=== PATIENT | female | born 1950 | race Caucasian/White ===

== ENCOUNTER 2019-12-06 00:54 | Outpatient (CLI) | payer BC, MEDICARE, SELFPAY ==
[2019-12-06 09:46] LABS: HCT 42.2 % (36.0-46.0); HGB 13.5 g/dL (12.0-15.5); Mean Corpuscular Volume 90.6 fL (80-95); Mean Platelet Volume 10.6 fL (8.0-11.0); Platelet Count 209 x1000/uL (130-400); RBC 4.66 m/cumm (4.00-5.20); White Blood Cell Count 9.85 k/cumm (4.4-10.8)
[2019-12-06 10:05] LABS: Hemoglobin A1C 6.4 % (3.8-5.6)
[2019-12-06 10:51] LABS: COMMENT (LAB VIEW ONLY) 83.74 mg/dL; Microalb ug/mg Crea 54.7 ug/mg Cr
[2019-12-06 11:12] LABS: ALT 18 U/L (14-59); AST 17 U/L (15-37); Albumin 3.5 g/dL (3.4-5.0); Alkaline Phosphatase 83 U/L (46-116); Anion Gap 8.2 mmol/L (3-11); BUN 23 mg/dL (7-18); Bilirubin, Total 0.4 mg/dL (0.2-1.0); CO2 30.8 mmol/L (21.0-32.0); CREATININE 1.16 mg/dL (0.55-1.02); Calcium 9.2 mg/dL (8.5-10.1); Calculated LDL 101 mg/dL (<100); Chloride 105 mmol/L (98-107); Cholesterol 174 mg/dL (<200); Estimated GFR 46.19 (mL/min/1.73m2); Glucose 75 mg/dL (74-106); HDL Cholesterol 55 mg/dL (40-60); Potassium 4.4 mmol/L (3.5-5.1); Sodium 144 mmol/L (136-145); Total Protein 6.7 g/dL (6.4-8.2); Triglyceride 90 mg/dL (<150); Vitamin B12 1141 pg/mL (193-986)
[2019-12-06 11:27] LABS: Folate > 20.0 ng/mL (8.6-20.0)
[2019-12-09 08:36] LABS: Vitamin D 25 Total 31.1 ng/ml (30-100)
== END 2019-12-06 01:14 ==
PROVIDERS: PCP Nurse Practitioner Adult Health; Visit Provider Nurse Practitioner Adult Health
DX: D64.9 Anemia, unspecified (principal); E11.9 Type 2 diabetes mellitus without complications; E53.8 Deficiency of other specified B group vitamins; E55.9 Vitamin D deficiency, unspecified; E78.5 Hyperlipidemia, unspecified; I10 Essential (primary) hypertension; N32.81 Overactive bladder; R20.0 Anesthesia of skin; R20.2 Paresthesia of skin; Z51.81 Encounter for therapeutic drug level monitoring
CPT/HCPCS: 36415; 80053; 80061; 82306; 85027; 82043; 82570; 82607; 82746; 83036

== ENCOUNTER 2020-07-31 07:53 | Outpatient (CLI) | payer BC, MEDICARE, SELFPAY ==
[2020-08-01 15:08] LABS: COVID-19 RT-PCR Result NEGATIVE (Negative)
== END 2020-07-31 08:13 ==
PROVIDERS: PCP Nurse Practitioner Adult Health; Visit Provider Internal Medicine Sleep Medicine
DX: Z11.59 Encounter for screening for other viral diseases (principal); Z01.818 Encounter for other preprocedural examination
CPT/HCPCS: U0003

== ENCOUNTER 2020-10-19 03:30 | Outpatient (CLI) | payer BC, MEDICARE, SELFPAY ==
[2020-10-20 21:24] LABS: COVID-19 RT-PCR Result NEGATIVE (Negative)
== END 2020-10-19 03:50 ==
PROVIDERS: PCP Nurse Practitioner Adult Health; Visit Provider Internal Medicine Sleep Medicine
DX: Z11.59 Encounter for screening for other viral diseases (principal); Z01.818 Encounter for other preprocedural examination
CPT/HCPCS: U0003

== ENCOUNTER 2021-11-10 01:41 | Outpatient (CLI) | payer MEDICARE, SELFPAY ==
[2021-11-10 09:54] LABS: HCT 43.1 % (36.0-46.0); HGB 13.6 g/dL (11.2-15.7); MCH 27.6 pg (27.0-33.0); MCHC 31.6 % (32.0-36.0); MCV 87.6 fL (80-95); MPV 10.8 fL (8.0-11.0); Platelet Count 215 10^3/uL (130-400); RBC 4.92 10^6/uL (3.93-5.22); RDW 13.7 % (11.7-14.6); RDW-SD 43.8 fL; WBC 9.03 10^3/uL (4.4-10.8)
[2021-11-10 10:35] LABS: Hemoglobin A1C 6.7 % (<5.7)
[2021-11-10 11:08] LABS: ALT 14 U/L (14-59); AST 15 U/L (15-37); Albumin 3.7 g/dL (3.4-5.0); Alkaline Phosphatase 81 U/L (46-116); Anion Gap 9.1 mmol/L (3-11); BUN 16 mg/dL (7-18); Bilirubin, Total 0.4 mg/dL (0.2-1.0); CO2 29.9 mmol/L (21.0-32.0); CREATININE 1.1 mg/dL (0.55-1.02); Calcium 9.3 mg/dL (8.5-10.1); Calculated LDL 136 mg/dL (<100); Chloride 103 mmol/L (98-107); Cholesterol 218 mg/dL (<200); Estimated GFR 48.82 (mL/min/1.73m2); Glucose 89 mg/dL (74-106); HDL Cholesterol 60 mg/dL (40-60); Potassium 4.8 mmol/L (3.5-5.1); Sodium 142 mmol/L (136-145); Triglyceride 112 mg/dL (<150)
[2021-11-11 00:42] LABS: Vitamin D 25 Total 42.2 ng/mL (30-100)
== END 2021-11-10 01:42 | disposition home or self-care (01) ==
LOC: LBO 01:41
PROVIDERS: PCP Nurse Practitioner Adult Health; Visit Provider Nurse Practitioner Adult Health
DX: I10 Essential (primary) hypertension (principal); E78.5 Hyperlipidemia, unspecified; E55.9 Vitamin D deficiency, unspecified; D64.9 Anemia, unspecified; E11.9 Type 2 diabetes mellitus without complications; Z79.4 Long term (current) use of insulin
CPT/HCPCS: 36415; 80053; 80061; 82306; 85027; 83036

== ENCOUNTER 2022-01-07 03:32 | Outpatient (CLI) | payer MEDICARE, SELFPAY ==
[2022-01-07 09:17] LABS: Abs Immature Grans 0.05 10^3/uL (0.0-0.06); Absolute Basophil Count 0.08 10^3/uL (0.0-0.2); Absolute Eosinophil Count 0.22 10^3/uL (0.0-0.7); Absolute Lymphocyte Count 2.47 10^3/uL (1.2-3.4); Absolute Neutrophil Count 5.84 10^3/uL (1.2-6.7); Basophils % 0.9; Eosinophils % 2.4; HGB 13.6 g/dL (11.2-15.7); Immature Grans % 0.6; Lymphocytes % 27.3; MCH 27.9 pg (27.0-33.0); MCHC 31.6 % (32.0-36.0); MCV 88.3 fL (80-95); MPV 10.9 fL (8.0-11.0); Monocytes % 4.4; Neutrophils % 64.4; Nucleated RBC 0 %; Platelet Count 214 10^3/uL (130-400); RBC 4.87 10^6/uL (3.93-5.22); RDW 13.2 % (11.7-14.6); RDW-SD 42.8 fL; WBC 9.06 10^3/uL (4.4-10.8)
[2022-01-07 09:30] LABS: Hemoglobin A1C 6.8 % (<5.7)
[2022-01-07 09:51] LABS: COMMENT (LAB VIEW ONLY) 143.69 mg/dL; Microalb ug/mg Crea 9.6 ug/mg Cr
[2022-01-07 10:28] LABS: ALT 16 U/L (14-59); AST 14 U/L (15-37); Albumin 3.8 g/dL (3.4-5.0); Alkaline Phosphatase 83 U/L (46-116); Anion Gap 9.6 mmol/L (3-11); BUN 16 mg/dL (7-18); Bilirubin, Total 0.4 mg/dL (0.2-1.0); CO2 28.4 mmol/L (21.0-32.0); CREATININE 1.1 mg/dL (0.55-1.02); Calcium 8.9 mg/dL (8.5-10.1); Calculated LDL 62 mg/dL (<100); Chloride 104 mmol/L (98-107); Cholesterol 134 mg/dL (<200); Estimated GFR 48.82 (mL/min/1.73m2); Folate 3.8 ng/mL (8.6-20.0); Glucose 128 mg/dL (74-106); HDL Cholesterol 55 mg/dL (40-60); Potassium 4.2 mmol/L (3.5-5.1); Sodium 142 mmol/L (136-145); TSH 1.68 uIU/mL (0.36-3.74); Total Protein 7.1 g/dL (6.4-8.2); Triglyceride 89 mg/dL (<150); Vitamin B12 339 pg/mL (193-986)
[2022-01-07 10:51] LABS: C-Reactive Protein 0.81 mg/dL (0.0-0.3); FREE T4 0.96 ng/dL (0.76-1.46)
[2022-01-09 23:57] LABS: Anaplasma phagocytophilum Negative (Negative); B. miyamotoi PCR Negative (Negative); Babesia divergens/MO-1 Negative (Negative); Babesia duncani Negative (Negative); Babesia microti Negative (Negative); Ehrlichia chaffeensis Negative (Negative); Ehrlichia ewingii/canis Negative (Negative); Ehrlichia muris eauclairensis Negative (Negative)
[2022-01-10 11:30] LABS: HIV-1/2 Ag & Ab Screen Negative (Negative)
[2022-01-10 14:37] LABS: Lyme Ab w Rflx to Lyme Confirm Negative (Negative)
== END 2022-01-07 03:33 | disposition home or self-care (01) ==
LOC: LBO 03:32
PROVIDERS: PCP Nurse Practitioner Adult Health; Visit Provider Nurse Practitioner Adult Health
DX: L74.4 Anhidrosis (principal); F32.9 Major depressive disorder, single episode, unspecified; E53.8 Deficiency of other specified B group vitamins; Z86.2 Personal history of diseases of the blood and blood-forming organs and certain disorders involving the immune mechanism; E11.9 Type 2 diabetes mellitus without complications; E78.2 Mixed hyperlipidemia; Z79.4 Long term (current) use of insulin
CPT/HCPCS: 36415; 80053; 80061; 87389; 87798; 82043; 82570; 82607; 82746; 83036; 84439; 84443; 85025; 86140; 86618

== ENCOUNTER 2022-01-26 03:10 | Outpatient (CLI) | payer MEDICARE, SELFPAY ==
[2022-01-28 10:06] LABS: Homocysteine 36.1 umol/L (5.0-13.9)
[2022-01-31 09:05] LABS: Methylmalonic Acid 0.24 nmol/mL (<=0.40)
== END 2022-01-26 03:11 | disposition home or self-care (01) ==
LOC: LBO 03:10
PROVIDERS: PCP Nurse Practitioner Adult Health; Visit Provider Nurse Practitioner Adult Health
DX: E53.8 Deficiency of other specified B group vitamins (principal)
CPT/HCPCS: 36415; 80186; 83090

== ENCOUNTER 2022-02-07 03:09 | Outpatient (CLI) | payer MEDICARE, SELFPAY ==
--- NOTE | 2022-02-07 15:28 | DI.MAMMO_ITS ---
Exam(s) MAMMO SCREENING EXAM: MAMMO SCREENING CLINICAL HISTORY: screening,Z12.39. TECHNIQUE: Bilateral full field digital CC and MLO mammographic images were obtained with 3D tomosyn thesis and utilizing computer aided detection (CAD). COMPARISON: Prior mammograms in [place] apparently not available and therefore this case is now being dictated. FINDINGS: No significant radiograph findings in left breast. In the right breast there is a group of microcalcifications located lateral of center, approximately 6 cm in from the nipple. Requires spot Mag views. In addition, there is a dense nodular density superiorly in the right breast is probably a calcified oil cyst, only seen on the MLO view. Recommend additional views including exaggerated CC. Another n odule more posteriorly which is noncalcified has appearance of probable benign lymph node. There is no significant architectural distortion nor skin thickening-retraction. IMPRESSION: 1. No radiographic evidence of malignancy in left breast. 2. Right breast findings which require additional views including spot Mag CC and MLO views of a velvet rocalcification group as well as a straight lateral view of this microcalcification group. Also avril tional exaggerated CC view.. BI-RADS Category 0 - Assessment Incomplete: Need additional imaging evaluation Breast Density - Category B - Scattered areas of fibroglandular density Breast density Category C or D implies that the patient has dense breast tissue. Dense breast tissue can make it harder to find cancer on a mammogram. Dense breast tissue is also associated with an incr eased risk of breast cancer. This information about the result of the mammogram report was provided to the patient to raise their awareness. Use this report when you speak with the patient about their risks for breast cancer, which includes their family history. At that time, you may recommend additional screening tests (Ultrasoun d or MRI) as these tests may add significant information. A negative radiographic report should not delay biopsy if a dominant or clinically suspicious mass is present. Up to ten percent of cancers are not identified on mammography. A negative report may reinforce clinical impression. Adenosis and dense breasts may obscure an underlying neoplasm. False positive reports average 6 to 10%. Patient will receive a letter notifying them of these results.
== END 2022-02-07 03:29 ==
PROVIDERS: PCP Nurse Practitioner Adult Health; Visit Provider Nurse Practitioner Adult Health
DX: Z12.31 Encounter for screening mammogram for malignant neoplasm of breast (principal); R92.8 Other abnormal and inconclusive findings on diagnostic imaging of breast
CPT/HCPCS: 77063; 77067

== ENCOUNTER → 2022-03-07 02:11 | Outpatient (CLI) | payer MEDICARE, SELFPAY ==
--- NOTE | 2022-03-07 14:31 | DI.MAMMO_ITS ---
Exam(s) MG MAMMO SCREEN CALL BACK UNI EXAM: MG MAMMO SCREEN CALL BACK UNI high INDICATION: F/U MAMMO, RT BREAST MICROCALCIFICATIONS. COMPARISON: No exams were available for comparison TECHNIQUE: Spot magnification cc and MLO views were performed. FINDINGS: Coarse, benign calcifications are noted. No suspicious calcifications. There is an area nodularity i n the superior breast consistent with a mole. IMPRESSION: BI-RADS Cat 2 - Benign Findings. Yearly screening mammography is recommended. If the patient's previous exams become available, an addendum will be issued.
== END ==
PROVIDERS: PCP Nurse Practitioner Adult Health; Visit Provider Nurse Practitioner Adult Health
DX: Z12.31 Encounter for screening mammogram for malignant neoplasm of breast (principal); R92.8 Other abnormal and inconclusive findings on diagnostic imaging of breast; R92.1 Mammographic calcification found on diagnostic imaging of breast
CPT/HCPCS: 77063; 77067

== ENCOUNTER → 2022-04-15 01:09 | Outpatient (CLI) | payer MEDICARE, SELFPAY ==
--- OUTSIDE RECORDS SUMMARY | 2022-04-15 01:28 | XMS_ITS | Encounter Summary ---
:1950 Demographics Home Phone Preferred Language Unknown Marital Status Unknown Mosque Affiliation Unknown Race Unknown Ethnic Group Unknown Author Organization [facility] Address [address] [place] [address] Care Team Providers Name Role Phone Unavailable Primary Care Provider Unavailable Encounter Details Date Type Department Care Team Description 07/31/2020 Lab Requisition [facility] Outr Resulting Lab, Pathology & Laboratory Provider [facility] [address] [place] [address] Social History Tobacco Use Types Packs/Day Years Used Date Never Assessed Sex Assigned at Date Recorded Not on file documented as of this encounter Plan of Treatment Not on filedocumented as of this encounter Procedures Procedure Name Priority Date/Time Associated Comments Diagnosis DO NOT ORDER Today 07/31/2020 9:12 EDT Results for this STANDALONE - BROAD procedure are in COVID TEST the results section. COVID-19 TESTING Routine 07/31/2020 9:12 EDT Resu lts for this procedure are i n the results section. documented in this encounter Results DO NOT ORDER STANDALONE - BROAD COVID TEST (07/31/2020 9:12 EDT) COVID-19 rt-PCR NEGATIVE Negative [facility] Result Comment: LABORATORY 2019-novel Coronavirus (2019 -nCoV) not detected by the qRT-PCR assay. Consider testing for other respiratory viruses or re-collecting for 2019-nCoV testing. Note: Optimum timing for peak viral levels du ring infections caused by 20 -nCoV have not been determined. Collection of multiple specimens from the same patient may be necessary to detect the virus. Limitations Positive results are indicat fatmata of active infection with SARS-CoV-2 but do not rule out bacterial infection or co-infection with other viruses. The agent detected may not be the definite cause of diseas e. In addition, detection of viral RNA may not indicate the presence of infectious virus or that SARS-CoV-2 is the causative agent for clinical symptoms. Negative results do not prec lude SARS-CoV-2 infection and should not be used as the sole basis for patient management decisions. Negative results must be combined with clinical observations, patient his tory, and epidemiological in formation. False negative results may also occur if amplification inhibitors are present in the specimen or if inadequate numbers of organisms are present in the specimen. Op timum specimen types and tree ing for peak viral levels during infections caused by SARS-CoV-2 have not been fully determined. Collection of multiple specimens (types and time points) from the same patient may be necessary to detect the virus. The test was validated for u with upper respiratory specimens obtained via nasopharyngeal or oropharyngeal swabs in VTM, UTM, M4, M5, M6, saline, and MTM media. The performance of this test has not be en established for other spe cimens. Specimens collected using other FDA recommended Specimen Collection Materials listed in the FDA COVID-19 [employer] communication (January 09, 2020) are pr ocessed with the caveat that they were not all validated for use with this test and the result must be interpreted in this context. Furthermore, a false negative results may occur if a specimen is improperly collected, transported or handled. If the virus mutates in the RT-PCR target region, SARS-CoV-2 may not be detected or may be detected less predictably. Inhibitors or other types of interference may produce a false negative result. An interference study evaluating the effect of common cold medications was not performed. This test is not FDA-cleared but its performance characteristics were established by our CLIA-certified, CAP-accredited, high complexity laboratory in accordance with CLIA regulations, [employer] (CAP) guidel gabe (Jan 02, 2020), and FDA guidance (Dec 14, 2019). This test is only for use un lilia the Food and Drug Administration's Emergency Use Authorization. Specimen Swab - Entire nasopharynx (body structur e) Performing Organization Address City/State/ZIP Code Phon e Number [facility] [place], [place] COVID-19 TESTING (07/31/2020 9:12 EDT) COVID-19 rt-PCR NEGATIVE Negative [facility] Result Comment: LABORATORY 2019-novel Coronavirus (2019 -nCoV) not detected by the qRT-PCR assay. Consider testing for other respiratory viruses or re-collecting for 2019-nCoV testing. Note: Optimum timing for peak viral levels du ring infections caused by 20 19-nCoV have not been determined. Collection of multiple specimens from the same patient may be necessary to detect the virus. Limitations Positive results are indicat fatmata of active infection with SARS-CoV-2 but do not rule out bacterial infection or co-infection with other viruses. The agent detected may not be the definite cause of diseas e. In addition, detection of viral RNA may not indicate the presence of infectious virus or that SARS-CoV-2 is the causative agent for clinical symptoms. Negative results do not prec lude SARS-CoV-2 infection and should not be used as the sole basis for patient management decisions. Negative results must be combined with clinical observations, patient his tory, and epidemiological in formation. False negative results may also occur if amplification inhibitors are present in the specimen or if inadequate numbers of organisms are present in the specimen. Op timum specimen types and tree ing for peak viral levels during infections caused by SARS-CoV-2 have not been fully determined. Collection of multiple specimens (types and time points) from the same patient may be necessary to detect the virus. The test was validated for u se with upper respiratory specimens obtained via nasopharyngeal or oropharyngeal swabs in VTM, UTM, M4, M5, M6, saline, and MTM media. The performance of this test has not be en established for other spe cimens. Specimens collected using other FDA recommended Specimen Collection Materials listed in the FDA COVID-19 [employer] communication (January 09, 2020) are pr ocessed with the caveat that they were not all validated for use with this test and the result must be interpreted in this context. Furthermore, a false negative results may occur if a specimen is improperly collected, transported or handled. If the virus mutates in the RT-PCR target region, SARS-CoV-2 may not be detected or may be detected less predictably. Inhibitors or other types of interference may produce a false negative result. An interference study evaluating the effect of common cold medications was not performed. This test is not FDA-cleared but its performance characteristics were established by our CLIA-certified, CAP-accredited, high complexity laboratory in accordance with CLIA regulations, [employer] (CAP) guidel gabe (Jan 02, 2020), and FDA guidance (Dec 14, 2019). This test is only for use un lilia the Food and Drug Administration's Emergency Use Authorization. Performing Lab [facility] LABORATORY SERVICES Specimen Swab Performing Organization Address City/State/ZIP Code Phon e Number [facility] [address] [place] [address] SERVICES [facility] [place], [place] documented in this encounter Visit Diagnoses Not on filedocumented in this encounter
--- OUTSIDE RECORDS SUMMARY | 2022-04-15 01:28 | XMS_ITS | Encounter Summary ---
:1950 Demographics Home Phone Preferred Language Unknown Marital Status Unknown Druze Affiliation Unknown Race Unknown Ethnic Group Unknown Author Organization [facility] Address [address] [place] [address] Care Team Providers Name Role Phone Unavailable Primary Care Provider Unavailable Encounter Details Date Type Department Care Team Description 10/19/2020 Lab Requisition [facility] Outr Resulting Lab, Pathology & Laboratory Provider [facility] [address] [place] [address] Social History Tobacco Use Types Packs/Day Years Used Date Never Assessed Sex Assigned at Date Recorded Not on file documented as of this encounter Plan of Treatment Not on filedocumented as of this encounter Procedures Procedure Name Priority Date/Time Associated Comments Diagnosis DO NOT ORDER Today 10/19/2020 13:06 Results for this STANDALONE - BROAD EST procedure are in COVID TEST the results section. COVID-19 TESTING Routine 10/19/2020 13:06 Results for this EST procedure are i n the results section. documented in this encounter Results DO NOT ORDER STANDALONE - BROAD COVID TEST (10/19/2020 13:06 EST) COVID-19 rt-PCR NEGATIVE Negative [facility] Result Comment: LABORATORY 2019-novel Coronavirus (2019 [...] Number [facility] [place], [place] COVID-19 TESTING (10/19/2020 13:06 EST) COVID-19 rt-PCR NEGATIVE Negative [facility] Result Comment: LABORATORY 2019-novel Coronavirus (2019 [...] Administration's Emergency Use Authorization. Performing Lab [facility] LABORATORY SERVICES Specimen Swab Performing Organization Address City/State/ZIP Code [facility] e Number [facility] [address] [place] [address] SERVICES [facility] [place], [place] documented in this encounter Visit Diagnoses Not on filedocumented in this encounter
--- OUTSIDE RECORDS SUMMARY | 2022-04-15 01:28 | XMS_ITS | Clinical Summary ---
:1950 Demographics Home Phone Preferred Language Unknown Marital Status Unknown Yazdanism Affiliation Unknown Race Unknown Ethnic Group Unknown Author Organization [facility] Address [address] [place] [address] Care Team Providers Name Role Phone Unavailable Primary Care Provider Unavailable Encounters Date Type Specialty Care Team Description 01/26/2022 Lab Requisition Clinical Laboratory Outr Resulting Lab , Provider from Last 3 Months Social History Tobacco Use Types Packs/Day Years Used Date Never Assessed Sex Assigned at Date Recorded Not on file Plan of Treatment Health Maintenance Due Date Last Done Comments Hepatitis C Screen 1950 COVID-19 Vaccine (1) 1955 Fall Risk Screening 2014 Procedures Procedure Name Priority Date/Time Associated Diagnosis Comme nts HOMOCYSTEINE Routine 01/26/2022 11:05 EDT Results for this procedure are i n the results section . from Last 3 Months Results (ABNORMAL) HOMOCYSTEINE (01/26/2022 11:05 EDT) Homocysteine 36.1 (H)Comment: 5.0 - 13.9 [facility] Results may be umol/L LABORATORY SERVICES falsely elevated if sample is not collected on ice or is not removed from cells within 1 hour of collection. Specimen Blood - Venous blood (substance) Narrative [facility] LABORATORY SERVICES - 01/28/2022 10:02 EDT Reference range may not apply to non-fas ting samples. ??It is not recommended that EDTA plasma and serum from the same bridgette ent be used interchangeably. ??Serum concentrations have been observed to be up to 10% higher than EDTA plasma. Reference range may not apply to serum results. Performing Organization Address City/State/ZIP Code Phon e Number [facility] [address] [place] [address] SERVICES from Last 3 Months
--- OUTSIDE RECORDS SUMMARY | 2022-04-15 01:28 | XMS_ITS | Encounter Summary ---
:1950 Demographics Home Phone Preferred Language Unknown Marital Status Unknown Caodaism Affiliation Unknown Race Unknown Ethnic Group Unknown Author Organization [facility] Address [address] [place] [address] Care Team Providers Name Role Phone Unavailable Primary Care Provider Unavailable Encounter Details Date Type Department Care Team Description 01/07/2022 Lab Requisition [facility] Outr Resulting Lab, Pathology & Laboratory Provider [facility] [address] [place] [address] Social History Tobacco Use Types Packs/Day Years Used Date Never Assessed Sex Assigned at Date Recorded Not on file documented as of this encounter Plan of Treatment Not on filedocumented as of this encounter Procedures Procedure Name Priority Date/Time Associated Comments Diagnosis HIV 1/2 ANTIGEN AND Routine 01/07/2022 9:00 EDT R esults for this ANTIBODY, 4TH procedure are in GENERATION the results section. documented in this encounter Results HIV 1/2 ANTIGEN AND ANTIBODY, 4TH GENERATION (01/07/2022 9:00 EDT) HIV 1 and 2 NegativeComment: If Negative [facility] Antibody/p24 acute HIV-1 LABORATORY Antigen, 4th infection is SERVICES Generation suspected in a high risk patient, submit plasma specimen for HIV-1 RNA quantitation test. Specimen Blood - Venous blood (substance) Narrative [facility] LABORATORY SERVICES - 01/10/2022 11:25 EDT Fourth Generation assay performed on the Siemens Centaur XPT. Performing Organization Address City/State/ZIP Code Phon e Number [facility] [address] [place] [address] SERVICES documented in this encounter Visit Diagnoses Not on filedocumented in this encounter
--- OUTSIDE RECORDS SUMMARY | 2022-04-15 01:28 | XMS_ITS | Encounter Summary ---
:1950 Demographics Home Phone Preferred Language Unknown Marital Status Unknown Anabaptist Affiliation Unknown Race Unknown Ethnic Group Unknown Author Organization [facility] Address [address] [place] [address] Care Team Providers Name Role Phone Unavailable Primary Care Provider Unavailable Encounter Details Date Type Department Care Team Description 01/26/2022 Lab Requisition [facility] Outr Resulting Lab, Pathology & Laboratory Provider [facility] [address] [place] [address] Social History Tobacco Use Types Packs/Day Years Used Date Never Assessed Sex Assigned at Date Recorded Not on file documented as of this encounter Plan of Treatment Not on filedocumented as of this encounter Procedures Procedure Name Priority Date/Time Associated Diagnosis Comme nts HOMOCYSTEINE Routine 01/26/2022 11:05 EDT Results for this procedure are i n the results section . documented in this encounter Results (ABNORMAL) HOMOCYSTEINE (01/26/2022 11:05 EDT) Homocysteine 36.1 (H)Comment: 5.0 - 13.9 [facility] Results may be umol/L LABORATORY SERVICES falsely elevated if sample is not collected on ice or is not removed from cells within 1 hour of collection. Specimen Blood - Venous blood (substance) Narrative [facility] LABORATORY SERVICES - 01/28/2022 10:02 EDT Reference range may not apply to non-fas ting samples. ??It is not recommended that EDTA plasma and serum from the same bridgette ent be used interchangeably. ??Serum concentrations have been observed to be up to 10% higher than EDTA plasma. Reference range may not apply to serum results. Performing Organization Address City/State/ZIP Code Phon e Number [facility] [address] [place] [address] SERVICES documented in this encounter Visit Diagnoses Not on filedocumented in this encounter
--- NOTE | 2022-04-15 07:53 | DI.CT_ITS ---
Exam(s) CT CHEST/ABD/PEL W EXAM: CT CHEST/ABD/PEL W CLINICAL HISTORY: nocturnal hyperhidrosis x5m,? ca,wt loss,r63.4,r61,elevated c reactive. TECHNIQUE: Imaging Protocol: Axial computed tomography images with coronal and sagittal reformatted images were created and reviewed CONTRAST MATERIAL: Intravenous: Omnipaque 350 Contrast volume:100 ml Oral: Yes. Oral contrast was administered. COMPARISON: No exams were available for comparison FINDINGS: CHEST: LUNGS: There is a 3 millimeter nodule in the right upper lobe. No other focal right lung findings. No pleural effusion.. In the left lung there are small nodular densities in the superior lingular se gment and adjacent lower lobe. Largest of these nodular densities measures 9 x 6 millimeters. There are no pleural effusions. No significant focal findings in the trachea and mainstem bronchi. No br onchiectasis. MEDIASTINUM: There is no hilar nor mediastinal adenopathy. Visualized thyroid unremarkable. CARDIAC: Heart size is normal. Mild coronary artery calcification noted. There is no pericardial ef fusion.Caliber of the thoracic aorta is within normal limits. OSSEOUS: No significant osseous lesions.. ABDOMEN: There is no ascites. LIVER: There are no focal hepatic lesions nor dilatation of intrahepatic ducts. GALLBLADDER/BILIARY: No obvious gallbladder pathology. CBD is not dilated. PANCREAS: No evidence of pancreatic mass nor dilatation of the pancreatic duct. SPLEEN: Spleen is not enlarged. There are no intrasplenic lesions. Splenic and portal veins are johnson nt. ADRENALS: There are no significant adrenal masses. KIDNEYS: No calculi nor hydronephrosis. No solid renal masses. There are 2 cysts in the left kidney. The larger of these 2 cysts is in the inferior pole and measures 1.5 x 1.6 cm. No solid renal lester s. No hydronephrosis. No hydroureter. No obvious findings in the nondistended urinary bladder. ABDOMINAL AORTA: Abdominal aorta is not enlarged. LYMPH NODES: There is no retroperitoneal nor paraaortic adenopathy. ABDOMINAL WALL: No evidence of significant anterior abdominal wall nor inguinal hernia. GI: There is no evidence of bowel obstruction. PELVIS: LYMPH NODES: Shotty lymph nodes are noted in both axillary regions. There is no gross intrapelvic ad enopathy. No adenopathy around the aortic bifurcation nor along the iliac chains. GI: No evidence of appendicitis.Appendix diameter is 5-6 millimeters. No appendicular lith. There i s no periappendiceal streaking. URINARY BLADDER: No calculi nor masses evident REPRODUCTIVE: There is a calcified 10 x 9 millimeters structure off the left side of the uterine fund us. This is either a calcified benign-appearing finding in the adjacent ovary or calcified exophytic fibroid. OSSEOUS: No significant osseous lesions. Multilevel chronic degenerative disc disease. Also degenerative anterolisthesis of L4 upon L5. IMPRESSION: 1. There are few left lung nodules ranging up to 9 millimeters in size. There is a solitary 3 millim eter nodule in the right lung. Recommend follow-up CT scan in 3 months. There is no intrathoracic a denopathy and there are no pleural effusions 2. Two benign-appearing cysts in the left kidney. No solid renal lesions. 3. 10 x 9 millimeter calcified structure off the lateral aspect of the left uterine fundus. This is either exophytic calcified fibroid or ovarian calcification. 4. There is no ascites in the abdomen and pelvis. RADIATION DOSE DELIVERED: 2,680.77mGy.cm Total DLP DATA REPOSITORY: All CT scans at this facility are submitted to the National Radiology Data Registry (NRDR) Dose Index Registry (DIR) with the [employer] (ACR). RADIATION OPTIMIZATION: All CT scans at this facility use at least one of these dose optimization te chniques: automated exposure control; mA and/or kV adjustment per patient size (includes targeted exa ms where dose is matched to clinical indication); or iterative reconstruction.
[2022-04-15] MEDS: Barium Sulfate 2% W/V-Berry Smoothie 450 ML BTL PO (09:03)
[2022-04-15] MEDS: Omnipaque 350 MG/ML 100 ML BTL IJ (10:48)
== END ==
PROVIDERS: PCP Nurse Practitioner Adult Health; Visit Provider Nurse Practitioner Adult Health
DX: N28.1 Cyst of kidney, acquired (principal); R91.8 Other nonspecific abnormal finding of lung field; N85.8 Other specified noninflammatory disorders of uterus; R79.82 Elevated C-reactive protein (CRP); R63.4 Abnormal weight loss; R61 Generalized hyperhidrosis; Z86.010 Personal history of colon polyps
CPT/HCPCS: 74177; 71260; J3490

== ENCOUNTER → 2022-08-01 01:45 | Outpatient (CLI) | payer MEDICARE, SELFPAY ==
--- NOTE | 2022-08-01 07:15 | DI.CT_ITS ---
Exam(s) CT CHEST W EXAM: CT CHEST W CLINICAL HISTORY: Interim 3m F/U lung nodules; NEW colon cancer-?met D49.0 R91.8 ABNL FINDING TECHNIQUE: Imaging Protocol: Axial computed tomography images with coronal and sagittal reformatted images were created and reviewed CONTRAST MATERIAL: Intravenous: Omnipaque 350Contrast volume:70 mL. COMPARISON: CT CT CHEST/ABD/PEL W from 04/15/2022 FINDINGS: Tracheobronchial tree: Patent where visualized. Pulmonary parenchyma: No consolidation or dominant measurable mass. No architectural distortion. Ther e is a stable 3 mm nodule in the right upper lobe. There is a stable 4 mm nodule in the more inferio r aspect of the right upper lobe. There is a stable nodular infiltrate in the left lingula. There a re no new pulmonary nodules. Mediastinum and Roxie: No dominant adenopathy or fluid collection. The esophagus is unremarkable. Thyroid gland: Unremarkable. Pleura: No effusion or pneumothorax. Heart: The heart is not dilated. Moderate coronary artery calcification is present. No pericardial e ffusion. Aorta: Thoracic aorta non-dilated. Atherosclerosis is present. Pulmonary arteries: The pulmonary arteries are not adequately opacified for evaluation of pulmonary e mboli. Upper abdomen: There is decreased attenuation of the liver suggesting fatty infiltration. There is a stable right renal cyst. Lymph nodes: Within normal limits. Bones: Within normal limits for the patient's age. Soft tissues: Unremarkable. IMPRESSION: 1. Stable pulmonary nodules. Follow-up examination in 6 months is recommended for re-evaluation. 2. No acute pulmonary process. RADIATION DOSE DELIVERED: 734.43mGy.cm Total DLP DATA REPOSITORY: All CT scans at this facility are submitted to the National Radiology Data Registry (NRDR) Dose Index Registry (DIR) with the [employer] (A[employer]). RADIATION OPTIMIZATION: All CT scans at this facility use at least one of these dose optimization te chniques: automated exposure control; mA and/or kV adjustment per patient size (includes targeted exa ms where dose is matched to clinical indication); or iterative reconstruction.
[2022-08-01 14:35] LABS: Estimated GFR 59.49 (mL/min/1.73m2)
[2022-08-01] MEDS: Omnipaque 350 MG/ML 500 ML BTL-Imaging package IJ (14:56)
[2022-08-01] MEDS: Normal Saline Flush 10 ML SYR IVP (14:57)
== END ==
PROVIDERS: PCP Nurse Practitioner Adult Health; Visit Provider Nurse Practitioner Adult Health
DX: R91.8 Other nonspecific abnormal finding of lung field (principal); D49.0 Neoplasm of unspecified behavior of digestive system
CPT/HCPCS: 71260; 82565

== ENCOUNTER 2022-09-04 10:17 | Emergency (ER) | payer MEDICARE, SELFPAY ==
--- NOTE | 2022-09-04 | DI.RAD_ITS ---
Exam(s) XR CHEST 1V IN DI DEPT EXAM: XR CHEST 1V IN DI DEPT CLINICAL HISTORY: PORT CHECK TO SEE IF CT POWER INJECTABLE TECHNIQUE: 2D digital imaging was performed. COMPARISON: No exams were available for comparison FINDINGS: Right-sided port. LUNGS: Clear. No pleural abnormality seen. HEART: Normal. AORTA: Normal. BONES: Unremarkable for age. Soft tissues: Unremarkable. IMPRESSION: No acute findings. DATA REPOSITORY: RADIATION DOSE DELIVERED:
[2022-09-04 10:33] VITALS: BP 120/67; PULSE 127; RESP 18; TEMP 37.3; O2SAT 96
[2022-09-04 13:44] LABS: Bilirubin Moderate (Negative); Blood Negative (Negative); Clarity Sl Cloudy (Clear); Glucose Negative (Negative); Ketones Negative (Negative); Leukocyte Esterase Small (Negative); Nitrite Negative (Negative); Specific Gravity >= 1.030 (1.005-1.025)
[2022-09-04 13:47] LABS: COVID-19 PCR Negative (Negative); Influenza A PCR Negative (Negative); Influenza B PCR Negative (Negative); RSV PCR Negative (Negative)
[2022-09-04 13:53] LABS: Source Nasopharynx
[2022-09-04] MEDS: Normal Saline 500 ML IV (13:53)
[2022-09-04 14:05] LABS: Bacteria Few HPF (Negative); C & S Indicated? Yes; Casts 3-5 Fine Granular LPF (Negative); Crystals Few Amorphous HPF (Negative); Epithelial Cells Few HPF (Negative); Mucus Negative (Negative); RBC Negative HPF (0-2)
[2022-09-04 15:29] LABS: D-Dimer 4389 ng/mlFEU (<500)
--- NOTE | 2022-09-04 15:30 | DI.CT_ITS ---
Exam(s) CT CHEST PE CTA EXAM: CT CHEST PE CTA CLINICAL HISTORY: elevated ddimer, cancer, tachycardic. TECHNIQUE: Imaging Protocol: Axial CT angiography was performed with multi-slice acquisition and mu lti-planar reconstructions as well as axial, coronal and sagittal MIP reconstructions. CONTRAST MATERIAL: Intravenous: Omnipaque 350 Contrast volume:100 ml COMPARISON: CT CT CHEST W from 08/01/2022 FINDINGS: Pulmonary Arteries: No evidence of filling defect to suggest pulmonary emboli. Tracheobronchial tree: Patent where visualized. Mediastinum and Roxie: No dominant adenopathy or fluid collection. Pulmonary parenchyma: No consolidation. Stable appearance of small bilateral pulmonary nodules. Pleura: No effusion or pneumothorax. Heart: The heart is not dilated. No coronary artery calcifications are seen. Aorta: Thoracic aorta non-dilated. No aneurysm. No dissection. Atherosclerotic changes. Upper abdomen: Enlarged fatty liver. Bones: Prominent degenerative disc changes. No compression fracture. Tubes, Catheters, and Lines: Port over right upper chest. IMPRESSION: No evidence of pulmonary embolism. Stable small bilateral pulmonary nodules. RADIATION DOSE DELIVERED: 557.07mGy.cm Total DLP DATA REPOSITORY: All CT scans at this facility are submitted to the National Radiology Data Registry (NRDR) Dose Index Registry (DIR) with the [employer] (ACR). RADIATION OPTIMIZATION: All CT scans at this facility use at least one of these dose optimization te chniques: automated exposure control; mA and/or kV adjustment per patient size (includes targeted exa ms where dose is matched to clinical indication); or iterative reconstruction.
[2022-09-04] MEDS: Omnipaque 350 MG/ML 100 ML BTL IJ (16:27)
--- NOTE | 2022-09-04 16:30 | DI.VRAD_ITS ---
PROCEDURE INFORMATION: Exam: XR Chest Exam date and time: 09/04/2022 4:21 PM Age: 72 years old Clinical indication: Other: Port check to see if CT injectable TECHNIQUE: Imaging protocol: Radiologic exam of the chest. Views: 1 view. COMPARISON: CT CHEST W 08/01/2022 2:57 PM FINDINGS: Tubes, catheters and devices: Right-sided Port-A-Cath in place. Lungs: Unremarkable. No consolidation. Pleural spaces: Unremarkable. No pleural effusion. No pneumothorax. Heart/Mediastinum: Unremarkable. No cardiomegaly. Bones/joints: Unremarkable. IMPRESSION: No evidence for acute abnormality in the chest. Dictated and Authenticated by: Carolyn Powell MD. Ordering:ROMEL Oshea MD
--- NOTE | 2022-09-04 16:38 | DI.VRAD_ITS ---
PROCEDURE INFORMATION: Exam: CTA Chest With Contrast Exam date and time: 09/04/2022 4:21 PM Age: 72 years old Clinical indication: Other: Elevated d-dimer, CA, tachycardia TECHNIQUE: Imaging protocol: Computed tomographic angiography of the chest with contrast. 3D rendering (Not supervised by radiologist): MIP and/or 3D reconstructed images were created by the technologist. Radiation optimization: All CT scans at this facility use at least one of these dose optimization techniques: automated exposure control; mA and/or kV adjustment per patient size (includes targeted exams where dose is matched to clinical indication); or iterative reconstruction. Contrast material: OMNIPAQUE 350; Contrast volume: 100 ml; Contrast route: INTRAVENOUS (IV); COMPARISON: CT CHEST W 08/01/2022 2:57 PM FINDINGS: Tubes, catheters and devices: Right-sided Port-A-Cath in place. Pulmonary arteries: Normal. No pulmonary emboli. Aorta: Unremarkable. No aortic aneurysm. No aortic dissection. Lungs: See Pleural spaces finding. Pleural spaces: Minimal left-sided pleural scarring is unchanged from previous exam. No acute parenchymal process noted. Heart: Unremarkable. No cardiomegaly. No pericardial effusion. Lymph nodes: Unremarkable. No enlarged lymph nodes. Bones/joints: Unremarkable. No acute fracture. Soft tissues: Unremarkable. IMPRESSION: No evidence for pulmonary embolus. Dictated and Authenticated by: Carolyn Powell MD. Ordering:ROMEL Oshea MD
--- NOTE | 2022-09-04 16:44 | ED.GENADUL_ITS ---
Discharge Plan Disposition Patient Disposition: Home Condition: Stable Discharge Details Clinical Impression: Fever, Chemotherapy adverse reaction, Thrombocytopenia, Transaminitis Primary Care Provider: Elisa Pa ED Provider: Dayo Gill Home Meds and New Rx's Prescriptions: Continued loratadine 10 mg tablet 10 mg PO DAILY solifenacin [Vesicare] 5 mg tablet 5 mg PO DAILY Qty: 90 3RF Rx Instructions: Overactive bladder rosuvastatin 10 mg tablet 10 mg PO HS Qty: 90 3RF Rx Instructions: Stop Simvastatin & switch to Rosuvastatin cholecalciferol (vitamin D3) 25 mcg (1,000 unit) capsule 50 mcg PO DAILY sertraline 50 mg tablet 50 mg PO DAILY MDD 50mg/24h Qty: 90 3RF lisinopril 20 mg tablet 20 mg PO DAILY Qty: 90 3RF Rx Instructions: Blood pressure Trulicity 1.5 mg/0.5 mL pen injector 1.5 mg SC QWEEK Qty: 6 6RF Rx Instructions: For diabetes Lantus Solostar U-100 Insulin 100 unit/mL (3 mL) insulin pen See Rx Instructions .ROUTE .COMPLEX MDD 70 units/day Qty: 90 0RF Dose Instruction: INJECT 70 UNITS SUBCUTANEOUSLY EVERY MORNING & 20 UNITS EVERY EVENING FOR DIABETES MELLITUS NOT TO EXCEED 100 UNITS DAILY Rx Instructions: 40 units daily for diabetes; (DME) FreeStyle Sly 14 Day Sensor Kit See Rx Instructions .ROUTE .COMPLEX Qty: 2 6RF Dose Instruction: USE TO TEST BLOOD GLUCOSE DIRECTED FOR A1C GOAL LESS THAN 8% Rx Instructions: USE TO TEST BLOOD GLUCOSE DIRECTED FOR A1C GOAL LESS THAN 7% (DME) flash glucose scanning reader [facility] See Rx Instructions .ROUTE .MEDSUPPLY Qty: 1 11RF Rx Instructions: As directed for E11.9 for goal A1C <8% (DME) pen needle, diabetic [Comfort EZ Pen [place]] 32 gauge x 5/32 needle See Rx Instructions .ROUTE .MEDSUPPLY Qty: 100 3RF Rx Instructions: E11.9 to administer insulin daily for goal A1C <7% pantoprazole 40 mg tablet,delayed release (DR/EC) See Rx Instructions .ROUTE .COMPLEX Qty: 90 3RF Dose Instruction: TAKE 1 TABLET BY MOUTH EVERY MORNING Rx Instructions: TAKE 1 TABLET BY MOUTH EVERY MORNING Discharge Instructions Additional Instructions: Please follow-up with your oncologist. Call tomorrow. You should have repeat blood work performed this week. Return to the emergency department for any worsening or new concerning symptoms including recurrent and persistent high fever. Blood cultures are pending at time of discharge. If these grow bacteria you will be contacted to seek immediate care. Referrals: Elisa Pa, B[employer] OPERATOR [Primary Care Provider] - Medical Decision Making 72-year-old female with a history of colon cancer recently started chemotherapy 2 days ago, here with fever, myalgias and generally not feeling well. Patient is tachycardic. Normotensive. Labs reviewed and no neutropenia, transaminitis and mild thrombocytopenia noted. COVID/RSV/flu negative. D-dimer is elevated. Proceeded to CT of the chest to assess for pulmonary embolism. CT was interpreted by radiology: No evidence for pulmonary embolism. Minimal left-sided pleural scarring is unchanged from previous exam with no acute parenchymal process noted. Patient was given IV fluid bolus and reassessed and heart rate improved. She notes she is feeling better. I suspect lab abnormalities and symptoms related to chemotherapy given timing. I will send blood cultures, acute hepatitis panel as well as tick panel. I called and spoke with the patient's oncology team, physician surgeon Dr. Little, and discussed ED presentation course including diagnostics. She recommends discharge with outpatient follow-up and repeat testing and will communicate with Dr. Atwood. She does recommend the patient return immediately for positive blood cultures or worsening persistent fever. All results were discussed with the patient. Discharge plan discussed with the patient. She understands importance of timely follow-up and need for repeat labs. She will communicate with her oncology team. She understands she should return immediately for any worsening or new concerning symptoms. Lab Data Lab results reviewed: Yes I reviewed the patient's lab results. Labs: 09/04/22 13:38 Urine - Reflex from Ua Urine Culture - Pending 09/04/22 13:30 Blood Blood Culture - Pending 09/04/22 13:20 Blood Blood Culture - Pending Laboratory Tests Range/Units 09/04/22 09/04/22 09/04/22 13:00 13:38 14:30 D-Dimer (<500) ng/mlFEU 4389 H Urine Color (Yellow) Dark Yellow Urine Clarity (Clear) Sl Cloudy Urine pH (5-8) 6.0 Ur Specific [place] (1.005-1.025) >= 1.030 H Urine Protein (Negative) mg/dL 100 H Urine Ketones (Negative) mg/dL Negative Urine Blood (Negative) Negative Urine Nitrite (Negative) Negative Urine Bilirubin (Negative) Moderate H Urine Urobilinogen (Up TO 0.2) EU/dL 1.0 H Ur Leukocyte Esterase (Negative) Small H Urine RBC (0-2) HPF Negative Urine WBC (0-5) HPF 3-5 Ur Epithelial Cells (Negative) HPF Few Urine Crystals (Negative) HPF Few Amorphous Urine Bacteria (Negative) HPF Few Urine Casts (Negative) LPF 3-5 Fine Granular Urine Mucus (Negative) Negative Ur Culture Indicated? Yes Urine Glucose (Negative) mg/dL Negative COVID-19 Source Nasopharynx SARS-CoV-2 (PCR) (Negative) Negative Influenza Type A (PCR) (Negative) Negative Influenza Type B (PCR) (Negative) Negative RSV (PCR) (Negative) Negative Sign Out No HPI General Mode of arrival: ambulatory . Date/Time Provider Initiated Documentation: 09/04/22 10:30 . Limitations to Documentation: no limitations . Information obtained by: patient . HPI Narrative: 72-year-old female with history of colon cancer, sent from the infusion center with concern for fever. Patient started chemotherapy on Monday. She developed fever yesterday. Fever has been mild to moderate. He has associated nasal drip, body aches and some shortness of breath with exertion. She does have mild headache as well. No neck pain no rash. Patient denies chest pain. No dysuria or increased urinary frequency. Related Data Home Medications Medication Instructions Recorded Confirmed loratadine 10 mg tablet 10 mg PO DAILY 11/28/19 09/04/22 flash glucose scanning reader #1 ea 05/28/21 08/01/22 solifenacin 5 mg tablet (Vesicare) 5 mg PO DAILY #90 tabs 11/26/21 09/04/22 rosuvastatin 10 mg tablet 10 mg PO HS #90 tabs 11/30/21 09/04/22 pen needle, diabetic 32 gauge x #100 ea 12/02/21 08/01/22 (Comfort EZ Pen [place]) pantoprazole 40 mg tablet,delayed See Rx Instructions .Route 12/21/21 09/04/22 release .COMPLEX #90 tabs cholecalciferol (vitamin D3) 25 50 mcg PO DAILY 01/14/22 09/04/22 mcg (1,000 unit) capsule dulaglutide 1.5 mg/0.5 mL 1.5 mg (0.5 mL) subcut QWEEK #6 mL 05/21/22 09/04/22 subcutaneous pen injector (Trulicity) lisinopril 20 mg tablet 20 mg PO DAILY #90 tabs 05/21/22 09/04/22 sertraline 50 mg tablet 50 mg PO DAILY #90 tabs 05/21/22 09/04/22 flash glucose sensor (FreeStyle #2 ea 08/01/22 08/01/22 Sly 14 Day Sensor kit) insulin glargine 100 unit/mL (3 See Rx Instructions .Route 08/01/22 09/04/22 mL) subcutaneous pen (Lantus .COMPLEX #90 mL Solostar U-100 Insulin) Previous Rx's Medication Instructions Recorded flash glucose scanning reader #1 ea 05/28/21 solifenacin 5 mg tablet (Vesicare) 5 mg PO DAILY #90 tabs 11/26/21 rosuvastatin 10 mg tablet 10 mg PO HS #90 tabs 11/30/21 pen needle, diabetic 32 gauge x #100 ea 12/02/21 (Comfort EZ Pen [place]) pantoprazole 40 mg tablet,delayed See Rx Instructions .Route 12/21/21 release .COMPLEX #90 tabs dulaglutide 1.5 mg/0.5 mL 1.5 mg (0.5 mL) subcut QWEEK #6 mL 05/21/22 subcutaneous pen injector (Trulicity) lisinopril 20 mg tablet 20 mg PO DAILY #90 tabs 05/21/22 sertraline 50 mg tablet 50 mg PO DAILY #90 tabs 05/21/22 flash glucose sensor (FreeStyle #2 ea 08/01/22 Sly 14 Day Sensor kit) insulin glargine 100 unit/mL (3 See Rx Instructions .Route 08/01/22 mL) subcutaneous pen (Lantus .COMPLEX #90 mL Solostar U-100 Insulin) Allergies Allergy/AdvReac Type Severity Reaction Status Date / Time codeine Allergy Severe vomits Verified 09/04/22 18:22 ciprofloxacin [From Cipro] Allergy Mild rash, Verified 09/04/22 18:22 itching nitrofurantoin Allergy Mild rash Verified 09/04/22 18:22 [From Macrobid] rosiglitazone [From Avandia] Allergy swelling Verified 09/04/22 18:22 Sulfa (Sulfonamide Allergy rash Verified 09/04/22 18:22 Antibiotics) Cats Allergy Uncoded 09/04/22 18:22 Dust-Mold Allergy Uncoded 09/04/22 18:22 General Stated Complaint: GenMedical ANDRE: 3 Review of Systems All systems reviewed & are unremarkable except as noted in HPI and below Constitutional Constitutional: Reports as per HPI, Reports body ache(s) and Reports fever(s) Respiratory Respiratory: Denies cough Gastrointestinal Gastrointestinal: Denies abdominal pain PFSH All Active Problems (Updated 09/04/22 @ 18:11 by Dayo Gill MD) Fever (Acute) Chemotherapy adverse reaction (Acute) Thrombocytopenia (Chronic) Transaminitis (Acute) 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, Staging pT4a, pNO Multiple lung nodules on CT (Chronic ~04/2022) 08/01/22 stable pulmonary nodules, f/u 6 mos Low folic acid (Acute) Elevated C-reactive protein (CRP) (Acute) Mixed stress and urge incontinence (Chronic) RX Vesicare (discontinuation trial 09/2021 unsuccessful); resumption Vesicare improved symptoms Periodic limb movement sleep disorder (Acute ~10/2020) Depression (Chronic) Long-term Lexapro RX (trialed off but ineffective; discont 01/2022 secondary to hyperhidrosis) Restarted Sertraline effective Obstructive sleep apnea of adult (Chronic) 11/02/20 Telehealth [facility], on CPAP Therapy. 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) use of non-steroidal anti-inflammatories (nsaid) (Chronic) Ibuprofen 2-3 times per day for knees Osteoarthritis of both knees (Chronic) Uses Ibuprofen 800mg BID; has trialed knee injections, but no longer effective; wants to avoid surgery/replacement; wants to resume yin yoga OAB (overactive bladder) (Chronic) With combined stress & urge incontinence-->Oxybutynin (failed), Vesicare helpful (tho dry mouth); RX Vesicare (discontinuation trial 09/2021 unsuccessful) Keratoconus (Chronic) B/L eye disease; corneal disease; managed by Ophthal; eye drops Hyperlipidemia (Chronic) Hypertension (Chronic) Type II diabetes mellitus (Chronic ~1979) Dx'ed ; Victoza, insulin Medical History Abnormal ECG ragadenoson nuclear stress test 08/07/17 Adenocarcinoma, colon (~04/2022) Anemia GI workup neg including capsule endoscopy, Faraheme iron infusions 11/2018 & 05/2019 w/ good results Asthma Allergy (environmental) induced; hasn't been on inhalers for >10 years (2019) Bilateral arm numbness and tingling while sleeping Episodic; manageable-->new mattress resolved issue Edema Folate deficiency Resolved 2019 folate >20 Generalized hyperhidrosis (~08/2021) Nocturnal--Lexapro discontinued & hyperhidrosis stopped Diagnosed with colon cancer GERD (gastroesophageal reflux disease) Graft rejection (~10/26/09) Hiatal hernia (~12/08/06) History of fracture of nasal bone Sessile colonic polyp (~2013) Stage II pressure ulcer of buttock Tubular adenoma (08/31/18) Vitamin D deficiency 2021 level 45 Surgical History H/O colonoscopy History of bladder surgery Sling--~2018 History of corneal transplant Endothelial Left (1979), Right (1983) [facility] ophthal surgeon--will cont to attend History of penetrating keratoplasty Left Eye (1979), Right Eye (1983) S/P left colectomy (~06/02/22) Dr Elizabeth, [facility] S/P vein stripping (~1966) Family History Mother Pancreatic cancer Brother Bladder cancer Diabetes Type 1 B-cell lymphoma Paternal Aunt Kidney malignant neoplasm Maternal Grandmother Lung cancer Father Heart disease Son Lymphedema Daughter Cystic fibrosis Uncle Hypertension Aunt Diabetes Type 2 Other Anxiety Depression Social History Smoking/Tobacco Use Status: Former Tobacco Use Quit Date: 10/16/74 Tobacco: How many years used: 5 Smoking risk assessment performed?: Yes Alcohol Intake: current Alcohol Intake frequency: holidays/special occasions only Alcohol type: beer Drug use: Never Substance use type: does not use Adopted: No Caregiver/Support person: No Foster care: No Household members: children Housing: house Do you need help understanding health information?: Rarely 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, [employer] [place] Pets and animals: Yes Pets and animals: dog(s) Sexually active: No Do you think of yourself as: straight/heterosexual Current gender identity: female Do you feel safe at home: Yes Do you feel safe in your relationship?: Yes Exam Const General: cooperative and no acute distress HENMT Mouth: moist mucous membranes Eyes Conjunctivae: normal conjunctivae Sclera: normal sclerae Neck Neck: trachea midline Resp Auscultation: clear to auscultation bilaterally, no rales, no rhonchi and no wheezes Cardio Rate: tachycardic Rhythm: regular rhythm Heart Sounds: no murmurs GI Palpation: soft, not firm, no guarding, no masses, not rigid and nontender Skin General skin exam: no rashes or lesions noted Other: No rash over port site Neuro General: patient alert, patient awake and tone normal Extrem General: no calf tenderness and no edema Psych Appearance: grossly normal Mental Status: mental status grossly normal Course Vital Signs Vital signs: Vital Signs Temperature 37.3 C 09/04/22 10:33 Pulse 127 H 09/04/22 10:33 Respiratory Rate 18 09/04/22 10:33 Blood Pressure 120/67 09/04/22 10:33 Pulse Oximetry 96 09/04/22 10:33 Temperature 37.3 C 09/04/22 10:33 Temperature Source Oral 09/04/22 10:33 Pulse 127 H 09/04/22 10:33 Respiratory Rate 18 09/04/22 10:33 Respiratory Effort Short of Breath 09/04/22 12:47 Respiratory Depth Normal 09/04/22 12:47 Respiratory Pattern Normal 09/04/22 12:47 Blood Pressure 120/67 09/04/22 10:33 Blood Pressure Position Sitting 09/04/22 10:33 Pulse Oximetry 96 09/04/22 10:33 Oxygen Delivery Method Room Air 09/04/22 10:33 Oxygen Flow Rate 0 09/04/22 10:33 Pain Level 3 09/04/22 10:33 Lab/Test Results Lab/Test Results: 09/04/22 13:38 Urine - Reflex from Ua Urine Culture - Pending 09/04/22 13:30 Blood Blood Culture - Pending 09/04/22 13:20 Blood Blood Culture - Pending Laboratory Tests Range/Units 09/04/22 09/04/22 09/04/22 13:00 13:38 14:30 D-Dimer (<500) ng/mlFEU 4389 H Urine Color (Yellow) Dark Yellow Urine Clarity (Clear) Sl Cloudy Urine pH (5-8) 6.0 Ur Specific [place] (1.005-1.025) >= 1.030 H Urine Protein (Negative) mg/dL 100 H Urine Ketones (Negative) mg/dL Negative Urine Blood (Negative) Negative Urine Nitrite (Negative) Negative Urine Bilirubin (Negative) Moderate H Urine Urobilinogen (Up TO 0.2) EU/dL 1.0 H Ur Leukocyte Esterase (Negative) Small H Urine RBC (0-2) HPF Negative Urine WBC (0-5) HPF 3-5 Ur Epithelial Cells (Negative) HPF Few Urine Crystals (Negative) HPF Few Amorphous Urine Bacteria (Negative) HPF Few Urine Casts (Negative) LPF 3-5 Fine Granular Urine Mucus (Negative) Negative Ur Culture Indicated? Yes Urine Glucose (Negative) mg/dL Negative COVID-19 Source Nasopharynx SARS-CoV-2 (PCR) (Negative) Negative Influenza Type A (PCR) (Negative) Negative Influenza Type B (PCR) (Negative) Negative RSV (PCR) (Negative) Negative
[2022-09-04] MEDS: Heparin 500 UNITS/5 ML SYRINGE (18:38)
[2022-09-04] MEDS: Ibuprofen 400 MG TAB PO (18:38)
[2022-09-05 19:07] LABS: Hepatitis A Antibody IgM Negative (Negative); Hepatitis B Core Antibody Negative (Negative); Hepatitis B surface Ag Negative (Negative); Hepatitis C Ab w Rflx HCV PCR Negative (Negative)
[2022-09-06 10:19] LABS: Lyme Ab w Rflx to Lyme Confirm Negative (Negative)
--- NOTE | 2022-09-06 13:22 | NUR.NOTE ---
Nursing Note: Accessed pt chart to see if pt put on antibiotics for culture
[2022-09-07 22:25] LABS: Anaplasma phagocytophilum Negative (Negative); B. miyamotoi PCR Negative (Negative); Babesia divergens/MO-1 Negative (Negative); Babesia duncani Negative (Negative); Babesia microti Negative (Negative); Ehrlichia chaffeensis Negative (Negative); Ehrlichia ewingii/canis Negative (Negative); Ehrlichia muris eauclairensis Negative (Negative)
== END 2022-09-04 18:38 | disposition home or self-care (01) ==
PROVIDERS: Emergency Provider Student in an Organized Health Care Education/Training Program; PCP Nurse Practitioner Adult Health
DX: T45.1X5A Adverse effect of antineoplastic and immunosuppressive drugs, initial encounter (principal); R79.89 Other specified abnormal findings of blood chemistry; J45.909 Unspecified asthma, uncomplicated; J98.4 Other disorders of lung; D69.6 Thrombocytopenia, unspecified; C18.9 Malignant neoplasm of colon, unspecified; Z20.822 Contact with and (suspected) exposure to COVID-19
CPT/HCPCS: 36410; 71275; 86704; 86709; 86803; 87040; 87340; 87637; 87798; 96361; 96374; 99284; 99285; 71045; 81003; 81015; 85379; 86618; 87086; J3490

== ENCOUNTER 2022-09-07 02:13 | Outpatient (RCR) | payer MEDICARE, SELFPAY ==
--- OUTSIDE RECORDS SUMMARY | 2022-09-02 01:05 | XMS_ITS | Encounter Summary ---
:1950 Author Organization [facility] [place] [address] Care Team Providers Name Role Phone Elisa Pa APRN Primary Care Provider Encounter Details Date Type Department Care Team Description 08/11/2022 Notes Only Radiology [place] [facility] [place] [facility] [place] [address] INTERVENTIONAL RADIOLOGY [phone] [place], [place] [address] (Wo rk) Social History Tobacco Use Types Packs/Day Years Used Date Smoking Tobacco: Never Smokeless Tobacco: Never Financial Resource Strain Answer Date Recorded How hard is it for you to pay for the very basics like Not v farnaz hard 08/10/2022 food, housing, medical care, and heating? Food Insecurity Answer Date Recorded Within the past 12 months, you worried that your food would Never true 08/10/2022 run out before you got money to buy more. Within the past 12 months, the food you bought just didn't N ever true 08/10/2022 last and you didn't have money to get more. Transportation Needs Answer Date Recorded In the past 12 months, has lack of transportation kept you f rom No 08/10/2022 medical appointments or from getting medications? In the past 12 months, has lack of transportation kept you f rom No 08/10/2022 meetings, work, or getting things needed for daily living? Housing Stability Answer Date Recorded In the last 12 months, was there a time when you were not ab le No 08/10/2022 to pay the mortgage or rent on time? In the last 12 months, how many places have you lived? 1 08/10/2022 In the last 12 months, was there a time when you did not hav e a No 08/10/[address] or slept in a long-term (including now)? Sex Assigned at Date Recorded Not on file documented as of this encounter H&P Notes Citlali Valadez MD - 08/11/2022 8:33 AM EDT INTERVENTIONAL RADIOLOGY FOCUSED H&P and PRE-PROCEDURE NOTE: PCP: Elisa Pa APRN Referring Provider: Dimitry Atwood MD Planned Procedure: Planned procedure: Mediport placement Procedure Indication: Colon Cancer, Need access for chemotherapy Procedure Request: Procedure request received through the Interventional Radiology eDH order queue. Presenting Diagnosis/ Complaint: Natalee Vargas is a 72 y.o. female with Colon Cancer now s/plaparoscopic extended left hemicolectomy 05/2022 who is currently being followed by Dr. Atwood. Pt isto start chemotherapy and is in need of durable venous access. Past Medical/Surgical History: Patient Active Problem List Diagnosis Code ??? 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 No past surgical history on file. - Extended L hemicolectomy 05/2022 Medications: Current Outpatient Medications on File Prior to Visit Medication Sig Dispense Refill ??? loratadine (CLARITIN) 5 mg/5 mL Solution Take by mouth. ??? lancets 30 gauge Misc Check blood sugar three times a day ??? cholecalciferol (Vitamin D3) 1,000 unit Tablet Take 1,000 Units by mouth Daily. ??? dulaglutide (Trulicity) 1.5 mg/0.5 mL Pen Injector Inject 1.5 mg subcutaneously Once a week. ??? Lantus Solostar U-100 Insulin 100 unit/mL (3 mL) pen ??? lisinopriL (Zestril) 10 mg Tablet Take 10 mg by mouth Daily. ??? pantoprazole EC (Protonix) 40 mg Tablet, Delayed Release (E.C.) ??? rosuvastatin (Crestor) 10 mg Tablet ??? sertraline (Zoloft) 50 mg Tablet ??? solifenacin (VESICARE) 5 mg Tablet Take by mouth. No current facility-administered medications on file prior to visit. Allergies: Ciprofloxacin (mixture), Codeine, Nitrofurantoin, and Sulfasalazine Social History and Habits: Social History Socioeconomic History ??? Marital status: Spouse name: Not on file ??? Number of children: Not on file ??? Years of education: Not on file ??? Highest education level: Not on file Occupational History ??? Not on file Tobacco Use ??? Smoking status: Never Smoker ??? Smokeless tobacco: Never Used Vaping Use ??? Vaping Use: Never used Substance and Sexual Activity ??? Alcohol use: Not on file ??? Drug use: Not on file ??? Sexual activity: Not on file Other Topics Concern ??? Not on file Social History Narrative ??? Not on file Social Determinants of Health Financial Resource Strain: Low Risk ??? Difficulty of Paying Living Expenses: Not very hard Food Insecurity: No Food Insecurity ??? Worried About Running Out of Food in the Last Year: Never true ??? Ran Out of Food in the Last Year: Never true Transportation Needs: No Transportation Needs ??? Lack of Transportation (Medical): No ??? Lack of Transportation (Non-Medical): No Physical Activity: Not on file Housing Stability: Low Risk ??? Unable to Pay for Housing in the Last Year: No ??? Number of Places Lived in the Last Year: 1 ??? Unstable Housing in the Last Year: No Significant Family History: No family history on file. Pertinent ROS: as per HPI Labs: Lab Results Component Value Date WBC 11.4 (H) 08/10/2022 HCT 40.1 08/10/2022 PLATELET 229 08/10/2022 BUN 16 08/10/2022 CREATININE 0.91 08/10/2022 ALKPHOS 88 08/10/2022 AST 18 08/10/2022 ALBUMIN 4.3 08/10/2022 BILITOT 0.2 08/10/2022 ALT 12 08/10/2022 PROT 7.6 08/10/2022 K 4.0 08/10/2022 Imaging: No pertinent imaging Physical Exam: Pending (to be performed in angio the day of procedure) ASA: Pending (to be assessed in angio the day of procedure) Mallampati Class: Pending (to be assessed in angio the day of procedure) Assessment: 72 y.o. female with colon cancer, due to begin chemotherapy, presenting for mediport placement. Plan: Planned procedure: Mediport placement Labs to be performed day of procedure: No labs Sedation: Moderate (Conscious sedation) Prophylactic antibiotic : None Contrast: No contrast Additional medications for procedure: Lidocaine Position: Supine Consent: Pending Medications to discontinue (and days held): None Citlali Valadez MD Interventional Radiology, PGY2 R1 08/11/22, 8:48 AM 08/11/2022 documented in this encounter Plan of Treatment Upcoming Encounters Date Type Specialty Care Team Description 09/02/2022 Office Visit Hematology and Oncology Dimitry Atwood MD [facility] [place] [address] Sury Griffin APRN [address] [place] [address] [place] [id number] 09/02/2022 Infusion Hematology and Oncology documented as of this encounter Visit Diagnoses Not on filedocumented in this encounter Care Teams Construction Consultant Relationship Specialty Start Date End Date Elisa Pa APRN PCP - General Geriatric Medicine 01/26/22 [facility] [address] [place], [place] [phone] documented as of this encounter
--- OUTSIDE RECORDS SUMMARY | 2022-09-02 01:05 | XMS_ITS | Encounter Summary ---
:1950 Author Organization [facility] [place] [address] Care Team Providers Name Role Phone Elisa Pa APRN Primary Care Provider Reason for Referral Diagnostic Test (Routine) - Closed Specialty Diagnoses / Procedures Referred By Contact Refer red To Contact Radiology Diagnoses Malignant neoplasm of transverse colon Dimitry Atwood MD [facility] Interventionl Rad Procedures IR Mediport Placement [facility] [place] [address] [place] [address] Referral ID Status Reason Start Date Expiration Date Visits V isits Requested Authorized [id number] Closed Specialty 08/10/2022 02/09/2024 1 1 Service Requested Reason for Visit Reason Comments Advice Only Consultation (Routine) - Closed Specialty Diagnoses / Procedures Referred By Contact Refer red To Contact Hematology and Diagnoses Malignant neoplasm of colon, unspecified part of colon Tu Elizabeth [facility] On[facility] [address]k Oncology [address] [phone] Fax: Referral ID Status Reason Start Date Expiration Date Visits V isits Requested Authorized [id number] Closed Consult, 07/07/2022 07/07/2023 1 1 Test & Treat Encounter Details Date Type Department Care Team Description 08/10/2022 Office Visit Hematology and Angelic, Russ Haywood nt neoplasm of Oncology at [facility] transverse colon [facility] [address] [place], [place]OGY [address] [place] [address] [phone] Social History Tobacco Use Types Packs/Day Years [...] place to sleep or slept in a custodial (including now)? Sex Assigned at Date Recorded Not on file documented as of this encounter Last Filed Vital Signs Vital Sign Reading Time Taken Comments Blood Pressure 139/59 08/10/2022 3:03 PM EDT Pulse 96 08/10/2022 3:03 PM EDT Temperature 36.3 ??C (97.3 ??F) 08/10/2022 3:03 PM EDT Respiratory Rate 20 08/10/2022 3:03 PM EDT Oxygen Saturation 95% 08/10/2022 3:03 PM EDT Inhaled Oxygen Concentration - - Weight 100.4 kg (221 lb 5.5 oz) 08/10/2022 3:03 PM EDT Height 157.4 cm (5' 1.97) 08/10/2022 3:03 PM EDT Body Mass Index 40.52 08/10/2022 3:03 PM EDT documented in this encounter Progress Notes Dimitry Atwood MD - 08/10/2022 2:45 PM EDT Subjective Patient ID: Natalee Vargas is 72 y.o. Problem List: 1. 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 H/o adenomatous colon polyps, referred for colonoscopy (prior exam was in 2018); Also had symptoms of night sweats and unintentional weight loss. Colonoscopy 05/12/22 - Partially obstructing mass in transverse colon, unable to traverse Path - A. TRANSVERSE COLON, BIOPSY: - At least intramucosal carcinoma; see comment. B. Staging CEA - 1.8 CT c/a/p 04/15/22 (done for evaluation of night sweats and weight loss) - Impression: 1. There are few left lung nodules ranging up to 9 mm in size. There is a solitary 3 mm nodule in the right lung. Recommend follow-up CT in 3 months. There is no intrathoracic adenopathy and there areno pleural effusions 2. Two benign appearing cysts in the left kidney. No solid renal lesions. 3. 10 x 9 mm calcified structure off the lateral aspect of the left uterine fundus. This is either exophytic calcified fibroid or ovarian calcification 4. There is no ascites in the abdomen or pelvis. C. 06/02/22 - Laparoscopic hand assisted extended left hemicolectomy 06/02/22 (Dr. Elizabeth) Path ([facility] review): SYNOPTIC Specimen ?Procedure: ??Left hemicolectomy Tumor ?Tumor Site: ??Descending colon ?Histologic Type: ??Adenocarcinoma ?Histologic Grade: ??G2, moderately differentiated ? Tumor Size: ??4.0 Centimeters (cm) ?Tumor Extent: ??Invades visceral peritoneum ?Macroscopic Tumor Perforation: ??Not identified ?Lymphovascular Invasion: ??Not identified ?Perineural Invasion: ??Not identified ?Treatment Effect: ??No known presurgical therapy Margins ?Margin Status for Invasive Carcinoma: ??All margins negative for invasive carcinoma ?Margin Status for Non-Invasive Tumor: ??All margins negative for high-grade dysplasia / intramucosal carcinoma and low-grade dysplasia Regional Lymph Nodes ?Regional Lymph Node Status: ??All regional lymph nodes negative for tumor ?Number of Lymph Nodes Examined: ??24 ?Tumor Deposits: ??Not identified Pathologic Stage Classification (pTNM, AJCC 8th Edition) ?pT Category: ??pT4a ?pN Category: ??pN0 Additional Findings ?Additional Findings: ??Iatrogenic tattoo pigment. ?CAP eCC 2021 Q1 Release Per report, ??immunostains for MLH1, MSH2, MSH6 and PMS2 reveal intact nuclear staining in tumor cells. ??In a very small percentage of tumors, there may still be an underlying hereditary defect in these DNA mismatch repair genes despite intact nuclear expression of the protein in tumor cells ?? . Genetic counseling and/or additional workup is indicated in patients with a family history that meets current criteria for Hart syndrome screening. D. CT chest 08/01/22 - Impression: 1. Stable pulmonary nodules. Follow up examination in 6 months is recommended for re-evaluation. 2. No acute pulmonary process 2. DM 3. Hyperlipidemia 4. Overactive bladder 5. S/p corneal grafts with subsequent rejection [facility] and [facility] of [facility] cancer. The history is summarized above. Natalee is accompanied to clinic today by her daughter, Savana. She is recovering well from the surgery. The incisions are well healed. She has a small pressure sore which has improved but is not completely healed. No areas of pain. Her bowels are regular. Her appetite ebbs and flows. She does have some early satiety. Her weight has stabilized since the surgery. She continues to have night sweats, but infrequently. She has numbness in her left hand for about the past year with some associated weakness. No symptoms of neuropathy in her RUE or in her LE. She is still fatigued. She notes that her taste is off. The diabetes is well controlled. Soc Hx: , Lives in [place], [place] with her daughter, Savana Tob - Quit at age 22. 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 Brother - bladder cancer; Children - 1 son, 2 daughter Maternal GM - Lung cancer, non-smoker Paternal Aunt - Kidney cancer Paternal GM - had colon cancer, at age 50 We talked about screening for colon cancer for her children beginning at age 40. Review of Systems Objective Physical Exam Vitals reviewed. Constitutional: General: She is not in acute distress. HENT: Head: Normocephalic and atraumatic. Mouth/Throat: Pharynx: Oropharynx is clear. No oropharyngeal exudate. Eyes: General: No scleral icterus. Cardiovascular: Rate and Rhythm: Normal rate and regular rhythm. Pulmonary: Effort: Pulmonary effort is normal. No respiratory distress. Breath sounds: No wheezing or rales. Chest: Breasts: Right: No supraclavicular adenopathy. Left: No supraclavicular adenopathy. Abdominal: General: There is no distension. Palpations: There is no mass. Tenderness: There is no abdominal tenderness. There is no guarding. Musculoskeletal: General: No swelling. Lymphadenopathy: Cervical: No cervical adenopathy. Upper Body: Right upper body: No supraclavicular adenopathy. Left upper body: No supraclavicular adenopathy. Skin: General: Skin is warm and dry. Findings: No rash. Neurological: General: No focal deficit present. Mental Status: She is alert. Coordination: Coordination normal. Psychiatric: Mood and Affect: Mood normal. Assessment and Plan Natalee Vargas is 72 yo, seen for evaluation and management of colon cancer. She has a h/o adenomatous polyps and underwent a screening colonoscopy on 05/12/22. A malignant appearing partially obstructing mass was seen in the transverse colon. The cope could not be passed beyondthe mass. A biopsy of the mass was performed and read as showing at least intramucosal carcinoma. The CEA was 1.8. A CT c/a/p had been done on 04/15/22 for evaluation of night sweats and unintentional weight loss. Small pulmonary nodules were seen (up to 9 mm on the left and a 3 mm nodule on the right). The liver wasnegative. A f/u exam was recommended in 3 moths for further evaluation of the lung nodules. A repeatCT was done on 08/01/22 and read as stable. A f/u exam was recommended in 6 months. On 06/02/22 she underwent a laparoscopic hand assisted extended left hemicolectomy 06/02/[address] Elizabeth. The path was reviewed at [facility], report above - moderately differentiated adenocarcinoma, T4a with invasion of the visceral peritoneum. 24 LNs were seen, all negative, N0. The margins of resection were negative. There was no LVI or PNI. IHC for MMR proteins shows intact staining. We reviewed the diagnosis, prognosis and treatment. If the lung nodules are not related to the underlying colon cancer, this would represent stage IIB colon cancer. Adjuvant chemotherapy is not routinely recommended for patients with stage II disease but may be recommended in patients with high risk features. In her case the T4 stage of the primary tumor represents a high risk feature and in this circumstance chemotherapy is reasonable to consider. Options for chemotherapy include a fluoropyrimidinealone or in combination with oxaliplatin. The duration of of therapy is 3-6 months. If 3 months is chosen, Capox is the preferred regimen. If folfox were chosen, 6 months would be the preferred duration, with oxaliplatin given for the first 3 months and omitted thereafter. If a fluoropyrimidine alone were chosen, 6 months would be the preferred duration. The magnitude of benefit overall is not well defined but data from the ASCO meta-analysis of 6 retrospective trials showed an OS survival benefit for patients with stage II, T4 disease who received chemotherapy. The absolute benefit was about 14%. Similarly, other studies have shown a relapse free survival advantage. We talked about options of oral capecitabine, capox (oral capecitabine plus IV oxaliplatiin) and folfox (IV 5FU plus IV oxaliplatin). We discussed the schedules of therapy. The oxaliplatin containing regimens may provide additional risk reduction. Capox may be associated with more acute toxicity than Folfox due to the higher dose of oxaliplatin and the use of capecitabine. After discussion, the thought is to go ahead with Folfox x 6 months but with omission of Folfox after 3 months, although she is going to thin about it and let me know if she changes her mind. Assuming we will go ahead, I will arrange for mediport placement and for her to start chemotherapy after that, in [facility]. Potential side effects include nausea, vomiting, stomatitis, diarrhea, dehydration, myelosuppressionwith associated risks of bleeding and infection, peripheral neuropathy which may be exacerbated by cold exposure but which may be cumulative and permanent even in the absence of cold, angina/OK, hyperse nsitivity reactions and others. She was given informational handouts regarding the folfox. The option of participating in clinical trial [id number] was mentioned today and will be discussed further at f/u. Blood will be drawn today for baseline labs as well as DPYD to be sure she doesn't have a variant which may put her at higher risk for severe fluoropyrimidine related toxicity. This may not be covered by insurance and therefore may result in a charge to the patient. If this were the case, the estimated cost is around 200$. She would like to have that done and signed a waiver to that effect which willbe scanned into her chart. The result will need to be reviewed prior to beginning therapy. In terms of timing of the chemotherapy, it has been over two months since surgery so we would like to proceed soon. documented in this encounter Plan of Treatment Upcoming Encounters Date Type Specialty Care Team Description 09/02/2022 Office Visit Hematology and Oncology Dimitry Atwood MD [facility] [place] [address] Sury Griffin, [address] [place] [address] 09/02/2022 Infusion Hematology and Oncology Scheduled Orders Name Type Priority Associated Diagnoses Order S chedule CBC (with Diff) Lab Routine Malignant neoplasm of Nata ry 2 Weeks for 12 transverse colon Occurrences starting 08/10/2022 unti l 08/10/2023 Comprehensive metabolic Lab Routine Malignant neoplas m of Every 2 Weeks for 12 panel (non-fasting) transverse colon Occu rrences starting 08/10/2022 unti l 08/10/2023 documented as of this encounter Procedures Procedure Name Priority Date/Time Associated Comments Diagnosis HC VENIPUNCTURE Routine 08/10/2022 4:37 PM Malignant neoplasm Results for this EDT of transverse colon procedur e are in the results section. HEMOGRAM Routine 08/10/2022 4:37 PM Malignant neoplasm Res ults for this EDT of transverse colon procedur e are in the results section. DIFFERENTIAL, Routine 08/10/2022 4:37 PM Malignant neoplasm Re sults for this AUTOMATED EDT of transverse colon procedur e are in the results section. HC CBC,PLT & AUTO DIFF Routine 08/10/2022 4:37 PM Malignant ne oplasm EDT of transverse colon HC CARCINO-EMBRYONIC Routine 08/10/2022 4:37 PM Malignant neop lasm Results for this AG ASSAY EDT of transverse colon procedur e are in the results section. COMPREHENSIVE Routine 08/10/2022 4:37 PM Malignant neoplasm Re sults for this METABOLIC PANEL EDT of transverse colon proce dure are in (NON-FASTING) the results section. documented in this encounter Results IR Mediport Placement (08/29/2022 2:32 PM EST) Anatomical Region Laterality Modality X-Ray Angiography Specimen (Source) Anatomical Location Collection Method / Collectio n Time Received Time / Laterality Volume Narrative 08/30/2022 10:52 AM EST Preoperative Diagnosis: Colon cancer Postoperative Diagnosis: ??Same Procedure Performed: Right chest Port Pl acement. Estimated Blood Loss: Less than 25 cc. Fluoroscopy time: ? min Anesthesia: 1. Conscious sedation with titrated Fent anyl with or without Versed during continuous hemodynamic monitoring includ ing pulse oximetry, heart rate and blood pressure was provided by an indepe ndent qualified trained Nurse. ?? I, the physician spent 20 minutes of fac e to face sedation time with the patient. ??Please see nursing notes for exact medication dosages. 2. 1% lidocaine, local. The patient was informed of the risks, b enefits, and alternatives to the procedure and gave written consent, whic h was then placed in the chart. Appropriate time-out was performed prior to the procedure. Cefazolin/ cefuroxime was not ordered fo r antimicrobial prophylaxis as it is not indicated or strongly backed by t he medical literature. Description of Procedure: ??All elements of maximal sterile barrier technique were met including cap, mask, sterile gown, sterile gloves, large sterile sheet, hand hygiene and 2% chlorhexidine for cutaneous antisepsis. Ultrasound of the right neck demonstrate s a widely patent right internal jugular vein. An image was stored for do cumentation. The right neck and chest was prepped and draped in the usual sterile fashion. ??Local anesthetic was administ ered. ??Using direct ultrasound guidance, the right internal jugular vei n was punctured, and wire is advanced to the level of the IVC. Using local anesthetic, as well as blunt and sharp dissection, a subcutaneous poc ket was created along the right anterior chest wall. The port was assemb led and delivered into the pocket. The port tubing was tunneled to the orig inal venotomy site and trimmed to the appropriate length. A peel-away alexander th was advanced over the original venotomy wire to the level of the superi or vena cava. During breath-hold, the port tubing was inserted through the peel-away sheath to the level of the superior vena cava. The peel-away sh eath was removed. A spot fluoroscopic image demonstrates the port to be in good position with the catheter tip at the cavoatrial junction. The port pocket was closed using deep, a s well as running subcuticular resorbable sutures. Sterile dressings we re applied. The patient tolerated the procedure well . Impression: Uneventful placement of right chest port . ?? Widely patent right internal jugular vei n. I the attending physician performed the entire procedure. Dimitry Atwood MD IMG IR ORDERABLES (ABNORMAL) Differential, Automated (08/10/2022 4:37 PM EDT) Patholo gist Method Time Signature Neutrophils % 60.3 % [facility] Neutr Abs (ANC) 6.89 (H) 1.70 - [facility] 6.10 [facility] x10(3)/[facility] LABORATORY Lymphocytes % 29.7 % [facility] Lymphocytes Abs 3.4 (H) 0.9 - 3.2 [facility] x10(3)/[facility] LABORATORY Monocytes % 6.0 % [facility] Monocyte Abs 0.7 0.3 - 0.9 [facility] x10(3)/[facility] LABORATORY Eosinophils % 3.0 % [facility] Eosinophils Abs 0.3 0.0 - 0.4 [facility] x10(3)/[facility] LABORATORY Basophils % 0.4 % [facility] Basophils Abs 0.0 0.0 - 0.1 [facility] x10(3)/[facility] LABORATORY Immature Gran % 0.60 % [facility] Comment: Immature granulocytes(IG's)percentage an d absolute count will include metamyelocytes, myelocytes, and promyelo cytes. Blood smears from CBCs yielding IG's will be scanned manually for concor dance. If this scan disagrees with the automated IG or if promyelocytes are not ed, a manual differential will be performed. Tia Gran Abs 0.07 (H) 0.00 - 0.04 x10(3)/[facility] LABORATORY Specimen Anatomical Collection Method Collection Time Receive d Time (Source) Location / / Volume Laterality Blood 08/10/2022 4:37 PM 4:52 EDT PM EDT Resulting Agency Comment Spec In Lab Dimitry Atwood MD HEMATOLOGY ORDERABLES Performing Organization Address City/State/[place] [address] (ABNORMAL) Hemogram (08/10/2022 4:37 PM EDT) Analysis Performed At Patho logist Time Signature WBC 11.4 (H) 4.0 - 9.5 [facility] x10(3)/[facility] LABORATORY RBC 4.73 4.00 - BRAULIO WENCESLAO 5.21 [facility] x10(6)/[facility] LABORATORY Hemoglobin 12.7 11.7 - [facility]IO TREJOCOCK 15.5 g/dL [facility] LABOR[facility]ORY Hematocrit 40.1 35.7 - [facility] 45.8 % [facility] LABORATORY MCV 84.8 82.6 - [facility] 94.4 [facility] LABORATORY MCH 26.8 (L) 27.1 - B[place]ULIO WENCESLAO 32.0 pg [facility] LABORATORY MCHC 31.7 31.7 - [facility] 35.0 g/dL [facility] LABOR[facility]ORY Platelets 229 145 - 357 [facility] x10(3)/[facility] LABORATORY RDWSD 43.4 37.0 - [facility] 46.0 [facility] LABORATORY RDWCV 13.9 11.5 - [facility] 14.1 % [facility] LABORATORY MPV 10.3 7.6 - 12.9 [facility] LABORATORY nRBC % Auto 0.0 % [facility] nRBC Abs Auto 0.000 0.000 - [facility] 0.000 [facility] x10(3)/[facility] LABORATORY Specimen Anatomical Collection Method Collection Time Receive d Time (Source) Location / / Volume Laterality Blood 08/10/2022 4:37 PM 4:52 EDT PM EDT Resulting Agency Comment Spec In Lab Dimitry Atwood MD HEMATOLOGY ORDERABLES Performing Organization Address City/State/[place] [address] DPYD PCR (08/10/2022 4:37 PM EDT) Component Value Ref Test Analysis Performed At [facility] Range Method Time Signature DPYD PCR INDICATION FOR STUDY: DPYD Genotyping BRAULIO BILLY RESULTS: Normal metabolizer, *1/*1 genotype [facility] INTERPRETATION: ??Normal gen otype, with normal expected enzyme activity. Absence LABORATORY of a variant does not rule out the possibility o f an undetected polymorphism. This result does not replace the need for therapeutic drug o r clinical monitoring. METHODS: The DPYD genotyping assay tested for the presence of the following three variants using a TaqMan allelic discrimination assay and detection of normal and mutant probes for each varian t: DPYD*2A ??(c.1905+1G>A, [id number]), DPYD*13 (c.1679T>G , [id number]), and DP YD c.2846A>T ([id number]). All variant positions are provided on the canonical transcri pt (NM_[id number]). Genomic DNA was isolated from the submitted peripheral blood speci men. Real-time PCR was performed to amplify a short region spanning the variant site, and genotyping was performed by allelic discrimination using a mixture of f luorescently labeled probes, one of which is specific to the reference sequence, the other specific to the variant target. LIMITATIONS AND DISCLAIMERS: ??Although unlikely, rare variants or polymorphisms (known or unknown) have the potential to interfere with the performance of this test, producing false negative or false positive results. ??When genotyping results are not consistent with other clinical observa tions or test results, additional testing should be considered. This test was developed and its performance determined by the laboratory for Clinical Genomics and Advanced Technology (CGAT) at the [facility]. It has not been cleared or approved by the U .S. Food and Drug Administration. The laboratory is regulated under CLIA as qual ified to perform high-complexity testing. This test is used for clinical purposes. It should not be regarded as investigational or for research. REFERENCES: 1. CPIC?? Guideline for Fluoropyrimidines and DPYD. https:// cpicpgx.org/ 2. Ching et al., Clinical Pharmacogenetics Imp lementation Consortium (CPIC) Guideline for Dihydropyrimidine Dehydrogenase Genotype and Fluoropyrimidine Dosin Update. Clin Pharmacol Ther. 2018 Nov;103(2):21 0-216. PMID: [id number] 3. Juan Alberto Ervin, Taisha Ahumada, Alexander uBrns, et al. Fluorouracil Ther apy and DPYD Genotype. In: Medical Genetics Summaries [Internet]. B rebeka THOMAS): [employer] [facility]); 2011? 2015 3. PMID: [id number] Specimen Anatomical Collection Method Collection Time Receive d Time (Source) Location / / Volume Laterality Blood 08/10/2022 4:37 PM 10/26/202 2 8:55 EDT PM EDT Resulting Agency Comment Spec In Lab Dimitry Atwood MD CHEMISTRY ORDERABLES Performing Organization Address City/[facility]/[place] [address] CEA (08/10/2022 4:37 PM EDT) P athologist Signature CEA 0.9 ng/mL [facility] Comment: Reference range: ??(20-69 years): Non-smoker: ??less than or equal to 3.8 ng/mL Smoker: ??less than 5.5 ng/ml This result was generated using a Bud[employer] immunoassay. ??Results obtained from other methods or manufacturers fabien ot be used interchangeably with this method. Specimen Anatomical Collection Method Collection Time Receive d Time (Source) Location / / Volume Laterality Blood 08/10/2022 4:37 PM 2 4:52 EDT PM EDT Resulting Agency Comment Spec In Lab Dimitry Atwood MD CHEMISTRY ORDERABLES Performing Organization Address [facility] [place] [address] Comprehensive metabolic panel (non-fasting) (08/10/2022 4:37 PM EDT) P athologist Signature Glucose Lvl 74 65 - 199 [facility] mg/dL [facility] LABORATORY Comment: Diabetes: >=200 mg/dL plus symp toms BUN 16 8 - 18 mg/dL [facility] Creatinine 0.91 0.70 - 1.20 mg/dL [facility] Sodium 140 135 - 145 mmol/L [facility] Potassium 4.0 3.5 - 5.0 mmol/L [facility] Comment: Please note: ??Patients with WBC >100,00 0 may have falsely elevated Potassium levels. ??For accurate Potassium quantif ication in these patients send serum separator tube (gold top) for subsequent determinations. ??Contact the Clinical Chemistry Laboratory if there are any qu estions. Chloride 103 98 - 107 mmol/L [facility] CO2 25 22 - 31 mmol/L [facility] Anion Gap 12 5 - 15 mmol/L [facility] Calcium 9.6 8.5 - 10.5 mg/dL [facility] Total Protein 7.6 6.1 - 8.0 g/dL [facility] Albumin 4.3 3.2 - 5.2 g/dL [facility] AST 18 0 - 30 unit/L [facility] ALT 12 0 - 30 unit/L [facility] Alk Phos 88 35 - 105 unit/L [facility] Total Bilirubin 0.2 0.2 - 1.3 mg/dL [facility] Estimated GFR 67 >=60 mL/min/1.73 m?? [facility] Comment: This patient's estimated GFR was calcula jammie using the 2020 CKD-EPI equation. The estimated GFR can vary from the ambrose ured GFR by up to 30% in the absence of rapidly changing kidney function. Assess ment of the estimated GFR is not appropriate when creatinine concentratio ns are rapidly changing. For clinical situations in which a more precise estim ate of GFR is necessary, consider alternative methods of GFR estimation lu ch as a 24-hour urine creatinine clearance. Assignment of CKD stage 1-5 for patients with an eGFR near the transition point between stages may be based on clinical assessment of muscle mass and symptoms in addition to eGFR. 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
--- OUTSIDE RECORDS SUMMARY | 2022-09-02 01:05 | XMS_ITS | Encounter Summary ---
:1950 Author Organization [facility] [place] [address] Care Team Providers Name Role Phone Elisa Pa APRN Primary Care Provider Encounter Details Date Type Department Care Team Description 07/14/2022 External Results Medical Records Provider, [place] [address] Social History Tobacco Use Types Packs/Day Years Used Date Smoking Tobacco: Never Assessed Financial Resource Strain Answer Date Recorded How [...] place to sleep or slept in a senior care (including now)? Sex Assigned at Date Recorded Not on file documented as of this encounter Plan of Treatment Upcoming Encounters Date Type Specialty Care Team Description 09/02/2022 Office Visit Hematology and Oncology Dimitry Atwood MD [facility] [place] [address] Sury Griffin APRN [address] [place] [address] [place] [id number] 09/02/2022 Infusion Hematology and Oncology documented as of this encounter Procedures Procedure Name Priority Date/Time Associated Diagnosis Comme nts SURGICAL PATHOLOGY Routine 07/14/2022 Results f or this SCAN procedure are i n the results section . documented in this encounter Results Scan Doc: Surgical Pathology (07/14/2022) Narrative This result has an attachment that is no t available. Dimitry Atwood MD MEDIA MGR SCAN EXT ORDR/RSLT documented in this encounter Visit Diagnoses Not on filedocumented in this encounter Care Teams Loss Control Engineer Relationship Specialty Start Date End Date Elisa Pa APRN PCP - General Geriatric Medicine 01/26/22 4 [facility] [place] [place] [address] documented as of this encounter
--- OUTSIDE RECORDS SUMMARY | 2022-09-02 01:05 | XMS_ITS | Clinical Summary ---
:1950 Author Organization [facility] [place] [address] Care Team Providers Name Role Phone Elisa Pa APRN Primary Care Provider Allergies Active Allergy Reactions Severity Noted Date Comments Ciprofloxacin (Mixture) 12/08/2006 Codeine Rash 05/24/2010 Nitrofurantoin 12/08/2006 Sulfasalazine 12/08/2006 Medications Medication Sig Dispensed Refills Start Date End Date Status loratadine (CLARITIN) Take by mouth. 0 05/24/2010 Active 5 mg/5 mL Solution lancets 30 gauge Misc Check blood sugar 0 07/22/2016 Active three times a day cholecalciferol Take 1,000 Units by 0 Active (Vitamin D3) 1,000 mouth Daily. unit Tablet dulaglutide Inject 1.5 mg 0 08/31/2017 Act fatmaat (Trulicity) 1.5 subcutaneously Once mg/0.5 mL Pen a week. Injector Lantus Solostar U-100 0 08/05/2022 Active Insulin 100 unit/mL (3 mL) pen lisinopriL (Zestril) Take 10 mg by mouth 0 8 Active 10 mg Tablet Daily. pantoprazole EC 0 08/05/2022 Act fatmata (Protonix) 40 mg Tablet, Delayed Release (E.C.) rosuvastatin 0 08/05/2022 Active (Crestor) 10 mg Tablet sertraline (Zoloft) 0 07/25/2022 Active 50 mg Tablet solifenacin Take by mouth. 0 Act fatmata (VESICARE) 5 mg Tablet Active Problems Problem Noted Date Malignant neoplasm of transverse colon 08/10/2022 Encounters Date Type Specialty Care Team Description 09/02/2022 Infusion Hematology and Oncology 08/29/2022 Hospital Encounter Radiology Dimitry Atwood Malign ant neoplasm MD Myranda of transverse c olon 08/29/2022 Travel 08/16/2022 Telephone Hematology and Timothy, Oncology Farideh Thakkar RN 08/12/2022 Orders Only Hematology and Dimitry Atwood Malignant neoplasm Charles Whitmore MD of transverse c olon 08/11/2022 Notes Only Radiology Citlali Valadez MD 08/10/2022 Office Visit Hematology and Dimitry Atwood Malignant neoplasm Oncology MD Myranda of transverse c olon 08/10/2022 Travel 08/01/2022 Ancillary Procedure Radiology Dimitry Atwood MD 07/14/2022 External Results Provider, Scanning 07/13/2022 Hospital Encounter Lab 07/07/2022 Transcribe Orders Primary Care Underbakke, Malignant neoplasm MD Tu of colon, unspecified par t of colon from Last 3 Months Social History Tobacco Use Types Packs/Day Years Used Date Smoking Tobacco: Never Smokeless Tobacco: Never Alcohol Use Standard Drinks/Week Comments Not Currently 1 (1 standard drink = 0.6 oz pure alcoho l) Financial Resource Strain Answer Date Recorded How [...] to sleep or slept in a senior living (including now)? Sex Assigned at Date Recorded Not on file Last Filed Vital Signs Vital Sign Reading Time Taken Comments Blood Pressure 147/82 08/29/2022 2:45 PM EST Pulse 66 08/29/2022 2:25 PM EST Temperature 36.4 ??C (97.5 ??F) 08/29/2022 2:35 PM EST Respiratory Rate 16 08/29/2022 2:45 PM EST Oxygen Saturation 96% 08/29/2022 2:45 PM EST Inhaled Oxygen Concentration - - Weight 100.4 kg (221 lb 5.5 oz) 08/10/2022 3:03 PM EDT Height 157.4 cm (5' 1.97) 08/10/2022 3:03 PM EDT Body Mass Index 40.52 08/10/2022 3:03 PM EDT Plan of Treatment Upcoming Encounters Date Type Specialty Care Team Description 09/02/2022 Office Visit Hematology and Oncology Dimitry Atwood MD [facility] [place] [address] Sury Griffin, [address] [place] [address] 09/02/2022 Infusion Hematology and Oncology Health Maintenance Due Date Last Done Comments Covid-19 Vaccine (#1) 1950 Hepatitis C Screening 1967 Tdap adult 02/04/1968 Tetanus vaccine 02/04/1968 Breast Cancer Share Decision Needed 1989 Colonoscopy 1994 Breast Cancer screening 1999 Zoster vaccine (1 of 2) 1999 Advance Directive 02/04/2004 Bone Density Scan 2014 Pneumoccocal Vaccine: 65+ (1 - PCV) 2014 Influenza (Flu) vaccine (1 of 1 - Influenza standard 06/16/2022 series) Medical Devices Implanted Type Area Chimney Builder Device Shelf Model / Identifier Expiration Serial / Date Lot Port Infusion 8fr Cath Power Injectable Midsize Shaped ([id number])-08/29/2022 IMPLANTS Right: [employer] - 09/14/2026 [id number] / Implanted: Qty: 1 on 08/29/2022 by Shaquille Cheung MD Che [employer] IN [id number] / Wall [id number] Procedures Procedure Name Priority Date/Time Associated Comments Diagnosis IR MEDIPORT PLACEMENT Routine 08/29/2022 2:32 PM Malignant gabriela plasm Results for this EST of transverse colon procedur e are in the results section. POCT GLUCOSE Routine 08/29/2022 1:12 PM Results f or this EST procedure are i n the results section. DIFFERENTIAL, Routine 08/10/2022 4:37 [...] Malignant ne oplasm EDT of transverse colon COMPREHENSIVE Routine 08/10/2022 4:37 PM Malignant neoplasm Re sults for this METABOLIC PANEL EDT of transverse colon proce dure are in (NON-FASTING) the results section. HC CARCINO-EMBRYONIC Routine 08/10/2022 4:37 PM Malignant neop lasm Results for this AG ASSAY EDT of transverse colon procedur e are in the results section. HC VENIPUNCTURE Routine 08/10/2022 4:37 PM Malignant neoplasm Results for this EDT of transverse colon procedur e are in the results section. FILM LIBRARY STORAGE Routine 08/01/2022 12:00 Res ults for this ONLY CT CHEST AM EDT procedure are in the results section. SURGICAL PATHOLOGY Routine 07/14/2022 Results f or this SCAN procedure are i n the results section. SURGICAL PATHOLOGY Routine 07/13/2022 1:02 PM Res ults for this REPORT EDT procedure are i n the results section. from Last 3 Months Results IR Mediport Placement (08/29/2022 2:32 PM [...] procedure. Dimitry Atwood MD IMG IR ORDERABLES POCT Glucose (08/29/2022 1:12 PM EST) P athologist Signature POC Glucose 76 65 - 199 [facility] mg/dL [facility] Comment: Supplemental ranges: <140 mg/dL before meals <180 mg/dL all other times of the day Specimen Anatomical Collection Method Collection Time Receive d Time (Source) Location / / Volume Laterality Blood 08/29/2022 1:12 PM 1:12 EST PM EST Dimitry Atwood MD POINT OF CARE TEST ORDERABLE S Performing Organization Address City/State/ZIP Code Phon e Number [place] [id number] DPYD PCR (08/10/2022 4:37 PM EDT) Component Value Ref Test Analysis Performed At [facility] gist Range Method Time Signature DPYD PCR INDICATION FOR STUDY: DPYD Genotyping [facility] RESULTS: Normal metabolizer, *1/*1 genotype [facility] INTERPRETATION: ??Normal gen otype, with normal expected [...] probes for each varian t: DPYD*2A ??(c.1905+1G>A, [id number]), DPYD*13 (c.1679T>G , [id number]), and DP YD c.2846A>T ([id number]). All variant positions are provided on the [...] Genomics and Advanced Technology (CGAT) at the [facility]. It has not been cleared or approved [...] Clin Pharmacol Ther. 2018 Nov;103(2):21 0-216. PMID: [id number] 3. Juan Alberto Ervin, Taisha Ahumada, Alexander Burns, et al. Fluorouracil Ther apy and DPYD Genotype. In: Medical Genetics Summaries [Internet]. B rebeka THOMAS): [employer] (); 2011? 2015 3. PMID: [id number] Specimen Anatomical Collection Method Collection Time Receive d Time (Source) Location / / Volume Laterality Blood 08/10/2022 4:37 PM 2 8:55 EDT PM EDT Resulting Agency Comment Spec In Lab Dimitry Atwood MD CHEMISTRY ORDERABLES Performing Organization Address City/State/[place] [address] (ABNORMAL) Hemogram (08/10/2022 4:37 PM EDT) Analysis Performed At Patho logist Time Signature WBC 11.4 (H) 4.0 - 9.5 [facility] x10(3)/[facility] LABORATORY RBC 4.73 4.00 - [facility] 5.21 [facility] x10(6)/[facility] LABORATORY Hemoglobin 12.7 11.7 - [facility] CHOWDHURYWENC[facility]LAO 15.5 g/dL [facility] Hematocrit 40.1 35.7 - [facility] 45.8 % [facility] MCV 84.8 82.6 - [facility] 94.4 [facility] MCH 26.8 (L) 27.1 - [facility] TREJ[facility] 32.0 pg [facility] MCHC 31.7 31.7 - [facility] 35.0 g/dL [facility] Platelets 229 145 - 357 [facility] x10(3)/[facility] LABORATORY RDWSD 43.4 37.0 - [facility] 46.0 [facility] RDWCV 13.9 11.5 - [facility] 14.1 % [facility] MPV 10.3 7.6 - 12.9 [facility] LABORATORY nRBC % Auto 0.0 % [facility] nRBC Abs Auto 0.000 0.000 - [facility] 0.000 [facility] x10(3)/[facility] LABORATORY Specimen Anatomical Collection Method Collection Time Receive d Time (Source) Location / / Volume Laterality Blood 08/10/2022 4:37 PM 4:52 EDT PM EDT Resulting Agency Comment Spec In Lab Dimitry Atwood MD HEMATOLOGY ORDERABLES Performing Organization Address City/State/[place] [address] (ABNORMAL) Differential, Automated (08/10/2022 4:37 PM EDT) [facility] gist Method Time Signature Neutrophils % 60.3 % [facility] Neutr Abs (ANC) 6.89 (H) 1.70 - [facility] CHOW[facility]LA[facility] 6.10 [facility] x10(3)/[facility] Lymphocytes % 29.7 % [facility] Lymphocytes Abs 3.4 (H) 0.9 - 3.2 [facility] x10(3)/[facility] LABORATORY Monocytes % 6.0 % [facility] Monocyte Abs 0.7 0.3 - 0.9 [facility] x10(3)/[facility] LABORATORY Eosinophils % 3.0 % [facility] Eosinophils Abs 0.3 0.0 - 0.4 [facility] x10(3)/[facility] LABORATORY Basophils % 0.4 % [facility] Basophils Abs 0.0 0.0 - 0.1 [facility] x10(3)/[facility] LABORATORY Immature Gran % 0.60 % [facility] Comment: Immature granulocytes(IG's)percentage an d absolute count will include metamyelocytes, myelocytes, and promyelo cytes. Blood smears from CBCs yielding IG's will be scanned manually for concor dance. If this scan disagrees with the automated IG or if promyelocytes are not ed, a manual differential will be performed. Tia Gran Abs 0.07 (H) 0.00 - 0.04 x10(3)/[facility] LABORATORY Specimen Anatomical Collection Method Collection Time Receive d Time (Source) Location / / Volume Laterality Blood 08/10/2022 4:37 PM 2 4:52 EDT PM EDT Resulting Agency Comment Spec In Lab Dimitry Atwood MD HEMATOLOGY ORDERABLES Performing Organization Address City/[facility]/ZIP [place] [address] CEA (08/10/2022 4:37 PM EDT) P athologist Signature CEA 0.9 ng/mL [facility] Comment: Reference range: ??(20-69 [...] Atwood MD CHEMISTRY ORDERABLES Performing Organization Address City/[facility]/[place] [address] Comprehensive metabolic panel (non-fasting) (08/10/2022 4:37 PM EDT) athologist Signature Glucose Lvl 74 65 - 199 [facility] mg/dL [facility] Comment: Diabetes: >=200 mg/dL plus symp toms BUN 16 8 - 18 mg/dL [facility] Creatinine 0.91 0.70 - 1.20 mg/dL [facility] Sodium 140 135 - 145 mmol/L [facility] Potassium 4.0 3.5 - 5.0 mmol/L [facility] Comment: Please note: ??Patients with WBC >100,00 0 may have falsely elevated Potassium levels. ??For accurate Potassium quantif ication in these patients send serum separator tube (gold top) for subsequent determinations. ??Contact the Clinical Chemistry Laboratory if there are any qu estions. Chloride 103 98 - 107 mmol/L [facility] CO2 25 22 - 31 mmol/L [facility] Anion Gap 12 5 - 15 mmol/L [facility] Calcium 9.6 8.5 - 10.5 mg/dL [facility] Total Protein 7.6 6.1 - 8.0 g/dL [facility] Albumin 4.3 3.2 - 5.2 g/dL [facility] AST 18 0 - 30 unit/L [facility] ALT 12 0 - 30 unit/L [facility] Alk Phos 88 35 - 105 unit/L [facility] Total Bilirubin 0.2 0.2 - 1.3 mg/dL [facility] Estimated GFR 67 >=60 mL/min/1.73 m?? [facility] Comment: This patient's estimated [...] Organization Address City/State/[place] [address] Film Library- Storage Only CT Chest (08/01/2022 12:00 AM EDT) Specimen (Source) Anatomical Location Collection Method / Collectio n Time Received Time / Laterality Volume Narrative RAD - 08/09/2022 10:38 PM EDT This exam is auto-finalizing. It's purpo se is for storage only. Dimitry Atwood MD IMG FILM LIBRARY ORDERABLES Performing Organization Address City/State/ZIP Code Phon e Number [place], [place] Scan Doc: Surgical Pathology (07/14/2022) Narrative This result has an attachment that is no t available. Dimitry Atwood MD MEDIA MGR SCAN EXT ORDR/RSLT Surgical Pathology Report (07/13/2022 1:02 PM EDT) Component Value Ref Test Analysis Performed At [facility] Range Method Time Signature Surgical [id number] ? Location: [facility] Report The signing pathologist has (i) examined the relevant preparation(s) for the [facility] specimen(s) and (ii) rendered or confirmed the diagnosis(es) . HOSPITAL LABORATORY . ?Surgic al Pathology DIAGNOSIS CONSULTATION CASE Outside slide(s) labeled [id number], collection date 06/02/20 22. COLON, LEFT, TUMOR, HEMICOLECTOMY: - ??Invasive adenocarcinoma , see Synoptic Report below. Note: The Synoptic Report wa s compiled based on information reported by the outside institution, as well as review of slides. Electronically signed by: ?Nabila CAGLE PhD, Deonna Verified: ??07/19/2022 11:59 ??Pathologist Performed at: ??-[facility] Dept. of [place]ology, [place], [place] SYNOPTIC Specimen ? Procedure: ??Left hemicolectomy Tumor ? Tumor Site: ??Descending colon ? Histologic Type: ??Adenocarcinoma ? Histologic Grade: ??G2, moderately differentiat ed ? Tumor Size: ??4.0 Centimeters (cm) ? Tumor Extent: ??Invades visceral peritoneum ? Macroscopic Tumor Perforation: ??Not identified ? Lymphovascular Invasion: ??Not identified ? Perineural Invasion: ??Not identified ? Treatment Effect: ??No known presurgical therap y Margins ? Margin Status f or Invasive Carcinoma: ??All margins negative for invasive ?carcinoma ? Margin Status f or Non-Invasive Tumor: ??All margins negative for high-grade ?dysplasia / intramucosal carcinoma and low-gr jimena dysplasia Regional Lymph Nodes ? Regional Lymph Node Status: ??All regional lymph nodes negative for tumor ? Number of Lymph Nodes Examined: ??24 ? Tumor Deposits: ??Not identified Pathologic Stage Classification (pTNM, AJCC 8th Edition) ? pT Category: ??pT4a ? pN Category: ??pN0 Additional Findings ? Additional Findings: ??Iatrogenic tattoo pigmen t. ? CAP eCC 2021 Q1 Release Per report, ??immunostains for MLH1, MSH 2, MSH6 and PMS2 reveal intact nuclear staining in tumor cells. ?? In a very small percentage of tumors, there may still be an underlying hereditary defect in t hese DNA mismatch repair genes despite intact nuclear expression o f the protein in tumor cells ?? . Genetic counseling and/or additional workup is indica jammie in patients with a family history that meets current criteria for Hart syndrome screening. SPECIMEN(S) SUBMITTED CONSULTATION CASE A - 30 slide(s) labeled [id number], collection date 2. . SPECIMEN(S) SUBMITTED [id number] CARBON COPY: [facility] Surgical Pathology Department [facility], [facility], 2nd Floor [address] [place], [place] ??[address] CLINICAL INFORMATION Malignant neoplasm of transverse colon. SPECIMEN PROCESSING [facility] ([facility]) pathology slide(s) are reviewed. ??Refer to Diagnosis and Specimen Submitted for specific case infor eulalio. For the full text of the [facility] report(s) please refer t o Non-DH Documentation Pathology in the electronic health record (eDH). Specimen (Source) Anatomical Collection Method Collection Time Re ceived Time Location / / Volume Laterality 07/13/2022 1:02 PM EDT Dimitry Atwood MD PATHOLOGY/CYTOLOGY ORDERABLE S Performing Organization Address City/State/Z[place] [address] from Last 3 Months Insurance Payer Benefit Plan / Subscriber ID Effective Dates Phone Addre ss Type Group MVP MANAGED MVP MANAGED [id number] 2021-Presen [phone] [id number] MEDICARE MEDICARE t 4 [place] [address] [phone] (Home) [place], [place] [address] Advance Directives Latest Code Status on File Code Status Date Activated Date Inactivated Comments Attempt Cardiopulmonary Resuscitation 08/29/2022 12:54 PM 2021 4:38 AM - Inpatient Question Answer Comments Code Status decision made by: Patient Care Teams Schedule Clerk Relationship Specialty Start Date End Date Elisa Pa APRN PCP - General Geriatric Medicine 01/26/[address] [place] [address]
--- OUTSIDE RECORDS SUMMARY | 2022-09-02 01:05 | XMS_ITS | Encounter Summary ---
:1950 Author Organization [facility] [place] [address] Care Team Providers Name Role Phone Elisa Pa APRN Primary Care Provider Encounter Details Date Type Department Care Team Description 08/16/2022 Telephone Hematology and Oncology at Carol Aguirre [facility] [place] [address] Social History Tobacco Use Types Packs/Day [...] place to sleep or slept in a residential (including now)? Sex Assigned at Date Recorded Not on file documented as of this encounter Miscellaneous Notes Telephone Encounter - Farideh Aguirre RN - 08/16/2022 11:43 AM EDT Message received from secretary of police: [phone] Natalee is asking to hear the results of her CEA lab from 08/10 CEA is 0.9. Called lab to patient. documented in this encounter Plan of Treatment Upcoming Encounters Date Type Specialty Care Team Description 09/02/2022 Office Visit Hematology and Oncology Dimitry Atwood MD [facility] [place] [address] Sury Griffin APRN [address] [place] [address] [place]Y [place] [id number] 09/02/2022 Infusion Hematology and Oncology documented as of this encounter Visit Diagnoses Not on filedocumented in this encounter Care Teams Lathe Tender Relationship Specialty Start Date End Date Elisa Pa APRN PCP - General Geriatric Medicine 01/26/[address] [place], [place] [address] documented as of this encounter
--- OUTSIDE RECORDS SUMMARY | 2022-09-02 01:05 | XMS_ITS | Encounter Summary ---
:1950 Author Organization [facility] [place] [address] Care Team Providers Name Role Phone Elisa Pa APRN Primary Care Provider Reason for Referral Consultation (Routine) - Closed Specialty Diagnoses / Procedures Referred By Contact Refer red To Contact Hematology and Diagnoses Malignant neoplasm of colon, unspecified part of colon Tu [place], [facility] [place] 3k Oncology [address] [phone] Fax: Referral ID Status Reason Start Date Expiration Date Visits V isits Requested Authorized [id number] Closed Consult, 07/07/2022 07/07/2023 1 1 Test & Treat Encounter Details Date Type Department Care Team Description 07/07/2022 Transcribe Orders eDH Incoming Clara Malignant neoplasm Referrals MD Tu of colon, [address] [place] [address] unspecified part of [place] [address] colon [place], [place] [id number] Social History Tobacco Use Types Packs/Day Years [...] Visit Hematology and Oncology Dimitry Atwood MD [facility] [place] [address] Sury Griffin APRN [address] [place] [address] H[place]ATOLOGY AND [place], [place] [address] 09/02/2022 Infusion Hematology and Oncology Scheduled Referrals Name Type Priority Associated Diagnoses Order S chedule Referral to Outpatient Referral Routine Malignant neoplasm Or dered: Hematology and of colon, 07/07/2022 Oncology unspecified part of colon documented as of this encounter Visit Diagnoses Diagnosis Malignant neoplasm of colon, unspecified part of colon Malignant neoplasm of transverse colon documented in this encounter Care Teams Snout Puller Relationship Specialty Start Date End Date Elisa Pa APRN PCP - General Geriatric Medicine 01/26/22 [facility] [place] [address] [place] [address] documented as of this encounter
--- OUTSIDE RECORDS SUMMARY | 2022-09-02 01:05 | XMS_ITS ---
:1950 Author Organization [facility] [place] [address] Care Team Providers Name Role Phone Ember Elisa RACHANA Primary Care Provider Active Problems Problem Noted Date Malignant neoplasm of transverse colon 08/10/2022 Current [facility] GI COLORECTAL CANCER - FOLFOX-6 (14 DAY)Plan Start Date: 09/02/2022 Plan Provider:Dimitry Atwood MD Linked Problems Malignant neoplasm of transverse colon Treatment Medications Current Day (Day 1, Cycle 1 - Next Day (Day 3, Cycle 1 - Planned for 09/02/2022) Planned for 08/17) dexAMETHasone (PF) (Decadron) dexAMETHasone (PF) (Decadron) Home Infusion: Pump 10 mg/mLfluorouraciL (10 mg/mL) injection 10 Disconnect (ADRUCIL)fluorouraciL mgfluorouraciL (ADRUCIL) chemo (AdruciL) in sodium chloride injection 840 mgfluorouraciL 0.9% 138 mL infusion (46 Hour (AdruciL) in sodium chloride - For Home Use)leucovorin 0.9% 138 mL infusion (46 Hour (Wellcovorin) in dextrose 5% - For Home Use) 5,040 or sodium chloride 0.9% for mgleucovorin 350 mg in infusionOXALIplatin dextrose 5% 85 mL (Eloxatin) in dextrose 5% 250 infusionOXALIplatin (Eloxatin) mL infusionPump Disconnect: 179 mg in dextrose 5% 285.8 mL Home Infusion infusion Past Plans ONCOLOGY TREATMENT Plan Name Start Discontinue Treatment Medications Discontinue Plan Cycles Date Date Reason Provider DIRK CHATMAN 08/19/20 08/10/2022 fluorouraciL Plan is Being Jaylin Atwood reatment ONC GI 22 (ADRUCIL)fluorouraciL Renewed Dimitry not COLORECTAL (AdruciL) in sodium MD Myranda started CANCER - chloride 0.9% 138 mL FOLFOX-6 (14 infusion (46 Hour - DAY) For Home Use)leucovorin (Wellcovorin) in dextrose 5% or sodium chloride 0.9% for infusionOXALIplatin (Eloxatin) in dextrose 5% 250 mL infusionPump Disconnect: Home Infusion Radiation Treatments No radiation treatments are documented for this patient in [facility]. Treatments may have been administered in another system.
--- OUTSIDE RECORDS SUMMARY | 2022-09-02 01:05 | XMS_ITS | Encounter Summary ---
:1950 [place] [address] Care Team Providers Name Role Phone Elisa Pa APRN Primary Care Provider Encounter Details Date Type Department Care Team Description 04/15/2022 Ancillary Procedure [facility] [place] [address] ONCOLOGY [phone] [place], [place] [address] (Wo rk) Social History Tobacco [...] place to sleep or slept in a [place] (including now)? Sex Assigned at Date Recorded Not on file documented as of this encounter Plan of Treatment Upcoming Encounters Date Type Specialty Care Team Description 09/02/2022 Office Visit Hematology and Oncology Dimitry Atwood MD [facility] [address] Sury Griffin APRN [address] [place] [address] HEMATOLOGY AND [place], [place] [address] 09/02/2022 Infusion Hematology and Oncology documented as of this encounter Procedures Procedure Name Priority Date/Time Associated Diagnosis Comme nts FILM LIBRARY Routine 04/15/2022 12:00 AM Results for this STORAGE ONLY CT EDT procedure ar e in CHEST ABDOMEN the results PELVIS section. documented in this encounter Results Film Library- Storage Only CT Chest Abdomen Pelvis (04/15/2022 12:00 AM EDT) Specimen (Source) Anatomical Location Collection Method / Collectio n Time Received Time / Laterality Volume Narrative NGHIA - 08/03/2022 4:24 PM EDT This exam is auto-finalizing. It's purpo se is for storage only. Dimitry Atwood MD IMG FILM LIBRARY ORDERABLES Performing Organization Address City/State/ZIP Code Phon e Number [place], [place] documented in this encounter Visit Diagnoses Not on filedocumented in this encounter Care Teams Warehouse Inventory Clerk Relationship Specialty Start Date End Date Elisa Pa APRN PCP - General Geriatric Medicine 01/26/[address] [place] [address] documented as of this encounter
--- OUTSIDE RECORDS SUMMARY | 2022-09-02 01:05 | XMS_ITS | Encounter Summary ---
:1950 Author Organization [facility] [place] [address] Care Team Providers Name Role Phone Elisa Pa APRN Primary Care Provider Reason for Referral Consultation (Routine) - Authorized Specialty Diagnoses / Procedures Referred By Contact Refer red To Contact Diagnoses Malignant neoplasm of transverse colon Dimitry Atwood MD [facility] [place] [address] Referral ID Status Reason Start Date Expiration Visits Visits Date Requested Authorized [id number] Authorized Consult, 08/12/2022 02/08/2023 1 1 Test & Treat Encounter Details Date Type Department Care Team Description 08/12/2022 Orders Only Hematology and Dimitry Atwood Maligna nt neoplasm of Oncology at [facility] MD transverse colon [facility] [place] [place] [address] ONCOLOGY [phone] [place], [place] [address] Social History Tobacco Use Types Packs/Day Years [...] place to sleep or slept in a detention (including now)? Sex Assigned at Date Recorded Not on file documented as of this encounter Plan of Treatment Upcoming Encounters Date Type Specialty Care Team Description 09/02/2022 Office Visit Hematology and Oncology Dimitry Atwood MD [facility] [place] [address] Sury Griffin APRN [address] [place] [address] DR [place]OLOGY [place], [place] [address] 09/02/2022 Infusion Hematology and Oncology Scheduled Referrals Name Type Priority Associated Diagnoses Order S chedule Referral to Outpatient Referral Routine Malignant neoplasm Or dered: General Surgery of transverse colon 08/12 documented as of this encounter Visit Diagnoses Diagnosis 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
--- OUTSIDE RECORDS SUMMARY | 2022-09-02 01:05 | XMS_ITS | Encounter Summary ---
:1950 Author Organization [facility] [place] [address] Care Team Providers Name Role Phone Elisa Pa APRN Primary Care Provider Reason for Visit Treatment/Therapy Plan Authorization (Routine) - Authorized Specialty Diagnoses / Procedures Referred By Contact Refer red To Contact Diagnoses Malignant neoplasm of transverse colon Dimitry Atwood MD [facility] Hem Onc Infusion Procedures TC PALONOSETRON HCL, 25MCG, INJECTION (ALOXI) TC FLOUROURACIL, 500MG TC LEUCOVORIN CALCIUM, 50MG, INJECTION (WELLCOVORIN) TC OXALIPLATIN, 0.5MG, INJECTION (ELOXATIN) [address] [place] [phone] Fax: Referral ID Status Reason Start Date Expiration Date Visits V isits Requested Authorized [id number] Authorized 08/18/2022 02/15/2023 12 12 Encounter Details Date Type Department Care Team Description 09/02/2022 Infusion Hematology Oncology at [address] [phone] Social History Tobacco Use Types Packs/Day Years [...] place to sleep or slept in a retirement (including now)? Sex Assigned at Date Recorded Not on file documented as of this encounter Plan of Treatment Upcoming Encounters Date Type Specialty Care Team Description 09/02/2022 Office Visit Hematology and Oncology Dimitry Atwood MD [facility] [place] [address] Sury Griffin APRN [address] [place] [address] DR [place]OLOGY [place], [place] [id number] documented as of this encounter Visit Diagnoses Not on filedocumented in this encounter Care Teams Ultrasound Applications Specialist Relationship Specialty Start Date End Date Elisa Pa APRN PCP - General Geriatric Medicine 01/26/[address] [place], [place] [id number] documented as of this encounter
--- OUTSIDE RECORDS SUMMARY | 2022-09-02 01:05 | XMS_ITS | Encounter Summary ---
:1950 Author Organization [facility] [place] [address] Care Team Providers Name Role Phone Elisa Pa APRN Primary Care Provider Encounter Details Date Type Department Care Team Description 08/10/2022 Travel Social History Tobacco Use Types Packs/Day Years [...] place to sleep or slept in a fdc (including now)? Sex Assigned at Date Recorded Not on file documented as of this encounter Plan of Treatment Upcoming Encounters Date Type Specialty Care Team Description 09/02/2022 Office Visit Hematology and Oncology Dimitry Atwood MD [facility] [place] [place] [address] Sury Griffin APRN [address] [place] [address] H[place]ATOLOGY AND [place], [place] [phone] 09/02/2022 Infusion Hematology and Oncology documented as of this encounter Visit Diagnoses Not on filedocumented in this encounter Care Teams Guest Specialist Relationship Specialty Start Date End Date Elisa Pa APRN PCP - General Geriatric Medicine 01/26/22 [address] [place], [place] [phone] documented as of this encounter
--- OUTSIDE RECORDS SUMMARY | 2022-09-02 01:05 | XMS_ITS | Encounter Summary ---
:1950 Author Organization [facility] [place] [address] Care Team Providers Name Role Phone Elisa Pa APRN Primary Care Provider Encounter Details Date Type Department Care Team Description 07/13/2022 Hospital [place] [phone] Social History Tobacco Use Types Packs/Day [...] on file documented as of this encounter Medications at Time of Discharge Medication Sig Dispensed Refills Start Date End Date loratadine (CLARITIN) Take by mouth. 0 05/24/2010 5 mg/5 mL Solution lancets 30 gauge Misc Check blood sugar three 0 1 times a day dulaglutide Inject 1.5 mg 0 08/31/2017 (Trulicity) 1.5 mg/0.5 subcutaneously Once a mL Pen Injector week. lisinopriL (Zestril) Take 10 mg by mouth 0 2017 10 mg Tablet Daily. documented as of this encounter Plan of Treatment Upcoming Encounters Date Type Specialty Care Team Description 09/02/2022 Office Visit Hematology and Oncology Dimitry Atwood MD [facility] [place] [address] Sury Griffin MACHINE SILVER STRIPPER [address] [place] [address] [place] [address] 09/02/2022 Infusion Hematology and Oncology documented as of this encounter Procedures Procedure Name Priority Date/Time Associated Diagnosis Comme [facility] SURGICAL PATHOLOGY Routine 07/13/2022 1:02 PM Res ults for this REPORT EDT procedure are i n the results section. documented in this encounter Results Surgical Pathology Report (07/13/2022 1:02 PM EDT) Component Value Ref Test Analysis Performed At [facility] Method Time Signature Surgical [id number] ? [facility] Pathology [place] Report The signing pathologist has (i) examined the relevant preparation(s) for the [facility] specimen(s) and (ii) rendered or confirmed the diagnosis(es) . HOSPITAL LABORATORY . ?Surgic al Pathology DIAGNOSIS CONSULTATION CASE Outside slide(s) labeled [id number], collection date 06/02/20 22. COLON, LEFT, TUMOR, HEMICOLECTOMY: - ??Invasive adenocarcinoma , see Synoptic Report below. Note: The Synoptic Report wa s compiled based on information reported by the outside institution, as well as review of slides. Electronically signed by: ?Nabila CAGLE PhD, Deonna Verified: ??07/19/2022 11:59 ??Pathologist Performed at: ??[facility] Dept. [place], [place], [place] SYNOPTIC Specimen ? Procedure: ??Left hemicolectomy [...] CONSULTATION CASE A - 30 slide(s) labeled [id number], collection date 2. . SPECIMEN(S) SUBMITTED [id number] [place] COPY: [facility] Surgical Pathology Department [facility], [facility], 2nd Floor [address] [place], [place] ??[address] CLINICAL INFORMATION Malignant neoplasm of transverse colon. SPECIMEN PROCESSING [facility] ([facility]) pathology slide(s) are reviewed. ??Refer to Diagnosis and Specimen Submitted for specific case infor eulalio. For the full text of the [facility] report(s) please refer t o Non-DH Documentation Pathology in the electronic health record (eDH). Specimen (Source) Anatomical Collection Method Collection Time Re ceived Time Location / / Volume Laterality 07/13/2022 1:02 PM EDT Dimitry Atwood MD PATHOLOGY/CYTOLOGY ORDERABLE S Performing Organization Address City/State/[place] [address] documented in this encounter Visit Diagnoses Not on filedocumented in this encounter Care Teams Hot Die Press Operator Relationship Specialty Start Date End Date Elisa Pa APRN PCP - General Geriatric Medicine 01/26/22 [facility] [place] [address] [place] [address] documented as of this encounter
--- OUTSIDE RECORDS SUMMARY | 2022-09-02 01:05 | XMS_ITS | Encounter Summary ---
:1950 [place] [address] Care Team Providers Name Role Phone Elisa Pa APRN Primary Care Provider Encounter Details Date Type Department Care Team Description 08/01/2022 Ancillary Procedure [facility] [place] [address] ONCOLOGY [phone] [place], [place] [address] (Wo rk) Social History Tobacco [...] place to sleep or slept in a usp (including now)? Sex Assigned at Date Recorded Not on file documented as of this encounter Plan of Treatment Upcoming Encounters Date Type Specialty Care Team Description 09/02/2022 Office Visit Hematology and Oncology Dimitry Atwood MD [facility] [place] [address] Sury Griffin APRN [address] [place] [address] HEMATOLOGY AND [place], [place] [address] 09/02/2022 Infusion Hematology and Oncology documented as of this encounter Procedures Procedure Name Priority Date/Time Associated Diagnosis Comme nts FILM LIBRARY Routine 08/01/2022 12:00 AM Results for this STORAGE ONLY CT EDT procedure ar e in CHEST the results section. documented in this encounter Results Film Library- Storage Only CT Chest (08/01/2022 12:00 AM EDT) Specimen (Source) Anatomical Location Collection Method / Collectio n Time Received Time / Laterality Volume Narrative RAD - 08/09/2022 10:38 PM EDT This exam is auto-finalizing. It's purpo se is for storage only. Dimitry Atwood MD IMG FILM LIBRARY ORDERABLES Performing Organization Address City/State/ZIP Code Phon e Number [place], [place] documented in this encounter Visit Diagnoses Not on filedocumented in this encounter Care Teams Machine Stitcher Relationship Specialty Start Date End Date Elisa Pa APRN PCP - General Geriatric Medicine 01/26/[address] [place] [address] documented as of this encounter
--- OUTSIDE RECORDS SUMMARY | 2022-09-02 01:05 | XMS_ITS | Encounter Summary ---
:1950 Author Organization [facility] [place] [address] Care Team Providers Name Role Phone Elisa Pa APRN Primary Care Provider Reason for Referral Consultation (Routine) - Authorized Specialty Diagnoses / Procedures Referred By Contact Refer red To Contact Gastroenterology Diagnoses Hx of colonic polyps Elisa Pa APRN [facility] Endoscopy 4t [address] [place], [place] [address] [place] [phone] Referral ID Status Reason Start Expiration Visits Visits Date Date Requested Authorized [id number] Authorized Test Only 01/26/2022 01/26/2023 6 6 PCP Updated and/or Approved Encounter Details Date Type Department Care Team Description 01/26/2022 Transcribe Orders eDH Incoming Juanito Pa of colo yaima polyps Referrals RACHANA Pérez [phone] [address] [place] [id number] Social History Tobacco Use Types Packs/Day Years [...] Visit Hematology and Oncology Dimitry Atwood MD [facility] [place] [address] Sury Griffin APRN [address] [place] [address] HEMATOLOGY AND [place], [place] [address] 09/02/2022 Infusion Hematology and Oncology Scheduled Referrals Name Type Priority Associated Order Schedule Diagnoses REFERRAL TO Outpatient Referral Routine Hx of colonic Ordered : COLONOSCOPY PROCEDURE polyps 2021 documented as of this encounter Visit Diagnoses Diagnosis Hx of colonic polyps Personal history of colonic polyps Malignant neoplasm of transverse colon documented in this encounter Care Teams Senior Center Director Relationship Specialty Start Date End Date Elisa Pa APRN PCP - General Geriatric Medicine 01/26/[address] [place] [address] documented as of this encounter
--- OUTSIDE RECORDS SUMMARY | 2022-09-02 01:05 | XMS_ITS | Encounter Summary ---
:1950 Author Organization [facility] [place] [address] Care Team Providers Name Role Phone Elisa Pa APRN Primary Care Provider Encounter Details Date Type Department Care Team Description 08/29/2022 Travel Social History Tobacco Use Types Packs/Day [...] place to sleep or slept in a group home (including now)? Sex Assigned at Date Recorded Not on file documented as of this encounter Plan of Treatment Upcoming Encounters Date Type Specialty Care Team Description 09/02/2022 Office Visit Hematology and Oncology Dimitry Atwood MD [facility] [place] [address] Sury Griffin APRN [address] [place] [address] H[place]OLOGY [place], [place] [address] 09/02/2022 Infusion Hematology and Oncology documented as of this encounter Visit Diagnoses Not on filedocumented in this encounter Care Teams Underwriting Clerks Supervisor Relationship Specialty Start Date End Date Elisa Pa APRN PCP - General Geriatric Medicine 01/26/[address] [place], [place] [address] documented as of this encounter
--- OUTSIDE RECORDS SUMMARY | 2022-09-02 01:05 | XMS_ITS | Encounter Summary ---
:1950 Author Organization [place] [address] Care Team Providers Name Role Phone Elisa Pa APRN Primary Care Provider Reason for Referral Diagnostic Test (Routine) - Closed Specialty Diagnoses / Procedures Referred By Contact Refer red To Contact Radiology Diagnoses Malignant neoplasm of transverse colon Dimitry Atwood MD [facility] Interventionl Rad Procedures IR [place] [id number], [place] [address] Referral ID Status Reason Start Date Expiration Date Visits V isits Requested Authorized [id number] Closed Specialty 08/10/2022 02/09/2024 1 1 Service Requested Reason for Visit Diagnostic Test (Routine) - Closed Specialty Diagnoses / Procedures Referred By Contact Refer red To Contact Radiology Diagnoses Malignant neoplasm of transverse colon Dimitry Atwood MD [facility] Interventionl [place] [id number] [place] [address] Referral ID Status Reason Start Date Expiration Date Visits V isits Requested Authorized [id number] Closed Specialty 08/10/2022 02/09/2024 1 1 Service Requested Encounter Details Date Type Department Care Team Description 08/29/2022 Hospital Encounter Radiology at [facility] [place] [place] Dimitry Atwood Malignant neoplasm [facility] MD [address] of transverse [address] [place] CENTER [id number] ONCOLOGY [phone] [place] [address] Social History Tobacco Use Types Packs/Day Years [...] place to sleep or slept in a half-way (including now)? Sex Assigned at Date Recorded [...] EST Inhaled Oxygen Concentration - - Weight - - Height - - Body Mass Index - - documented in this encounter Discharge Instructions Discharge InstructionsBrayden Lazaro RN - 08/29/2022 1:28 PM EST Images from the original note were not included. [facility] Department of Vascular and Interventional Radiology Discharge Instructions for your Chest Port You have received a ???Power Port?? , which provides access for infusions and blood draws. What makes this a ???Power Port?? is the unique ability to ???power inject?? contrast (intravenous dye) through the port when getting a CT scan, which produces superior images (pictures). Patients who don???thave these special ports need to have an IV started if they need dye injected for their CT scan. Your port is printed with the letters ???CT?? which can be detected by x- ray to identify it as a ???Power Port?? . You will be provided with an ID card stating the computer forensics technician and type of port you have. Please carry this with you in a safe place. Bandage: There is a sterile dressing over the port site consisting of small gauze with a clear dressing (Tegaderm or [id number] ). This dressing should be left in place for 48 hours. If the clear dressing becomes loose you should place tape over the edges to secure it in place. Note: If you have steri-strips beneath your dressing, simply allow them to fall off. Do not peel them off. There may be [place]-nunez (skin glue) also, allow this to flake off. Pain: Apply ice bag to site (s) at 30 minute intervals (30 minutes on and 30 minutes off) for 24 hours?? . May use as needed for pain and/or bruising after 24 hours. Bathing: Do not take a shower until 48 hours after your port is placed; after this time you may shower with the dressing in place, then remove it and pat your skin dry. After 48 hours, we recommend that you cover the area with THE AQUA GUARD PROVIDED for 1 week while showering, facing away from the shower stream. You may use a bandaid to cover the site after the 48 hours are up if there is any drainage. No tub baths, whirlpools or swimming for one week following port placement. Flushing the mediport: If your port has not been used, it must be flushed every 30 days. What to expect when your port is accessed: 1. You may feel tenderness the first few times it is accessed but generally this subsides over time.Ask your healthcare provider to use a local anesthetic on the site if discomfort is a problem for you. You may ask for a prescription for a topical cream (EMLA) from your clinician; you may apply at home prior to your appointments, to help numb the skin over your port. 2. The clinician should be wearing sterile gloves and a mask during the access procedure. Anyone in the room with you should also have a mask on. 3. The skin over and 2 inches around the port should be cleaned with a disinfectant 4. Tell the clinician if you would like the skin numbed (lidocaine) before the access needle is placed. 5. Unless you are unable to take heparin (blood thinner), the port should be injected with a heparinsolution before deaccess (at end of each treatment or blood draw). When to call your healthcare provider: If you notice bleeding from the puncture site in your neck, or from the port incision on your chest,you should apply firm pressure over the site for 10-15 minutes, keeping the site covered. Call if you are still bleeding after 10-15 minutes. If you develop pain, redness, drainage or swelling at or around the port site, or the puncture site in the neck If you develop fever (elevation of more than 2 degrees or greater than 101F) and/or shaking chills When to call the Interventional Radiology Department: Please call with any questions or concerns. Ifit is during regular office hours, please call [phone]. If it is after regular office hours, oron weekends or holidays, please call [phone] and ask to speak to the Debeader on callfor Interventional Radiology. XXX You have received medication during your procedure to help lessen anxiety and keep you comfortable. These medications affect judgement and reaction time. We recommend that you do not drive, operateequipment, sign any important documents, or smoke unattended for 24 hours following your procedure. Because of the sedation, be careful on stairs, as you may be unsteady on your feet. You may resume your regular diet as tolerated. IV site -- slight redness, or tenderness is normal, you can use a warm compress. If tenderness and redness increases or foul drainage occurs, please contact your M. D. Revised 08/01/19 documented in this encounter Medications at Time of Discharge Medication Sig Dispensed Refills Start Date End Date loratadine (CLARITIN) 5 Take by mouth. 0 05/24/20 10 mg/5 mL Solution lancets 30 gauge Misc Check blood sugar three 0 1 times a day cholecalciferol (Vitamin Take 1,000 Units by 0 D3) 1,000 unit Tablet mouth Daily. dulaglutide (Trulicity) Inject 1.5 mg 0 7 1.5 mg/0.5 mL Pen subcutaneously Once a Injector week. Lantus Solostar U-100 0 08/05/2022 Insulin 100 unit/mL (3 mL) pen lisinopriL (Zestril) 10 Take 10 mg by mouth 0 mg Tablet Daily. pantoprazole EC 0 08/05/2022 (Protonix) 40 mg Tablet, Delayed Release (E.C.) rosuvastatin (Crestor) 0 08/05/2022 10 mg Tablet sertraline (Zoloft) 50 0 07/25/2022 mg Tablet solifenacin (VESICARE) 5 Take by mouth. 0 mg Tablet documented as of this encounter Progress Notes Gary Gillespie LPN - 08/29/2022 11:59 PM EST Interventional and Vascular Radiology Post-Procedure Call Name: Mohan WomackSusanna Age: 72 y.o. Sex: Female Date of : 1950 (home) Telephone Information: PCP: Elisa Pa APRN [phone] Date/Time of call: August 30, 2022/8:29 AM Procedure: medioport placement Procedural Provider: Sue Henderson PA Contact with patient or if not, with whom?: patient Are you having pain related to your procedure now?: No Are you having any swelling or bleeding from the site? No Are you having any other problems related to your procedure?: No Comments: Did you understand the discharge instructions given and do you have any questions?: Yes Comments: Do you have any comments about your Nurse or Provider or the care you received?: No Nurse Comments: Brayden Lazaro RN - 08/29/2022 1:38 PM EST ANGIO NURSING DATABASE Name: MOHAN WOODS Date of : 1950 AGE: 72 y.o. [address]: [address] [place] [address] (home) Mobile: Telephone Information: Referring Provider: Dimitry Atwood REASON FOR VISIT: Order Questions Answers Where will study be performed? [facility] Radiology [120] Prefered insertion location: No Preference Is the patient on anticoagulant / antiplatelet therapy ? No Reason for exam and clinical history: colon cancer, needs mediport for chemotherapy Plan: Planned procedure: Mediport placement Labs to be performed day of procedure: No labs Sedation: Moderate (Conscious sedation) Prophylactic antibiotic : None Contrast: No contrast Additional medications for procedure: Lidocaine Position: Supine Consent: Pending Medications to discontinue (and days held): None Allergies Allergen Reactions ??? Ciprofloxacin (Mixture) ??? Codeine Rash ??? Nitrofurantoin ??? Sulfasalazine Pertinent PMH: Patient Active Problem List Diagnosis Code ??? 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 Date/Procedure Meds given/comments None prior 08/29/2022 Mediport Placement Lot #[id number] Fentanyl 100mcg IV Midazolam 2mg IV 1338 to procedure room 4 via stretcher. Onto table supine. All monitors, O2, safety strap in place. Meds per protocol. Laboratory Results: Lab Results Component Value Date CREATININE 0.91 08/10/2022 Lab Results Component Value Date K 4.0 08/10/2022 Lab Results Component Value Date PLATELET 229 08/10/2022 documented in this encounter H&P Notes Sue Henderson PA - 08/29/2022 12:54 PM EST INTERVENTIONAL RADIOLOGY FOCUSED H&P: Procedure: Port placement The patient's history and physical exam have been reviewed and completed. There has been no intervalchange from that of the pre-operative history and physical exam done within the last 30 days. Physical Exam: Cardiovascular: Regular, Normal Pulmonary: Breath sounds clear to auscultation The planned procedure (and sedation plan if appropriate) , its benefits and risks, and alternatives were discussed with the patient. The patient consented to the procedure. PRE-SEDATION ASSESSMENT: Sedation Plan: moderate (conscious sedation) ASA: 2: Patient with mild systemic disease Mallampati: III: only the base of the uvula can be seen Confirm NPO status: Yes History of anesthetic complications: No Current medications reviewed: Yes Allergies reviewed: Yes Source Note - Citlali Valadez MD - 08/11/2022 8:33 AM EDT INTERVENTIONAL RADIOLOGY FOCUSED H&P and PRE-PROCEDURE NOTE: PCP: Elisa Pa APRN Referring Provider: Dimitry Atwood MD Planned Procedure: Planned procedure: Mediport placement Procedure Indication: Colon Cancer, Need access for chemotherapy Procedure Request: Procedure request received through the Interventional Radiology eDH order queue. Presenting Diagnosis/ Complaint: Mohan Woods is a 72 y.o. female with Colon [...] Visit Hematology and Oncology Dimitry Atwood MD [facility] [place] [address] Sury Griffin APRN [address] [place] [address] [place] [address] 09/02/2022 Infusion Hematology and Oncology documented as of this encounter Procedures Procedure Name Priority Date/Time Associated Diagnosis Comme nts IR MEDIPORT Routine 08/29/2022 2:32 PM Malignant neoplasm Res ults for this PLACEMENT EST of transverse colon procedur e are [...] ORDERABLES POCT Glucose (08/29/2022 1:12 PM EST) athologist Signature POC Glucose 76 65 - 199 [facility] mg/dL [facility] Comment: Supplemental ranges: <140 mg/dL before meals <180 mg/dL all other times of the day Specimen Anatomical Collection Method Collection Time Receive d Time (Source) Location / / Volume Laterality Blood 08/29/2022 1:12 PM 2 1:12 EST PM EST Dimitry Atwood MD POINT OF CARE TEST ORDERABLE S Performing Organization Address City/State/[place] [address] documented in this encounter Visit Diagnoses Diagnosis 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 - Start dose: 50 mcg (reduce dose to 25 mcg if history of sedation sensitivity). - Titration dose: 25-50 mcg IV, (based on patient response) every 3 minutes PRN to maintain procedural pain less than 2 per Pain Scale. Maximum dose: 50 mcg/dose, 250 mcg/hour, Angio/IR (Intra-Procedure), Routine Given 08/29/2022 2:00 PM EST 25 mcg Given 08/29/2022 1:50 PM EST 50 mcg lidocaine (Xylocaine) 1% (10 mg/mL) injection Given 2:00 PM EST 10 mg 10 mg 10 mg, Subcutaneous, ONCE, 1 dose, On Mon08/29/22 at 1330, For use in Interventional Radiology (IR) only for procedure with direct provider supervision and verbal order., Angio/IR (Intra-Procedure), Routine lidocaine (Xylocaine) 1% (10 mg/mL) injection Given 2:01 PM EST 10 mg 3 mg 3 mg (0.3 mL), Subcutaneous, ONCE PRN, 1 dose, Starting on Mon08/29/22 at 1303, Until Mon08/29/22 at 1401, for discomfort with PIV insertion, Angio/IR (Day of Procedure), Routine midazolam (Versed) (1 mg/mL) injection 0.5-1 Given 2:05 PM EST 0.5 mg mg 0.5-1 mg, Intravenous, EVERY 3 MIN PRN, Starting on Mon08/29/22 at 1303, Until Mon08/29/22 at 1447, Sedation, For use in Interventional Radiology (IR) only for procedural sedation with direct provider supervision and verbal order. - Start dose: 1 mg (Reduce dose to 0.5 mg if history of sedation sensitivity). - Titration dose: 0.5 mg - 1 mg (based on patient response) every 3 minutes PRN to obtain RASS score of -3. Maximum dose: 1 mg/dose, 5 mg/hour., Angio/IR (Intra-Procedure), Routine Given 08/29/2022 2:00 PM EST 0.5 mg Given 08/29/2022 1:50 PM EST 1 mg documented in this encounter Care Teams Child Center Assistant Relationship Specialty Start Date End Date Elisa Pa APRN PCP - General Geriatric Medicine 01/26/22 [address] [place] [address] documented as of this encounter
--- OUTSIDE RECORDS SUMMARY | 2022-09-02 01:06 | XMS_ITS | Encounter Summary ---
:1950 Author Organization [facility] Address [address] [place] [address] Care Team Providers Name Role Phone Out Of Area, Pcp-Mp Primary Care Provider Unavailable Encounter Details Date Type Department Care Team Description 06/03/2022 Lab Requisition [facility] Tu Elizabeth Benign neoplasm, unspecified site; Pathology & MD [place] Polyp of colon; Laboratory Medicine [address] [facility] for screening for malignant neoplasm of colon; - [facility] Malignant neoplasm of transverse colon ( HCC-CMS) (HCC) [address] [place] [id number] Social History Tobacco Use Types Packs/Day Years Used Date Smoking Tobacco: Never Assessed Sex Assigned at Date Recorded Not on file documented as of this encounter Plan of Treatment Not on filedocumented as of this encounter Procedures Procedure Name Priority Date/Time Associated Diagnosis Comme nts SURGICAL PATHOLOGY Today 06/02/2022 16:25 Benign neoplasm, R esults for this EDT unspecified site procedure are in Polyp of colon the results Encounter for section. screening for malignant neoplasm of colon Malignant neoplasm of transverse colon (HCC-CMS) (HCC) documented in this encounter Results SURGICAL PATHOLOGY (06/02/2022 16:25 EDT) Component Value Ref Test Analysis Performed Pathologis t Range Method Time At Signature Note to The following 06/09/2022 [facility] Patient pathology results 9:37 EDT CENTER have been interpreted LABORATO RY by your pathologist SERVICES and may be available to you before your health provider has had the opportunity to review them. Please allow time for your provider to receive these results and explore management options, if applicable. Final A. COLON, LEFT, TUMOR, LEFT HEMICOLECTOMY: 06/09/2022 [facility] Diagnosis - Invasive moderately differentiated adenocarcinoma (G2). 9:37 EDT CENTER - AJCC 8th Edition staging: pT4a, pN0. See synoptic report. LABORATORY - See comment. SERVICES Diagnosis RESULTS OF IMMUNOHISTOCHEMIC AL STAINING: Retained expression of MLH1, PMS2, MSH2 and MSH6 06/09/2022 [facility] Comment 9:37 EDT CENTER INTERPRETATION: These result s are indicative of normal DNA mismatch repair function within the tumor. This patient most likely does not have Hart syndrome. However, it is important to note that 3-10% o LABORATORY f Hart syndrome patients ma y reveal retained expression of mismatch repair proteins due to mutation in other genes. Hence these findings should be interpreted in the context of family and clinical hist SERVICES ory. If results do not match clinicopathologic findings, molecular testing (specifically microsatellite instability by PCR) can be ordered upon obtaining preauthorization or an advanced beneficiary notice. ANTIBODY (CLONE) (BLOCK): RESULT MLH1 (M1, Cerulean) (block A8): Retained expression in tumor PMS2 (A16-4, Cerulean) (block A8): Retained expression in chris or MSH2 ([id number], Cerulean) (block A8): Retained expression in tumor MSH6 (SP93, Cerulean) (block A8): Retained expression in tumo r Internal controls: Adequate NOTE: One or more of the re agents used in immunohistochemical testing in this case may not have been cleared or approved by the U.S. Food and Drug Administration (FDA). The FDA has determined that such clearance or approval is no t necessary. These tests are used for clinical purposes. They should not be regarded as investigational or for research. These reagents' performance characteristics have been determined by [facility] and/or by the referring laboratory. The positive and negative controls worked appropriately. This laboratory is certified under the Clinical Labor atory Improvement Amendments of 1988 (CLIA-88) as qualified to perform high complexity clinical laboratory testing. Attestation There was significant 06/09/2022 [facility] M EDICAL Electronically resident/fellow 9:37 EDT CENTER sign ed by Abamado involvement in the LABORATORY Richard Sanchez, diagnostic evaluation SERVICES on 06/09/2022 of this case. By the at 0937 signature below, the attending physician certifies that they have personally conducted a gross and/or microscopic examination of the described specimens and rendered or confirmed the above diagnosis. Synoptic COLON AND RECTUM: Resection, Including Transanal Disk Excision of Rectal Neoplasms 06/09/2022 [facility] COLON AND RECTUM: RESECTION - A 9:37 [facility] 8th Edition - Protocol posted: 12/12/2018 LABORATORY SERVICES SPECIMEN ?? Procedure: ?Left hemicolectomy TUMOR ?? Tumor Site: ?Left (descending) colon ?? Histologic Type: ?Adenocarcinoma ?? Histologic Grade: ?G2: Moderately differentiated ?? Tumor Size: ?Greatest dimension (Centimeters): 4.0 c m ?? Tumor Deposits: ?Not identified ?? Tumor Extension: ?Tumor invades the visceral periton eum ?? Macroscopic Tumor Perforation: ?Not identified ?? Lymphovascular Invasion: ?Not identified ?? Perineural Invasion: ?Not identified ?? Treatment Effect: ?No known presurgical therapy MARGINS ?? Margins: ?All margin s are uninvolved by invasive carcinoma, high-grade dysplasia, intramucosal adenocarcinoma, and adenoma ? Margins Examined: ?Proximal ? Margins Examined: ?Distal ? Margins Examined: ?Radial or Mesenteric LYMPH NODES ?? Number of Lymph Nodes Involved: ?0 ?? Number of Lymph Nodes Examined: ?24 PATHOLOGIC STAGE CLASSIFICATION (pTNM, AJCC 8th Edition) ?? Primary Tumor (pT): ?pT4a ?? Regional Lymph Nodes (pN): ?pN0 Clinical Benign neoplasm, 06/09/2022 [facility] History unspecified site; 9:37 [facility] Polyp of colon; LABORATORY Encounter for SERVICES screening for malignant neoplasm of colon; Malignant neoplasm of transverse colon (HCC-CMS) (HCC); clinical diagnosis code: Z12.11, D36.9, K63.5 Gross A. 06/09/2022 [facility] Description Received in formalin selin d with proper patient identification (initials L, S) and extended left hemicolectomy is a nonoriented segment:, 21.0 cm in length which is stapled along both margins. The c 9:37 EDT CENTER olonic segment averages 2.9 cm in diameter and includes abundant pericolic adipose tissue and adherent omentum. The serosal surfaces show few adhesions. The central colonic serosa is slightly umbilicate LABORATORY d. The surface is inked blue . Sectioning reveals a 4.0 cm in length centrally ulcerated slightly raised tumor measuring approximately 3.0 cm in circumference. The tumor is located 8.0 cm from the far re SERVICES section margin and 6.0 cm ne ar resection margin. Submucosal tattoo dye is present adjacent to the tumor nearest the near resection margin. Sections through the tumor show a solid salinas-white wall measuri ng up to 1.1 cm in thickness . The tumor extends to within 0.1 cm from the colonic and pericolic adipose tissue serosal surfaces. The tumor invades into the pericolic adipose tissues without obvious invo lvement of the adherent omen chris. The tumor is located approximately 9 cm from the omental resection margin. The vascular resection margin is unremarkable. The remaining mucosal surfac es are without additional lesions. Sections through the adipose tissue show multiple kohler salinas and black lymph nodes measuring up to 1.1 cm in greatest dimension. Mail Technician sections are submitted as follows: BLOCK BALDWIN A1- sections serosal adhesions A2- far resection margin, en face A3- near resection margin, en face A4- omental resection margin, en face A5- longitudinal section tumor to tattoo dye towards near re section margin A6-A9- sections tumor with inked umbilicated serosa and lily colic invasion A10- vascular margin, en face A11-A15- multiple intact possible lymph nodes A16- 1 lymph node, bisected A17- 1 lymph node, trisected A18- 1 lymph node, trisected A19- 1 lymph node, bisected A20- 1 lymph node, bisected A21- 1 lymph node, trisected A22- 1 lymph node bisected A23- 1 lymph node, bisected A24- 1 lymph node, bisected A25- 1 lymph node, bisected A26- 1 lymph node, trisected A27-A28- largest lymph node, trisected A29-A31- multiple lymph nodes, intact PAULETTE SZYMANSKI([facility]) 06/06/2022 16:55 Resident/Shiraz Bettencourt MD 06/09/2022 [facility] ow: 9:37 EDT CENTER LABORATORY SERVICES Performing [facility] LAB 06/09/2022 [facility] AL Lab 9:37 EDT CENTER LABORATORY SERVICES Scanned 06/09/2022 [facility] Images 9:37 EDT CENTER LABORATORY SERVICES Specimen Anatomical Collection Method Collection Time Receive d Time (Source) Location / / Volume Laterality Tissue ENTIRE SIGMOID 06/02/2022 16:25 2 COLON / Unknown EDT 17:11 EDT Tu Elizabeth MD PATHOLOGY ORDERABLES Performing Organization Address City/State/ZIP Code Phon e Number [facility] [address] [place] [address] SERVICES documented in this encounter Visit Diagnoses Diagnosis Benign neoplasm, unspecified site Polyp of colon Benign neoplasm of colon Encounter for screening for malignant ne oplasm of colon Special screening for malignant neoplasm s, colon Malignant neoplasm of transverse colon ( HCC-CMS) (HCC) Malignant neoplasm of transverse colon documented in this encounter Care Teams Solder Technician Relationship Specialty Start Date End Date Out Of Area, Pcp-Mp PCP - General 04/15/22 documented as of this encounter
--- OUTSIDE RECORDS SUMMARY | 2022-09-02 01:06 | XMS_ITS | Encounter Summary ---
:1950 Author Organization [facility] Address [address] [place] [address] Care Team Providers Name Role Phone Out Of Area, Pcp-Mp Primary Care Provider Unavailable Encounter Details Date Type Department Care Team Description 07/31/2020 Lab Requisition [facility] Outr Resulting Lab, Pathology & Laboratory Provider [facility] [address], [place] [id number] Social History Tobacco Use Types Packs/Day Years [...] - BROAD COVID TEST (07/31/2020 9:12 EDT) Analysis Performed At [facility] Time Signature COVID-19 NEGATIVE Negative 08/01/2020 BROAD rt-PCR Result 12:45 EDT [facility] Comment: 2019-novel Coronavirus (2019-nCoV) not d etected by the qRT-PCR assay. Consider testing for other respiratory viruses or re-collecting for 2019-nCoV testing. Note: Optimum timing for peak viral levels du ring infections caused by 2019-nCoV have not been determined. Collection of multiple specimens from the same patient may be necessary to detect the virus. Limitations Positive results are indicative of activ e infection with SARS-CoV-2 but do not rule out bacterial infection or co-infection with other viruses. The agent detected may not be the definite cause of diseas e. In addition, detection of viral RNA m ay not indicate the presence of infectious virus or that SARS-CoV-2 is the causative agent for clinical symptoms. Negative results do not preclude SARS-Co V-2 infection and should not be used as the sole basis for patient management decisions. Negative results must be combined with clinical observations, patient his tory, and epidemiological information. F alse negative results may also occur if amplification inhibitors are present in the specimen or if inadequate numbers of organisms are present in the specimen. Op timum specimen types and timing for peak viral levels during infections caused by SARS-CoV-2 have not been fully determined. Collection of multiple specimens (types and time points) from the same patient may be necessary to detect the virus. The test was validated for use with uppe r respiratory specimens obtained via nasopharyngeal or oropharyngeal swabs in VTM, UTM, M4, M5, M6, saline, and MTM media. The performance of this test has not be en established for other specimens. Spec imens collected using other FDA recommended Specimen Collection Materials listed in the FDA COVID-19 [employer] communication (January 09, 2020) are pr ocessed with the caveat that they were n ot all validated for use with this test and the result must be interpreted in this context. Furthermore, a false negative results may occur if a specimen is improperly collected, transported or handled. If the virus mutates in the RT-PCR targe t region, SARS-CoV-2 may not be detected or may be detected less predictably. Inhibitors or other types of interferenc e may produce a false negative result. An interference study evaluating the effect of common cold medications was not performed. This test is not FDA-cleared but its per formance characteristics were established by our CLIA-certified, CAP-accredited, high complexity laboratory in accordance with CLIA regulations, College of [employer] an Pathologists (CAP) guidelines (Dec), and FDA guidance (Dec 14, 2019). This test is only for use under the Food and Drug Administration's Emergency Use Authorization. Specimen Anatomical Location Collection Method Collection Time Received Time (Source) / Laterality / Volume Swab ENTIRE NASOPHARYNX 07/31/2020 9:12 2019 / Unknown EDT 16:18 EDT Provider Outr Resulting Lab MICROBIOLOGY - GENERAL ORD ERABLES Performing Organization Address City/State/ZIP Code Phon e Number [facility] [place], [place] COVID-19 TESTING (07/31/2020 9:12 EDT) Analysis Performed At [facility] Time Signature COVID-19 NEGATIVE Negative 08/01/2020 BROAD rt-PCR Result 15:03 EDT [facility] Comment: 2019-novel Coronavirus (2019-nCoV) not d etected by the qRT-PCR assay. Consider testing for other respiratory viruses or re-collecting for 2019-nCoV testing. Note: Optimum timing for peak viral levels du ring infections caused by 2019-nCoV have not been determined. Collection of multiple specimens from the same patient may be necessary to detect the virus. Limitations Positive results are indicative of activ e infection with SARS-CoV-2 but do not rule out bacterial infection or co-infection with other viruses. The agent detected may not be the definite cause of diseas e. In addition, detection of viral RNA m ay not indicate the presence of infectious virus or that SARS-CoV-2 is the causative agent for clinical symptoms. Negative results do not preclude SARS-Co V-2 infection and should not be used as the sole basis for patient management decisions. Negative results must be combined with clinical observations, patient his tory, and epidemiological information. F alse negative results may also occur if amplification inhibitors are present in the specimen or if inadequate numbers of organisms are present in the specimen. Op timum specimen types and timing for peak viral levels during infections caused by SARS-CoV-2 have not been fully determined. Collection of multiple specimens (types and time points) from the same patient may be necessary to detect the virus. The test was validated for use with uppe r respiratory specimens obtained via nasopharyngeal or oropharyngeal swabs in VTM, UTM, M4, M5, M6, saline, and MTM media. The performance of this test has not be en established for other specimens. Spec imens collected using other FDA recommended Specimen Collection Materials listed in the FDA COVID-19 [employer] communication (January 09, 2020) are pr ocessed with the caveat that they were n ot all validated for use with this test and the result must be interpreted in this context. Furthermore, a false negative results may occur if a specimen is improperly collected, transported or handled. If the virus mutates in the RT-PCR targe t region, SARS-CoV-2 may not be detected or may be detected less predictably. Inhibitors or other types of interferenc e may produce a false negative result. An interference study evaluating the effect of common cold medications was not performed. This test is not FDA-cleared but its per formance characteristics were established by our CLIA-certified, CAP-accredited, high complexity laboratory in accordance with CLIA regulations, College of [employer] an Pathologists (CAP) guidelines (Dec), and FDA guidance (Dec 14, 2019). This test is only for use under the Food and Drug Administration's Emergency Use Authorization. Performing Lab [employer] 08/01/2020 15:0 3 EDT [facility] Specimen Anatomical Collection Method Collection Time Receive d Time (Source) Location / / Volume Laterality Swab 07/31/2020 9:12 07/31/2020 EDT 16:18 EDT Provider Outr Resulting Lab MICROBIOLOGY - GENERAL ORD ERABLES Performing Organization Address City/State/ZIP Code Phon e Number [facility] [address] [place] [address] [facility] [place], [place] documented in this encounter Visit Diagnoses Not on filedocumented in this encounter Care Teams Business Development Executive Relationship Specialty Start Date End Date Out Of Area, Pcp-Mp PCP - General 04/15/22 documented as of this encounter
--- OUTSIDE RECORDS SUMMARY | 2022-09-02 01:06 | XMS_ITS | Clinical Summary ---
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 Please allow time for your provider to receive these results and explore management options, if applicable. Final A. COLON, LEFT, TUMOR, LEFT HEMICOLECTOMY: 06/09/2022 [facility] Diagnosis - Invasive moderately differentiated adenocarcinoma (G2). 9:37 EDT CENTER - AJCC 8th Edition staging: pT4a, pN0. See synoptic report. LABORATORY - See comment. SERVICES Diagnosis RESULTS OF IMMUNOHISTOCHEMIC AL STAINING: Retained expression of MLH1, PMS2, MSH2 and MSH6 06/09/2022 [facility] Comment 9:37 [facility] INTERPRETATION: These result s are indicative [...] notice. ANTIBODY (CLONE) (BLOCK): RESULT MLH1 (M1, [place]) (block A8): Retained expression in tumor PMS2 (A16-4, [place]) (block A8): Retained expression in chris or MSH2 ([id number], [place]) (block A8): Retained expression in tumor MSH6 (SP93, [place]) (block A8): Retained expression in tumo r [...] performance characteristics have been determined by [facility] and/or by the referring laboratory. The positive and negative controls worked appropriately. This laboratory is certified under the Clinical Labor atory Improvement Amendments of 1988 (CLIA-88) as qualified to perform high complexity clinical laboratory testing. Attestation There was significant 06/09/2022 CARLOS Thakkar EDICAL Electronically resident/fellow 9:37 [facility] sign ed by Grazyna involvement in the LABORATORY Richard Sanchez diagnostic evaluation SERVICES on 06/09/2022 of this case. By the at 0937 signature below, the attending physician certifies that they have personally conducted a gross and/or microscopic examination of the described specimens and rendered or confirmed the above diagnosis. 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 06/09/2022 [facility] Description Received in formalin selin d with proper patient identification (initials L, S) and extended left hemicolectomy is a nonoriented segment:, 21.0 cm in length which is stapled along both margins. The c 9:37 [facility] olonic segment averages 2.9 cm in diameter [...] up to 1.1 cm in greatest dimension. Grapple Operator sections are submitted as follows: BLOCK BALDWIN [...] trisected A29-A31- multiple lymph nodes, intact PAULETTE SZYMANSKI(ASCP) 06/06/2022 16:55 Resident/Shiraz Bettencourt MD 06/09/2022 [facility] ow: 9:37 EDT CENTER LABORATORY SERVICES Performing [facility] 06/09/2022 [facility] AL Lab 9:37 EDT CENTER LABORATORY SERVICES Scanned 06/09/2022 [facility] 9:37 EDT CENTER LABORATORY SERVICES Specimen Anatomical Collection Method Collection Time Receive d Time (Source) Location / / Volume Laterality Tissue ENTIRE SIGMOID 06/02/2022 16:25 2 COLON / Unknown EDT 17:11 EDT Tu Elizabeth MD PATHOLOGY ORDERABLES Performing Organization Address City/State/ZIP Code Phon e Number [facility] [address] [place] [address] SERVICES from Last 3 Months Insurance Payer Benefit Plan Subscriber ID Effective Phone Address Typ e / Group Dates [employer] MEDICARE [facility] MEDICARE [id number] 2022-Pre [phone] [address] [facility] sent [address] [place] [address] [phone] [address] [facility] [place] [address] Lesnikemas,Radha Personal/Famil Self 1950 [id number] [phone] [facility] [place] [address] Lesfloydemas,Radha Personal/Famil Self 1950 [id number] [phone] [facility] [place] [address] Juan LuisnikemadestineeRadha Personal/Famil Self 1950 [id number] [phone] [facility] [place] [address] Lesnikemas,Radha Personal/Famil Self 1950 [id number] [phone] [place], [place] [address] Lesfloydemas,Radha Personal/Famil Self 1950 [id number] [phone] [place], [place] [address] Lesnikemas,Radha Personal/Famil Self 1950 [id number] [phone] [facility] [place] [address] Radha Donovan Personal/Famil Self 1950 [phone] [address] [facility] [address] [place], [place] [address] Care Teams Pet Caretaker Relationship Specialty Start Date End Date Out Of Area, Pcp-Mp PCP - General 04/15/22
--- OUTSIDE RECORDS SUMMARY | 2022-09-02 01:06 | XMS_ITS | Encounter Summary ---
:1950 Author Organization [facility] Address [address] [place] [address] Care Team Providers Name Role Phone Out Of Area, Pcp-Mp Primary Care Provider Unavailable Encounter Details Date Type Department Care Team Description 01/26/2022 Lab Requisition [facility] Outr Resulting Lab, Pathology & Laboratory Provider [facility] [address], [place] [id number] Social History Tobacco Use Types Packs/Day Years [...] encounter Results (ABNORMAL) HOMOCYSTEINE (01/26/2022 11:05 EDT) P athologist Signature Homocysteine 36.1 (H) 5.0 - 13.9 01/28/2022 [facility] umol/L 10:02 EDT [facility]ENTER [facility] SERVICES Comment: Results may be falsely elevated if sample is not collected on ice or is not removed from cells within 1 hour of armaan ection. Specimen Anatomical Collection Method Collection Time Receive d Time (Source) Location / / Volume Laterality Blood VENOUS BLOOD / 01/26/2022 11:05 2 Unknown EDT 17:01 EDT Narrative [facility] - 01/28/2022 10:02 EDT Reference range may not apply to non-fas ting samples. ??It is not recommended that EDTA plasma and serum from the same bridgette ent be used interchangeably. ??Serum concentrations have been observed to be up to 10% higher than EDTA plasma. Reference range may not apply to serum results. Provider Outr Resulting Lab CHEMISTRY & BLOOD GAS [address] [facility] Organization Address City/State/ZIP Code Phon e Number [facility] [address] [place] [address] SERVICES documented in this encounter Visit Diagnoses Not on filedocumented in this encounter Care Teams Pharmacy Technology Instructor Relationship Specialty Start Date End Date Out Of Area, Pcp-Mp PCP - General 04/15/22 documented as of this encounter
--- OUTSIDE RECORDS SUMMARY | 2022-09-02 01:06 | XMS_ITS | Encounter Summary ---
:1950 Author Organization [facility] Address [address] [place] [address] Care Team Providers Name Role Phone Out Of Area, Pcp-Mp Primary Care Provider Unavailable Encounter Details Date Type Department Care Team Description 01/07/2022 Lab Requisition [facility] Outr Resulting Lab, Pathology & Laboratory Provider [facility] [address] [place] [address] Social History Tobacco Use Types Packs/Day Years Used Date Smoking Tobacco: Never Assessed Sex Assigned at Date Recorded Not on file documented as of this encounter Plan of Treatment Not on filedocumented as of this encounter Procedures Procedure Name Priority Date/Time Associated Diagnosis Comme nts LYME AB Routine 01/07/2022 9:00 EDT Results for this procedure are i n the results section . documented in this encounter Results LYME AB (01/07/2022 9:00 EDT) P athologist Signature Lyme Ab Negative Negative 01/10/2022 [facility] 14:33 EDT [facility]ENTER LAB[facility] SERVICES Specimen Anatomical Collection Method Collection Time Receive d Time (Source) Location / / Volume Laterality Blood VENOUS BLOOD / 01/07/2022 9:00 01/07/2022 Unknown EDT 18:59 EDT Provider Outr Resulting Lab IMMUNOLOGY AND SEROLOGY OR DERABLES Performing Organization Address City/State/ZIP Code Phon e Number [facility] [address] [place] [address] SERVICES documented in this encounter Visit Diagnoses Not on filedocumented in this encounter Care Teams Helminthologist Relationship Specialty Start Date End Date Out Of Area, Pcp-Mp PCP - General 04/15/22 documented as of this encounter
--- OUTSIDE RECORDS SUMMARY | 2022-09-02 01:06 | XMS_ITS | Encounter Summary ---
:1950 Author Organization [facility] Address [address] [place] [address] Care Team Providers Name Role Phone Out Of Area, Pcp-Mp Primary Care Provider Unavailable Encounter Details Date Type Department Care Team Description 01/07/2022 Lab Requisition [facility] Outr Resulting Lab, Pathology & Laboratory Provider [facility] [address] [place], [place] [id number] Social History Tobacco Use Types Packs/Day Years [...] AND ANTIBODY, 4TH GENERATION (01/07/2022 9:00 EDT) [facility] Method Time Signature HIV 1 and 2 Negative Negative 01/10/2022 [facility] Antibody/p24 11:25 EDT CENTER Antigen, 4th LABORATORY Generation SERVICES Comment: If acute HIV-1 infection is hadley pected in a high risk patient, submit plasma specimen for HIV-1 RNA quantitation test . Specimen Anatomical Collection Method Collection Time Receive d Time (Source) Location / / Volume Laterality Blood VENOUS BLOOD / 01/07/2022 9:00 01/07/2022 Unknown EDT 18:59 EDT Narrative [facility] - 01/10/2022 11:25 EDT Fourth Generation assay performed on the [employer] XPT. Provider Outr Resulting Lab IMMUNOLOGY AND SEROLOGY OR DERABLES Performing Organization Address City/State/ZIP Code Phon e Number [facility] [address] [place] [address] SERVICES documented in this encounter Visit Diagnoses Not on filedocumented in this encounter Care Teams Ecommerce Manager Relationship Specialty Start Date End Date Out Of Area, Pcp-Mp PCP - General 04/15/22 documented as of this encounter
--- OUTSIDE RECORDS SUMMARY | 2022-09-02 01:06 | XMS_ITS ---
:1950 Author Organization [facility] Address [address], [place] [id number] Care Team Providers Name Role Phone Tu Elizabeth Unavailable Unavailable PROBLEMS ALLERGIES ENCOUNTERS IMMUNIZATIONS No Known Immunizations SOCIAL HISTORY REASON FOR REFERRAL FUNCTIONAL STATUS PLAN OF CARE VITAL SIGNS MEDICATIONS PROCEDURES RESULTS REASON FOR VISIT Insurance Providers
[2022-09-02 08:33] LABS: Abs Immature Grans 0.03 10^3/uL (0.0-0.06); Absolute Basophil Count 0.05 10^3/uL (0.0-0.2); Absolute Eosinophil Count 0.24 10^3/uL (0.0-0.7); Absolute Lymphocyte Count 2.86 10^3/uL (1.2-3.4); Absolute Neutrophil Count 5.26 10^3/uL (1.2-6.7); Basophils % 0.6; Eosinophils % 2.7; HCT 40.2 % (36.0-46.0); HGB 12.9 g/dL (11.2-15.7); Immature Grans % 0.3; Lymphocytes % 31.6; MCHC 32.1 % (32.0-36.0); MCV 84 fL (80-95); Monocytes % 6.6; Neutrophils % 58.2; Platelet Count 190 10^3/uL (130-400); RBC 4.77 10^6/uL (3.93-5.22); RDW 14.3 % (11.7-14.6); WBC 9.04 10^3/uL (4.4-10.8)
[2022-09-02] MEDS: Normal Saline Flush 10 ML SYR IVP (08:36)
[2022-09-02 08:41] LABS: ALT 15 U/L (14-59); AST 19 U/L (15-37); Albumin 3.7 g/dL (3.4-5.0); Alkaline Phosphatase 83 U/L (46-116); Anion Gap 7.3 mmol/L (3-11); BUN 16 mg/dL (7-18); Bilirubin, Total 0.3 mg/dL (0.2-1.0); CO2 27.7 mmol/L (21.0-32.0); CREATININE 0.9 mg/dL (0.55-1.02); Calcium 9.1 mg/dL (8.5-10.1); Chloride 104 mmol/L (98-107); Glucose 114 mg/dL (74-106); Sodium 139 mmol/L (136-145); Total Protein 7.7 g/dL (6.4-8.2)
[2022-09-04 10:19] VITALS: BP 140/71; PULSE 121; RESP 20; TEMP 37.6; O2SAT 97
[2022-09-04 10:46] LABS: HCT 41.5 % (36.0-46.0); HGB 13.1 g/dL (11.2-15.7); MCH 26.4 pg (27.0-33.0); MCHC 31.6 % (32.0-36.0); MCV 84 fL (80-95); MPV 11.3 fL (8.0-11.0); Platelet Count 125 10^3/uL (130-400); RBC 4.96 10^6/uL (3.93-5.22); RDW 14.5 % (11.7-14.6); WBC 9.19 10^3/uL (4.4-10.8)
[2022-09-04] MEDS: Heparin 500 UNITS/5 ML SYRINGE IV (10:50)
[2022-09-04] MEDS: Normal Saline Flush 10 ML SYR IVP (10:51)
[2022-09-04 11:01] LABS: ALT 369 U/L (14-59); AST 264 U/L (15-37); Albumin 3.1 g/dL (3.4-5.0); Alkaline Phosphatase 148 U/L (46-116); Anion Gap 10.3 mmol/L (3-11); BUN 16 mg/dL (7-18); Bilirubin, Total 2.3 mg/dL (0.2-1.0); CO2 26.7 mmol/L (21.0-32.0); CREATININE 1.2 mg/dL (0.55-1.02); Calcium 8.2 mg/dL (8.5-10.1); Chloride 98 mmol/L (98-107); Glucose 209 mg/dL (74-106); Potassium 3.6 mmol/L (3.5-5.1); Sodium 135 mmol/L (136-145)
[2022-09-04 11:09] LABS: Absolute Lymphocyte Count 0.74 10^3/uL (1.2-3.4); Absolute Neutrophil Count 8.18 10^3/uL (1.2-6.7); Bands % 6
[2022-09-04 11:10] LABS: Absolute Basophil Count 0.09 10^3/uL (0.0-0.2); Absolute Eosinophil Count 0.18 10^3/uL (0.0-0.7)
[2022-09-04 11:11] LABS: Diff Comment Manual Differential; RBC Morphology Normal
[2022-09-07] MEDS: Normal Saline Flush 10 ML SYR IVP (08:26)
[2022-09-07] MEDS: Heparin 500 UNITS/5 ML SYRINGE IV (08:26)
[2022-09-07 08:38] LABS: Abs Immature Grans 0.01 10^3/uL (0.0-0.06); Absolute Basophil Count 0.01 10^3/uL (0.0-0.2); Absolute Eosinophil Count 0.26 10^3/uL (0.0-0.7); Absolute Lymphocyte Count 0.56 10^3/uL (1.2-3.4); Absolute Monocyte Count 0.11 10^3/uL (0.1-0.8); Basophils % 0.3; Eosinophils % 6.7; HCT 35.8 % (36.0-46.0); HGB 11.5 g/dL (11.2-15.7); Immature Grans % 0.3; Lymphocytes % 14.4; MCH 26.6 pg (27.0-33.0); MCHC 32.1 % (32.0-36.0); MCV 83 fL (80-95); MPV 10.3 fL (8.0-11.0); Monocytes % 2.8; Neutrophils % 75.5; RBC 4.32 10^6/uL (3.93-5.22); RDW 14.7 % (11.7-14.6); RDW-SD 45.1 fL
[2022-09-07 08:40] LABS: Absolute Neutrophil Count 2.94 10^3/uL (1.2-6.7)
[2022-09-07 08:46] LABS: Diff Comment Diff Reviewed; Platelet Count 90 10^3/uL (130-400); RBC Morphology Normal
[2022-09-07 09:03] LABS: ALT 166 U/L (14-59); AST 112 U/L (15-37); Albumin 2.9 g/dL (3.4-5.0); Alkaline Phosphatase 252 U/L (46-116); BUN 17 mg/dL (7-18); Bilirubin, Total 1.8 mg/dL (0.2-1.0); CREATININE 0.9 mg/dL (0.55-1.02); Calcium 8.5 mg/dL (8.5-10.1); Chloride 101 mmol/L (98-107); Glucose 149 mg/dL (74-106); Potassium 3.5 mmol/L (3.5-5.1); Sodium 136 mmol/L (136-145); Total Protein 6.5 g/dL (6.4-8.2)
== END 2022-09-14 23:59 | disposition home or self-care (01) ==
LOC: INF 02:13
PROVIDERS: PCP Nurse Practitioner Adult Health; Visit Provider Internal Medicine Hematology & Oncology
DX: C18.4 Malignant neoplasm of transverse colon (principal); Z45.2 Encounter for adjustment and management of vascular access device
CPT/HCPCS: 36591; 80053; 85025

== ENCOUNTER 2022-10-14 00:38 | Outpatient (RCR) | payer MEDICARE, SELFPAY ==
[2022-09-15 00:22] VITALS: BP 140/71; PULSE 121; RESP 20; TEMP 37.6
--- OUTSIDE RECORDS SUMMARY | 2022-09-16 01:46 | XMS_ITS ---
:1950 Author Organization [facility] Address [address] [place], [place] [id number] Care Team Providers Name Role Phone Tu Elizabeth Unavailable Unavailable PROBLEMS Type Condition ICD9-CM Code [id number] Onset Condition SNOMED Code Code Dates Status Problem Sensory hearing H90.3 Active 1944 55019 loss, bilateral Problem Primary C18.4 Active [id number] adenocarcinoma of transverse colon Problem Pressure ulcer of L89.322 Active left buttock, stage 2 Problem Pressure ulcer of L89.302 Active 22 0648320 unspecified buttock, stage 2 ALLERGIES Substance Reaction Event Type Date Status Codeine Unknown Non Drug Allergy Jun, Active Sulfacetamide Sodium Unknown Drug Allergy Jun, Active Ciprofloxacin Unknown Drug Allergy Jun, Active Dust, mold Unknown Non Drug Allergy Jun, Active Cats Unknown Non Drug Allergy Jun, Active Nitrofurantoin Unknown Drug Allergy Jun, Active Sulfa Unknown Non Drug Allergy Jun, Active Codeine Sulfate Unknown Drug Allergy Jun, Active Rosiglitazone Maleate Unknown Drug Allergy Jun, Active ENCOUNTERS Encounter Location Date Diagnosis [facility] [address] Jun, Ira momo adenocarcinoma of Road [address] transverse colon C18.4 [place], [place] [id number] [facility] [address] Jun, Eleonora lulitis of abdominal Road [address] wall L03.311 and Primary [place], [place] adenocarcinoma o f [id number] transverse colon C18.4 [facility] [address] Jun, Ira momo adenocarcinoma of Road [address] transverse colon C18.4 [place], [place] [id number] [facility] [address] May, Ira momo adenocarcinoma of Road [address] transverse colon C18.4 [place], [place] [id number] [facility] [address] May, Road [address] [place] [id number] May, [address] [place], [place] [id number] [address] May, [address] [place] [id number] [facility] [address] May, [address] [place] [id number] [facility] [address] May, Road [address] [place] [id number] [facility] [address] May, 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 D49.0 [place], [place] [id number] [address] Apr, Colonic mas s K63.[address] [place], [place] [id number] Gastroenterology [address] [place] [address] Apr, [address] [place] [id number] [address] [place] [address] Apr, [address] [place] [address] [id number] [address] [place] [address] Mar, Road [address] [place] [address] [id number] [address] [place] [address] February, Road [address] [place] [id number], Oct, Sensor ineural hearing [facility] [address] lo ss (SNHL) of both ears [place], [place] H90.[id number], Jul, Sensor ineural hearing [facility] [address] lo ss (SNHL) of both ears [facility] [place] H90.[id number], Jun, [facility] [address] lo ss (SNHL) of both ears [place] [facility] [place] H90.[id number], Jun, Sensor ineural hearing [facility] [address] lo ss (SNHL) of both ears Casandra [place] H90.3 [id number] [address], May, Sensor ineural hearing [facility] [address] lo ss (SNHL) of both ears Casandra [place] H90.3 [id number] [address], May, [facility] [address] [place], [place] [id number] [address], May, [facility] [address] [place] [id number] [address], May, Sensor ineural hearing [facility] [address] lo ss (SNHL) of both ears [facility] [place] H90.3 [id number] [address], May, [facility] [address] [place], [place] [id number] [address], Apr, [facility] [address] [place], [place] [id number] [address], Apr, Sensor ineural hearing [facility] [address] lo ss (SNHL) of both ears [facility] [place] H90.3 [id number] [address], Apr, Sensor y hearing loss, [facility] [address] bi lateral H90.3 [place] [id number] [address], Dec, [facility] [address] [place], [place] [id number] IMMUNIZATIONS No Known Immunizations SOCIAL HISTORY Qualifiers Date Former Smoker REASON FOR REFERRAL FUNCTIONAL STATUS PLAN OF CARE Activity Details Future Test CT ABD/PELVIS W CONTRAST Future Test CT CHEST W CONTRAST [id number] VITAL SIGNS Height 5 ft 4 in in 2022-07-13 Height 5 ft 4 in in 2022-07-05 Height 5 ft 4 in in 2022-06-21 Height 5 ft 4 in in 2022-06-14 Height 5 ft 4 in in 2022-05-16 Height 5 ft 4 in in 2022-02-28 Height 5 ft 2.75 in in 2020-04-27 Height 5 ft 2.75 in in 2020-01-01 Weight 218.6 lbs 2022-07-13 Weight 218 lbs 2022-07-05 Weight 224.4 lbs 2022-06-14 Weight 227.0 lbs 2022-05-16 Weight 240 lbs 2022-02-28 Weight 260 lbs 2020-04-27 Weight 259 lbs 2020-01-01 Temperature 95.9 degrees Fahrenheit 2022-07-13 Temperature 97 degrees Fahrenheit 2022-07-05 Temperature 96.3 degrees Fahrenheit 2022-06-21 Temperature 97.3 degrees Fahrenheit 2022-06-14 Temperature 96.9 degrees Fahrenheit 2022-05-16 Temperature Temporal:97.9 degrees Fahrenheit 2020-04 Heart Rate 90 /min 2022-07-13 Heart Rate 98 /min 2022-07-05 Heart Rate 96 /min 2022-06-21 Heart Rate 100 /min 2022-06-14 Heart Rate 103 /min 2022-05-16 Oximetry 98 2022-07-13 Oximetry 96 2022-07-05 Oximetry 99 2022-06-21 Oximetry 95 2022-06-14 Oximetry 93 2022-05-16 BMI 37.52 kg/m2 2022-07-13 BMI 37.42 kg/m2 2022-07-05 BMI 38.51 kg/m2 2022-06-14 BMI 38.96 kg/m2 2022-05-16 BMI 41.19 kg/m2 2022-02-28 BMI 46.42 kg/m2 2020-04-27 BMI 46.24 kg/m2 2020-01-01 Blood pressure systolic 148 mm Hg 2022-07-13 Blood pressure diastolic 72 mm Hg 2022-07-13 MEDICATIONS Medication Instructions Dosage Frequency Start End Duration Statu s Date Date Insulin Lispro Subcutaneous Unkn own 200 UNIT/ML See instructions Lantus 100 as directed Active UNIT/ML Escitalopram Orally Once a 1 tablet 24h Unkn own Oxalate 10 MG day prednisoLONE Ophthalmic 2 drops 12h Unknown Acetate 1 % Twice a day into affected eye Pantoprazole Orally Once a 1 tablet 24h Acti ve Sodium 40 MG day Loratadine 10 MG Orally Once a 1 tablet 24h Active day Zofran 8 MG Orally as 1 tablet May, days Unknown directed 2021 Simvastatin 5 MG Orally Once a 1 tablet in 24h Unknown day the evening Neomycin Sulfate as directed May, 1 days Unk nown 500 MG 2021 Brinzolamide-Minda Ophthalmic BID 1 drop into 12h Unknown monidine 1-0.2 % affected eye Trulicity 0.75 as directed Activ e MG/0.5ML Ibuprofen 800 MG Orally Three 1 tablet 8h U nknown times a day with food or milk as needed Zoloft 50 MG Orally Once a 1 tablet 24h Acti ve day Dulaglutide 1.5 Subcutaneous 1.5 mg Unk nown MG/0.5ML Qweek Mirabegron ER 50 Orally Once a 1 tablet 24h Unknown MG day Lisinopril 20 MG Orally Once a 1 tablet 24h Active day Vitamin D-3 125 as directed Acti ve MCG (5000 UT) Insulin NPH Subcutaneous 50 units 12h Unknow n (Human) BID (Isophane) 100 UNIT/ML Rosuvastatin Orally Once a 1 tablet 24h 30 day(s) Ac tive Calcium 10 MG day Solifenacin Orally Once a 1 tablet 24h Activ e Succinate 5 MG day metronidazole as directed May, days Unknow n 500 mg 2021 PROCEDURES Procedure Date Ordered Result Body Site DISPENSING FEE BINAURAL Jun 10, 2020 COMPREHENSIVE AUDIOMET THRESH AND SPEECH April 27, 2020 M[place]ET[place] Consult May 20, 2020 Hearing Aid digital binaural BTE Jun 10, 2020 [place]A PROGRAMMING (CHECKING OF [place]) Jul 14, 2020 [place]ETA PROGRAMMING (CHECKING OF M[place]IET[place]) Jun 24, 2020 [place]ETA PROGRAMMING (CHECKING OF MENDIETA) Aug 06, 2020 COLONOSCOPY W/INJECTION May 12, 2022 MENDIETA PROGRAMMING (CHECKING OF MENDIETA) Oct 28, 2020 COLONOSCOPY WITH BIOPSY May 12, 2022 RESULTS Name Result Date Reference Range SURGICAL PATH 2022-06-02 SURGICAL PATH 2022-05-12 REASON FOR VISIT 3 MONTH F/U, GS-1wk f/u wound care, GS-colectomy follow up, GS-f/u surgery, GS- staple removal, GS LAP COLECTOMY, GS OR WITH DE UNDERBAKKE, pre-op phone call , LAP COLECTOMY PREOP , GS TRANSVERSE COLON, GI COLO, CT biopsy/ awaiting results, GI-Scrn [employer], R/S COLO lvm 03/25, Recharge issue/volume too high, First 45 day hearing aid f/u, AUD 4 weeks f/u, AUD 4 weeks f/u, AUD h/a 2 week, [place] Fitting, sleepapnea , AUD h/a fitting, AUD h/a consult, AUD-[place]ETA Benefit, ENT CREDIT REVIEW ANALYST Hearing Loss, ENT CREDIT REVIEW ANALYST Hearing Loss, PFP Add Audio, PFP, New Patient, AUD audio, ENT CREDIT REVIEW ANALYST Hearing Loss, chart preload Insurance Providers [facility] Health Member Patient Patient Patient Patient Patient Subscriber Subscriber Subscriber Group Insurance Plan Plan Plan Plan ID Relationship Address Phone Name Date of ID Name Date of No Type Insurance Insurance Insurance Coverage to Subscriber Address Phone Name Dates BCBS OUT [phone] BCBS OUT self Natalee 19 [id number] OF AREA ATTN 83 OF [facility] CLAIMS [facility] [id number] [facility] - [address] [facility] - self Natalee [id number] DO NOT [facility] DO NOT Vu-Murphy BILL SIL hector ([place] ([place] [address] Off) [facility] [address] [facility] self Natalee [id number] PLAN 2206 PLAN Vu-Murphy [place] [phone] MEDICARE [address] MEDICARE self Natalee [id number] [place]ctor [phone]
--- OUTSIDE RECORDS SUMMARY | 2022-09-16 01:46 | XMS_ITS | Encounter Summary ---
:1950 Author Organization [facility] [place] [address] Care Team Providers Name Role Phone Elisa Pa APRN Primary Care Provider Reason for Visit Reason Comments Chemotherapy [id number] Treatment/Therapy Plan Authorization (Routine) - Authorized Specialty Diagnoses / Procedures Referred By Contact Refer red To Contact Hematology and Diagnoses Malignant neoplasm of transverse colon Dimitry Atwood, Dimitry Atwood, Oncology Procedures TC PALONOSETRON HCL, 25MCG, INJECTION (ALOXI) TC FLOUROURACIL, 500MG TC LEUCOVORIN CALCIUM, 50MG, INJECTION (WELLCOVORIN) TC OXALIPLATIN, 0.5MG, INJECTION (ELOXATIN) MD CAGLE [address] [place] [address] Referral ID Status Reason Start Date Expiration Date Visits V isits Requested Authorized [id number] Authorized 08/18/2022 02/15/2023 Encounter Details Date Type Department Care Team Description 09/02/2022 Infusion [facility] transverse colon [address] [place] [phone] Social History Tobacco Use Types [...] on file documented as of this encounter Progress Notes Cindy Roper RN - 09/02/2022 10:00 AM EST INFUSION THERAPY ADMINISTRATION NOTES DIAGNOSIS: Colon Cancer CYCLE #:1 D1 REASON FOR VISIT: Initiation of chemotherapy-Folfox SUBJECTIVE Natalee Vargas offers no complaints. She was seen by TECHNICAL ASSISTANT prior visit. OBJECTIVE LAB DATA: 09/02/22 WBC-9.04, Hgb/Hct-12.9/40.2, Plt-190, ANC-5.26, BUN-16, Crea- 0.9. LFT's WDL IV ACCESS: Implanted port Pre administration: Chemotherapy orders independently verified for drug name, route, and dosage per patient's height, weight and BSA by Cindy Roper, PAULINE & onsite pharmacists. Pre-meds administered per orders. REACTIONS (DESCRIPTION, TIME, INTERVENTION AND EFFECTIVENESS) none HOME INFUSION - Connect Fluorouracil (5-FU) DOSE: mg over 46 hours RATE: 3 mL/hr ROUTE: IV Port START TIME: 1300 Chemotherapy safety checks performed per protocol with PAULINE Son. Drug amount infused verified by RN double check after approximately 15 minutes and appropriate amount had infused. Anticipated date/time of disconnect: 09/04/22 @ 1100 Plan for disconnect: [facility] Disconnect contact number: , called and confirmed time. ASSESSMENT Natalee Ervin VuDennysKyliedestinee was awake, alert and tolerated treatment well. PLAN: Return to [facility] on Monday for disconnect. Pt and daughter given written instructions on disconnect steps and will observe [facility] plastic duplicator. Spill kit also given to pt. The daughter plans to perform disconnects after this first cycle. Pt. chemo teaching instructions included: During clinic hours (8am-5pm Monday-Monday): pt. can call [phone] with questions or concerns. After clinic hours (5pm-8am Monday-Monday and weekends) pt can call [phone] and ask for the chief engineer production/oncologist head concierge. Natalee Vargas verbalized understanding of potential chemotherapy side effects and home care including but not limited to- handwashing to prevent infection, signs and symptoms of low blood counts (fever, fatigue, bleeding), to call with a fever of 100.4 or greater, any significant constipation/diarrhea, importance of nutrition and fluid intake (drinking at least 32-64 ounces of non-caffeinatedbeverages/day), mouth care. Natalee Vargas verbalized understanding of how to take prescription medications given for home use after chemotherapy. documented in this encounter Plan of Treatment Upcoming Encounters Date Type Specialty Care Team Description 09/16/2022 Office Visit Hematology and Oncology Dimitry Atwood MD [facility] [place] [address] Suyr Griffin, [address] [address] 09/16/2022 Infusion Hematology and Oncology 09/30/2022 Office Visit Hematology and Oncology Sury Griffin[address] [place], [place] [address] (Sukhjinder rk) 09/30/2022 Infusion Hematology and Oncology 10/14/2022 [facility] [place], [place] [phone] (Sukhjinder rk) 10/14/2022 Infusion Hematology and Oncology documented as of this encounter Visit Diagnoses Diagnosis 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 2.1 m2 Treatment Plan BSA from Recorded weight), Intravenous, ONCE, 1 dose, On Mon09/02/22 at 1100, Administer over 5 Minutes, Warning Vesicant/Irritant Medication fluorouraciL (AdruciL) in sodium Given 09/02/2022 1:00 PM EST 5, 040 mg 3 mL/hr chloride 0.9% 138 mL infusion (46 Hour - For Home Use) 5,040 mg 5,040 mg (2,400 mg/m2/dose ? 2.1 m2 Treatment Plan BSA from Recorded weight), Intravenous, ONCE, 1 dose, On Mon09/02/22 at 1230, Administer over 46 Hours, Warning Vesicant/Irritant Medication To be infused via an ambulatory infusion CADD Legacy Plus pump continuously IV at 3 mL/hr for 46 hours. Pump contains a 46 hour supply and provides a daily dose of 1,200 mg/m2/day = 2,400 mg/m2 IV over 46 hours. leucovorin 350 mg in dextrose 5% 85 New Bag 09/02/2022 10:30 A M EST 350 mg 60 mL/hr mL infusion 350 mg, Intravenous, ONCE, 1 dose, On Mon09/02/22 at 1100, Administer over 85 Minutes, May Y-site with OXALIplatin Do not administer at a rate faster than 160 milligrams/minute. OXALIplatin (Eloxatin) 179 mg in New Bag 09/02/2022 10:[address] 179 mg 201.7 mL/hr dextrose 5% 285.8 mL infusion 179 mg (rounded from 178.5 mg = 85 mg/m2/dose ? 2.1 m2 Treatment Plan BSA from Recorded weight), Intravenous, ONCE, 1 dose, On Mon09/02/22 at 1100, Administer over 85 Minutes, Compatible with dextrose-containing solution only. Warning Vesicant/Irritant Medication palonosetron (Aloxi) (0.05 mg/mL) injection Given 08/16 9:46 AM EST 0.25 mg 0.25 mg 0.25 mg, Intravenous, ONCE, 1 dose, On Mon09/02/22 at 1000, Administer over 30 seconds. Administer prior to chemotherapy, Routine documented in this encounter Care Teams Plodding Operator Relationship Specialty Start Date End Date Elisa Pa APRN PCP - General Geriatric Medicine 01/26/[address] [place] [address] [place] [address] documented as of this encounter
--- OUTSIDE RECORDS SUMMARY | 2022-09-16 01:46 | XMS_ITS | Encounter Summary ---
:1950 Author Organization [facility] [place] [address] Care Team Providers Name Role Phone Elisa Pa APRN Primary Care Provider Encounter Details Date Type Department Care Team Description 09/02/2022 Travel Social History Tobacco Use Types Packs/Day [...] place to sleep or slept in a nursing home (including now)? Sex Assigned at Date Recorded Not on file documented as of this encounter Plan of Treatment Upcoming Encounters Date Type Specialty Care Team Description 09/16/2022 Office Visit Hematology and Oncology Dimitry Atwood MD [facility] [place] [address] [address] HEMATOLOGY AND [place], [place] [address] 09/16/2022 Infusion Hematology and Oncology 09/30/2022 Office Visit Hematology and Oncology Sury Griffin[address] HEMATOLOGY AND [place], [place] [address] (Wo rk) 09/30/2022 Infusion Hematology and Oncology 10/14/2022 Office Visit Hematology and Oncology Sury Griffin[address] HEMATOLOGY AND [place], [place] [address] (Wo rk) 10/14/2022 Infusion Hematology and Oncology documented as of this encounter Visit Diagnoses Not on filedocumented in this encounter Care Teams Education Site Manager Relationship Specialty Start Date End Date Elisa Pa APRN PCP - General Geriatric Medicine 01/26/[address] [place], [place] [id number] documented as of this encounter
--- OUTSIDE RECORDS SUMMARY | 2022-09-16 01:46 | XMS_ITS | Encounter Summary ---
:1950 Author Organization [facility] [place] [address] Care Team Providers Name Role Phone Elisa [...] TC OXALIPLATIN, 0.5MG, INJECTION (ELOXATIN) MD CAGLE [address] [facility] [place] [address] Referral ID Status Reason Start Date Expiration Date Visits V isits Requested Authorized [id number] Authorized 08/18/2022 02/15/2023 18 18 Encounter Details Date Type Department Care Team Description 09/16/2022 Infusion Hematology Oncology at [address] [phone] Social History Tobacco Use [...] place to sleep or slept in a mcc (including now)? Sex Assigned at Date Recorded Not on file documented as of this encounter Plan of Treatment Upcoming Encounters Date Type Specialty Care Team Description 09/16/2022 Office Visit Hematology and Oncology Dimitry Atwood MD [facility] [place] [address] [address] [place] [address] 09/30/2022 Office Visit Hematology and Oncology Sury Griffin [address] [place] [address] (Wo rk) 09/30/2022 Infusion Hematology and Oncology 10/14/2022 Office Visit Hematology and Oncology Sury Griffin [address] [place] [address] (Wo rk) 10/14/2022 Infusion Hematology and Oncology documented as of this encounter Visit Diagnoses Not on filedocumented in this encounter Care Teams Data Processing Supervisor Relationship Specialty Start Date End Date Elisa Pa APRN PCP - General Geriatric Medicine 01/26/[address] [place] [address] documented as of this encounter
--- OUTSIDE RECORDS SUMMARY | 2022-09-16 01:46 | XMS_ITS | Encounter Summary ---
:1950 Author Organization [facility] [place] [address] Care Team Providers Name Role Phone Elisa Pa APRN Primary Care Provider Encounter Details Date Type Department Care Team Description 09/04/2022 Telephone Hematology and Oncology at Lisa Munguia MD [facility] Tavo mchugh HEMATOLOGY/[place] [address] [place] [address] [phone] (Wo rk) Social History Tobacco Use Types [...] this encounter Miscellaneous Notes Telephone Encounter - Lisa Hwang MD - 09/04/2022 10:13 AM EST ID: Natalee Bolaños is 72 y.o with T4 colon cancer who received FOLFOX on 09/02 Patient's daughter called our service last night to report malaise and fevers up to 102. Patient wasadvised to go to the ED but did not go. She took tylenol around 8 pm last night and fever did not recur. I was contacted by the infusion nurse at [facility]. She did the pump disconnect but is reporting that thepatient's temperature is 99.6. The patient also reports some exertional SOB. Recommendations I recommend that she go to the ED to be evaluated and for a full infectious work up. I called the [facility] ED for a sign out. ADDENDUM Patient was evaluated in the ED at [facility] by Dr. Gill. She was tachy to 120s, normotensive, with a T of 37.8. Physical exam was unrevealing per Dr. Gill. Port site had no evidence of infection. Pertinent labs WBC 9K, 8.18 ANC, Plts 125, Hb 13.1 Cr 1.2 Bili 2.3, AST 264, ALT 369 UA negative DDIMER [address] CT PE was negative for PE and PNA blood cultures pending Covid, FLU, RSV was negative. She got 1L of fluids and with improvement of her malaise and HR to 95. Recommendations - No clear reason for her abnormal labs and fevers. I suspect that this may be due to her chemo. - If patient is deemed stable, no C-I from an Oncology standpoint to d/c the patient - If she were to develop any new symptoms, persistent fevers, she will need to return to ED. If her blood cultures are found to be positive, she will need to be called and asked return to the ED - I will route this note to her oncologist, Dr. Atwood for follow up and possible repeat labs beforeher next appointment on 09/16 This is not an official consult as I am limited in my capacity to examine the patient and review herlabs and imaging. Leidy Hwang PGY5 Hematology Oncology Fellow ?? documented in this encounter Plan of Treatment Upcoming Encounters Date Type Specialty Care Team Description 09/16/2022 Office Visit Hematology and Oncology Dimitry Atwood MD [facility] [place] [address] [place], [place] [phone] 09/16/2022 Infusion Hematology and Oncology 09/30/2022 Office Visit Hematology and Oncology Sury Griffin[address] [place], [place] [address] (Wo rk) 09/30/2022 Infusion Hematology and Oncology 10/14/2022 Office Visit Hematology and Oncology Sury Griffin[address] HEMATOLOGY AND [place], [place] [address] (Wo rk) 10/14/2022 Infusion Hematology and Oncology documented as of this encounter Visit Diagnoses Not on filedocumented in this encounter Care Teams Flat Breakdown Processor Relationship Specialty Start Date End Date Elisa Pa APRN PCP - General Geriatric Medicine 01/26/22 [address]14 [place], [place] [address] documented as of this encounter
--- OUTSIDE RECORDS SUMMARY | 2022-09-16 01:46 | XMS_ITS | Clinical Summary ---
:1950 Author Organization [facility] [place] [address] Care Team Providers Name Role Phone Elisa [...] dulaglutide Inject 1.5 mg 0 08/31/2017 Act fatmata (Trulicity) 1.5 mg/0.5 subcutaneously Once mL Pen Injector a week. Lantus Solostar U-100 0 08/05/2022 Active Insulin 100 unit/mL (3 mL) pen lisinopriL (Zestril) Take 10 mg by mouth 0 8 Active 10 mg Tablet Daily. pantoprazole EC 0 08/05/2022 Act fatmata (Protonix) 40 mg Tablet, Delayed Release (E.C.) rosuvastatin (Crestor) 0 08/05/2022 Active 10 mg Tablet sertraline (Zoloft) 50 0 07/25/2022 Active mg Tablet solifenacin (VESICARE) Take by mouth. 0 Active 5 mg Tablet prochlorperazine Take 1 tablet by 30 tablet 3 09/02/2022 Active (Compazine) 10 mg mouth every 6 hours TabletIndications: as needed for Malignant neoplasm of Nausea. 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 Encounters Date Type Specialty Care Team Description 09/16/2022 Infusion Hematology and Oncology 09/15/2022 Travel 09/05/2022 Telephone Hematology and Celia, Follow-up (S/ p Oncology Adelaida Redding RN first folfox and [facility] ED visit) 09/04/2022 Telephone Hematology and Lisa Hwang Oncology Leidy Camarillo MD 09/03/2022 Telephone Hematology and Jemma Kwan Oncology 09/02/2022 Infusion Hematology and Malignant gabriela plasm Oncology of transverse c olon 09/02/2022 Office Visit Hematology and Dimitry Atwood Malignant neoplasm Oncology MD Myranda of transverse colon Sury Griffin APRN 09/02/2022 Notes Only Radiation Oncology Mehgan Ronquillo RN 09/02/2022 Travel 08/29/2022 Hospital Encounter Radiology Dimitry Atwood Malign ant neoplasm MD Myranda of transverse c olon 08/29/2022 Travel 08/16/2022 Telephone Hematology and Timothy, Oncology Farideh Thakkar RN 08/12/2022 Orders Only Hematology and Dimitry Atwood Malignant neoplasm Oncology MD Myranda of transverse c olon 08/11/2022 Notes Only Radiology Citlali Valadez MD 08/10/2022 Office Visit Hematology and Dimitry Atwood Malignant neoplasm Oncology MD Myranda of transverse c olon 08/10/2022 Travel 08/01/2022 Ancillary Procedure Radiology Dimitry Atwood MD 07/14/2022 External Results Provider, Scanning 07/13/2022 Hospital Encounter Lab 07/07/2022 Transcribe Orders Primary Care Clara, Malignant neoplasm MD Tu of colon, unspecified [...] Sign Reading Time Taken Comments Blood Pressure 141/61 09/02/2022 8:55 AM EST Pulse 86 09/02/2022 8:55 AM EST Temperature 36.3 ??C (97.3 ??F) 09/02/2022 8:55 AM EST Respiratory Rate 18 09/02/2022 8:55 AM EST Oxygen Saturation 98% 09/02/2022 8:55 AM EST Inhaled Oxygen Concentration - - Weight 98.7 kg (217 lb 9.6 oz) 09/02/2022 8:55 AM EST Height 157.4 cm (5' 1.97) 09/02/2022 8:55 AM EST Body Mass Index 39.84 09/02/2022 8:55 AM EST Plan of Treatment Upcoming Encounters Date Type Specialty Care Team Description 09/16/2022 Office Visit Hematology and Oncology Dimitry Atwood MD [facility] [place] [address] LaRoza, Sury [address] [place], [place] [id number] 09/16/2022 Infusion Hematology and Oncology 09/30/2022 Office Visit Hematology and Oncology Sury Griffin [address] H[place]ATOLOGY [place], [place] [id number] (Wo rk) 09/30/2022 Infusion Hematology and Oncology 10/14/2022 [facility] [address] [address] (Wo rk) 10/14/2022 Infusion Hematology and Oncology Health Maintenance Due [...] 06/16/2022 series) Medical Devices Implanted Type Area Budget Consultant Device Shelf Model / Identifier Expiration Serial / Date Lot Port Infusion 8fr Cath Power Injectable Midsize Shaped [id number])-08/29/2022 IMPLANTS Right: [employer] - 09/14/2026 [id number] / Implanted: Qty: 1 on 08/29/2022 by Shaquille Cheung MD [facility] [employer] [place] [id number] / Wall [id number] Procedures Procedure Name Priority Date/Time Associated Comments Diagnosis CBC (WITH DIFF) Routine 09/07/2022 Results for this procedure are i n the results section. COMPREHENSIVE Routine 09/07/2022 Results for th is METABOLIC PANEL procedure ar e in (NON-FASTING) the results section. LAB SCAN 09/07/2022 12:00 Results for this AM EST procedure are i n the results section. CBC (WITH DIFF) Routine 09/04/2022 Results for this procedure are i n the results section. COMPREHENSIVE Routine 09/04/2022 Results for th is METABOLIC PANEL procedure ar e in (NON-FASTING) the results section. LAB SCAN 09/04/2022 12:00 Results for this AM EST procedure are i n the results section. LAB SCAN 09/02/2022 12:00 Results for this AM EST procedure are i n the results section. IR MEDIPORT PLACEMENT Routine 08/29/2022 2:32 PM [...] results section. from Last 3 Months Results SCAN DOC: LAB (09/07/2022 12:00 AM EST)Only the most recent of3 resultswithin the time period is included. Narrative 09/07/2022 12:00 AM EST This result has an attachment that is no t available. Ordered by an unspecified provider. Scanning Provider MEDIA MGR SCAN EXT ORDR/RSLT CBC (with Diff) (09/07/2022)Only the most recent of2 resultswithin the time period is included. athologist Signature WBC 3.90 RBC 4.32 Hemoglobin 11.5 Hematocrit 35.8 Platelets 90 Neutr Abs (ANC) 2.94 Specimen (Source) Anatomical Location Collection Method / Collectio n Time Received Time / Laterality Volume Blood Historical Provider HEMATOLOGY ORDERABLES Comprehensive metabolic panel (non-fasting) (09/07/2022)Only the most recent of3 resultswithin the time period is included. athologist Signature Creatinine 0.9 Sodium 136 Potassium 3.5 Total Bilirubin 1.8 Alk Phos 252 AST 112 ALT 166 Specimen (Source) Anatomical Location Collection Method / Collectio n Time Received Time / Laterality Volume Blood Historical Provider CHEMISTRY ORDERABLES IR Mediport Placement (08/29/2022 2:32 PM EST) [...] to the procedure and gave written consent, whdavid h was then placed in the chart. [...] Signature POC Glucose 76 65 - 199 [facility] mg/dL [facility] Comment: Supplemental ranges: <140 mg/dL before meals <180 mg/dL all other times of the day Specimen Anatomical Collection Method Collection Time Receive d Time (Source) Location / / Volume Laterality Blood 08/29/2022 1:12 PM 2 1:12 EST PM EST Dimitry Atwood MD POINT OF CARE TEST ORDERABLE S Performing Organization Address City/State/ZIP Code [place] [address] DPYD PCR (08/10/2022 4:37 PM EDT) Component Value Ref Test Analysis Performed At [facility] Range Method Time Signature DPYD PCR INDICATION FOR STUDY: DPYD Genotyping [place]RAULIO [place] RESULTS: Normal metabolizer, *1/*1 genotype [facility] INTERPRETATION: ??Normal gen otype, with normal [...] probes for each varian t: DPYD*2A ??(c.1905+1G>A, [id number]), DPYD*13 (c.1679T>G , [id number]), and DP YD c.2846A>T ([id number]). All variant positions are provided on the [...] Technology (CGAT) at the [facility]. It has not been cleared [...] Clin Pharmacol Ther. 2018 Nov;103(2):21 0-216. PMID: [id number] 3. Taisha Fisher, Alexander Burns, et al. Fluorouracil Ther apy and DPYD Genotype. In: Medical Genetics Summaries [Internet]. B rebeka THOMAS): Metamarkets Inf ornytion (); 2011? 2015 3. PMID: [id number] Specimen Anatomical Collection Method Collection Time Receive d Time (Source) Location / / Volume Laterality Blood 08/10/2022 4:37 PM 8:55 EDT PM EDT Resulting Agency Comment Spec In Lab Dimitry Atwood MD CHEMISTRY ORDERABLES Performing Organization Address City/State/[place] [address] (ABNORMAL) Hemogram (08/10/2022 4:37 PM EDT) Analysis Performed At Patho logist Time Signature WBC 11.4 (H) 4.0 - 9.5 [facility] x10(3)/[facility] LABORATORY RBC 4.73 4.00 - [facility] 5.21 [facility] x10(6)/[facility] LABORATORY Hemoglobin 12.7 11.7 - [facility] 15.5 g/dL [facility] Hematocrit 40.1 35.7 - [facility] 45.8 % [facility] MCV 84.8 82.6 - [facility] 94.4 [facility] LABORATORY MCH 26.8 (L) 27.1 - [place] 32.0 pg [facility] MCHC 31.7 31.7 - [facility] 35.0 g/dL [facility] Platelets 229 145 - 357 [facility] LABORATORY RDWSD 43.4 37.0 - [facility] 46.0 [facility] LABORATORY RDWCV 13.9 11.5 - [facility] 14.1 % [facility] MPV 10.3 7.6 - 12.9 [facility] LABORATORY nRBC % Auto 0.0 % [facility] nRBC Abs Auto 0.000 0.000 - [facility] 0.000 [facility] x10(3)/[facility] LABORATORY Specimen Anatomical Collection Method Collection Time Receive d Time (Source) Location / / Volume Laterality Blood 08/10/2022 4:37 PM 4:52 EDT PM EDT Resulting Agency Comment Spec In Lab Dimitry Atwood MD HEMATOLOGY ORDERABLES Performing Organization Address City/State/[place] [address] (ABNORMAL) Differential, Automated (08/10/2022 4:37 PM EDT) [facility] gist Method Time Signature Neutrophils % 60.3 % [facility] Neutr Abs (ANC) 6.89 (H) 1.70 - [facility] 6.10 [facility] x10(3)/[facility] LABORATORY Lymphocytes % 29.7 % [facility] Lymphocytes Abs 3.4 (H) 0.9 - 3.2 [facility] x10(3)/[facility] LABORATORY Monocytes % 6.0 % [facility] Monocyte Abs 0.7 0.3 - 0.9 [facility] x10(3)/[facility] LABORATORY Eosinophils % 3.0 % [facility] Eosinophils Abs 0.3 0.0 - 0.4 [facility] x10(3)/[facility] LABORATORY Basophils % 0.4 % [facility] Basophils Abs 0.0 0.0 - 0.1 [facility] x10(3)/[facility] LABORATORY Immature Gran % 0.60 % [facility] Comment: Immature granulocytes(IG's)percentage an d absolute count will include metamyelocytes, myelocytes, and promyelo cytes. Blood smears from CBCs yielding IG's will be scanned manually for concor dance. If this scan disagrees with the automated IG or if promyelocytes are not ed, a manual differential will be performed. Tia Gran Abs 0.07 (H) 0.00 - 0.04 x10(3)/[facility] LABORATORY Specimen Anatomical Collection Method Collection Time Receive d Time (Source) Location / / Volume Laterality Blood 08/10/2022 4:37 PM 2 4:52 EDT PM EDT Resulting Agency Comment Spec In Lab Dimitry Atwood MD HEMATOLOGY ORDERABLES Performing Organization Address City/[facility]/[place] [address] CEA (08/10/2022 4:37 PM EDT) P athologist Signature CEA 0.9 ng/mL [facility] Comment: Reference range: ??(20-69 years): Non-smoker: ??less than or equal to 3.8 ng/mL Smoker: ??less than 5.5 ng/ml This result was generated using a SueEasyas immunoassay. ??Results obtained from other methods or manufacturers fabien ot be used interchangeably with this method. Specimen Anatomical Collection Method Collection Time Receive d Time (Source) Location / / Volume Laterality Blood 08/10/2022 4:37 PM 2 4:52 EDT PM EDT Resulting Agency Comment Spec In Lab Dimitry Atwood MD CHEMISTRY ORDERABLES Performing Organization Address City/[facility]/[place] [address] Film Library- Storage Only CT Chest (08/01/2022 12:00 AM EDT) Specimen (Source) Anatomical Location Collection Method / Collectio n Time Received Time / Laterality Volume Narrative DIRK AGRAWAL - 08/09/2022 10:38 PM EDT This exam is auto-finalizing. It's purpo se is for storage only. Dimitry Atwood MD IMG FILM LIBRARY ORDERABLES Performing Organization Address City/[facility]/ZIP Code Phon e Number [place], [place] Scan Doc: Surgical Pathology (07/14/2022) Narrative This result has an attachment that is no t available. Dimitry Atwood MD MEDIA MGR SCAN EXT ORDR/RSLT Surgical Pathology Report (07/13/2022 1:02 PM EDT) Component Value Ref Test Analysis Performed At Patholo gist Range Method Time Signature Surgical [id number] ? Location: [facility] Pathology [place] Report The signing pathologist has (i) examined the relevant preparation(s) for the [facility] specimen(s) and (ii) rendered or confirmed the diagnosis(es) . HOSPITAL LABORATORY . ?Surgic al Pathology DIAGNOSIS CONSULTATION CASE Outside slide(s) labeled [id number], collection date 06/02/20 22. COLON, LEFT, TUMOR, HEMICOLECTOMY: - ??Invasive adenocarcinoma , see Synoptic Report below. Note: The Synoptic Report wa s compiled based on information reported by the outside institution, as well as review of slides. Electronically signed by: ?Nabila CAGLE PhD, Deonna Verified: ??07/19/2022 11:59 ??Pathologist Performed at: ??-[facility] Dept. of Pathology, [place], [place] SYNOPTIC Specimen ? Procedure: ??Left hemicolectomy [...] CONSULTATION CASE A - 30 slide(s) labeled [id number], collection date 2. . SPECIMEN(S) SUBMITTED [id number] CARBON COPY: [facility] Surgical Pathology Department [facility], [facility], 2nd Floor [address] [place], [place] ??[address] CLINICAL INFORMATION Malignant neoplasm of transverse colon. SPECIMEN PROCESSING [facility] ([facility]) pathology slide(s) are reviewed. ??Refer to Diagnosis and Specimen Submitted for specific case infor eulalio. For the full text of the [facility] report(s) please refer t o Non-DH Documentation Pathology in the electronic health record (eDH). Specimen (Source) Anatomical Collection Method Collection Time Re ceived Time Location / / Volume Laterality 07/13/2022 1:02 PM EDT Dimitry Atwood MD PATHOLOGY/CYTOLOGY ORDERABLE S Performing Organization Address City/State/ZIP Code Phon e Number [place] [id number] from Last 3 Months Insurance Payer Benefit Plan / Subscriber ID Effective Dates Phone Addre ss Type Group MVP MANAGED MVP MANAGED [id number] 2021-Kristen [phone] [id number] MEDICARE MEDICARE t [address] [place] [address] [phone] [address] [facility] [address] (Home) [place] [address] Advance Directives Latest Code Status on File Code Status Date Activated Date Inactivated Comments Attempt Cardiopulmonary Resuscitation 08/29/2022 12:54 PM 2021 4:38 AM - Inpatient Question Answer Comments Code Status decision made by: Patient Care Teams School Age Program Teacher Relationship Specialty Start Date End Date Elisa Pa APRN PCP - General Geriatric Medicine 01/26/[address] [place], [place] [phone]
--- OUTSIDE RECORDS SUMMARY | 2022-09-16 01:46 | XMS_ITS ---
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 Current Oncology Plans HOMAR CHATMAN ONC GI COLORECTAL CANCER - FOLFOX-6 (14 DAY)Plan Start Date: 09/02/2022 Plan Provider:Dimitry Atwood MD Linked Problems Malignant neoplasm of transverse colon Treatment Medications Current Day (Day 1, Cycle 2 - Next Day (Day 3, Cycle Planned for 09/16/2022) 2 - Planned for 09/18/2022) fluorouraciL fluorouraciL (ADRUCIL) chemo Home Infusi on: Pump (ADRUCIL)fluorouraciL (AdruciL) injection 840 mgfluorouraciL Disconnect in sodium chloride 0.9% 138 mL (AdruciL) in sodium chloride infusion (46 Hour - For Home 0.9% 138 mL infusion (46 Hour - Use)leucovorin (Wellcovorin) in For Home Use) 5,040 dextrose 5% or sodium chloride mgleucovorin 350 mg in dextro se 0.9% for infusionOXALIplatin 5% 85 mL infusionOXALIplatin (Eloxatin) in dextrose 5% 250 mL (Eloxatin) 179 mg in dextro se infusionPump Disconnect: Home 5% 285.8 mL infusion Infusion Past Plans ONCOLOGY TREATMENT Plan Name Start Discontinue Treatment Medications Discontinue Plan Cycles Date Date Reason Provider DIRK CHATMAN 08/19/20 08/10/2022 fluorouraciL Plan is Being Ripple, T reatment ONC GI 22 (ADRUCIL)fluorouraciL Renewed Dimitry not COLORECTAL (AdruciL) in sodium HMD started CANCER - chloride 0.9% 138 mL FOLFOX-6 (14 infusion (46 Hour - DAY) For Home Use)leucovorin (Wellcovorin) in dextrose 5% or sodium chloride 0.9% for infusionOXALIplatin (Eloxatin) in dextrose 5% 250 mL infusionPump Disconnect: Home Infusion Radiation Treatments No radiation treatments are documented for this patient in [facility]. Treatments may have been administered in another system.
--- OUTSIDE RECORDS SUMMARY | 2022-09-16 01:46 | XMS_ITS | Encounter Summary ---
:1950 Author Organization [facility] [place] [address] Care Team Providers Name Role Phone Elisa Pa APRN Primary Care Provider Encounter Details Date Type Department Care Team Description 09/03/2022 Telephone Hematology and Oncology at Jemma Kwan MD [facility] Tavo mchugh HEMATOLOGY/[place] [address] [place] [address] [phone] (Wo rk) Social History Tobacco Use Types [...] this encounter Miscellaneous Notes Telephone Encounter - Jemma Kwan MD - 09/03/2022 7:53 PM EST [facility] - TELEPHONE NOTE Reason for call: Fever HPI (from caller and chart review): Natalee's daughter calling. She received 1st dose of chemotherapy yesterday (Monday). Last night she had a really bad headache at the back of the head. This resolved with hydration. Today she had been feeling a bit better. However, 3:45pm - general malaise, took anti-nausea 4pm - chills 4:30pm - vomited 5:30pm 102.0F - oral thermometer 6:50pm 100.0F - temporal thermometer Flushing of the face. Had fleece bathrobe and three blankets on. Now she has the fan on. Drinking wilfred dusty. Physically feeling better. Not motivated to move around. Did not take tylenol but starting drinking a lot and this seemed to help. ROS otherwise negative. Has an appointment to get the pump removed at [facility] tomorrow. No other localizing signs of infection.Had labs drawn yesterday with normal WBC. I am not able to examine the patient. I personally reviewed labs and imaging studies. Assessment: 72 y.o. female who received FOLFOX on 09/02 for colorectal cancer, calling with fever [id number]. Her WBC was in normal range yesterday morning. It would be unusual for chemotherapy to drop her counts so quickly to cause neutropenic fever but not impossible. This is her first cycle so no historicalevidence to guide us regarding her mauro. Neutropenic fever is a medical emergency. I advised her to proceed to the nearest ED for labs and infectious workup. Recommendations: - proceed to nearest ED for labs and infectious workup CC: Dr. Angelic Kwan MD, MS Hematology/Oncology Fellow [facility] Pager [phone] documented in this encounter Plan of Treatment Upcoming Encounters Date Type Specialty Care Team Description 09/16/2022 Office Visit Hematology and Oncology Dimitry Atwood MD [facility] [place] [address] HEMATOLOGY AND [place], [place] [phone] 09/16/2022 Infusion Hematology and Oncology 09/30/2022 Office Visit Hematology and Oncology Sury Griffin[address] HEMATOLOGY AND [place], [place] [address] (Wo rk) 09/30/2022 Infusion Hematology and Oncology 10/14/2022 Office Visit Hematology and Oncology Sury [address] HEMATOLOGY AND [place], [place] [address] (Wo rk) 10/14/2022 Infusion Hematology and Oncology documented as of this encounter Visit Diagnoses Not on filedocumented in this encounter Care Teams Tool Room Gear Machine Operator Relationship Specialty Start Date End Date Elisa Pa APRN PCP - General Geriatric Medicine 01/26/22 [facility] [address] [place], [place] [phone] documented as of this encounter
--- OUTSIDE RECORDS SUMMARY | 2022-09-16 01:46 | XMS_ITS | Encounter Summary ---
:1950 Author Organization [facility] Address One [facility] [place] [address] Care Team Providers Name Role Phone Elisa Pa APRN Primary Care Provider Reason for Visit Reason Onset Date Comments Follow-up 09/05/2022 S/p first [facility] and [facility] ED visit Encounter Details Date Type Department Care Team Description 09/05/2022 Telephone Hematology/Oncology at Amy Yang w-greg (S/p first [facility] Adelaida Redding RN [facility] and [facility] ED [address] visit) [place] [address] Social History Tobacco Use Types Packs/Day Years [...] place to sleep or slept in a chcf (including now)? Sex Assigned at Date Recorded Not on file documented as of this encounter Miscellaneous Notes Telephone Encounter - Adelaida Yang RN - 09/07/2022 10:29 AM EST CBC and CMP done today sent to provider for review. 09/04/22 00:00 09/07/22 00:00 WBC 9.19 (E) 3.90 (E) RBC 4.96 (E) 4.32 (E) Hemoglobin 13.1 (E) 11.5 (E) Hematocrit 41.5 (E) 35.8 (E) Platelets 125 (E) 90 (E) Neutr Abs (ANC) 8.18 (E) 2.94 (E) Sodium 135 (E) 136 (E) Potassium 3.6 (E) 3.5 (E) Creatinine 1.2 (E) 0.9 (E) Total Bilirubin 2.3 (E) 1.8 (E) Alk Phos 148 (E) 252 (E) AST 264 (E) 112 (E) ALT 369 (E) 166 (E) (E): External lab result Telephone Encounter - Adelaida Yang RN - 09/05/2022 12:09 PM EST Pt reports she is worlds better today. She denies any fevers or chills. She is asking about her culture results. Urine prelim reports shows GRAM NEGATIVE TRISHA COLONY COUNT <10,000 COLONIES/ML. Her blood cultures are still pending. She will have CMP re-checked on 09/07 at 0800, port draw appt made. She will call us back if symptoms return or she as any other questions or concerns. ----- Message from Orquidea Joiner RN sent at 09/05/2022 12:04 PM EST ----- Regarding: Please call pt Dr. Atwood called up, he wants us to check on Natalee as she was in the ED yesterday for fever. Let him know how she is doing. She just started neoadjuvant FOLFOX for colon cancer last week. He would also like her to get a CMP on Friday 09/07 and review with him to recheck LFT's. Let me know if you dont have time to do this and I can try to help, Orquidea documented in this encounter Plan of Treatment Upcoming Encounters Date Type Specialty Care Team Description 09/16/2022 Office Visit Hematology and Oncology Dimitry Atwood MD [facility] [place] [address] [address] HEMATOLOGY AND [place], [place] [phone] 09/16/2022 Infusion Hematology and Oncology 09/30/2022 Office Visit Hematology and Oncology Sury Griffin[address] HEMATOLOGY AND [place], [place] [phone] (Wo rk) 09/30/2022 Infusion Hematology and Oncology 10/14/2022 Office Visit Hematology and Oncology Sury Griffin[address] [place] [address] (Wo rk) 10/14/2022 Infusion Hematology and Oncology documented as of this encounter Procedures Procedure Name Priority Date/Time Associated Diagnosis Comme nts CBC (WITH DIFF) Routine 09/07/2022 Results for this procedure are i n the results section . COMPREHENSIVE METABOLIC Routine 09/07/2022 Resu lts for this PANEL (NON-FASTING) procedur e are in the results section . CBC (WITH DIFF) Routine 09/04/2022 Results for this procedure are i n the results section . COMPREHENSIVE METABOLIC Routine 09/04/2022 Resu lts for this PANEL (NON-FASTING) procedur e are in the results section . documented in this encounter Results CBC (with Diff) (09/07/2022) P athologist Signature WBC 3.90 RBC 4.32 Hemoglobin 11.5 Hematocrit 35.8 Platelets 90 Neutr Abs (ANC) 2.94 Specimen (Source) Anatomical Location Collection Method / Collectio n Time Received Time / Laterality Volume Blood Historical Provider HEMATOLOGY ORDERABLES Comprehensive metabolic panel (non-fasting) (09/07/2022) P athologist Signature Creatinine 0.9 Sodium 136 Potassium 3.5 Total Bilirubin 1.8 Alk Phos 252 AST 112 ALT 166 Specimen (Source) Anatomical Location Collection Method / Collectio n Time Received Time / Laterality Volume Blood Historical Provider CHEMISTRY ORDERABLES CBC (with Diff) (09/04/2022) P athologist Signature WBC 9.19 RBC 4.96 Hemoglobin 13.1 Hematocrit 41.5 Platelets 125 Neutr Abs (ANC) 8.18 Specimen (Source) Anatomical Location Collection Method / Collectio n Time Received Time / Laterality Volume Blood Historical Provider HEMATOLOGY ORDERABLES Comprehensive metabolic panel (non-fasting) (09/04/2022) P athologist Signature Creatinine 1.2 Sodium 135 Potassium 3.6 Total Bilirubin 2.3 Alk Phos 148 AST 264 ALT 369 Specimen (Source) Anatomical Location Collection Method / Collectio n Time Received Time / Laterality Volume Blood Historical Provider CHEMISTRY ORDERABLES documented in this encounter Visit Diagnoses Not on filedocumented in this encounter Care Teams Bight Maker Relationship Specialty Start Date End Date Elisa Pa APRN PCP - General Geriatric Medicine 01/26/[address] [place] [address] documented as of this encounter
--- OUTSIDE RECORDS SUMMARY | 2022-09-16 01:46 | XMS_ITS | Encounter Summary ---
:1950 Author Organization [facility] [place] [address] Care Team Providers Name Role Phone Elisa Pa APRN Primary Care Provider Reason for Referral Consultation (Routine) - Authorized Specialty Diagnoses / Procedures Referred By Contact Refer red To Contact Diagnoses Malignant neoplasm of transverse colon Dimitry Atwood MD [facility] [place] [address] Referral ID Status Reason Start Date Expiration Visits Visits Date Requested Authorized [id number] Authorized Consult, 08/12/2022 02/08/2023 1 1 Test & Treat Encounter Details Date Type Department Care Team Description 08/12/2022 Orders Only Hematology and Dimitry Atwood Maligna nt neoplasm of Oncology at [facility] MD transverse colon [facility] [place] [address] ONCOLOGY [phone] [place], [place] [address] Social History Tobacco Use Types [...] place to sleep or slept in a fpc (including now)? Sex Assigned at Date Recorded Not on file documented as of this encounter Plan of Treatment Upcoming Encounters Date Type Specialty Care Team Description 09/16/2022 Office Visit Hematology and Oncology Dimitry Atwood MD [facility] [place] [address] HEMATOLOGY AND [place], [place] [phone] 09/16/2022 Infusion Hematology and Oncology 09/30/2022 Office Visit Hematology and Oncology Sury Griffin[address] HEMATOLOGY AND [place], [place] [phone] (Wo rk) 09/30/2022 Infusion Hematology and Oncology 10/14/2022 Office Visit Hematology and Oncology Sury Griffin[address] HEMATOLOGY AND [place], [place] [phone] (Wo rk) 10/14/2022 Infusion Hematology and Oncology Scheduled Referrals Name Type Priority Associated Diagnoses Order S chedule Referral to Outpatient Referral Routine Malignant neoplasm Or dered: General Surgery of transverse colon 08/12 documented as of this encounter Visit Diagnoses Diagnosis 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
--- OUTSIDE RECORDS SUMMARY | 2022-09-16 01:46 | XMS_ITS | Encounter Summary ---
:1950 Author Organization [facility] [place] [address] Care Team Providers Name Role Phone Elisa Pa APRN Primary Care Provider Encounter Details Date Type Department Care Team Description 09/15/2022 Travel Social History Tobacco Use Types Packs/Day [...] Visit Hematology and Oncology Dimitry Atwood MD [facility] [place] [place] [address] HEMATOLOGY AND [place], [place] [address] 09/16/2022 Infusion Hematology and Oncology 09/30/2022 Office Visit Hematology and Oncology Sury Griffin[address] HEMATOLOGY AND [place], [place] [address] (Wo rk) 09/30/2022 Infusion Hematology and Oncology 10/14/2022 Office Visit Hematology and Oncology Sury Griffin[address] HEMATOLOGY AND [place], [place] [address] (Wo rk) 10/14/2022 Infusion Hematology and Oncology documented as of this encounter Visit Diagnoses Not on filedocumented in this encounter Care Teams Budget Engineer Relationship Specialty Start Date End Date Elisa Pa APRN PCP - General Geriatric Medicine 01/26/[address] [place], [place] [address] documented as of this encounter
--- OUTSIDE RECORDS SUMMARY | 2022-09-16 01:46 | XMS_ITS | Encounter Summary ---
:1950 Author Organization [facility] [place] [address] Care Team Providers Name Role Phone Elisa Pa APRN Primary Care Provider Encounter Details Date Type Department Care Team Description 08/16/2022 Telephone Hematology and Oncology at Carol Aguirre [facility] [place] [address] Social History Tobacco Use Types Packs/Day [...] EDT Message received from secretary of police: [phone] Natalee is asking to hear the results of her CEA lab from 08/10 CEA is 0.9. Called lab to patient. documented in this encounter Plan of Treatment Upcoming Encounters Date Type Specialty Care Team Description 09/16/2022 Office Visit Hematology and Oncology Dimitry Atwood MD [facility] [place] [address] HEMATOLOGY AND [place], [place] [phone] 09/16/2022 Infusion Hematology and Oncology 09/30/2022 Office Visit Hematology and Oncology Sury Griffin[address] HEMATOLOGY AND [place], [place] [address] (Wo rk) 09/30/2022 Infusion Hematology and Oncology 10/14/2022 Office Visit Hematology and Oncology Sury Griffin[address] HEMATOLOGY AND [place], [place] [phone] (Wo rk) 10/14/2022 Infusion Hematology and Oncology documented as of this encounter Visit Diagnoses Not on filedocumented in this encounter Care Teams Supportive Employment Case Manager Relationship Specialty Start Date End Date Elisa Pa APRN PCP - General Geriatric Medicine 01/26/22 [facility] [place] [address] documented as of this encounter
--- OUTSIDE RECORDS SUMMARY | 2022-09-16 01:46 | XMS_ITS | Encounter Summary ---
:1950 Author Organization [facility] [place] [address] Care Team Providers Name Role Phone Elisa [...] MD [facility] [place] [address] HEMATOLOGY AND [place], [place] [address] 09/16/2022 Infusion Hematology and Oncology 09/30/2022 Office Visit Hematology and Oncology Sury Griffin[address] HEMATOLOGY AND [place], [place] [address] (Wo rk) 09/30/2022 Infusion Hematology and Oncology 10/14/2022 Office Visit Hematology and Oncology Sury Griffin[address] HEMATOLOGY AND [place], [place] [address] (Wo rk) 10/14/2022 Infusion Hematology and Oncology documented as of this encounter Visit Diagnoses Not on filedocumented in this encounter Care Teams Health And Safety Manager Relationship Specialty Start Date End Date Elisa Pa APRN PCP - General Geriatric Medicine 01/26/[address] [place], [place] [phone] documented as of this encounter
--- OUTSIDE RECORDS SUMMARY | 2022-09-16 01:46 | XMS_ITS | Encounter Summary ---
:1950 Author Organization [facility] [place] [address] Care Team Providers Name Role Phone Elisa Pa APRN Primary Care Provider Encounter Details Date Type Department Care Team Description 08/11/2022 Notes Only Radiology at [facility] Citlali Valadez MD [facility] [place] [address] INTERVENTIONAL RADIOLOGY [phone] [place], [place] [address] (Wo rk) Social History Tobacco [...] place to sleep or slept in a longterm (including now)? Sex Assigned at Date Recorded [...] [facility] [place] [address] [place], [place] [phone] 09/16/2022 Infusion Hematology and Oncology 09/30/2022 Office Visit Hematology and Oncology Sury Griffin[address] [place], [place] [address] (Sukhjinder blount) 09/30/2022 Infusion Hematology and Oncology 10/14/2022 Office Visit Hematology and Oncology Sury Griffin[address] [place], [place] [phone] (Sukhjinder rk) 10/14/2022 Infusion Hematology and Oncology documented as of this encounter Visit Diagnoses Not on filedocumented in this encounter Care Teams Unified Communications Engineer Relationship Specialty Start Date End Date Elisa Pa APRN PCP - General Geriatric Medicine 01/26/[address] [place] [address] documented as of this encounter
--- OUTSIDE RECORDS SUMMARY | 2022-09-16 01:46 | XMS_ITS | Encounter Summary ---
:1950 Author Organization [facility] [place] [address] Care Team Providers Name Role Phone Elisa [...] Visit Hematology and Oncology Dimitry Atwood MD [facility] [place] [address] HEMATOLOGY AND [place], [place] [address] 09/16/2022 Infusion Hematology and Oncology 09/30/2022 Office Visit Hematology and Oncology Sury Griffin[address] HEMATOLOGY AND [place], [place] [address] (Wo rk) 09/30/2022 Infusion Hematology and Oncology 10/14/2022 Office Visit Hematology and Oncology Sury Griffin[address] HEMATOLOGY AND [place], [place] [address] (Wo rk) 10/14/2022 Infusion Hematology and Oncology documented as of this encounter Visit Diagnoses Not on filedocumented in this encounter Care Teams Stripper Preliminary Relationship Specialty Start Date End Date Elisa Pa APRN PCP - General Geriatric Medicine 01/26/22 [facility] [address] [place], [place] [address] documented as of this encounter
--- OUTSIDE RECORDS SUMMARY | 2022-09-16 01:47 | XMS_ITS | Encounter Summary ---
:1950 Author Organization [place] [address] Care Team Providers Name Role Phone Elisa Pa APRN Primary Care Provider Reason for Referral Consultation (Routine) - Authorized Specialty Diagnoses / Procedures Referred By Contact Refer red To Contact Gastroenterology Diagnoses Hx of colonic polyps Elisa Pa APRN [facility] Endoscopy 4t [address] [place], [place] [phone] [place] [phone] Referral ID Status Reason Start Expiration Visits Visits Date Date Requested Authorized [id number] Authorized Test Only 01/26/2022 01/26/2023 6 6 PCP Updated and/or Approved Encounter Details Date Type Department Care Team Description 01/26/2022 Transcribe Orders eDH Incoming Juanito Pa of colo yaima polyps Referrals RACHANA Pérez [phone] [address] [place] [address] Social History Tobacco Use Types Packs/Day Years [...] place to sleep or slept in a intermediate (including now)? Sex Assigned at Date Recorded Not on file documented as of this encounter Plan of Treatment Upcoming Encounters Date Type Specialty Care Team Description 09/16/2022 Office Visit Hematology and Oncology Dimitry Atwood MD [facility] [place] [address] [place], [place] [phone] 09/16/2022 Infusion Hematology and Oncology 09/30/2022 Office Visit Hematology and Oncology Sury Griffin[address] HEMATOLOGY AND [place], [place] [phone] (Wo rk) 09/30/2022 Infusion Hematology and Oncology 10/14/2022 Office Visit Hematology and Oncology Sury Griffin[address] [place], [place] [phone] (Wo rk) 10/14/2022 Infusion Hematology and Oncology Scheduled Referrals Name Type Priority Associated Order Schedule Diagnoses REFERRAL TO Outpatient Referral Routine Hx of colonic Ordered : COLONOSCOPY PROCEDURE polyps 2021 documented as of this encounter Visit Diagnoses Diagnosis Hx of colonic polyps Personal history of colonic polyps Malignant neoplasm of transverse colon documented in this encounter Care Teams Cloth Dyer Relationship Specialty Start Date End Date Elisa Pa APRN PCP - General Geriatric Medicine 01/26/[address] [place] [address] documented as of this encounter
--- OUTSIDE RECORDS SUMMARY | 2022-09-16 01:47 | XMS_ITS | Encounter Summary ---
:1950 [place] [address] Care Team Providers Name Role Phone Elisa Pa APRN Primary Care Provider Encounter Details Date Type Department Care Team Description 08/01/2022 Ancillary Procedure Radiology Library at [facility], Doug Whitmore [facility] [place] [address] ONCOLOGY [phone] [place], [place] [address] (Wo rk) Social History Tobacco [...] place to sleep or slept in a halfway (including now)? Sex Assigned at Date Recorded Not on file documented as of this encounter Plan of Treatment Upcoming Encounters Date Type Specialty Care Team Description 09/16/2022 Office Visit Hematology and Oncology Dimitry Atwood MD [facility] [place] [address] HEMATOLOGY AND [place], [place] [phone] 09/16/2022 Infusion Hematology and Oncology 09/30/2022 Office Visit Hematology and Oncology Sury Griffin[address] HEMATOLOGY AND [place], [place] [address] (Wo rk) 09/30/2022 Infusion Hematology and Oncology 10/14/2022 [facility] H[place]OLOGY [place], [place] [phone] (Wo rk) 10/14/2022 Infusion Hematology and Oncology [...] Time Received Time / Laterality Volume Narrative [facility] - 08/09/2022 10:38 PM EDT This exam is auto-finalizing. It's purpo se is for storage only. Dimitry Atwood MD IMG FILM LIBRARY ORDERABLES Performing Organization Address City/State/ZIP Code Phon e Number [facility] [place], [place] documented in this encounter Visit Diagnoses Not on filedocumented in this encounter Care Teams Artificial Flowers Dyer Relationship Specialty Start Date End Date Elisa Pa APRN PCP - General Geriatric Medicine 01/26/[address] [place] [address] documented as of this encounter
--- OUTSIDE RECORDS SUMMARY | 2022-09-16 01:47 | XMS_ITS | Encounter Summary ---
:1950 [place] [address] Care Team Providers Name Role Phone Elisa Pa APRN Primary Care Provider Encounter Details Date Type Department Care Team Description 04/15/2022 Ancillary Procedure Radiology Library at [facility], Doug Whitmore [facility] [place] [address] ONCOLOGY [phone] [place], [place] [address] (Wo rk) Social History Tobacco [...] Dimitry Atwood MD [facility] [place] [address] HEMATOLOGY AND [place], [place] [phone] 09/16/2022 Infusion Hematology and Oncology 09/30/2022 Office Visit Hematology and Oncology Sury Griffin[address] HEMATOLOGY AND [place], [place] [phone] (Wo rk) 09/30/2022 Infusion Hematology and Oncology 10/14/2022 Office Visit [facility] HEMATOLOGY AND [place], [place] [phone] (Wo rk) 10/14/2022 Infusion Hematology and Oncology [...] / Laterality Volume Narrative [facility] - 08/03/2022 4:24 PM EDT This exam is auto-finalizing. It's purpo se is for storage only. Dimitry Atwood MD IMG FILM LIBRARY ORDERABLES Performing Organization Address City/State/ZIP Code Phon e Number [facility] RAD [place], [place] documented in this encounter Visit Diagnoses Not on filedocumented in this encounter Care Teams Accounting Analyst Relationship Specialty Start Date End Date Elisa Pa APRN PCP - General Geriatric Medicine 01/26/[address] [place] [address] documented as of this encounter
--- OUTSIDE RECORDS SUMMARY | 2022-09-16 01:47 | XMS_ITS | Encounter Summary ---
:1950 Author Organization [facility] [place] [address] Care Team Providers Name Role Phone Elisa Pa APRN Primary Care Provider Reason for Referral Consultation (Routine) - Closed Specialty Diagnoses / Procedures Referred By Contact Refer red To Contact Hematology and Diagnoses Malignant neoplasm of colon, unspecified part of colon Tu Elizabeth, [facility] Hem Onc 3k Oncology MD [address] [phone] Fax: Referral ID Status Reason Start Date Expiration Date Visits V isits Requested Authorized [id number] Closed Consult, 07/07/2022 07/07/2023 1 1 Test & Treat Encounter Details Date Type Department Care Team Description 07/07/2022 Transcribe Orders eDH Incoming Clara Malignant neoplasm Referrals MD Tu of colon, [address] [facility] unspecified part of RD [facility] [place] [address] Social History Tobacco Use Types Packs/Day Years [...] Visit Hematology and Oncology Dimitry Atwood MD [facility] [place] [address] [address] [place], [place] [phone] 09/16/2022 Infusion Hematology and Oncology 09/30/2022 Office Visit Hematology and Oncology Sury Griffin [address] [place] [address] (Wo rk) 09/30/2022 Infusion Hematology and Oncology 10/14/2022 Office Visit Hematology and Oncology Sury Griffin [address] [place] [address] (Wo rk) 10/14/2022 Infusion Hematology and Oncology Scheduled Referrals Name Type Priority Associated Diagnoses Order S chedule Referral to Outpatient Referral Routine Malignant neoplasm Or dered: Hematology and of colon, 07/07/2022 Oncology unspecified part of colon documented as of this encounter Visit Diagnoses Diagnosis Malignant neoplasm of colon, unspecified part of colon Malignant neoplasm of transverse colon documented in this encounter Care Teams Configuration Management Manager Relationship Specialty Start Date End Date Elisa Pa APRN PCP - General Geriatric Medicine 01/26/[address] [place] [address] documented as of this encounter
--- OUTSIDE RECORDS SUMMARY | 2022-09-16 01:47 | XMS_ITS | Encounter Summary ---
:1950 Author Organization [facility] [place] [address] Care Team Providers Name Role Phone Elisa Pa APRN Primary Care Provider Encounter Details Date Type Department Care Team Description 07/13/2022 Hospital [place] [address] Social History Tobacco Use Types Packs/Day [...] Hematology and Oncology Dimitry Atwood MD [facility] [place] [address] HEMATOLOGY AND [place], [place] [phone] 09/16/2022 Infusion Hematology and Oncology 09/30/2022 [facility] [address] HEMATOLOGY AND [place], [place] [address] (Wo rk) 09/30/2022 Infusion Hematology and Oncology 10/14/2022 Office Visit Hematology and Oncology Sury Griffin[address] HEMATOLOGY AND [place], [place] [phone] (Wo rk) 10/14/2022 Infusion Hematology and Oncology documented as of this encounter Procedures Procedure Name Priority Date/Time Associated Diagnosis Comme nts SURGICAL PATHOLOGY Routine 07/13/2022 1:02 PM Res ults for this REPORT EDT procedure are i n the results section. documented in this encounter Results Surgical Pathology Report (07/13/2022 1:02 PM EDT) Component Value Ref Test Analysis Performed At [facility] gist Range Method Time Signature Surgical [id number] ? Location: [facility] Pathology DAILEY Report The signing pathologist has (i) examined the relevant preparation(s) for the MEMORIAL specimen(s) and (ii) rendered or confirmed the diagnosis(es) . HOSPITAL LABORATORY . ?Surgic al Pathology DIAGNOSIS CONSULTATION CASE Outside slide(s) labeled [id number], collection date 06/02/20 22. COLON, LEFT, TUMOR, HEMICOLECTOMY: - ??Invasive adenocarcinoma , see Synoptic Report below. Note: The Synoptic Report wa s compiled based on information reported by the outside institution, as well as review of slides. Electronically signed by: ?Nabila CAGLE PhD, Deonna Verified: ??07/19/2022 11:59 ??Pathologist Performed at: ??-[facility] Dept. of [place]ology, [place], [place] SYNOPTIC Specimen ? Procedure: ??Left hemicolectomy [...] CONSULTATION CASE A - 30 slide(s) labeled [id number], collection date 2. . SPECIMEN(S) SUBMITTED [id number] CARBON COPY: [facility] Surgical Pathology Department [facility], [facility], 2nd Floor [address], [place] ??[address] CLINICAL INFORMATION Malignant neoplasm of transverse colon. SPECIMEN PROCESSING [facility] ([facility]) pathology slide(s) are reviewed. ??Refer to Diagnosis and Specimen Submitted for specific case infor matfadi. For the full text of the [facility] report(s) please refer t o Non-DH Documentation Pathology in the electronic health record (eDH). Specimen (Source) Anatomical Collection Method Collection Time Re ceived Time Location / / Volume Laterality 07/13/2022 1:02 PM EDT Dimitry Atwood MD PATHOLOGY/CYTOLOGY ORDERABLE S Performing Organization Address City/State/ZIP [place] [address] documented in this encounter Visit Diagnoses Not on filedocumented in this encounter Care Teams Printing Plate Clerk Relationship Specialty Start Date End Date Elisa Pa APRN PCP - General Geriatric Medicine 01/26/[address] [place] [address] documented as of this encounter
--- OUTSIDE RECORDS SUMMARY | 2022-09-16 01:47 | XMS_ITS | Encounter Summary ---
:1950 Author Organization [facility] [place] [address] Care Team Providers Name Role Phone Elisa Pa APRN Primary Care Provider Encounter Details Date Type Department Care Team Description 07/14/2022 External Results Medical Records Provider, [place] [address] Social History Tobacco Use Types Packs/Day [...] Visit Hematology and Oncology Dimitry Atwood MD [facility] [place] [address] HEMATOLOGY AND [place], [place] [address] 09/16/2022 Infusion Hematology and Oncology 09/30/2022 [facility] HEMATOLOGY AND [place], [place] [address] (Wo rk) 09/30/2022 Infusion Hematology and Oncology 10/14/2022 Office Visit Hematology and Oncology Sury Griffin[address] HEMATOLOGY AND [place], [place] [phone] (Wo rk) 10/14/2022 Infusion Hematology and Oncology [...] on filedocumented in this encounter Care Teams Vice Provost Relationship Specialty Start Date End Date Elisa Pa APRN PCP - General Geriatric Medicine 01/26/22 [address] [place], [place] [address] documented as of this encounter
--- OUTSIDE RECORDS SUMMARY | 2022-09-16 01:47 | XMS_ITS | Encounter Summary ---
:1950 Author Organization [facility] [place] [address] Care Team Providers Name Role Phone Elisa Pa APRN Primary Care Provider Reason for Referral Diagnostic Test (Routine) - Closed Specialty Diagnoses / Procedures Referred By Contact Refer red To Contact Radiology Diagnoses Malignant neoplasm of transverse colon Dimitry Atwood MD [facility] Interventionl Rad Procedures IR Mediport Placement [facility] [place] [address] [place] [address] Referral ID Status Reason Start Date Expiration Date Visits V isits Requested Authorized [id number] Closed Specialty 08/10/2022 02/09/2024 1 1 Service Requested Reason for Visit Reason Comments Advice Only Consultation (Routine) - Closed Specialty Diagnoses / Procedures Referred By Contact Refer red To Contact Hematology and Diagnoses Malignant neoplasm of colon, unspecified part of colon [facility] Hem Onc [address]k On[address] [phone] Fax: Referral ID Status Reason Start Date Expiration Date Visits V isits Requested Authorized [id number] Closed Consult, 07/07/2022 07/07/2023 1 1 Test & Treat Encounter Details Date Type Department Care Team Description 08/10/2022 Office Visit Hematology and Angelic, Sandor Haywooda nt neoplasm of Oncology at [facility] transverse colon [facility] Center ONE [facility] [address] [place], [place] ONCOLOGY [address] [place] [address] [phone] Social History Tobacco Use Types Packs/Day Years [...] place to sleep or slept in a prison (including now)? Sex Assigned at Date Recorded [...] extended left hemicolectomy 06/02/22 (Dr. Elizabeth) Path ([facility] review): SYNOPTIC Specimen ?Procedure: ??Left hemicolectomy Tumor [...] corneal grafts with subsequent rejection HPI [facility] and [facility] of [...] well controlled. Soc Hx: , Lives in [place], [place] with her daughter, Savana Tob - Quit at age 22. 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 Elizabeth. The path was reviewed at [facility], report above - moderately differentiated adenocarcinoma, T4a [...] her to start chemotherapy after that, in [facility]. Potential side effects include nausea, vomiting, stomatitis, diarrhea, dehydration, myelosuppressionwith associated risks of bleeding and infection, peripheral neuropathy which may be exacerbated by cold exposure but which may be cumulative and permanent even in the absence of cold, angina/AL, hyperse nsitivity reactions and others. She was given informational handouts regarding the folfox. The option of participating in clinical trial [id number] was mentioned today and will be discussed [...] Visit Hematology and Oncology Dimitry Atwood MD [facility] [place] [address] HEMATOLOGY AND [place], [place] [phone] 09/16/2022 Infusion Hematology and Oncology 09/30/2022 Office Visit Hematology and Oncology Sury Griffin[address] HEMATOLOGY AND [place], [place] [phone] (Wo rk) 09/30/2022 Infusion Hematology and Oncology 10/14/2022 [facility] [place] [address] (Wo rk) 10/14/2022 Infusion Hematology and Oncology Scheduled Orders Name [...] to the procedure and gave written consent, robin h was then placed in the chart. [...] (ABNORMAL) Differential, Automated (08/10/2022 4:37 PM EDT) [facility] Method Time Signature Neutrophils % 60.3 % [facility]OR[facility]ORY Neutr Abs (ANC) 6.89 (H) 1.70 - [facility] 6.10 [facility] x10(3)/[facility] LABORATORY Lymphocytes % 29.7 % [facility] Lymphocytes Abs 3.4 (H) 0.9 - 3.2 [facility] x10(3)/[facility] LABORATORY Monocytes % 6.0 % [facility] Monocyte Abs 0.7 0.3 - 0.9 [facility] x10(3)/[facility] LABORATORY Eosinophils % 3.0 % [facility] Eosinophils Abs 0.3 0.0 - 0.4 [facility] x10(3)/[facility] LABORATORY Basophils % 0.4 % [facility] Basophils Abs 0.0 0.0 - 0.1 [facility] x10(3)/[facility] LABORATORY Immature Gran % 0.60 % [facility] Comment: Immature granulocytes(IG's)percentage an d absolute count will include metamyelocytes, myelocytes, and promyelo cytes. Blood smears from CBCs yielding IG's will be scanned manually for concor dance. If this scan disagrees with the automated IG or if promyelocytes are not ed, a manual differential will be performed. Tia Gran Abs 0.07 (H) 0.00 - 0.04 x10(3)/[facility] LABORATORY Specimen Anatomical Collection Method Collection Time Receive d Time (Source) Location / / Volume Laterality Blood 08/10/2022 4:37 PM 2 4:52 EDT PM EDT Resulting Agency Comment Spec In Lab Dimitry Atwood MD HEMATOLOGY ORDERABLES Performing Organization Address City/[facility]/ZIP [place] [address] (ABNORMAL) Hemogram (08/10/2022 4:37 PM EDT) Analysis Performed At Patho logist Time Signature WBC 11.4 (H) 4.0 - 9.5 [facility] x10(3)/[facility] LABORATORY RBC 4.73 4.[address] [facility]21 [facility] x10(6)/[facility] LABORATORY Hemoglobin 12.7 11.7 [facility] 15.5 g/dL [facility] LABORATORY Hematocrit 40.1 35.7 [facility] 45.8 % [facility]OR[facility] MCV 84.8 82.6 [facility] 94.4 [facility] LABORATORY MCH 26.8 (L) 27.1 - [facility] 32.0 pg [facility] LABORATORY MCHC 31.7 31.[address] [facility] 35.0 g/dL [facility] LABORATORY Platelets 229 145 - 357 [facility] x10(3)/[facility] LABORATORY RDWSD 43.4 37.0 - [facility] 46.0 [facility] LABORATORY RDWCV 13.9 11.5 - [facility] 14.1 % [facility] LABORATORY MPV 10.3 7.6 - 12.9 [facility] LABORATORY nRBC % Auto 0.0 % [facility] LABORATORY nRBC Abs Auto 0.000 0.000 - [facility] 0.000 [facility] x10(3)/[facility] LABORATORY Specimen Anatomical Collection Method Collection Time Receive d Time (Source) Location / / Volume Laterality Blood 08/10/2022 4:37 PM 2 4:52 EDT PM EDT Resulting Agency Comment Spec In Lab Dimitry Atwood MD HEMATOLOGY ORDERABLES Performing Organization Address City/State/ZIP Code Phon e Number [facility] [place] [address] DPYD PCR (08/10/2022 4:37 PM EDT) Component Value Ref Test Analysis Performed At [facility] Range Method Time Signature DPYD PCR INDICATION FOR STUDY: DPYD Genotyping BRAULIO Hendrix MILAN RESULTS: Normal metabolizer, *1/*1 genotype [facility] INTERPRETATION: ??Normal gen otype, with normal expected [...] probes for each varian t: DPYD*2A ??(c.1905+1G>A, [id number]), DPYD*13 (c.1679T>G , [id number]), and DP YD c.2846A>T ([id number]). All variant positions are provided on the [...] Genomics and Advanced Technology (CGAT) at the [facility]. It has not been cleared or approved by the U .S. Food and Drug Administration. The laboratory is regulated under CLIA as qual ified to perform high-complexity testing. This test is used for clinical purposes. It should not be regarded as investigational or for research. REFERENCES: 1. CPIC?? Guideline for Fluoropyrimidines and DPYD. https:// cpicpgx.org/ 2. Ching soto al., Clinical Pharmacogenetics Imp lementation Consortium (CPIC) Guideline for Dihydropyrimidine Dehydrogenase Genotype and Fluoropyrimidine Dosin Update. Clin Pharmacol Ther. 2018 Nov;103(2):21 0-216. PMID: [id number] 3. Taisha Fisher, Alexander Burns, et al. Fluorouracil Ther apy and DPYD Genotype. In: Medical Genetics Summaries [Internet]. B rebeka THOMAS): [facility] [address] [employer] [facility] (); 2011? 2015Aug 18. PMID: [id number] Specimen Anatomical Collection Method Collection Time Receive d Time (Source) Location / / Volume Laterality Blood 08/10/2022 4:37 PM 8:55 EDT PM EDT Resulting Agency Comment Spec In Lab Dimitry Atwood MD CHEMISTRY ORDERABLES Performing Organization Address City/[facility]/[place] [address] CEA (08/10/2022 4:37 PM EDT) athologist Signature CEA 0.9 ng/mL [facility] Comment: Reference range: ??(20-69 years): [...] Atwood MD CHEMISTRY ORDERABLES Performing Organization Address City/[facility]/[place] [address] Comprehensive metabolic panel (non-fasting) (08/10/2022 4:37 PM EDT) P athologist Signature Glucose Lvl 74 65 - 199 [facility] mg/dL [facility] LABOR[facility]ORY Comment: Diabetes: >=200 mg/dL plus symp toms BUN 16 8 - 18 mg/dL [facility] Creatinine 0.91 0.70 - 1.20 mg/dL [facility] Sodium 140 135 - 145 mmol/L [facility] Potassium 4.0 3.5 - 5.0 mmol/L [facility] Comment: Please note: ??Patients with WBC >100,00 0 may have falsely elevated Potassium levels. ??For accurate Potassium quantif ication in these patients send serum separator tube (gold top) for subsequent determinations. ??Contact the Clinical Chemistry Laboratory if there are any qu estions. Chloride 103 98 - 107 mmol/L [facility] CO2 25 22 - 31 mmol/L [facility] Anion Gap 12 5 - 15 mmol/L [facility] Calcium 9.6 8.5 - 10.5 mg/dL [facility] Total Protein 7.6 6.1 - 8.0 g/dL [facility] Albumin 4.3 3.2 - 5.2 g/dL [facility] AST 18 0 - 30 unit/L [facility] ALT 12 0 - 30 unit/L [facility] Alk Phos 88 35 - 105 unit/L [facility] Total Bilirubin 0.2 0.2 - 1.3 mg/dL [facility] Estimated GFR 67 >=60 mL/min/1.73 m?? 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
--- OUTSIDE RECORDS SUMMARY | 2022-09-16 01:48 | XMS_ITS | Encounter Summary ---
:1950 Author Organization [facility] Address [address] [place] [address] Care Team Providers Name Role Phone Out Of Area, Pcp-Mp Primary Care Provider Unavailable Encounter Details Date Type Department Care Team Description 07/31/2020 Lab Requisition [facility] Outr Resulting Lab, Pathology & Laboratory Provider [facility] [address] [place], [place] [id number] Social History Tobacco Use Types Packs/Day Years [...] TEST (07/31/2020 9:12 EDT) Analysis Performed At [facility] Time Signature COVID-19 NEGATIVE Negative 08/01/2020 [...] Organization Address City/State/ZIP Code Phon e Number [facility] [place] [place] COVID-19 TESTING (07/31/2020 9:12 EDT) Analysis Performed At [facility] Time Signature COVID-19 NEGATIVE Negative 08/01/2020 [...] Administration's Emergency Use Authorization. Performing Lab [employer] 08/01/2020 15:0 3 EDT [facility] LABORATORY SERVICES Specimen Anatomical Collection Method Collection Time Receive d Time (Source) Location / / Volume Laterality Swab 07/31/2020 9:12 07/31/2020 EDT 16:18 EDT Provider Outr Resulting Lab MICROBIOLOGY - GENERAL ORD ERABLES Performing Organization Address City/State/ZIP Code Phon e Number [facility] [address] [place] [address] SERVICES [facility] [place], [place] documented in this encounter Visit Diagnoses Not on filedocumented in this encounter Care Teams Chemical Processing Laborer Relationship Specialty Start Date End Date Out Of Area, Pcp-Mp PCP - General 04/15/22 documented as of this encounter
--- OUTSIDE RECORDS SUMMARY | 2022-09-16 01:48 | XMS_ITS | Encounter Summary ---
:1950 Author Organization [facility] Address [address] [place] [address] Care Team Providers Name Role Phone Out Of Area, Pcp-Mp Primary Care Provider Unavailable Encounter Details Date Type Department Care Team Description 09/04/[address] [facility] Outr Resulting Lab, Pathology & Laboratory Provider [facility] [address] [place], [place] [phone] Social History Tobacco Use Types Packs/Day Years Used Date Smoking Tobacco: Never Assessed Sex Assigned at Date Recorded Not on file documented as of this encounter Plan of Treatment Not on filedocumented as of this encounter Procedures Procedure Name Priority Date/Time Associated Diagnosis Comme nts ACUTE HEPATITIS Routine 09/04/2022 14:00 Results for this PROFILE EST procedure are i n the results section. documented in this encounter Results ACUTE HEPATITIS PROFILE (09/04/2022 14:00 EST) Analysis Performed At Patho logist Time Signature Hep B Surface Negative Negative 09/05/2022 [facility] Ag 19:03 [facility] CENTER LABORATORY SERVICES Hep C Antibody Negative Negative 09/05/2022 [facility] 19:03 [facility] CENTER LABORATORY SERVICES Hepatitis A Negative Negative 09/05/2022 [facility] Antibody, IgM 19:03 [facility] CENTER LABORATORY SERVICES Comment: The results of this assay can b e falsely lowered due to the consumption of Biotin. Hepatitis B Core Ab, Negative Negative 09/05/2022 19:03 ES T [facility] Total LABORATORY SERVICES Specimen Anatomical Collection Method Collection Time Receive d Time (Source) Location / / Volume Laterality Blood VENOUS BLOOD / 09/04/2022 14:00 2 Unknown EST 17:20 EST Provider Outr Resulting Lab CHEMISTRY & BLOOD GAS [address] Performing Organization Address City/State/ZIP Code Phon e Number [facility] [address] [place] [address] SERVICES documented in this encounter Visit Diagnoses Not on filedocumented in this encounter Care Teams Operations Leader Relationship Specialty Start Date End Date Out Of Area, Pcp-Mp PCP - General 04/15/22 documented as of this encounter
--- OUTSIDE RECORDS SUMMARY | 2022-09-16 01:48 | XMS_ITS | Encounter Summary ---
:1950 Author Organization [facility] Address [address] [place] [address] Care Team Providers Name Role Phone Out Of Area, Pcp-Mp Primary Care Provider Unavailable Encounter Details Date Type Department Care Team Description 01/07/2022 Lab Requisition [facility] Outr Resulting Lab, Pathology & Laboratory Provider [facility] [address] [place], [place] [phone] Social History Tobacco Use Types Packs/Day Years [...] AND ANTIBODY, 4TH GENERATION (01/07/2022 9:00 EDT) [facility] Method Time Signature HIV 1 and 2 Negative Negative 01/10/2022 [facility] Antibody/p24 11:25 EDT CENTER Antigen, 4th LABORATORY Generation SERVICES Comment: If acute HIV-1 infection is hadley pected in a high risk patient, submit plasma specimen for HIV-1 RNA quantitation test . Specimen Anatomical Collection Method Collection Time Receive d Time (Source) Location / / Volume Laterality Blood VENOUS BLOOD / 01/07/2022 9:00 01/07/2022 Unknown EDT 18:59 EDT Narrative [facility] LABORATORY SERVICES - 01/10/2022 11:25 EDT Fourth Generation assay performed on the Siemens Urtakaur XPT. Provider Outr Resulting Lab IMMUNOLOGY AND SEROLOGY OR DERABLES Performing Organization Address City/State/ZIP Code Phon e Number [facility] [address] [place] [address] SERVICES documented in this encounter Visit Diagnoses Not on filedocumented in this encounter Care Teams Worm Raiser Relationship Specialty Start Date End Date Out Of Area, Pcp-Mp PCP - General 04/15/22 documented as of this encounter
--- OUTSIDE RECORDS SUMMARY | 2022-09-16 01:48 | XMS_ITS | Encounter Summary ---
:1950 Author Organization [facility] Address [address] [place] [address] Care Team Providers Name Role Phone Out Of Area, Pcp-Mp Primary Care Provider Unavailable Encounter Details Date Type Department Care Team Description 01/07/2022 Lab Requisition [facility] Outr Resulting Lab, Pathology & Laboratory Provider [facility] [address] [place] [address] Social History Tobacco Use Types Packs/Day Years [...] athologist Signature Lyme Ab Negative Negative 01/10/2022 [facility] 14:33 EDT CENTER LABORATORY SERVICES Specimen Anatomical Collection Method Collection Time Receive d Time (Source) Location / / Volume Laterality Blood VENOUS BLOOD / 01/07/2022 9:00 01/07/2022 Unknown EDT 18:59 EDT Provider Outr Resulting Lab IMMUNOLOGY AND SEROLOGY OR DERABLES Performing Organization Address City/State/ZIP Code Phon e Number [facility] LABORATORY [address] [place] [address] SERVICES documented in this encounter Visit Diagnoses Not on filedocumented in this encounter Care Teams Food Concession Manager Relationship Specialty Start Date End Date Out Of Area, Pcp-Mp PCP - General 04/15/22 documented as of this encounter
--- OUTSIDE RECORDS SUMMARY | 2022-09-16 01:48 | XMS_ITS | Encounter Summary ---
:1950 Author Organization [facility] Address [address] [place] [address] Care Team Providers Name Role Phone Out Of Area, Pcp-Mp Primary Care Provider Unavailable Encounter Details Date Type Department Care Team Description 05/13/2022 Lab Requisition [facility] - Alexia Daigle Encounter for screening for malignant neoplasm of colon; [facility] - Ward Leigh MD Benign neoplasm, unspecified site; [address] Polyp of colon [address] [place], [place] [id number] [place] [address] [phone] Social History Tobacco Use Types Packs/Day Years Used Date Smoking Tobacco: Never Assessed Sex Assigned at Date Recorded Not on file documented as of this encounter Plan of Treatment Not on filedocumented as of this encounter Procedures Procedure Name Priority Date/Time Associated Diagnosis Comme nts SURGICAL PATHOLOGY Today 05/12/2022 8:39 EDT Encounter for R esults for this screening for procedure are in malignant neoplasm the resul ts of colon section. Benign neoplasm, unspecified site Polyp of colon documented in this encounter Results SURGICAL PATHOLOGY (05/12/2022 8:39 EDT) Component Value Ref Test Analysis Performed At [facility] Range Method Time Signature Note to The following 05/16/2022 [facility] been interpreted by your pathologist and may be available to you before your health provider has had the opportunity to review them. Please allow time for your provider to receive these results and explore management options, if applicable. Final A. TRANSVERSE COLON, BIOPSY: 05/16/2022 [facility] Diagnosis - At least intramucosal carcinoma; see comment. 10:55 EDT [facility] Diagnosis No invasion is 05/16/2022 [facility] Comment seen through 10:55 [facility] the muscularis [facility] propria. As such, MSI studies are not performed. Attestation By the 05/16/2022 [facility] Electro nically signature 10:55 [facility] signed lizz Garrett, below, the [facility] Clifton Redding MD on attending 05/16/2022 a t 1055 physician certifies that they have 1) personally conducted a gross and/or microscopic examination of the described specimen(s), and/or personally interpreted the results of laboratory testing of the described specimen(s), and 2) personally rendered or confirmed the above diagnosis. Clinical Screening, 05/16/2022 [facility]AL History Malignant 10:55 [facility] stenosing, mass transverse colon Gross A. 05/16/2022 [facility]TRAL Description Received in formalin labeled ? Natalee Vargas? and ? mass transverse colon Bx? are 6 mucosal tissue fragments ranging in size from less than 0.1 cm up to 0.4 x 0.2 x 0.2 cm. Entirely submitted in 2 cassettes. 10: 55 [facility] MELLY SALAZARSOM 05/13/2022 10:25 Performing Lab [facility] 05/16/2022 [facility] LAB 10:55 [facility] Scanned Images 05/16/2022 [facility] 10:55 [facility] Specimen Anatomical Collection Method Collection Time Receive d Time (Source) Location / / Volume Laterality Tissue ENTIRE TRANSVERSE 05/12/2022 8:39 022 8:23 COLON / Unknown EDT EDT Stephen Daigle MD PATHOLOGY ORDERABLES Performing Organization Address City/State/ZIP Code Phon e Number [facility] [address] [place] [address] documented in this encounter Visit Diagnoses Diagnosis Encounter for screening for malignant ne oplasm of colon Special screening for malignant neoplasm s, colon Benign neoplasm, unspecified site Polyp of colon Benign neoplasm of colon documented in this encounter Care Teams Tariff Counsel Relationship Specialty Start Date End Date Out Of Area, Pcp-Mp PCP - General 04/15/22 documented as of this encounter
--- OUTSIDE RECORDS SUMMARY | 2022-09-16 01:48 | XMS_ITS | Encounter Summary ---
:1950 Author Organization [facility] Address [address] [place] [address] Care Team Providers Name Role Phone Out Of Area, Pcp-Mp Primary Care Provider Unavailable Encounter Details Date Type Department Care Team Description 10/19/2020 Lab Requisition [facility] Outr Resulting Lab, Pathology & Laboratory Provider [facility] [address] [place], [place] [id number] Social History Tobacco Use Types Packs/Day Years [...] - [facility] COVID TEST (10/19/2020 13:06 EST) Analysis Performed At [facility] Time Signature COVID-19 NEGATIVE Negative 10/20/2020 [facility] rt-PCR Result 18:45 EST [facility] Comment: 2019-novel Coronavirus (2019-nCoV) not [...] / Laterality / Volume Swab ENTIRE NASOPHARYNX 10/19/2020 13:06 10/19 / Unknown EST 20:38 EST Provider Outr Resulting Lab MICROBIOLOGY - GENERAL ORD ERABLES Performing Organization Address City/State/ZIP Code Phon e Number [facility] [place] COVID-19 TESTING (10/19/2020 13:06 EST) Analysis Performed At [facility] Time Signature COVID-19 NEGATIVE Negative 10/20/2020 [facility] rt-PCR Result 21:20 EST [facility] Comment: 2019-novel Coronavirus (2019-nCoV) not [...] Administration's Emergency Use Authorization. Performing Lab [facility] 10/20/2020 21:2 0 EST [facility] SERVICES Specimen Anatomical Collection Method Collection Time Receive d Time (Source) Location / / Volume Laterality Swab 10/19/2020 13:06 10/19/2020 EST 20:38 EST Provider Outr Resulting Lab MICROBIOLOGY - GENERAL ORD ERABLES Performing Organization Address City/State/ZIP Code Phon e Number [facility] [address] [place] [address] SERVICES [facility] [place], [place] documented in this encounter Visit Diagnoses Not on filedocumented in this encounter Care Teams Hydrate Thickener Operator Relationship Specialty Start Date End Date Out Of Area, Pcp-Mp PCP - General 04/15/22 documented as of this encounter
--- OUTSIDE RECORDS SUMMARY | 2022-09-16 01:48 | XMS_ITS | Encounter Summary ---
:1950 Author Organization [facility] Address [address] [place] [address] Care Team Providers Name Role Phone Out Of Area, Pcp-Mp Primary Care Provider Unavailable Encounter Details Date Type Department Care Team Description 09/04/2022 Lab Requisition [facility] Outr Resulting Lab, Pathology & Laboratory Provider [facility] [address] [place] [address] Social History Tobacco Use Types Packs/Day Years Used Date Smoking Tobacco: Never Assessed Sex Assigned at Date Recorded Not on file documented as of this encounter Plan of Treatment Not on filedocumented as of this encounter Procedures Procedure Name Priority Date/Time Associated Diagnosis Comme nts LYME AB Routine 09/04/2022 10:00 EST Results for this procedure are i n the results section . documented in this encounter Results LYME AB (09/04/2022 10:00 EST) P athologist Signature Lyme Ab Negative Negative 09/06/2022 [facility] 10:15 EST [facility] Specimen Anatomical Collection Method Collection Time Receive d Time (Source) Location / / Volume Laterality Blood VENOUS BLOOD / 09/04/2022 10:00 2 Unknown EST 17:20 EST Provider Outr Resulting Lab IMMUNOLOGY AND SEROLOGY OR DERABLES Performing Organization Address City/State/ZIP Code Phon e Number [facility] [address] [place] [address] SERVICES documented in this encounter Visit Diagnoses Not on filedocumented in this encounter Care Teams Gas Engine Operator Relationship Specialty Start Date End Date Out Of Area, Pcp-Mp PCP - General 04/15/22 documented as of this encounter
--- OUTSIDE RECORDS SUMMARY | 2022-09-16 01:48 | XMS_ITS | Encounter Summary ---
:1950 Author Organization [facility] Address [address] [place] [address] Care Team Providers Name Role Phone Out Of Area, Pcp-Mp Primary Care Provider Unavailable Encounter Details Date Type Department Care Team Description 01/26/2022 Lab Requisition [facility] Outr Resulting Lab, Pathology & Laboratory Provider [facility] [address] [place], [place] [id number] Social History Tobacco Use Types Packs/Day Years [...] Homocysteine 36.1 (H) 5.0 - 13.9 01/28/2022 [facility] umol/L 10:02 EDT [facility] Comment: Results may be falsely elevated if sample is not collected on ice or is not removed from cells within 1 hour of armaan ection. Specimen Anatomical Collection Method Collection Time Receive d Time (Source) Location / / Volume Laterality Blood VENOUS BLOOD / 01/26/2022 11:05 2 Unknown EDT 17:01 EDT Narrative [facility] - 01/28/2022 10:02 EDT [...] Lab CHEMISTRY & BLOOD GAS [address] [facility] Organization Address City/State/ZIP Code Phon e Number [facility] [address] [place] [address] SERVICES documented in this encounter Visit Diagnoses Not on filedocumented in this encounter Care Teams Glue Sprayer Relationship Specialty Start Date End Date Out Of Area, Pcp-Mp PCP - General 04/15/22 documented as of this encounter
--- OUTSIDE RECORDS SUMMARY | 2022-09-16 01:48 | XMS_ITS | Encounter Summary ---
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 Please allow time for your provider to receive these results and explore management options, if applicable. Final A. COLON, LEFT, TUMOR, LEFT HEMICOLECTOMY: 06/09/2022 [facility] Diagnosis - Invasive moderately differentiated adenocarcinoma (G2). 9:37 EDT CENTER - AJCC 8th Edition staging: pT4a, pN0. See synoptic report. LABORATORY - See comment. SERVICES Diagnosis RESULTS OF IMMUNOHISTOCHEMIC AL STAINING: Retained expression of MLH1, PMS2, MSH2 and MSH6 06/09/2022 [facility] Comment 9:37 EDT CENTER INTERPRETATION: These [...] notice. ANTIBODY (CLONE) (BLOCK): RESULT MLH1 (M1, [place]) (block A8): Retained expression in tumor PMS2 (A16-4, [place]) (block A8): Retained expression in chris or MSH2 (A396-9363, [place]) (block A8): Retained expression in tumor MSH6 (SP93, [place]) (block A8): Retained expression in tumo r [...] performance characteristics have been determined by [facility] and/or by the referring laboratory. The positive and negative controls worked appropriately. This laboratory is certified under the Clinical Labor atory Improvement Amendments of 1988 (CLIA-88) as qualified to perform high complexity clinical laboratory testing. 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 06/09/2022 [facility] Description Received in formalin selin d [...] up to 1.1 cm in greatest dimension. Advanced Manager sections are submitted as follows: BLOCK BALDWIN [...] trisected A29-A31- multiple lymph nodes, intact PAULETTE SZYMANSKI([facility]) 06/06/2022 16:55 Resident/Shiraz Bettencourt MD 06/09/2022 [facility] ow: 9:37 EDT CENTER LABORATORY SERVICES Performing [facility] 06/09/2022 [facility] AL Lab 9:37 EDT [facility]ENTER [facility] SERVICES Scanned 06/09/2022 [facility] Images 9:37 EDT [facility]ENTER [facility] SERVICES Specimen Anatomical Collection Method Collection Time Receive d Time (Source) Location / / Volume Laterality Tissue ENTIRE SIGMOID 06/02/2022 16:25 2 COLON / Unknown EDT 17:11 EDT Tu Elizabeth MD PATHOLOGY ORDERABLES Performing Organization Address City/State/ZIP Code Phon e Number [facility] [address] [place] [address] SERVICES documented in this encounter Visit Diagnoses Diagnosis Benign neoplasm, unspecified site Polyp of colon Benign neoplasm of colon Encounter for screening for malignant ne oplasm of colon Special screening for malignant neoplasm s, colon 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
[2022-09-16] MEDS: Normal Saline Flush 10 ML SYR IVP (08:11)
[2022-09-16 08:24] LABS: Abs Immature Grans 0.03 10^3/uL (0.0-0.06); Absolute Basophil Count 0.04 10^3/uL (0.0-0.2); Absolute Lymphocyte Count 2.04 10^3/uL (1.2-3.4); Absolute Monocyte Count 0.59 10^3/uL (0.1-0.8); Absolute Neutrophil Count 2.71 10^3/uL (1.2-6.7); Basophils % 0.7; Eosinophils % 5.3; HCT 34.9 % (36.0-46.0); HGB 11.1 g/dL (11.2-15.7); Immature Grans % 0.5; Lymphocytes % 35.7; MCH 26.6 pg (27.0-33.0); MCHC 31.8 % (32.0-36.0); MCV 84 fL (80-95); MPV 11.3 fL (8.0-11.0); Monocytes % 10.3; Neutrophils % 47.5; Platelet Count 223 10^3/uL (130-400); RBC 4.17 10^6/uL (3.93-5.22); RDW 14.9 % (11.7-14.6); RDW-SD 45.3 fL; WBC 5.71 10^3/uL (4.4-10.8)
[2022-09-16 08:44] LABS: ALT 29 U/L (14-59); AST 18 U/L (15-37); Albumin 2.9 g/dL (3.4-5.0); Alkaline Phosphatase 130 U/L (46-116); Anion Gap 7.3 mmol/L (3-11); BUN 18 mg/dL (7-18); Bilirubin, Total 0.3 mg/dL (0.2-1.0); CO2 27.7 mmol/L (21.0-32.0); CREATININE 0.9 mg/dL (0.55-1.02); Calcium 8.5 mg/dL (8.5-10.1); Chloride 106 mmol/L (98-107); Glucose 110 mg/dL (74-106); Potassium 3.5 mmol/L (3.5-5.1); Sodium 141 mmol/L (136-145); Total Protein 6.3 g/dL (6.4-8.2)
[2022-09-18 09:03] VITALS: BP 139/61; PULSE 68; RESP 16; TEMP 35.4; O2SAT 98
[2022-09-18] MEDS: Heparin 500 UNITS/5 ML SYRINGE IV (09:07)
[2022-09-18] MEDS: Normal Saline Flush 10 ML SYR IVP (09:07)
[2022-09-19 10:11] LABS: CEA 0.9 ng/mL (See Note)
[2022-09-30 09:13] LABS: Abs Immature Grans 0.03 10^3/uL (0.0-0.06); Absolute Basophil Count 0.06 10^3/uL (0.0-0.2); Absolute Eosinophil Count 0.26 10^3/uL (0.0-0.7); Absolute Lymphocyte Count 2.24 10^3/uL (1.2-3.4); Absolute Monocyte Count 0.58 10^3/uL (0.1-0.8); Absolute Neutrophil Count 5.82 10^3/uL (1.2-6.7); Basophils % 0.7; Eosinophils % 2.9; HCT 37.8 % (36.0-46.0); Immature Grans % 0.3; Lymphocytes % 24.9; MCH 26.8 pg (27.0-33.0); MCHC 31.7 % (32.0-36.0); MCV 85 fL (80-95); MPV 10.6 fL (8.0-11.0); Monocytes % 6.5; Neutrophils % 64.7; Platelet Count 142 10^3/uL (130-400); RBC 4.47 10^6/uL (3.93-5.22); RDW 15.5 % (11.7-14.6); RDW-SD 45.8 fL; WBC 8.99 10^3/uL (4.4-10.8)
[2022-09-30] MEDS: Normal Saline Flush 10 ML SYR IVP (09:20)
[2022-09-30 09:32] LABS: ALT 14 U/L (14-59); AST 20 U/L (15-37); Albumin 3.4 g/dL (3.4-5.0); Alkaline Phosphatase 102 U/L (46-116); Anion Gap 4.7 mmol/L (3-11); BUN 21 mg/dL (7-18); Bilirubin, Total 0.3 mg/dL (0.2-1.0); CO2 30.3 mmol/L (21.0-32.0); CREATININE 1.1 mg/dL (0.55-1.02); Calcium 9.2 mg/dL (8.5-10.1); Chloride 101 mmol/L (98-107); Estimated GFR 53.06 (mL/min/1.73m2); Glucose 127 mg/dL (74-106); Potassium 4.3 mmol/L (3.5-5.1); Sodium 136 mmol/L (136-145); Total Protein 7.2 g/dL (6.4-8.2)
[2022-09-30 21:42] LABS: CEA 0.7 ng/mL (See Note)
[2022-10-02] MEDS: Heparin 500 UNITS/5 ML SYRINGE IV (11:30)
[2022-10-02] MEDS: Normal Saline Flush 10 ML SYR IVP (11:30)
[2022-10-02 11:50] VITALS: BP 128/58; PULSE 72; RESP 18; TEMP 36.4; O2SAT 97
[2022-10-14 08:16] LABS: Abs Immature Grans 0.03 10^3/uL (0.0-0.06); Absolute Eosinophil Count 0.58 10^3/uL (0.0-0.7); Absolute Monocyte Count 0.71 10^3/uL (0.1-0.8); Absolute Neutrophil Count 4.02 10^3/uL (1.2-6.7); Basophils % 1.2; Eosinophils % 7.2; HCT 35.4 % (36.0-46.0); HGB 11.4 g/dL (11.2-15.7); Immature Grans % 0.4; Lymphocytes % 32.3; MCH 27.1 pg (27.0-33.0); MCHC 32.2 % (32.0-36.0); MCV 84 fL (80-95); MPV 11.1 fL (8.0-11.0); Monocytes % 8.8; Neutrophils % 50.1; Platelet Count 161 10^3/uL (130-400); RDW 15.8 % (11.7-14.6); WBC 8.04 10^3/uL (4.4-10.8)
[2022-10-14] MEDS: Normal Saline Flush 10 ML SYR IVP (08:39)
[2022-10-14 08:56] LABS: ALT 17 U/L (14-59); AST 20 U/L (15-37); Albumin 3.3 g/dL (3.4-5.0); Alkaline Phosphatase 86 U/L (46-116); Anion Gap 8.4 mmol/L (3-11); BUN 17 mg/dL (7-18); Bilirubin, Total 0.2 mg/dL (0.2-1.0); CO2 27.6 mmol/L (21.0-32.0); CREATININE 1.1 mg/dL (0.55-1.02); Calcium 8.7 mg/dL (8.5-10.1); Chloride 106 mmol/L (98-107); Estimated GFR 53.06 (mL/min/1.73m2); Glucose 119 mg/dL (74-106); Potassium 3.6 mmol/L (3.5-5.1); Sodium 142 mmol/L (136-145); Total Protein 6.7 g/dL (6.4-8.2)
[2022-10-14 20:46] LABS: CEA 1.9 ng/mL (See Note)
== END 2022-10-15 23:59 | disposition home or self-care (01) ==
LOC: INF 00:38
PROVIDERS: PCP Nurse Practitioner Adult Health; Visit Provider Internal Medicine Hematology & Oncology
DX: C18.4 Malignant neoplasm of transverse colon (principal); Z45.2 Encounter for adjustment and management of vascular access device
CPT/HCPCS: 36591; 80053; 96523; 82378; 85025

== ENCOUNTER 2022-11-13 00:09 | Outpatient (RCR) | payer MEDICARE, SELFPAY ==
[2022-10-16 00:11] VITALS: BP 128/58; PULSE 72; RESP 18; TEMP 36.4
[2022-10-16 10:15] VITALS: BP 134/63; PULSE 87; RESP 20; TEMP 35.8; O2SAT 98
[2022-10-16] MEDS: Normal Saline Flush 10 ML SYR IVP (10:51)
[2022-10-16] MEDS: Heparin 500 UNITS/5 ML SYRINGE IV (10:51)
--- OUTSIDE RECORDS SUMMARY | 2022-10-18 12:14 | XMS_ITS ---
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, bilateral Problem Primary C18.4 Active [id number] adenocarcinoma of transverse colon Problem Pressure ulcer of L89.322 Active left buttock, stage 2 Problem Pressure ulcer of L89.302 Active 22 [id number] unspecified buttock, stage 2 ALLERGIES Substance Reaction [...] Encounter Location Date Diagnosis [facility] [address] Jun, Ira momo adenocarcinoma of [address] transverse colon C18.4 [place], [place] [id number] [facility] [address] Jun, Eleonora lulitis of abdominal [address] wall L03.311 and Primary [place], [place] adenocarcinoma o f [id number] transverse colon C18.4 [facility] [address] Jun, Ira momo adenocarcinoma of Road [address] transverse colon C18.4 [place], [place] [id number] [facility] [address] May, Ira momo adenocarcinoma of Road [address] transverse colon C18.4 [place], [place] [id number] [facility] [address] May, [address] [place] [id number] May, [address] [place], [place] [id number] [address], [address] [place] [id number] [facility] [address] May, [address] [place] [address] [id number] [facility] [address] May, Road [address] [place] [address] [id number] [facility] [address] May, 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 D49.0 [place], [place] [id number] [address] Apr, Colonic mas s K63.[address] [place], [place] [id number] Gastroenterology [address] [place] [address] Apr, Road [address] [place] [id number] [address]ology [address] [place] [address] Apr, [address] [place] [address] [id number] Gastroenterology [address] [place] [address] Mar, Road [address] [place] [address] [id number] Gastroenterology [address] [place] [address] February, Road [address] [place] [id number], Oct, Sensor ineural hearing [facility] [address] lo ss (SNHL) of both ears Casandra [place], [place] H90.[id number], Jul, Sensor ineural hearing [facility] [address] lo ss (SNHL) of both ears [facility] [place] H90.[phone], Jun, [facility]ensor [facility] [address] lo ss (SNHL) of both ears Casandra [facility], [place] H90.3 [phone], Jun, Sensor ineural hearing [facility] [address] lo ss (SNHL) of both ears Casandra [place], [place] H90.3 [phone] [address], May, Sensor ineural hearing [facility] [address] lo ss (SNHL) of both ears Casandra [place], [place] H90.3 [phone], May, [facility] [address] [place], [place] [phone] [address], May, [facility] [address] [place] [phone] [address], May, Sensor ineural hearing [facility] [address] lo ss (SNHL) of both ears [facility] [place] H90.3 [phone] N [address], May, [facility] [address] [place], [place] [phone] [address], Apr, [facility] [address] [place], [place] [phone] [address], Apr, Sensor ineural hearing [facility] [address] lo ss (SNHL) of both ears [facility] [place] H90.3 [phone] [address], Apr, Sensor y hearing loss, [facility] [address] bi lateral H90.3 [place] [phone] [address], Dec, [facility] [address] [place], [place] [phone] IMMUNIZATIONS No Known Immunizations SOCIAL HISTORY Qualifiers [...] GI COLO, CT biopsy/ awaiting results, GI-Scrn [place], R/S COLO lvm 03/25, Recharge issue/volume too high, First 45 day hearing aid f/u, AUD 4 weeks f/u, AUD 4 weeks f/u, AUD h/a 2 week, MENDIETA Fitting, sleepapnea , AUD h/a fitting, AUD h/a consult, AUD-MENDIETA Benefit, 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 Hearing Loss, 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 Hearing Loss, PFP Add Audio, PFP, New Patient, AUD audio, 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 Hearing Loss, chart preload Insurance Providers [facility] Member Patient Patient Patient Patient Patient Subscriber Subscriber Subscriber Group Insurance Plan Plan Plan Plan ID Relationship Address Phone Name Date of ID Name Date of No Type Insurance Insurance Insurance Coverage to Subscriber Address Phone Name Dates MEDICARE [phone] MEDICARE self Natalee [id number] [place] [id number] BCBS OUT [phone] BCBS OUT self Natalee 19 [id number] OF AREA ATTN 83 [facility]S [facility] [id number] [facility]/[place] - [address] [facility] - self Natalee [id number] DO NOT [facility] DO NOT Vu-Murphy hector ([place] ([place] [id number] Off) [facility] [phone] [facility] self Natalee 19 [id number] PLAN [id number] [place] [phone]
[2022-10-28] MEDS: Normal Saline Flush 10 ML SYR IVP (09:33)
[2022-10-28 09:36] LABS: Abs Immature Grans 0.02 10^3/uL (0.0-0.06); Absolute Basophil Count 0.09 10^3/uL (0.0-0.2); Absolute Eosinophil Count 0.68 10^3/uL (0.0-0.7); Absolute Lymphocyte Count 1.99 10^3/uL (1.2-3.4); Absolute Monocyte Count 0.65 10^3/uL (0.1-0.8); Absolute Neutrophil Count 4.04 10^3/uL (1.2-6.7); Basophils % 1.2; Eosinophils % 9.1; HCT 36.4 % (36.0-46.0); HGB 11.6 g/dL (11.2-15.7); Immature Grans % 0.3; Lymphocytes % 26.6; MCH 26.9 pg (27.0-33.0); MCHC 31.9 % (32.0-36.0); MCV 84 fL (80-95); MPV 10.7 fL (8.0-11.0); Monocytes % 8.7; Neutrophils % 54.1; Platelet Count 115 10^3/uL (130-400); RBC 4.32 10^6/uL (3.93-5.22); RDW 16.5 % (11.7-14.6); RDW-SD 49.5 fL; WBC 7.47 10^3/uL (4.4-10.8)
[2022-10-28 09:58] LABS: ALT 17 U/L (14-59); AST 20 U/L (15-37); Albumin 3.3 g/dL (3.4-5.0); Alkaline Phosphatase 82 U/L (46-116); Anion Gap 7.1 mmol/L (3-11); BUN 17 mg/dL (7-18); Bilirubin, Total 0.3 mg/dL (0.2-1.0); CO2 27.9 mmol/L (21.0-32.0); CREATININE 1.2 mg/dL (0.55-1.02); Calcium 8.8 mg/dL (8.5-10.1); Chloride 104 mmol/L (98-107); Glucose 170 mg/dL (74-106); Potassium 3.7 mmol/L (3.5-5.1); Sodium 139 mmol/L (136-145); Total Protein 6.8 g/dL (6.4-8.2)
[2022-10-28 20:29] LABS: CEA 2.5 ng/mL (See Note)
[2022-10-30 11:50] VITALS: BP 126/61; PULSE 94; RESP 20; TEMP 36; O2SAT 98
[2022-10-30] MEDS: Heparin 500 UNITS/5 ML SYRINGE IV (11:55)
[2022-10-30] MEDS: Normal Saline Flush 10 ML SYR IVP (11:55)
[2022-11-11] MEDS: Normal Saline Flush 10 ML SYR IVP (09:36)
[2022-11-11 09:37] LABS: Abs Immature Grans 0.04 10^3/uL (0.0-0.06); Absolute Basophil Count 0.07 10^3/uL (0.0-0.2); Absolute Lymphocyte Count 2.33 10^3/uL (1.2-3.4); Absolute Monocyte Count 0.61 10^3/uL (0.1-0.8); Absolute Neutrophil Count 4.08 10^3/uL (1.2-6.7); Basophils % 0.9; Eosinophils % 5.3; HCT 35.2 % (36.0-46.0); HGB 11.5 g/dL (11.2-15.7); Immature Grans % 0.5; Lymphocytes % 30.9; MCH 27.6 pg (27.0-33.0); MCHC 32.7 % (32.0-36.0); MCV 84 fL (80-95); MPV 10.8 fL (8.0-11.0); Monocytes % 8.1; Neutrophils % 54.3; Platelet Count 115 10^3/uL (130-400); RBC 4.17 10^6/uL (3.93-5.22); RDW 17.2 % (11.7-14.6); RDW-SD 51.2 fL; WBC 7.53 10^3/uL (4.4-10.8)
[2022-11-11 09:50] LABS: ALT 15 U/L (14-59); AST 19 U/L (15-37); Albumin 3.4 g/dL (3.4-5.0); Alkaline Phosphatase 83 U/L (46-116); Anion Gap 8.2 mmol/L (3-11); BUN 23 mg/dL (7-18); Bilirubin, Total 0.4 mg/dL (0.2-1.0); CO2 26.8 mmol/L (21.0-32.0); CREATININE 1.1 mg/dL (0.55-1.02); Calcium 9.2 mg/dL (8.5-10.1); Chloride 106 mmol/L (98-107); Estimated GFR 53.06 (mL/min/1.73m2); Glucose 127 mg/dL (74-106); Potassium 3.7 mmol/L (3.5-5.1); Sodium 141 mmol/L (136-145); Total Protein 6.7 g/dL (6.4-8.2)
[2022-11-13] MEDS: Normal Saline Flush 10 ML SYR IVP (11:27)
[2022-11-13] MEDS: Heparin 500 UNITS/5 ML SYRINGE IV (11:27)
[2022-11-13 11:33] VITALS: BP 142/84; PULSE 72; RESP 17; TEMP 36; O2SAT 99
[2022-11-14 08:53] LABS: CEA 2.6 ng/mL (See Note)
== END 2022-11-15 23:59 | disposition home or self-care (01) ==
LOC: INF 00:09
PROVIDERS: PCP Nurse Practitioner Adult Health; Visit Provider Internal Medicine Hematology & Oncology
DX: C18.4 Malignant neoplasm of transverse colon (principal); Z45.2 Encounter for adjustment and management of vascular access device
CPT/HCPCS: 36591; 80053; 96523; 82378; 85025

== ENCOUNTER 2022-12-11 00:01 | Outpatient (RCR) | payer MEDICARE, SELFPAY ==
[2022-11-16 00:06] VITALS: BP 142/84; PULSE 72; RESP 17; TEMP 36
[2022-11-25] MEDS: Normal Saline Flush 10 ML SYR IVP (08:22)
[2022-11-25 08:35] LABS: Abs Immature Grans 0.02 10^3/uL (0.0-0.06); Absolute Basophil Count 0.07 10^3/uL (0.0-0.2); Absolute Eosinophil Count 0.36 10^3/uL (0.0-0.7); Absolute Lymphocyte Count 2.17 10^3/uL (1.2-3.4); Absolute Monocyte Count 0.62 10^3/uL (0.1-0.8); Absolute Neutrophil Count 3.22 10^3/uL (1.2-6.7); Basophils % 1.1; Eosinophils % 5.6; HCT 35.8 % (36.0-46.0); HGB 11.7 g/dL (11.2-15.7); Immature Grans % 0.3; Lymphocytes % 33.6; MCH 28.5 pg (27.0-33.0); MCHC 32.7 % (32.0-36.0); MCV 87 fL (80-95); MPV 10.8 fL (8.0-11.0); Monocytes % 9.6; Neutrophils % 49.8; Platelet Count 126 10^3/uL (130-400); RBC 4.11 10^6/uL (3.93-5.22); RDW 17.9 % (11.7-14.6); RDW-SD 56.8 fL; WBC 6.46 10^3/uL (4.4-10.8)
[2022-11-25 08:52] LABS: ALT 17 U/L (14-59); AST 22 U/L (15-37); Albumin 3.4 g/dL (3.4-5.0); Alkaline Phosphatase 87 U/L (46-116); Anion Gap 5.6 mmol/L (3-11); BUN 17 mg/dL (7-18); Bilirubin, Total 0.4 mg/dL (0.2-1.0); CO2 29.4 mmol/L (21.0-32.0); CREATININE 1.2 mg/dL (0.55-1.02); Chloride 107 mmol/L (98-107); Glucose 109 mg/dL (74-106); Potassium 4.1 mmol/L (3.5-5.1); Sodium 142 mmol/L (136-145); Total Protein 6.7 g/dL (6.4-8.2)
[2022-11-25 20:05] LABS: CEA 1.6 ng/mL (See Note)
[2022-11-27 08:37] VITALS: BP 158/72; PULSE 102; RESP 18; TEMP 36.2; O2SAT 94
[2022-11-27] MEDS: Normal Saline Flush 10 ML SYR IVP (08:58)
[2022-11-27] MEDS: Heparin 500 UNITS/5 ML SYRINGE IV (08:58)
[2022-12-09] MEDS: Normal Saline Flush 10 ML SYR IVP (08:32)
[2022-12-09 08:54] LABS: Abs Immature Grans 0.05 10^3/uL (0.0-0.06); Absolute Basophil Count 0.06 10^3/uL (0.0-0.2); Absolute Eosinophil Count 0.25 10^3/uL (0.0-0.7); Absolute Lymphocyte Count 1.82 10^3/uL (1.2-3.4); Absolute Monocyte Count 0.53 10^3/uL (0.1-0.8); Absolute Neutrophil Count 5.19 10^3/uL (1.2-6.7); Basophils % 0.8; Eosinophils % 3.2; HCT 36.4 % (36.0-46.0); HGB 11.6 g/dL (11.2-15.7); Immature Grans % 0.6; MCH 28.6 pg (27.0-33.0); MCHC 31.9 % (32.0-36.0); MCV 90 fL (80-95); Monocytes % 6.7; Neutrophils % 65.7; Platelet Count 131 10^3/uL (130-400); RBC 4.06 10^6/uL (3.93-5.22); RDW 18.1 % (11.7-14.6); RDW-SD 59.1 fL
[2022-12-09 09:09] LABS: ALT 15 U/L (14-59); AST 17 U/L (15-37); Albumin 3.4 g/dL (3.4-5.0); Alkaline Phosphatase 79 U/L (46-116); Anion Gap 9.2 mmol/L (3-11); BUN 20 mg/dL (7-18); Bilirubin, Total 0.3 mg/dL (0.2-1.0); CO2 27.8 mmol/L (21.0-32.0); Calcium 9.4 mg/dL (8.5-10.1); Chloride 106 mmol/L (98-107); Estimated GFR 59.49 (mL/min/1.73m2); Glucose 129 mg/dL (74-106); Potassium 4.1 mmol/L (3.5-5.1); Sodium 143 mmol/L (136-145); Total Protein 6.7 g/dL (6.4-8.2)
[2022-12-12 11:10] LABS: CEA 1.2 ng/mL (See Note)
== END 2022-12-13 23:59 | disposition home or self-care (01) ==
LOC: INF 00:01
PROVIDERS: PCP Nurse Practitioner Adult Health; Visit Provider Internal Medicine Hematology & Oncology
DX: C18.4 Malignant neoplasm of transverse colon (principal); Z45.2 Encounter for adjustment and management of vascular access device
CPT/HCPCS: 36591; 80053; 96523; 82378; 85025

== ENCOUNTER 2023-01-08 00:42 | Outpatient (RCR) | payer MEDICARE, SELFPAY ==
[2022-12-14 00:04] VITALS: BP 158/72; PULSE 102; RESP 18; TEMP 36.2
[2022-12-23 08:49] LABS: Abs Immature Grans 0.04 10^3/uL (0.0-0.06); Absolute Basophil Count 0.04 10^3/uL (0.0-0.2); Absolute Eosinophil Count 0.31 10^3/uL (0.0-0.7); Absolute Lymphocyte Count 2.02 10^3/uL (1.2-3.4); Absolute Monocyte Count 0.52 10^3/uL (0.1-0.8); Absolute Neutrophil Count 4.33 10^3/uL (1.2-6.7); Basophils % 0.6; Eosinophils % 4.3; HGB 11.8 g/dL (11.2-15.7); Immature Grans % 0.6; Lymphocytes % 27.8; MCH 29.6 pg (27.0-33.0); MCHC 32.8 % (32.0-36.0); MCV 90 fL (80-95); MPV 10.4 fL (8.0-11.0); Monocytes % 7.2; Neutrophils % 59.5; Platelet Count 145 10^3/uL (130-400); RBC 3.99 10^6/uL (3.93-5.22); RDW 17.1 % (11.7-14.6); RDW-SD 56.7 fL; WBC 7.26 10^3/uL (4.4-10.8)
[2022-12-23 09:13] LABS: ALT 17 U/L (14-59); AST 17 U/L (15-37); Albumin 3.5 g/dL (3.4-5.0); Alkaline Phosphatase 82 U/L (46-116); Anion Gap 9.2 mmol/L (3-11); BUN 20 mg/dL (7-18); Bilirubin, Total 0.3 mg/dL (0.2-1.0); CO2 26.8 mmol/L (21.0-32.0); CREATININE 1.1 mg/dL (0.55-1.02); Calcium 9.1 mg/dL (8.5-10.1); Chloride 104 mmol/L (98-107); Estimated GFR 53.06 (mL/min/1.73m2); Glucose 133 mg/dL (74-106); Potassium 3.9 mmol/L (3.5-5.1); Sodium 140 mmol/L (136-145); Total Protein 6.8 g/dL (6.4-8.2)
[2022-12-23] MEDS: Normal Saline Flush 10 ML SYR IVP (09:15)
[2022-12-23 19:19] LABS: CEA 1.6 ng/mL (See Note)
[2022-12-25 10:00] VITALS: BP 124/83; PULSE 77; RESP 18; O2SAT 96
[2022-12-25] MEDS: Normal Saline Flush 10 ML SYR IVP (10:19)
[2022-12-25] MEDS: Heparin 500 UNITS/5 ML SYRINGE (10:20)
[2023-01-06] MEDS: Normal Saline Flush 10 ML SYR IVP (09:08)
[2023-01-06 09:14] LABS: Abs Immature Grans 0.05 10^3/uL (0.0-0.06); Absolute Basophil Count 0.04 10^3/uL (0.0-0.2); Absolute Eosinophil Count 0.32 10^3/uL (0.0-0.7); Absolute Lymphocyte Count 2.01 10^3/uL (1.2-3.4); Absolute Monocyte Count 0.57 10^3/uL (0.1-0.8); Absolute Neutrophil Count 5.39 10^3/uL (1.2-6.7); Basophils % 0.5; Eosinophils % 3.8; HCT 35.8 % (36.0-46.0); HGB 11.8 g/dL (11.2-15.7); Immature Grans % 0.6; MCV 91 fL (80-95); MPV 10.7 fL (8.0-11.0); Monocytes % 6.8; Neutrophils % 64.3; Platelet Count 154 10^3/uL (130-400); RBC 3.93 10^6/uL (3.93-5.22); RDW 16.4 % (11.7-14.6); RDW-SD 54.6 fL; WBC 8.38 10^3/uL (4.4-10.8)
[2023-01-06 09:42] LABS: ALT 16 U/L (14-59); AST 15 U/L (15-37); Albumin 3.5 g/dL (3.4-5.0); Alkaline Phosphatase 84 U/L (46-116); Anion Gap 8.5 mmol/L (3-11); BUN 22 mg/dL (7-18); Bilirubin, Total 0.3 mg/dL (0.2-1.0); CO2 26.5 mmol/L (21.0-32.0); CREATININE 1.2 mg/dL (0.55-1.02); Calcium 9.2 mg/dL (8.5-10.1); Chloride 105 mmol/L (98-107); Glucose 120 mg/dL (74-106); Potassium 3.9 mmol/L (3.5-5.1); Sodium 140 mmol/L (136-145); Total Protein 6.9 g/dL (6.4-8.2)
[2023-01-06 19:42] LABS: CEA 1.5 ng/mL (See Note)
[2023-01-08 09:32] VITALS: BP 135/57; PULSE 64; RESP 16; TEMP 36.6; O2SAT 94
[2023-01-08] MEDS: Normal Saline Flush 10 ML SYR IVP (09:35)
[2023-01-08] MEDS: Heparin 500 UNITS/5 ML SYRINGE IV (09:35)
== END 2023-01-13 23:59 | disposition home or self-care (01) ==
LOC: INF 00:42
PROVIDERS: PCP Nurse Practitioner Adult Health; Visit Provider Internal Medicine Hematology & Oncology
DX: C18.4 Malignant neoplasm of transverse colon (principal); Z45.2 Encounter for adjustment and management of vascular access device
CPT/HCPCS: 36591; 80053; 96523; 82378; 85025

== ENCOUNTER 2023-02-05 00:09 | Outpatient (RCR) | payer MEDICARE, SELFPAY ==
[2023-01-14 00:04] VITALS: BP 135/57; PULSE 64; RESP 16; TEMP 36.6
[2023-01-20] MEDS: Normal Saline Flush 10 ML SYR IVP (08:27)
[2023-01-20 08:50] LABS: Abs Immature Grans 0.03 10^3/uL (0.0-0.06); Absolute Basophil Count 0.04 10^3/uL (0.0-0.2); Absolute Eosinophil Count 0.38 10^3/uL (0.0-0.7); Absolute Lymphocyte Count 1.97 10^3/uL (1.2-3.4); Absolute Monocyte Count 0.49 10^3/uL (0.1-0.8); Absolute Neutrophil Count 4.48 10^3/uL (1.2-6.7); Basophils % 0.5; Eosinophils % 5.1; HCT 35.9 % (36.0-46.0); HGB 11.7 g/dL (11.2-15.7); Immature Grans % 0.4; Lymphocytes % 26.7; MCHC 32.6 % (32.0-36.0); MCV 92 fL (80-95); MPV 10.7 fL (8.0-11.0); Monocytes % 6.6; Neutrophils % 60.7; Platelet Count 152 10^3/uL (130-400); RDW 15.8 % (11.7-14.6); RDW-SD 53.1 fL; WBC 7.39 10^3/uL (4.4-10.8)
[2023-01-20 09:14] LABS: ALT 18 U/L (14-59); AST 16 U/L (15-37); Albumin 3.4 g/dL (3.4-5.0); Alkaline Phosphatase 80 U/L (46-116); Anion Gap 8.3 mmol/L (3-11); BUN 23 mg/dL (7-18); Bilirubin, Total 0.2 mg/dL (0.2-1.0); CO2 28.7 mmol/L (21.0-32.0); CREATININE 1.2 mg/dL (0.55-1.02); Calcium 9.1 mg/dL (8.5-10.1); Chloride 105 mmol/L (98-107); Glucose 144 mg/dL (74-106); Potassium 4.1 mmol/L (3.5-5.1); Sodium 142 mmol/L (136-145); Total Protein 6.8 g/dL (6.4-8.2)
[2023-01-20 20:53] LABS: CEA 1.6 ng/mL (See Note)
[2023-01-22] MEDS: Normal Saline Flush 10 ML SYR IVP (09:05)
[2023-01-22] MEDS: Heparin 500 UNITS/5 ML SYRINGE IV (09:05)
[2023-02-03 08:38] LABS: Abs Immature Grans 0.04 10^3/uL (0.0-0.06); Absolute Basophil Count 0.05 10^3/uL (0.0-0.2); Absolute Eosinophil Count 0.32 10^3/uL (0.0-0.7); Absolute Lymphocyte Count 2.27 10^3/uL (1.2-3.4); Absolute Monocyte Count 0.58 10^3/uL (0.1-0.8); Absolute Neutrophil Count 3.83 10^3/uL (1.2-6.7); Basophils % 0.7; Eosinophils % 4.5; HGB 12.2 g/dL (11.2-15.7); Immature Grans % 0.6; MCH 30.2 pg (27.0-33.0); MCV 92 fL (80-95); MPV 10.4 fL (8.0-11.0); Monocytes % 8.2; Platelet Count 147 10^3/uL (130-400); RBC 4.04 10^6/uL (3.93-5.22); RDW 15.1 % (11.7-14.6); RDW-SD 50.9 fL; WBC 7.09 10^3/uL (4.4-10.8)
[2023-02-03 08:53] LABS: ALT 16 U/L (14-59); AST 17 U/L (15-37); Albumin 3.6 g/dL (3.4-5.0); Alkaline Phosphatase 80 U/L (46-116); Anion Gap 7.4 mmol/L (3-11); BUN 20 mg/dL (7-18); Bilirubin, Total 0.3 mg/dL (0.2-1.0); CO2 26.6 mmol/L (21.0-32.0); CREATININE 1.2 mg/dL (0.55-1.02); Calcium 8.9 mg/dL (8.5-10.1); Chloride 107 mmol/L (98-107); Glucose 111 mg/dL (74-106); Potassium 3.7 mmol/L (3.5-5.1); Sodium 141 mmol/L (136-145); Total Protein 6.9 g/dL (6.4-8.2)
[2023-02-03] MEDS: Normal Saline Flush 10 ML SYR IVP (09:22)
[2023-02-04 02:22] LABS: CEA 1.1 ng/mL (See Note)
[2023-02-05] MEDS: Heparin 500 UNITS/5 ML SYRINGE IV (09:35)
[2023-02-05] MEDS: Normal Saline Flush 10 ML SYR IVP (09:36)
== END 2023-02-12 23:59 | disposition home or self-care (01) ==
LOC: INF 00:09
PROVIDERS: PCP Nurse Practitioner Adult Health; Visit Provider Internal Medicine Hematology & Oncology
DX: C18.4 Malignant neoplasm of transverse colon (principal); Z45.2 Encounter for adjustment and management of vascular access device
CPT/HCPCS: 36591; 80053; 96523; 82378; 85025

== ENCOUNTER 2023-02-17 00:42 | Outpatient (CLI) | payer MEDICARE, SELFPAY ==
--- NOTE | 2023-02-17 | DI.CT_ITS ---
Exam(s) CT CHEST/ABD/PEL W EXAM: CT CHEST/ABD/PEL W CLINICAL HISTORY: COLON CA,C18.4,S/P LT HEMICOLECTOMY,CHEMO,RESTAGING EXAM. TECHNIQUE: Imaging Protocol: Axial computed tomography images with coronal and sagittal reformatted images were created and reviewed CONTRAST MATERIAL: Intravenous: Omnipaque 350 Contrast volume:100 ml Oral: Yes. Oral contrast was also administered for bowel opacification. COMPARISON: CT CT CHEST/ABD/PEL W from 04/15/[address] CHEST PE CTA from 09/04/2022 FINDINGS: CHEST: LUNGS: There is continued stability of the previously described small bilateral lung nodules. There are no new nodules. No new confluent infiltrates and no pleural effusions.. No new findings in the trachea and mainstem bronchi. MEDIASTINUM: There is no hilar nor mediastinal adenopathy. Visualized thyroid unremarkable. CARDIAC: Heart size is normal. There is no pericardial effusion.Caliber of the thoracic aorta is wit hin normal limits. OSSEOUS: No significant osseous lesions.No fractures.. ABDOMEN: There is no ascites. LIVER: There are no focal hepatic lesions nor dilatation of intrahepatic ducts. Mild steatosis. GALLBLADDER/BILIARY: No obvious gallbladder pathology. CBD is not dilated. PANCREAS: No evidence of pancreatic mass nor dilatation of the pancreatic duct. SPLEEN: Spleen is not enlarged. There are no intrasplenic lesions. Splenic and portal veins are johnson nt. ADRENALS: There are no significant adrenal masses. KIDNEYS: No calculi nor hydronephrosis. No solid renal masses. Benign cysts in left kidney again note d, larger measuring 2 x 2 cm. ABDOMINAL AORTA: Abdominal aorta is not enlarged. LYMPH NODES: There is no retroperitoneal nor paraaortic adenopathy. ABDOMINAL WALL: There has been interval laparotomy. There has been partial resection of the colon di stal transverse colon level. There is slight dilatation the large bowel at the anastomotic level in left side of the abdomen but without a true obstruction at this level. However, there is some abnorm al streaking in the mesentery below this level behind the left rectus muscle, not previously present. This abnormal area measures approximately 4 x 4 x 2.5 cm. There is no lymphadenopathy and no drain able fluid collection in this region at this time. No free fluid in the dependent aspect of pelvis. GI: As above. PELVIS: LYMPH NODES: There is no intrapelvic nor inguinal adenopathy. GI: No evidence of appendicitis.No evidence of sigmoid diverticulitis. URINARY BLADDER: No calculi nor masses evident REPRODUCTIVE: Uterus size age-appropriate. The previously described calcific density in the left adn exa is unchanged probably calcified ovarian finding benign appearance. No new adnexal masses. No fr ee fluid in the adnexal regions are cul-de-sac. OSSEOUS: No significant osseous lesions. Fractures but there is multilevel degenerative disc disease and there is mild degenerative anterolist hesis L4 upon L5. IMPRESSION: 1. Stable small bilateral pulmonary nodules. No new ominous pulmonary nodules, pleural effusions, no r intrathoracic adenopathy. 2. When compared to CT scan of April 2022 there is been interval laparotomy with partial sigmoid resec tion in the distal transverse colon and anastomosis at this level with mild dilatation of the colon a t this level but no true obstruction. Below this level in the anterior left pelvis there is now some abnormal streaking and abnormal density within the anterior mesentery slightly left of center. This may be developing abscess although there does not distinct fluid in this region at this time. This area in the anterior left of center mesentery measures approximately 4 cm cephalocaudal by 4 cm wide by 2.5 cm AP. Close follow-up of this finding is recommended. 3. There are no lesions in the liver. RADIATION DOSE DELIVERED: 2,580.56mGy.cm Total DLP DATA REPOSITORY: All CT scans at this facility are submitted to the National Radiology Data Registry (NRDR) Dose Index Registry (DIR) with the [employer] (ACR). RADIATION OPTIMIZATION: All CT scans at this facility use at least one of these dose optimization te chniques: automated exposure control; mA and/or kV adjustment per patient size (includes targeted exa ms where dose is matched to clinical indication); or iterative reconstruction.
[2023-02-17] MEDS: Barium Sulfate 2% W/V-Berry Smoothie 450 ML BTL 950 ML PO (07:38)
[2023-02-17] MEDS: Omnipaque 350 MG/ML 500 ML BTL-Imaging package IJ (09:50)
== END 2023-02-17 01:02 ==
LOC: DI 00:42
PROVIDERS: PCP Nurse Practitioner Adult Health; Visit Provider Internal Medicine Hematology & Oncology
DX: C18.4 Malignant neoplasm of transverse colon (principal)
CPT/HCPCS: 74177; 71260

== ENCOUNTER 2023-02-24 00:54 | Outpatient (RCR) | payer MEDICARE, SELFPAY ==
[2023-02-13 00:03] VITALS: BP 135/57; PULSE 64; RESP 16; TEMP 36.6
[2023-02-17] MEDS: Normal Saline Flush 10 ML SYR IVP (07:22)
[2023-02-17] MEDS: Heparin 500 UNITS/5 ML SYRINGE IV (07:23)
[2023-02-24 08:18] LABS: Abs Immature Grans 0.05 10^3/uL (0.0-0.06); Absolute Basophil Count 0.06 10^3/uL (0.0-0.2); Absolute Eosinophil Count 0.25 10^3/uL (0.0-0.7); Absolute Lymphocyte Count 2.27 10^3/uL (1.2-3.4); Absolute Neutrophil Count 3.92 10^3/uL (1.2-6.7); Basophils % 0.9; Eosinophils % 3.5; HCT 37.1 % (36.0-46.0); HGB 12.2 g/dL (11.2-15.7); Immature Grans % 0.7; Lymphocytes % 32.2; MCH 30.3 pg (27.0-33.0); MCHC 32.9 % (32.0-36.0); MCV 92 fL (80-95); MPV 10.6 fL (8.0-11.0); Monocytes % 7.1; Neutrophils % 55.6; Platelet Count 161 10^3/uL (130-400); RBC 4.02 10^6/uL (3.93-5.22); RDW 14.4 % (11.7-14.6); RDW-SD 48.4 fL; WBC 7.05 10^3/uL (4.4-10.8)
[2023-02-24] MEDS: Heparin 500 UNITS/5 ML SYRINGE IV (08:26)
[2023-02-24] MEDS: Normal Saline Flush 10 ML SYR IVP (08:26)
[2023-02-24 08:39] LABS: ALT 15 U/L (14-59); AST 17 U/L (15-37); Albumin 3.5 g/dL (3.4-5.0); Alkaline Phosphatase 83 U/L (46-116); Anion Gap 7.7 mmol/L (3-11); BUN 16 mg/dL (7-18); Bilirubin, Total 0.3 mg/dL (0.2-1.0); CO2 28.3 mmol/L (21.0-32.0); CREATININE 1.2 mg/dL (0.55-1.02); Calcium 9.1 mg/dL (8.5-10.1); Chloride 108 mmol/L (98-107); Glucose 92 mg/dL (74-106); Potassium 3.8 mmol/L (3.5-5.1); Sodium 144 mmol/L (136-145); Total Protein 6.7 g/dL (6.4-8.2)
[2023-02-24 20:18] LABS: CEA 1.4 ng/mL (See Note)
== END 2023-03-15 23:59 | disposition home or self-care (01) ==
LOC: INF 00:54
PROVIDERS: PCP Nurse Practitioner Adult Health; Visit Provider Internal Medicine Hematology & Oncology
DX: C18.4 Malignant neoplasm of transverse colon (principal); Z45.2 Encounter for adjustment and management of vascular access device
CPT/HCPCS: 36591; 80053; 96523; 82378; 85025

== ENCOUNTER 2023-05-08 04:42 | Outpatient (CLI) | payer MEDICARE, SELFPAY ==
[2023-05-08 17:51] LABS: COMMENT (LAB VIEW ONLY) 182.69 mg/dL; Microalb ug/mg Crea 33.8 ug/mg Cr
[2023-05-08 17:56] LABS: Anion Gap 9.7 mmol/L (3-11); BUN 19 mg/dL (7-18); CO2 29.3 mmol/L (21.0-32.0); CREATININE 0.9 mg/dL (0.55-1.02); Calcium 9.2 mg/dL (8.5-10.1); Calculated LDL 76 mg/dL (<100); Chloride 105 mmol/L (98-107); Cholesterol 178 mg/dL (<200); Estimated GFR 67.08 (mL/min/1.73m2); Glucose 98 mg/dL (74-106); HDL Cholesterol 71 mg/dL (40-60); Potassium 3.9 mmol/L (3.5-5.1); Sodium 144 mmol/L (136-145); Triglyceride 155 mg/dL (<150)
== END 2023-05-08 04:43 | disposition home or self-care (01) ==
PROVIDERS: PCP Nurse Practitioner Adult Health; Visit Provider Nurse Practitioner Adult Health
DX: I10 Essential (primary) hypertension (principal); E78.2 Mixed hyperlipidemia; E11.9 Type 2 diabetes mellitus without complications; Z79.4 Long term (current) use of insulin
CPT/HCPCS: 36415; 80048; 80061; 82043; 82570

== ENCOUNTER → 2023-05-24 01:43 | Outpatient (CLI) | payer MEDICARE, SELFPAY ==
[2023-05-24] MEDS: Barium Sulfate 2% W/V-Berry Smoothie 450 ML BTL PO (07:41)
[2023-05-24] MEDS: Barium Sulfate 2% W/V-Creamy Vanilla Smoothie 450 ML BTL PO (07:41)
[2023-05-24] MEDS: Normal Saline - Diluent 50 ML VIAL IJ (09:14)
[2023-05-24] MEDS: Omnipaque 350 MG/ML 500 ML BTL-Imaging package 100 ML IJ (09:15)
[2023-05-24] MEDS: Normal Saline Flush 10 ML SYR IJ (09:15)
--- NOTE | 2023-05-24 09:24 | DI.CT_ITS ---
Exam(s) CT CHEST/ABD/PEL W EXAM: CT CHEST/ABD/PEL W CLINICAL HISTORY: STAGE 2B COLON CA, C18.4, KNOWN LUNG NODULES, R91.8. TECHNIQUE: Imaging Protocol: Axial computed tomography images with coronal and sagittal reformatted images were created and reviewed CONTRAST MATERIAL: Intravenous: Omnipaque 350 Contrast volume:100 ml Oral: yes / COMPARISON: CT CT CHEST/ABD/PEL W from 02/17/2023 FINDINGS: CHEST: Tracheobronchial tree: Patent where visualized. Pulmonary parenchyma: Stable tiny nodules left lower lobe. Stable tiny nodule peripheral right upper lobe. No new nodules. No consolidation or dominant measurable mass. Pleura: No effusion or pneumothorax. Lymph nodes: Within normal limits. Aorta: Thoracic portion non-dilated. Heart: Normal size. Mild coronary artery calcifications. Mild mitral annular calcifications. Bones: Degenerative changes. No lytic or blastic lesions.No compression fractures. Soft tissues: Port over right upper chest. ABDOMEN: Liver: Normal density. No measurable mass. Gallbladder and biliary tract: No radiodense calculus or dilation. Pancreas: Normal density, no abnormal calcifications or inflammatory process. Spleen: Normal. Kidneys: Normal size, contour and axis. No radiodense stones or obstructive uropathy. Left renal cys t again noted. No suspicious masses seen. Adrenal glands: No masses seen. Aorta: Abdominal portion non-dilated. Lymph nodes: Within normal limits. Soft tissues: Small amount of fluid at the umbilicus. PELVIS: Bladder: Symmetric distention, no gross wall thickening. Bowel: Anastomosis left transverse colon. No obstruction or bowel wall thickening. Peritoneal cavity: No ascites, collection or mesenteric inflammatory response. Area of scarring in th e mesenteric fat at the level of the umbilicus. Bones: Degenerative changes and scoliosis. No compression fractures or lytic or blastic lesions. Reproductive organs: Coarse calcification again noted in left ovary. IMPRESSION: Chest: Stable tiny pulmonary nodules. Abdomen pelvis: Area of scarring in mesenteric fat. Colonic anastomosis unremarkable. No evidence o f metastatic disease or adenopathy. Small amount of fluid at the umbilicus. RADIATION DOSE DELIVERED: 2,542.63mGy.cm Total DLP DATA REPOSITORY: All CT scans at this facility are submitted to the National Radiology Data Registry (NRDR) Dose Index Registry (DIR) with the [employer] (ACR). RADIATION OPTIMIZATION: All CT scans at this facility use at least one of these dose optimization te chniques: automated exposure control; mA and/or kV adjustment per patient size (includes targeted exa ms where dose is matched to clinical indication); or iterative reconstruction.
== END ==
PROVIDERS: PCP Nurse Practitioner Adult Health; Visit Provider Nurse Practitioner Family
DX: R91.8 Other nonspecific abnormal finding of lung field (principal); C18.4 Malignant neoplasm of transverse colon
CPT/HCPCS: 74177; 71260

== ENCOUNTER → 2023-05-24 01:43 | Outpatient (CLI) | payer MEDICARE, SELFPAY ==
--- NOTE | 2023-05-24 08:01 | DI.RAD_ITS ---
Exam(s) XR KNEE RT 3V AP,LAT,CHERI EXAM: XR KNEE RT 3V AP,LAT,CHERI CLINICAL HISTORY: h/o severe OA,rt knee pain, m25.561. TECHNIQUE: 2D digital imaging was performed of the right knee. Four views obtained. AP, lateral and PA tunnel views were obtained. COMPARISON: There are no priors for comparison. FINDINGS: BONES: No acute fracture is present. No bony destructive lesion is seen. JOINTS: There are marked degenerative changes of the knee with joint space narrowing and osteophytes in all 3 joint compartments. The findings are most marked in the medial femoral tibial and patellofe moral joints. Chondrocalcinosis in the femoral tibial joint is noted. No joint effusion is seen. SOFT TISSUE: Atherosclerosis is present. IMPRESSION: Marked osteoarthritis of the knee. DATA REPOSITORY: RADIATION DOSE DELIVERED:
--- NOTE | 2023-05-24 08:01 | DI.RAD_ITS ---
Exam(s) XR KNEE LT 3V AP,LAT,CHERI EXAM: XR KNEE LT 3V AP,LAT,CHERI CLINICAL HISTORY: h/o severe OA, lt knee pain, m25.562. TECHNIQUE: 2D digital imaging was performed of the left knee. Three images were obtained. AP, late ral and PA tunnel views were obtained. COMPARISON: CR LEFT KNEE 3 VIEW COMPLETE from 05/15/2013 FINDINGS: BONES: No acute fracture is present. No bony destructive lesion is seen. JOINTS: There are marked degenerative changes seen in the knee with joint space narrowing and osteoph ytes in all 3 joint compartments. The findings are most marked at the patellofemoral joint. No join t effusion is seen. No loose body. SOFT TISSUE: Atherosclerosis. IMPRESSION: Marked osteoarthritis of the knee. DATA REPOSITORY: RADIATION DOSE DELIVERED:
== END ==
PROVIDERS: PCP Nurse Practitioner Adult Health; Visit Provider Nurse Practitioner Adult Health
DX: M17.12 Unilateral primary osteoarthritis, left knee; M17.11 Unilateral primary osteoarthritis, right knee
CPT/HCPCS: 73562

== ENCOUNTER 2023-05-24 02:32 | Outpatient (RCR) | payer MEDICARE, SELFPAY ==
[2023-05-24] MEDS: Normal Saline Flush 10 ML SYR IVP ×2 (07:27→09:32)
[2023-05-24 07:48] LABS: Abs Immature Grans 0.04 10^3/uL (0.0-0.06); Absolute Basophil Count 0.07 10^3/uL (0.0-0.2); Absolute Eosinophil Count 0.25 10^3/uL (0.0-0.7); Absolute Lymphocyte Count 2.57 10^3/uL (1.2-3.4); Absolute Monocyte Count 0.53 10^3/uL (0.1-0.8); Absolute Neutrophil Count 5.58 10^3/uL (1.2-6.7); Basophils % 0.8; Eosinophils % 2.8; HGB 13.1 g/dL (11.2-15.7); Immature Grans % 0.4; Lymphocytes % 28.4; MCH 28.4 pg (27.0-33.0); MCHC 32.8 % (32.0-36.0); MCV 87 fL (80-95); MPV 10.6 fL (8.0-11.0); Monocytes % 5.9; Neutrophils % 61.7; Platelet Count 201 10^3/uL (130-400); RBC 4.61 10^6/uL (3.93-5.22); RDW 12.7 % (11.7-14.6); WBC 9.04 10^3/uL (4.4-10.8)
[2023-05-24 08:03] LABS: ALT 15 U/L (14-59); AST 18 U/L (15-37); Albumin 3.6 g/dL (3.4-5.0); Alkaline Phosphatase 96 U/L (46-116); Anion Gap 3.8 mmol/L (3-11); BUN 21 mg/dL (7-18); Bilirubin, Total 0.3 mg/dL (0.2-1.0); CO2 29.2 mmol/L (21.0-32.0); Calcium 9.1 mg/dL (8.5-10.1); Chloride 107 mmol/L (98-107); Estimated GFR 59.12 (mL/min/1.73m2); Glucose 118 mg/dL (74-106); Potassium 4.1 mmol/L (3.5-5.1); Sodium 140 mmol/L (136-145); Total Protein 7.2 g/dL (6.4-8.2)
[2023-05-24] MEDS: Heparin 500 UNITS/5 ML SYRINGE IV (09:31)
== END 2023-06-15 23:59 | disposition home or self-care (01) ==
LOC: INF 02:32
PROVIDERS: PCP Nurse Practitioner Adult Health; Visit Provider Nurse Practitioner Family
DX: C18.4 Malignant neoplasm of transverse colon (principal); Z45.2 Encounter for adjustment and management of vascular access device
CPT/HCPCS: 36591; 80053; 82378; 85025

== ENCOUNTER 2023-07-06 03:30 | Outpatient (RCR) | payer MEDICARE, SELFPAY ==
[2023-07-06] MEDS: Heparin 500 UNITS/5 ML SYRINGE IV (14:49)
[2023-07-06] MEDS: Normal Saline Flush 10 ML SYR IVP (14:49)
[2023-07-07 10:35] LABS: HBs Antibody, Quant 4.2 mIU/mL (See Note); Hepatitis B Surface Ab Negative (See Note)
[2023-07-07 11:19] LABS: Measles IgG Antibody Positive (See Note); Varicella IgG Antibody Positive (See Note)
[2023-07-07 11:21] LABS: Mumps Antibody IgG Positive (See Note)
[2023-07-07 11:23] LABS: Rubella IgG Ab (UVM) Positive (See Note)
[2023-07-10 13:01] LABS: TB Interpretation Negative (Negative); TB1 Ag minus Nil 0.15 IU/ml; TB2 Ag minus Nil 0.14 IU/mL
== END 2023-07-15 23:59 | disposition home or self-care (01) ==
LOC: INF 03:30
PROVIDERS: PCP Nurse Practitioner Adult Health; Visit Provider Nurse Practitioner Family
DX: Z02.1 Encounter for pre-employment examination (principal); Z45.2 Encounter for adjustment and management of vascular access device
CPT/HCPCS: 36591; 86706; 86787; 86480; 86735; 86762; 86765

== ENCOUNTER → 2023-08-24 01:07 | Outpatient (CLI) | payer MEDICARE, SELFPAY ==
--- NOTE | 2023-08-24 15:15 | DI.MAMMO_ITS ---
Exam(s) MAMMO SCREENING EXAM: MAMMO SCREENING CLINICAL HISTORY: screening Z12.39 FOR BREAST CANCER. TECHNIQUE: Bilateral full field digital CC and MLO mammographic images were obtained with 3D tomosyn thesis and utilizing computer aided detection (CAD). COMPARISON: Prior mammograms were reviewed. FINDINGS: There has been no significant change in the appearance and distribution of the fibroglandular tissue. Right breast microcalcifications remain stable and benign appearance There are no new spiculated masses nor malignant appearing microcalcification groups. There is no significant architectural distortion nor skin thickening-retraction. IMPRESSION: No radiographic evidence of malignancy. Stable benign-appearing findings. BI-RADS Category 2 - Benign Findings Breast Density - Category B - Scattered areas of fibroglandular density Breast density Category C or D implies that the patient has dense breast tissue. Dense breast tissue can make it harder to find cancer on a mammogram. Dense breast tissue is also associated with an incr eased risk of breast cancer. This information about the result of the mammogram report was provided to the patient to raise their awareness. Use this report when you speak with the patient about their risks for breast cancer, which includes their family history. At that time, you may recommend additional screening tests (Ultrasoun d or MRI) as these tests may add significant information. A negative radiographic report should not delay biopsy if a dominant or clinically suspicious mass is present. Up to ten percent of cancers are not identified on mammography. A negative report may reinforce clinical impression. Adenosis and dense breasts may obscure an underlying neoplasm. False positive reports average 6 to 10%. Patient will receive a letter notifying them of these results.
== END ==
PROVIDERS: PCP Nurse Practitioner Adult Health; Visit Provider Nurse Practitioner Adult Health
DX: Z12.31 Encounter for screening mammogram for malignant neoplasm of breast (principal); R92.323 Mammographic fibroglandular density, bilateral breasts; R92.0 Mammographic microcalcification found on diagnostic imaging of breast
CPT/HCPCS: 77063; 77067

== ENCOUNTER 2023-09-08 00:27 | Outpatient (RCR) | payer MEDICARE, SELFPAY ==
[2023-09-08] MEDS: Normal Saline Flush 10 ML SYR IVP (10:42)
[2023-09-08] MEDS: Heparin 500 UNITS/5 ML SYRINGE IV (10:42)
[2023-09-08 11:23] LABS: Abs Immature Grans 0.04 10^3/uL (0.0-0.06); Absolute Basophil Count 0.07 10^3/uL (0.0-0.2); Absolute Eosinophil Count 0.32 10^3/uL (0.0-0.7); Absolute Lymphocyte Count 2.61 10^3/uL (1.2-3.4); Absolute Neutrophil Count 4.94 10^3/uL (1.2-6.7); Basophils % 0.8; Eosinophils % 3.8; HCT 41.1 % (36.0-46.0); HGB 12.9 g/dL (11.2-15.7); Immature Grans % 0.5; Lymphocytes % 30.8; MCHC 31.4 % (32.0-36.0); MCV 86 fL (80-95); MPV 10.7 fL (8.0-11.0); Monocytes % 5.9; Neutrophils % 58.2; Platelet Count 188 10^3/uL (130-400); RBC 4.78 10^6/uL (3.93-5.22); RDW 13.6 % (11.7-14.6); RDW-SD 42.6 fL; WBC 8.48 10^3/uL (4.4-10.8)
[2023-09-08 11:39] LABS: ALT 19 U/L (14-59); AST 19 U/L (15-37); Albumin 3.5 g/dL (3.4-5.0); Alkaline Phosphatase 95 U/L (46-116); BUN 21 mg/dL (7-18); Bilirubin, Total 0.3 mg/dL (0.2-1.0); CREATININE 1.1 mg/dL (0.55-1.02); Calcium 9.3 mg/dL (8.5-10.1); Chloride 105 mmol/L (98-107); Estimated GFR 52.73 (mL/min/1.73m2); Glucose 139 mg/dL (74-106); Sodium 140 mmol/L (136-145); Total Protein 7.4 g/dL (6.4-8.2)
[2023-09-08 18:25] LABS: CEA 1.8 ng/mL (See Note)
== END 2023-09-14 23:59 | disposition home or self-care (01) ==
LOC: INF 00:27
PROVIDERS: PCP Nurse Practitioner Adult Health; Visit Provider Nurse Practitioner Family
DX: C18.4 Malignant neoplasm of transverse colon (principal); Z45.2 Encounter for adjustment and management of vascular access device
CPT/HCPCS: 36591; 80053; 82378; 85025

== ENCOUNTER → 2023-09-21 08:37 | Outpatient (BNVA) | payer MEDICARE, SELFPAY | PROVIDERS: PCP Nurse Practitioner Adult Health; Referring Provider Nurse Practitioner Adult Health; Visit Provider Student in an Organized Health Care Education/Training Program | DX: M17.11 Unilateral primary osteoarthritis, right knee (principal); M17.12 Unilateral primary osteoarthritis, left knee | CPT/HCPCS: 99214 ==

== ENCOUNTER → 2023-12-01 00:57 | Outpatient (CLI) | payer MEDICARE, SELFPAY ==
[2023-12-01] MEDS: Barium Sulfate 2% W/V-Berry Smoothie 450 ML BTL PO ×2 (08:11→08:12)
[2023-12-01] MEDS: Normal Saline - Diluent 50 ML VIAL IJ (10:15)
[2023-12-01] MEDS: Omnipaque 350 MG/ML 500 ML BTL-Imaging package 100 ML IJ (10:16)
--- NOTE | 2023-12-01 10:26 | DI.CT_ITS ---
Exam(s) CT CHEST/ABD/PEL W EXAM: CT CHEST/ABD/PEL W CLINICAL HISTORY: COLON CANCER C18.4 MONITOR STAGE II/III TECHNIQUE: Imaging Protocol: Axial computed tomography images with coronal and sagittal reformatted images were created and reviewed CONTRAST MATERIAL: Intravenous: Omnipaque 350 contrast volume:100 mL Oral: Yes COMPARISON: CR,XR XR CHEST 1V IN DI DEPT from 09/04/[address] CHEST/ABD/PEL W from 02/17/[address] CHEST/ABD/PEL W from 05/24/2023 FINDINGS: CHEST: Tracheobronchial tree: Patent where visualized. Pulmonary parenchyma: There are stable nodules in the right upper lobe (series 5, image 260) and the left lower lobe (series 5, image 373 and 318). There is stable nodularity in the left lingula (serie s 5, image 298). No new pulmonary nodules are present. No focal consolidating infiltrates are seen. Visualized thyroid gland: Unremarkable. Mediastinum and Roxie: No dominant adenopathy or fluid collection. The esophagus is unremarkable. Pleura: No effusion or pneumothorax. Heart: The heart is not dilated. Mild coronary artery calcification. No pericardial effusion. Pulmonary arteries: No pulmonary emboli are identified. Aorta: Thoracic aorta non-dilated. No evidence of dissection. Atherosclerosis is present. Lymph nodes: Within normal limits. Tubes, Catheters, and Lines: There is a right-sided Hfngis-M-Lwxs catheter. Soft tissues: Unremarkable. Bones:Within normal limits for the patient's age. No aggressive osseous lesions are seen. ABDOMEN: Liver: Normal density. No measurable mass. Portal, Superior Mesenteric, and Splenic Veins: Unremarkable. Gallbladder and Biliary Tract: No radiodense calculus or dilation. Pancreas: Normal density, no abnormal calcifications or inflammatory process. Spleen: Normal. Adrenals: No masses seen. Kidneys: Normal size, contour and axis. No radiodense stones or obstructive uropathy. There are simpl e left renal cysts. No follow-up is recommended. Abdominal Aorta: Abdominal portion non-dilated. Atherosclerosis. Bowel: There is a moderate amount of stool in the colon. There is no evidence of bowel obstruction o r bowel wall thickening. There is a colonic anastomosis is seen in the left abdomen. Appendix is un remarkable. Peritoneal Cavity: No ascites, collection or mesenteric inflammatory response. No free air. There i s again seen scarring in the left lower quadrant of the abdomen. (Series 7, image 629). Lymph Nodes: Within normal limits. Bones: Within normal limits for the patient's age. No aggressive osseous lesions are identified. Soft Tissues: There is a persistent small fluid collection in the midline anterior abdominal wall. T his may represent a seroma or resolving hematoma. PELVIS: Bladder: Symmetric distention, no gross wall thickening. Reproductive Organs: There is again seen a calcification in the left ovary. This is stable. Lymph Nodes: Within normal limits. Bones: Within normal limits. IMPRESSION: 1. Stable pulmonary nodules. 2. Stable findings in the abdomen and pelvis and anterior abdominal wall. 3. No evidence of new disease in the abdomen or pelvis since 05/24/2023. RADIATION DOSE DELIVERED: 2,465.93mGy.cm Total DLP DATA REPOSITORY: All CT scans at this facility are submitted to the National Radiology Data Registry (NRDR) Dose Index Registry (DIR) with the [employer] (ACR). RADIATION OPTIMIZATION: All CT scans at this facility use at least one of these dose optimization te chniques: automated exposure control; mA and/or kV adjustment per patient size (includes targeted exa ms where dose is matched to clinical indication); or iterative reconstruction.
== END ==
PROVIDERS: PCP Nurse Practitioner Adult Health; Visit Provider Nurse Practitioner Family
DX: R91.8 Other nonspecific abnormal finding of lung field (principal)
CPT/HCPCS: 74177; 71260

== ENCOUNTER 2023-12-01 02:03 | Outpatient (RCR) | payer MEDICARE, SELFPAY ==
[2023-12-01 08:21] LABS: Abs Immature Grans 0.05 10^3/uL (0.0-0.06); Absolute Basophil Count 0.06 10^3/uL (0.0-0.2); Absolute Eosinophil Count 0.25 10^3/uL (0.0-0.7); Absolute Lymphocyte Count 2.69 10^3/uL (1.2-3.4); Absolute Monocyte Count 0.53 10^3/uL (0.1-0.8); Absolute Neutrophil Count 5.34 10^3/uL (1.2-6.7); Basophils % 0.7; Eosinophils % 2.8; HGB 12.7 g/dL (11.2-15.7); Immature Grans % 0.6; Lymphocytes % 30.2; MCH 27.4 pg (27.0-33.0); MCHC 32.6 % (32.0-36.0); MCV 84 fL (80-95); MPV 10.1 fL (8.0-11.0); Monocytes % 5.9; Neutrophils % 59.8; Platelet Count 202 10^3/uL (130-400); RBC 4.64 10^6/uL (3.93-5.22); RDW-SD 42.7 fL; WBC 8.92 10^3/uL (4.4-10.8)
[2023-12-01 08:39] LABS: ALT 20 U/L (14-59); AST 18 U/L (15-37); Albumin 3.5 g/dL (3.4-5.0); Alkaline Phosphatase 95 U/L (46-116); Anion Gap 10.1 mmol/L (3-11); BUN 16 mg/dL (7-18); Bilirubin, Total 0.3 mg/dL (0.2-1.0); CO2 26.9 mmol/L (21.0-32.0); Calcium 8.8 mg/dL (8.5-10.1); Chloride 108 mmol/L (98-107); Estimated GFR 59.12 (mL/min/1.73m2); Glucose 119 mg/dL (74-106); Potassium 3.8 mmol/L (3.5-5.1); Sodium 145 mmol/L (136-145); Total Protein 7.1 g/dL (6.4-8.2)
[2023-12-01] MEDS: Normal Saline Flush 10 ML SYR IVP (08:55)
[2023-12-01 17:27] LABS: CEA 0.7 ng/mL (See Note)
== END 2023-12-14 23:59 | disposition home or self-care (01) ==
LOC: INF 02:03
PROVIDERS: PCP Nurse Practitioner Adult Health; Visit Provider Internal Medicine Hematology & Oncology
DX: C18.4 Malignant neoplasm of transverse colon (principal); Z45.2 Encounter for adjustment and management of vascular access device
CPT/HCPCS: 36591; 80053; 82378; 85025

== ENCOUNTER 2024-02-16 08:39 | Outpatient (CLI) | payer MEDICARE, SELFPAY ==
[2024-02-16 08:40] LABS: Anion Gap 8.5 mmol/L (3-11); BUN 19 mg/dL (7-18); CO2 29.5 mmol/L (21.0-32.0); CREATININE 1.1 mg/dL (0.55-1.02); Calcium 9.2 mg/dL (8.5-10.1); Calculated LDL 65 mg/dL (<100); Chloride 106 mmol/L (98-107); Cholesterol 145 mg/dL (<200); Glucose 126 mg/dL (74-106); HDL Cholesterol 65 mg/dL (40-60); Potassium 4.8 mmol/L (3.5-5.1); Sodium 144 mmol/L (136-145); Triglyceride 75 mg/dL (<150)
[2024-02-16 08:50] LABS: Hemoglobin A1C 6.8 % (<5.7)
[2024-02-19 19:16] LABS: Lab Add On Test DONE
== END 2024-02-16 08:40 | disposition home or self-care (01) ==
LOC: LBO 08:39
PROVIDERS: PCP Nurse Practitioner Adult Health; Visit Provider Nurse Practitioner Adult Health
DX: Z13.6 Encounter for screening for cardiovascular disorders (principal); I10 Essential (primary) hypertension; E78.2 Mixed hyperlipidemia; E11.9 Type 2 diabetes mellitus without complications; Z79.4 Long term (current) use of insulin
CPT/HCPCS: 36415; 80048; 80061; 83036; 84443

== ENCOUNTER 2024-03-20 05:10 | Outpatient (RCR) | payer MEDICARE, SELFPAY ==
[2024-03-20] MEDS: Normal Saline Flush 10 ML SYR IVP (08:23)
[2024-03-20 08:40] LABS: Abs Immature Grans 0.04 10^3/uL (0.0-0.06); Absolute Basophil Count 0.07 10^3/uL (0.0-0.2); Absolute Eosinophil Count 0.28 10^3/uL (0.0-0.7); Absolute Lymphocyte Count 2.37 10^3/uL (1.2-3.4); Absolute Monocyte Count 0.48 10^3/uL (0.1-0.8); Basophils % 0.8 %; Eosinophils % 3.1 %; HCT 39.2 % (36.0-46.0); HGB 12.6 g/dL (11.2-15.7); Immature Grans % 0.4 %; Lymphocytes % 26.2 %; MCH 27.8 pg (27.0-33.0); MCHC 32.1 % (32.0-36.0); MCV 87 fL (80-95); MPV 10.8 fL (8.0-11.0); Monocytes % 5.3 %; Neutrophils % 64.2 %; Platelet Count 175 10^3/uL (130-400); RBC 4.53 10^6/uL (3.93-5.22); RDW 13.6 % (11.7-14.6); RDW-SD 42.6 fL; WBC 9.04 10^3/uL (4.4-10.8)
[2024-03-20 08:53] LABS: ALT 18 U/L (14-59); AST 15 U/L (15-37); Albumin 3.5 g/dL (3.4-5.0); Alkaline Phosphatase 88 U/L (46-116); Anion Gap 8.1 mmol/L (3-11); BUN 19 mg/dL (7-18); Bilirubin, Total 0.4 mg/dL (0.2-1.0); CO2 29.9 mmol/L (21.0-32.0); Calcium 8.5 mg/dL (8.5-10.1); Chloride 104 mmol/L (98-107); Estimated GFR 58.75 (mL/min/1.73m2); Glucose 99 mg/dL (74-106); Potassium 3.9 mmol/L (3.5-5.1); Sodium 142 mmol/L (136-145)
[2024-03-20 18:02] LABS: CEA 1.2 ng/mL (See Note)
== END 2024-04-14 23:59 | disposition home or self-care (01) ==
LOC: INF 05:10
PROVIDERS: Nurse Practitioner Family; PCP Nurse Practitioner Adult Health; Visit Provider Internal Medicine Hematology & Oncology
DX: C18.4 Malignant neoplasm of transverse colon (principal); Z45.2 Encounter for adjustment and management of vascular access device
CPT/HCPCS: 36591; 80053; 82378; 85025

== ENCOUNTER 2024-06-14 00:02 | Outpatient (CLI) | payer MEDICARE, SELFPAY ==
[2024-06-14] MEDS: Barium Sulfate 2% W/V-Berry Smoothie 450 ML BTL PO ×2 (07:39→07:40)
[2024-06-14] MEDS: Normal Saline - Diluent 50 ML VIAL IJ (09:39)
[2024-06-14] MEDS: Omnipaque 350 MG/ML 100 ML BTL IJ (09:39)
--- NOTE | 2024-06-14 10:00 | DI.CT_ITS ---
Exam(s) CT CHEST/ABD/PEL W EXAM: CT CHEST/ABD/PEL W CLINICAL HISTORY: STAGE III COLON CA, S/P CHEMO/SURGERY, NEOPLASM TRANSVERSE COLON. TECHNIQUE: Imaging Protocol: Axial computed tomography images with coronal and sagittal reformatted images were created and reviewed CONTRAST MATERIAL: Intravenous: Omnipaque 350 Contrast volume:100 ml Oral: yes / COMPARISON: CT CT CHEST/ABD/PEL W from 12/01/2023 FINDINGS: CHEST: Tracheobronchial tree: Patent. Pulmonary parenchyma: No consolidation or dominant measurable mass. Stable scattered tiny bilateral pulmonary nodules. No new nodules. Pleura: No effusion or pneumothorax. Mediastinum: Within normal limits. Aorta: Thoracic portion non-dilated. Pulmonary arteries: No visible emboli. Heart: Normal size. No pericardial effusion. Bones: Unremarkable for age. No lytic or blastic lesions.No compression fractures. Soft tissues: Port over right upper chest. ABDOMEN and PELVIS: Liver: Normal density. No measurable mass. Gallbladder and biliary tract: No evidence of stones or wall thickening. No biliary dilatation. Pancreas: Normal density, no abnormal calcifications or inflammatory process. Spleen: Normal. Kidneys: Normal size, contour and axis. No radiodense stones. No obstructive uropathy. Left renal c ysts again noted. No suspicious masses seen. Adrenal glands: No masses seen. Aorta: Abdominal portion non-dilated. Lymph nodes: Within normal limits. Soft tissues: Unremarkable. Bladder: Unremarkable. Bowel: Anastomosis left transverse colon. No visible mass. No obstruction or bowel wall thickening. Peritoneal cavity: No ascites. No focal collection. No mesenteric inflammatory response. No free ai r. Bones: Degenerative changes and levoscoliosis. Reproductive organs: Stable benign-appearing calcification on the left ovary. IMPRESSION: Stable pulmonary nodules. No new abnormalities in the chest. No evidence of metastatic disease in the abdomen or pelvis. RADIATION DOSE DELIVERED: Total DLP DATA REPOSITORY: All CT scans at this facility are submitted to the National Radiology Data Registry (NRDR) Dose Index Registry (DIR) with the [employer] (ACR). RADIATION OPTIMIZATION: All CT scans at this facility use at least one of these dose optimization te chniques: automated exposure control; mA and/or kV adjustment per patient size (includes targeted exa ms where dose is matched to clinical indication); or iterative reconstruction.
== END 2024-06-14 00:22 ==
LOC: DI 00:02
PROVIDERS: PCP Nurse Practitioner Adult Health; Visit Provider Nurse Practitioner Family
DX: C18.4 Malignant neoplasm of transverse colon (principal); R91.1 Solitary pulmonary nodule
CPT/HCPCS: 74177; 71260; J3490

== ENCOUNTER 2024-06-14 00:52 | Outpatient (RCR) | payer MEDICARE, SELFPAY ==
[2024-06-14 07:37] LABS: Abs Immature Grans 0.05 10^3/uL (0.0-0.06); Absolute Basophil Count 0.05 10^3/uL (0.0-0.2); Absolute Eosinophil Count 0.35 10^3/uL (0.0-0.7); Absolute Lymphocyte Count 2.41 10^3/uL (1.2-3.4); Absolute Monocyte Count 0.41 10^3/uL (0.1-0.8); Absolute Neutrophil Count 4.93 10^3/uL (1.2-6.7); Basophils % 0.6 %; Eosinophils % 4.3 %; HCT 38.9 % (36.0-46.0); HGB 12.5 g/dL (11.2-15.7); Immature Grans % 0.6 %; Lymphocytes % 29.4 %; MCH 27.9 pg (27.0-33.0); MCHC 32.1 % (32.0-36.0); MCV 87 fL (80-95); MPV 10.6 fL (8.0-11.0); Neutrophils % 60.1 %; Platelet Count 193 10^3/uL (130-400); RBC 4.48 10^6/uL (3.93-5.22); RDW 13.6 % (11.7-14.6); RDW-SD 43.4 fL
[2024-06-14 07:53] LABS: ALT 15 U/L (14-59); AST 16 U/L (15-37); Albumin 3.3 g/dL (3.4-5.0); Alkaline Phosphatase 86 U/L (46-116); Anion Gap 6.4 mmol/L (3-11); BUN 20 mg/dL (7-18); Bilirubin, Total 0.25 mg/dL (0.2-1.0); CO2 28.6 mmol/L (21.0-32.0); CREATININE 1.1 mg/dL (0.55-1.02); Calcium 9.1 mg/dL (8.5-10.1); Chloride 105 mmol/L (98-107); Glucose 143 mg/dL (74-106); Sodium 140 mmol/L (136-145)
[2024-06-14] MEDS: Normal Saline Flush 10 ML SYR IVP (10:05)
[2024-06-14 19:26] LABS: CEA 0.9 ng/mL (See Note)
== END 2024-06-15 23:59 | disposition home or self-care (01) ==
LOC: INF 00:52
PROVIDERS: Nurse Practitioner Family; PCP Nurse Practitioner Adult Health; Visit Provider Internal Medicine Hematology & Oncology
DX: C18.4 Malignant neoplasm of transverse colon (principal); Z45.2 Encounter for adjustment and management of vascular access device
CPT/HCPCS: 36591; 80053; 96523; 82378; 85025

== ENCOUNTER 2024-09-30 01:40 | Outpatient (RCR) | payer MEDICARE, SELFPAY ==
[2024-09-30] MEDS: Heparin 500 UNITS/5 ML SYRINGE IV (12:10)
[2024-09-30 12:42] LABS: Abs Immature Grans 0.04 10^3/uL (0.0-0.06); Absolute Basophil Count 0.05 10^3/uL (0.0-0.2); Absolute Eosinophil Count 0.18 10^3/uL (0.0-0.7); Absolute Lymphocyte Count 2.53 10^3/uL (1.2-3.4); Absolute Monocyte Count 0.39 10^3/uL (0.1-0.8); Absolute Neutrophil Count 5.54 10^3/uL (1.2-6.7); Basophils % 0.6 %; Eosinophils % 2.1 %; HCT 41.9 % (36.0-46.0); HGB 13.4 g/dL (11.2-15.7); Immature Grans % 0.5 %; MCH 27.3 pg (27.0-33.0); MCV 85 fL (80-95); MPV 10.7 fL (8.0-11.0); Monocytes % 4.5 %; Neutrophils % 63.3 %; Platelet Count 192 10^3/uL (130-400); RBC 4.91 10^6/uL (3.93-5.22); RDW 13.3 % (11.7-14.6); RDW-SD 41.4 fL; WBC 8.73 10^3/uL (4.4-10.8)
[2024-09-30] MEDS: Normal Saline Flush 10 ML SYR IVP (12:47)
[2024-09-30 12:59] LABS: ALT 13 U/L (14-59); AST 21 U/L (15-37); Albumin 3.7 g/dL (3.4-5.0); Alkaline Phosphatase 93 U/L (46-116); Anion Gap 6.5 mmol/L (3-11); BUN 20 mg/dL (7-18); Bilirubin, Total 0.34 mg/dL (0.2-1.0); CO2 29.5 mmol/L (21.0-32.0); CREATININE 1.1 mg/dL (0.55-1.02); Calcium 9.2 mg/dL (8.5-10.1); Chloride 106 mmol/L (98-107); Glucose 188 mg/dL (74-106); Potassium 4.7 mmol/L (3.5-5.1); Sodium 142 mmol/L (136-145); Total Protein 7.5 g/dL (6.4-8.2)
[2024-09-30 22:25] LABS: CEA 1.3 ng/mL (See Note)
== END 2024-10-15 23:59 | disposition home or self-care (01) ==
LOC: INF 01:40
PROVIDERS: Nurse Practitioner Family; PCP Nurse Practitioner Adult Health; Visit Provider Internal Medicine Hematology & Oncology
DX: C18.4 Malignant neoplasm of transverse colon (principal); Z45.2 Encounter for adjustment and management of vascular access device
CPT/HCPCS: 36415; 80053; 96523; 82378; 85025; J1642

== ENCOUNTER 2024-10-30 02:43 | Outpatient (RCR) | payer MEDICARE, SELFPAY ==
[2024-10-30] MEDS: Alteplase 2 MG VIAL (11:10)
[2024-10-30] MEDS: Water,Injection,Sterile 10 ML VIAL (11:35)
[2024-10-30] MEDS: Normal Saline Flush 10 ML SYR IVP (11:35)
== END 2024-11-15 23:59 | disposition home or self-care (01) ==
LOC: INF 02:43
PROVIDERS: PCP Nurse Practitioner Adult Health; Visit Provider Internal Medicine Hematology & Oncology
DX: C18.4 Malignant neoplasm of transverse colon (principal)
CPT/HCPCS: 36593; 96523; J2997

== ENCOUNTER 2025-01-03 00:11 | Outpatient (CLI) | payer MEDICARE, SELFPAY ==
[2025-01-03] MEDS: Barium Sulfate 2% W/V-Creamy Vanilla Smoothie 450 ML BTL PO (07:58)
[2025-01-03] MEDS: Barium Sulfate 2% W/V-Berry Smoothie 450 ML BTL PO (07:58)
[2025-01-03] MEDS: Normal Saline - Diluent 50 ML VIAL IJ (10:05)
[2025-01-03] MEDS: Omnipaque 350 MG/ML 500 ML BTL-Imaging package 100 ML IJ (10:17)
--- NOTE | 2025-01-03 10:26 | DI.CT_ITS ---
Exam(s) CT CHEST/ABD/PEL W EXAM: CT CHEST/ABD/PEL W CLINICAL HISTORY: Malignant neoplasm of transverse colon, C18.4. TECHNIQUE: Imaging Protocol: Axial computed tomography images with coronal and sagittal reformatted images were created and reviewed. Computer aided detection (CAD) was utilized. CONTRAST MATERIAL: Intravenous: Omnipaque 350 Contrast volume:100 ml Oral: yes / COMPARISON: CT CT CHEST/ABD/PEL W from 02/17/[address] CHEST/ABD/PEL W from 06/14/2024 FINDINGS: CHEST: Pulmonary parenchyma: No consolidation. No dominant measurable mass. Stable tiny bilateral pulmona ry nodules. Tracheobronchial tree: No bronchiectasis. No mucous plugging.No bronchial wall thickening. Pleura: No effusion or pneumothorax. Mediastinum: Within normal limits. Pulmonary arteries: No visible emboli. Cardiovascular: Normal heart size. No pericardial effusion. Thoracic aorta non-dilated. Minimal a therosclerotic changes. Bones: Degenerative disc changes. No lytic or blastic lesions.No compression fractures. Soft tissues: Port over right upper chest. ABDOMEN and PELVIS: Liver: Normal density. No suspicious mass. Gallbladder and biliary tract: No evidence of stones or wall thickening. No biliary dilatation. Pancreas: Normal density, no abnormal calcifications or inflammatory process. Spleen: Normal. Kidneys: Normal size, contour and axis. No radiodense stones. No obstructive uropathy. No suspicious masses seen. Adrenal glands: No masses seen. Aorta: Abdominal portion non-dilated. Lymph nodes: Within normal limits. Soft tissues: 2.6 x 1.5 by 2.8 centimeter fluid collection in the umbilicus. This is new from prior. Bladder: Nearly empty. Not well evaluated. Bowel: No obstruction or bowel wall thickening. Anastomosis in the at the splenic flexure of the colo n. No change in appearance. Or current mass. Peritoneal cavity: No ascites. No focal collection. No mesenteric inflammatory response. No free ai r. Bones: Degenerative changes and levoscoliosis. Reproductive organs: Stable benign calcification in the left ovary. IMPRESSION: No evidence of metastatic disease in the chest, abdomen or pelvis. Small fluid collection at the umbilicus. RADIATION DOSE DELIVERED: 1,210.84mGy.cm Total DLP DATA REPOSITORY: All CT scans at this facility are submitted to the National Radiology Data Registry (NRDR) Dose Index Registry (DIR) with the [employer] (ACR). RADIATION OPTIMIZATION: All CT scans at this facility use at least one of these dose optimization te chniques: automated exposure control; mA and/or kV adjustment per patient size (includes targeted exa ms where dose is matched to clinical indication); or iterative reconstruction.
== END 2025-01-03 00:31 ==
LOC: DI 00:11
PROVIDERS: PCP Nurse Practitioner Adult Health; Visit Provider Nurse Practitioner Family
DX: C18.4 Malignant neoplasm of transverse colon (principal)
CPT/HCPCS: 36591; 74177; 80053; 71260; 82378; 85025

== ENCOUNTER 2025-01-09 02:19 | Outpatient (RCR) | payer MEDICARE, SELFPAY ==
[2025-01-03] MEDS: Normal Saline Flush 10 ML SYR IVP (07:51)
[2025-01-03 08:02] LABS: Abs Immature Grans 0.07 10^3/uL (0.0-0.06); Absolute Basophil Count 0.09 10^3/uL (0.0-0.2); Absolute Eosinophil Count 0.39 10^3/uL (0.0-0.7); Absolute Lymphocyte Count 2.66 10^3/uL (1.2-3.4); Absolute Neutrophil Count 5.59 10^3/uL (1.2-6.7); Eosinophils % 4.2 %; HCT 39.8 % (36.0-46.0); HGB 12.4 g/dL (11.2-15.7); Immature Grans % 0.8 %; Lymphocytes % 28.9 %; MCH 26.8 pg (27.0-33.0); MCHC 31.2 % (32.0-36.0); MCV 86 fL (80-95); MPV 10.6 fL (8.0-11.0); Monocytes % 4.3 %; Neutrophils % 60.8 %; Platelet Count 208 10^3/uL (130-400); RBC 4.63 10^6/uL (3.93-5.22); RDW 14.2 % (11.7-14.6); RDW-SD 44.7 fL
[2025-01-03 08:29] LABS: ALT 18 U/L (14-59); AST 22 U/L (15-37); Albumin 3.4 g/dL (3.4-5.0); Alkaline Phosphatase 96 U/L (46-116); Anion Gap 7.2 mmol/L (3-11); BUN 18 mg/dL (7-18); Bilirubin, Total 0.4 mg/dL (0.2-1.0); CO2 28.8 mmol/L (21.0-32.0); CREATININE 1.2 mg/dL (0.55-1.02); Chloride 107 mmol/L (98-107); Estimated GFR 47.21 (mL/min/1.73m2); Glucose 134 mg/dL (74-106); Potassium 4.3 mmol/L (3.5-5.1); Sodium 143 mmol/L (136-145); Total Protein 7.2 g/dL (6.4-8.2)
== END 2025-01-13 23:59 | disposition home or self-care (01) ==
LOC: INF 02:19
PROVIDERS: Nurse Practitioner Family; PCP Nurse Practitioner Adult Health; Visit Provider Internal Medicine Hematology & Oncology
DX: C18.4 Malignant neoplasm of transverse colon (principal)
CPT/HCPCS: 36591; 80053; 82378; 85025

== ENCOUNTER 2025-02-17 02:12 | Outpatient (RCR) | payer MEDICARE, SELFPAY ==
[2025-02-17] MEDS: Normal Saline Flush 10 ML SYR IVP (08:40)
== END 2025-03-15 23:59 | disposition home or self-care (01) ==
LOC: INF 02:12
PROVIDERS: PCP Nurse Practitioner Adult Health; Visit Provider Internal Medicine Hematology & Oncology
DX: Z45.2 Encounter for adjustment and management of vascular access device (principal)
CPT/HCPCS: 96523

== ENCOUNTER 2025-04-10 00:56 | Outpatient (RCR) | payer MEDICARE, SELFPAY ==
[2025-04-10] MEDS: Normal Saline Flush 10 ML SYR IVP (08:40)
== END 2025-04-14 23:59 | disposition home or self-care (01) ==
LOC: INF 00:56
PROVIDERS: PCP Nurse Practitioner Adult Health; Visit Provider Internal Medicine Hematology & Oncology
DX: C18.4 Malignant neoplasm of transverse colon (principal); Z45.2 Encounter for adjustment and management of vascular access device
CPT/HCPCS: 96523

== ENCOUNTER 2025-05-15 02:28 | Outpatient (RCR) | payer MEDICARE, SELFPAY ==
[2025-05-15 08:28] LABS: Abs Immature Grans 0.05 10^3/uL (0.0-0.06); HCT 38.0 % (36.0-46.0); HGB 11.9 g/dL (11.2-15.7); Immature Grans % 0.6 %; MCH 26.4 pg (27.0-33.0); MCHC 31.3 % (32.0-36.0); MCV 84 fL (80-95); MPV 10.8 fL (8.0-11.0); Platelet Count 176 10^3/uL (130-400); RBC 4.50 10^6/uL (3.93-5.22); RDW 14.2 % (11.7-14.6); RDW-SD 43.8 fL; WBC 8.61 10^3/uL (4.4-10.8)
[2025-05-15 08:43] LABS: ALT 16 U/L (14-59); AST 18 U/L (15-37); Albumin 3.5 g/dL (3.4-5.0); Alkaline Phosphatase 93 U/L (46-116); Anion Gap 6.4 mmol/L (3-11); BUN 19 mg/dL (7-18); Bilirubin, Total 0.3 mg/dL (0.2-1.0); CO2 28.6 mmol/L (21.0-32.0); Calcium 9.0 mg/dL (8.5-10.1); Chloride 106 mmol/L (98-107); Estimated GFR 52.08 (mL/min/1.73m2); Glucose 92 mg/dL (74-106); Potassium 3.9 mmol/L (3.5-5.1); Sodium 141 mmol/L (136-145); Total Protein 7.1 g/dL (6.4-8.2)
[2025-05-15] MEDS: Normal Saline Flush 10 ML SYR IVP (08:45)
[2025-05-15 18:55] LABS: CEA 0.5 ng/mL (See Note)
== END 2025-05-15 23:59 | disposition home or self-care (01) ==
LOC: INF 02:28
PROVIDERS: Nurse Practitioner Family; PCP Nurse Practitioner Adult Health; Visit Provider Internal Medicine Hematology & Oncology
DX: C18.4 Malignant neoplasm of transverse colon (principal); Z45.2 Encounter for adjustment and management of vascular access device
CPT/HCPCS: 36591; 80053; 82378; 85025

== ENCOUNTER 2025-05-26 13:43 | Outpatient (CLI) | payer MEDICARE, SELFPAY ==
--- NOTE | 2025-05-26 13:30 | DI.RAD_ITS ---
Exam(s) XR KNEE LT 2V AP,LAT XR KNEE RT 2V AP,LAT XR STANDING ALIGNMENT EXAM: XR STANDING ALIGNMENT CLINICAL HISTORY: eval for TKA. TECHNIQUE: 2D digital imaging was performed. Eight images were obtained. COMPARISON: CR LEFT KNEE 3 VIEW COMPLETE from 05/15/2013 CR XR KNEE LT 3V AP,LAT,CHERI from 05/24/2023 CR XR KNEE RT 3V AP,LAT,CHERI from 05/24/2023 FINDINGS: BONES: There are mild degenerative changes seen in the hips bilaterally. The pelvis is suboptimally visualized secondary to the patient's body habitus. In the right knee, there is marked narrowing of the medial femoral tibial joint and the patellofemoral joint. There are osteophytes seen in all 3 joint compartments. There is moderate narrowing of the lateral femoral tibial joint. There is chondrocalcinosis in the femoral tibial joint. There is no joint effusion. In the left knee, there is marked narrowing in all 3 joint compartments. There also osteophytes in all 3 joint compartments, but most marked at the patellofemoral joint. There is medial subluxation of the femur relative to the tibia. The ankles are well maintained.The left lower extremity is 1 cm longer than the right lower extremity. SOFT TISSUE: Normal. IMPRESSION: Marked osteoarthritis of the knees. DATA REPOSITORY: RADIATION DOSE DELIVERED:
== END 2025-05-26 13:44 | disposition home or self-care (01) ==
LOC: DIORS 13:44
PROVIDERS: PCP Nurse Practitioner Adult Health; Referring Provider Nurse Practitioner Adult Health; Visit Provider Student in an Organized Health Care Education/Training Program
DX: M17.12 Unilateral primary osteoarthritis, left knee (principal); M17.11 Unilateral primary osteoarthritis, right knee
CPT/HCPCS: 99214; 73560; 77073

== ENCOUNTER 2025-05-27 01:26 | Emergency (ER) | payer MEDICARE, SELFPAY ==
[2025-05-27] VITALS (45 sets, daily range): BP systolic 122–233; BP diastolic 75–105; PULSE 68–102; RESP 18; TEMP 36.1; O2SAT 85–98
--- NOTE | 2025-05-27 01:33 | ED.GENADUL_ITS ---
Discharge Plan Disposition Patient Disposition: Home Condition: Stable Discharge Details Clinical Impression: Abdominal pain Primary Care Provider: Elisa Pa ED Provider: Rafy Lorenzo Meds and New Rx's Prescriptions: Continued bupropion HCl 300 mg tablet extended release 24 hr 300 mg PO QAM Qty: 90 1RF Rx Instructions: Dose increase 10/30/24 sertraline 100 mg tablet 100 mg PO DAILY Qty: 90 3RF Rx Instructions: Dose increase 02/07/24 Lantus Solostar U-100 Insulin 100 unit/mL (3 mL) insulin pen See Rx Instructions .ROUTE .COMPLEX Qty: 45 3RF Dose Instruction: INJECT 70 UNITS SUBCUTANEOUSLY EVERY MORNING & 20 UNITS EVERY EVENING FOR DIABETES MELLITUS NOT TO EXCEED 100 UNITS DAILY Rx Instructions: 42 units daily for diabetes or as directed with MDD 60 units/d pantoprazole 40 mg tablet,delayed release (DR/EC) See Rx Instructions .ROUTE .COMPLEX Qty: 90 3RF Dose Instruction: TAKE 1 TABLET BY MOUTH EVERY MORNING Rx Instructions: TAKE 1 TABLET BY MOUTH EVERY MORNING solifenacin [Vesicare] 5 mg tablet 5 mg PO DAILY Qty: 90 3RF Rx Instructions: Overactive bladder rosuvastatin 10 mg tablet See Rx Instructions .ROUTE .COMPLEX Qty: 90 3RF Dose Instruction: TAKE 1 TABLET BY MOUTH AT BEDTIME STOP SIMVASTATIN Rx Instructions: TAKE 1 TABLET BY MOUTH AT BEDTIME STOP SIMVASTATIN lisinopril 20 mg tablet 20 mg PO DAILY Qty: 90 3RF Rx Instructions: Blood pressure (DME) pen needle, diabetic [Comfort EZ Pen [place]] 32 gauge x 5/32 needle See Rx Instructions .ROUTE .MEDSUPPLY Qty: 100 3RF Rx Instructions: E11.9 to administer insulin daily for goal A1C <7% prednisolone acetate 1 % drops,suspension 1 drp ophthalmic (eye) .COMPLEX Rx Instructions: 1 gtt BID in January. 1 gtt qday OS. Optho note 01/21/25.HE (DME) FreeStyle Sly 3 Sensor Device See Rx Instructions .Route Qty: 1 0RF Rx Instructions: As directed Ozempic 0.25 mg or 0.5 mg (2 mg/3 mL) pen injector 0.5 mg subcut QWEEK MDD 0.5 mg Rx Instructions: Inject 0.25 mg subcutaneously once weekly as directed. Discharge Instructions Instructions: Abdominal Pain, Adult ED Additional Instructions: You were seen in the ED for abdominal/back pain. Your evaluation was reassuring with labs, urine and CT scan that showed no significant abnormalities. Your pain may be related to abdominal wall muscles and improved with acetaminophen. Please alternate acetaminophen with ibuprofen every 4 hours over the next couple of days and follow up with PCP end of week. Return to ED for fever, vomiting, worsening abdominal pain, other concerns. Referrals: Elisa Pa, HOSPICE CLINICAL MANAGER [Primary Care Provider, Medicine] HPI General Mode of arrival: wheelchair . Date/Time Provider Initiated Documentation: 05/27/25 01:27 . Limitations to Documentation: no limitations . Information obtained by: patient, RN notes reviewed and old records reviewed . HPI Narrative: Patient presents to the ED with left-sided back and abdominal pain that began around dinnertime last evening. Pain has worsened throughout the night. She is now having nausea as well. She cannot completely localize her pain but it seems mostly left back, flank, abdomen. Denies any chest pain or shortness of breath. Denies any urinary symptoms. Does feel that the pain is worse with movement and it does wax and use in terms of intensity. She has had previous partial colectomy for colon cancer and all follow-ups have been reviewed including her most recent one in January. Related Data Home Medications ?Medication ?Instructions ?Recorded ?Confirmed insulin glargine 100 unit/mL (3 See Rx Instructions .R oute 09/19/24 05/27/25 mL) subcutaneous pen (Lantus .COMPLEX #45 mL Solostar U-100 Insulin) pantoprazole 40 mg tablet,delayed See Rx Instructions .Route 09/27/24 05/27/25 release .COMPLEX #90 tabs solifenacin 5 mg tablet (Vesicare) 5 mg PO DAILY #90 t abs 10/01/24 05/27/25 lisinopril 20 mg tablet 20 mg PO DAILY #90 tabs 01/0 11/0905/27/25 rosuvastatin 10 mg tablet See Rx Instructions .Route 0 10/16/24 05/27/25 .COMPLEX #90 tabs bupropion HCl 300 mg 24 hr tablet, 300 mg PO QAM #90 t abs 10/30/24 05/27/25 extended release pen needle, diabetic 32 gauge x #100 ea 12/11/2403/24 (Comfort EZ Pen [place]) sertraline 100 mg tablet 100 mg PO DAILY #90 tabs 07/1005/27/25 prednisolone acetate 1 % eye 1 drp ophthalmic (eye) .C OMPLEX 01/24/25 05/27/25 drops,suspension blood-glucose sensor (FreeStyle #1 ea 02/18/25 5 Sly 3 Sensor device) semaglutide 0.25 mg or 0.5 mg (2 0.5 mg subcut QWEEK 0 05/27/25 05/27/25 mg/3 mL) subcutaneous pen injector (Ozempic) Previous Rx's ?Medication ?Instructions ?Recorded insulin glargine 100 unit/mL (3 See Rx Instructions .R oute 09/19/24 mL) subcutaneous pen (Lantus .COMPLEX #45 mL Solostar U-100 Insulin) pantoprazole 40 mg tablet,delayed See Rx Instructions .Route 09/27/24 release .COMPLEX #90 tabs solifenacin 5 mg tablet (Vesicare) 5 mg PO DAILY #90 t abs 10/01/24 lisinopril 20 mg tablet 20 mg PO DAILY #90 tabs 11/09 rosuvastatin 10 mg tablet See Rx Instructions .Route 0 10/16/24 .COMPLEX #90 tabs bupropion HCl 300 mg 24 hr tablet, 300 mg PO QAM #90 t abs 10/30/24 extended release pen needle, diabetic 32 gauge x #100 ea 12/11/24 (Comfort EZ Pen [place]) sertraline 100 mg tablet 100 mg PO DAILY #90 tabs 07/10 blood-glucose sensor (FreeStyle #1 ea 02/18/25 Sly 3 Sensor device) Allergies Allergy/AdvReac Type Severity Reaction Status Date / Time cat pelt standardized Allergy Intermediate Anaphylaxis Verified 05/27/25 01:43 allergenic ex house dust mite Allergy Intermediate Anaphylaxis Verified 05/27/25 01:43 ciprofloxacin (From Cipro) Allergy Mild rash, Verified 05/27/25 01:43 itching nitrofurantoin (From Allergy Mild rash Verified 05/27/25 01:43 Macrobid) rosiglitazone (From Avandia) Allergy swelling Verified 05/27/25 01:43 Sulfa (Sulfonamide Allergy rash Verified 05/27/25 01:43 Antibiotics) codeine AdvReac Severe vomits Verified 05/27/25 01:43 General ANDRE: 3 Exam Narrative Exam Narrative: Const: Obese female appears uncomfortable. VS per triage. HEENT: NC/AT. Normal facial exam. Neck: Supple. Trachea midline. Lungs: Normal respiratory effort. GI: Soft/ND. Tender with voluntary guarding LMQ/LLQ. Back: No CVAT Neuro: A+O x 3. Normal speech, mentation, gait. Cranial nerves II - XII grossly intact. No gross motor or sensory deficit. Ext: No C/C/E. Medical Decision Making Patient presenting to ED with left back and abdominal pain beginning earlier this evening. She appears quite uncomfortable. She is tender in the left mid and lower quadrant with voluntary guarding. She has no CVAT and no urinary symptoms. Blood pressure elevated likely related to pain. She is afebrile. Initial concern would be for acute diverticulitis, less likely kidney stone or pyelonephritis. Doubt bowel obstruction given lack of vomiting but has had previous abdominal surgery. Will get IV established and provide ondansetron and morphine for symptoms. Fluids started and patient made NPO. Labs, urine, CT scan ordered. Patient required second dose of morphine. Laboratory studies are reassuring. White count is 11, lactic acid normal, liver function and lipase normal. Urine without blood or signs of infection. CT scan per radiology with no acute pathology to suggest etiology of pain. Patient still clearly in pain and remains tender in the left abdomen. Will try dose of IV acetaminophen as the second dose of morphine did not seem to help all that much. BP remains elevated likely because of pain. Pain and blood pressure much improved with the IV acetaminophen. Pain still worse with movement. Patient denies injury, twisting, heavy lifting but this may be abdominal wall muscle pain. Given negative work up and patient improvement with plan discharge and follow up with PCP later this week. Patient to alternate acetaminophen with ibuprofen over next couple of days. Return precautions provided. Medical Records Medical records reviewed: Yes I reviewed the patient's medical records. Medical records narrative: see MDM Imaging Data Radiologic Study: Imaging: CT Scan Radiologist's impression: IMPRESSION: 1. 3.0 cm hiatal hernia. 2. Prior colonic resection. No acute bowel pathology demonstrated Thank you for allowing us to participate in the care of your patient. Dictated and Authenticated by: Juan Alberto Amezcua MD Lab Data Lab results reviewed: Yes I reviewed the patient's lab results. Lab results narrative: see [facility] All Active Problems (Updated 05/27/25 @ 05:56 by Rafy Lorenzo MD) Abdominal pain (Acute) Arthritis of left knee (Acute) Degenerative joint disease of right knee (Acute) Left knee DJD (Acute) Stage II carcinoma of colon (Chronic ~04/2022) [facility]; Invasive mod. differentiated adenocarcinoma, Staging [id number] Multiple lung nodules on CT (Chronic ~04/2022) 08/01/22, 02/2023 stable pulmonary nodules, med onc managing (2022) Mixed stress and urge incontinence (Chronic) RX Vesicare (discontinuation trial 09/2021 unsuccessful); resumption Vesicare improved symptoms Periodic limb movement sleep disorder (Chronic ~10/2020) Sleep Medicine Depression (Chronic) Long-term Lexapro RX (trialed off but ineffective; discont 01/2022 secondary to hyperhidrosis) Restarted Sertraline effective Obstructive sleep apnea of adult (Chronic) 11/02/20 Telehealth wit [facility], on CPAP Therapy. 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) use of non-steroidal anti-inflammatories (nsaid) (Chronic) Ibuprofen 2-3 times per day for knees Osteoarthritis of both knees (Chronic ~02/2023) Severe: X-rays 05/2023 Uses Ibuprofen 800mg BID; has trialed knee injections, but no longer effective; wants to avoid surgery/replacement; wants to resume yin yoga OAB (overactive bladder) (Chronic) With combined stress & urge incontinence-->Oxybutynin (failed), Vesicare helpful (tho dry mouth); RX Vesicare (discontinuation trial 09/2021 unsuccessful) Keratoconus (Chronic) B/L eye disease; corneal disease; managed by Ophthal; eye drops Hyperlipidemia (Chronic) Hypertension (Chronic) Type II diabetes mellitus (Chronic ~1979) Dx'ed ; Victoza, insulin Medical History Adenocarcinoma, colon (~04/2022) Stage II pressure ulcer of buttock Generalized hyperhidrosis (~08/2021) Nocturnal--Lexapro discontinued & hyperhidrosis stopped Diagnosed with colon cancer Sessile colonic polyp (~2013) Low folic acid Elevated C-reactive protein (CRP) Bilateral arm numbness and tingling while sleeping Episodic; manageable-->new mattress resolved issue Tubular adenoma (08/31/18) also found TA during colonoscopy 2022-cecal polyp Abnormal ECG ragadenoson nuclear stress test 08/07/17 GERD (gastroesophageal reflux disease) Anemia GI workup neg including capsule endoscopy, Faraheme iron infusions 11/2018 & 05/2019 w/ good results History of fracture of nasal bone Folate deficiency Resolved 2019 folate >20 Edema Graft rejection (~10/26/09) Vitamin D deficiency 2021 level 45 Hiatal hernia (~12/08/06) Asthma Allergy (environmental) induced; hasn't been on inhalers for >10 years (2019) Surgical History H/O colonoscopy (~2017) 03/28/2383-YRA-avsogiq adenoma fragments 07/09/2463-BDC-wjwgpu colonoscopy S/P left colectomy (~06/02/22) Dr Elizabeth, [facility] History of bladder surgery Sling--~2017 S/P vein stripping (~1966) History of corneal transplant Endothelial Left (1979), Right (1983) [facility] surgeon--will cont to attend History of penetrating keratoplasty Left Eye (1979), Right Eye (1983) Family History Mother Pancreatic cancer Brother Bladder cancer Diabetes Type 1 B-cell lymphoma Paternal Aunt Kidney malignant neoplasm Maternal Grandmother Lung cancer Father Heart disease Son Lymphedema Daughter Cystic fibrosis Uncle Hypertension Aunt Diabetes Type 2 Sister Tongue cancer 60yo Other Anxiety Depression Social History Smoking/Tobacco Use Status: Former Tobacco Use Quit Date: 10/16/74 Tobacco: How many years used: 5 Smoking risk assessment performed?: Yes Alcohol Intake: current Alcohol Intake frequency: holidays/special occasions only Alcohol type: beer Drug use: Never Substance use type: does not use Adopted: No Caregiver/Support person: No Foster care: No Household members: children Housing: house Do you need help understanding health information?: Rarely 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
--- NOTE | 2025-05-27 01:45 | DI.CT_ITS ---
Exam(s) CT ABDOMEN PELVIS W EXAM: CT ABDOMEN PELVIS W CLINICAL HISTORY: LLQ abd pain/tenderness. TECHNIQUE: Imaging Protocol: Axial computed tomography images with coronal and sagittal reformatted images were created and reviewed CONTRAST MATERIAL: Intravenous: Omnipaque 350 Contrast volume:100 ml Oral: no COMPARISON: CT CT CHEST/ABD/PEL W from 01/03/2025 FINDINGS: ABDOMEN and PELVIS: Lung Bases: No acute findings. Small hiatal hernia. Liver: Normal density. No suspicious mass. Gallbladder and biliary tract: Question of a small stone in the dependent portion. No wall thickening or pericholecystic fluid. No biliary dilation. Pancreas: Normal density. Detail somewhat atrophic. No abnormal calcifications or inflammatory process. No evidence of mass. Spleen: Normal. Kidneys: Normal size, contour and axis. No radiodense stones. No obstructive uropathy. Left renal cysts. No suspicious masses seen. Adrenal glands: No masses seen. Vasculature: Abdominal aorta non-dilated. Soft tissues: Unremarkable. Bladder: No gross wall thickening. No calculi.No focal mass. Bowel: Partial colonic resection. The anastomosis is unremarkable. No obstruction. No bowel wall thickening. Appendix is normal. Peritoneal cavity: No ascites. No focal collection. No mesenteric inflammatory response. No free air. Bones: Scoliosis and degenerative changes. Reproductive organs: Unremarkable. Lymph nodes: No pathologically enlarged lymph nodes. IMPRESSION:: Partial colectomy. No acute abnormality in the abdomen or pelvis. The preliminary [facility] report was reviewed. RADIATION DOSE DELIVERED: 969.12mGy.cm Total DLP DATA REPOSITORY: All CT scans at this facility are submitted to the National Radiology Data Registry (NRDR) Dose Index Registry (DIR) with the [employer] (A[employer]). RADIATION OPTIMIZATION: All CT scans at this facility use at least one of these dose optimization techniques: automated exposure control; mA and/or kV adjustment per patient size (includes targeted exams where dose is matched to clinical indication); or iterative reconstruction.
[2025-05-27 02:20] LABS: BE (Venous) 1 mmol/L (-2-3); HCO3 (Venous) 25 mmol/L (23-28); O2 Sat (Venous) 77 %; TCO2 (Venous) 23 mmol/L (24-29); pCO2 (Venous) 39 mmHg (41-51); pO2 (Venous) 40 mmHg
[2025-05-27] MEDS: MORPHine 4 MG/ML SYR IVP ×2 (02:21→03:29)
[2025-05-27] MEDS: Normal Saline 1,000 ML 1000 ML IV (02:21)
[2025-05-27 02:22] LABS: Abs Immature Grans 0.05 10^3/uL (0.0-0.06); HCT 36.5 % (36.0-46.0); HGB 11.7 g/dL (11.2-15.7); Immature Grans % 0.5 %; MCH 26.7 pg (27.0-33.0); MCHC 32.1 % (32.0-36.0); MCV 83 fL (80-95); MPV 10.6 fL (8.0-11.0); Platelet Count 184 10^3/uL (130-400); RBC 4.39 10^6/uL (3.93-5.22); RDW 14.1 % (11.7-14.6); RDW-SD 43.0 fL; WBC 10.99 10^3/uL (4.4-10.8)
[2025-05-27] MEDS: Ondansetron 4 MG/2 ML VIAL IVP (02:22)
[2025-05-27 02:39] LABS: ALT 20 U/L (14-59); AST 20 U/L (15-37); Albumin 3.3 g/dL (3.4-5.0); Alkaline Phosphatase 91 U/L (46-116); Anion Gap 6.0 mmol/L (3-11); BUN 23 mg/dL (7-18); Bilirubin, Total 0.2 mg/dL (0.2-1.0); CO2 28.0 mmol/L (21.0-32.0); Calcium 8.8 mg/dL (8.5-10.1); Chloride 106 mmol/L (98-107); Estimated GFR 46.91 (mL/min/1.73m2); Glucose 129 mg/dL (74-106); Lipase 49 U/L (<78); Potassium 4.2 mmol/L (3.5-5.1); Sodium 140 mmol/L (136-145); Total Protein 6.8 g/dL (6.4-8.2)
[2025-05-27] MEDS: Omnipaque 350 MG/ML 100 ML BTL IJ (03:05)
[2025-05-27] MEDS: Normal Saline - Diluent 50 ML VIAL IJ (03:07)
[2025-05-27] MEDS: Normal Saline Flush 10 ML SYR IVP (03:07)
[2025-05-27 03:41] LABS: Glucose Negative (Negative)
[2025-05-27 03:42] LABS: C & S Indicated? No; RBC Negative HPF (0-2); WBC 0-2 HPF (0-5)
--- NOTE | 2025-05-27 03:46 | DI.[facility]_ITS ---
PROCEDURE INFORMATION: Exam: CT Abdomen And Pelvis With Contrast Exam date and time: 05/27/2025 3:01 AM Age: 75 years old Clinical indication: Abdominal pain; Localized; Left lower quadrant (llq); Prior surgery; Surgery date: 6+ months; Surgery type: HX of colon cancer, partial colectomy, bladder surgery; Llq pain and tenderness TECHNIQUE: Imaging protocol: Computed tomography of the abdomen and pelvis with contrast. Radiation optimization: All CT scans at this facility use at least one of these dose optimization techniques: automated exposure control; mA and/or kV adjustment per patient size (includes targeted exams where dose is matched to clinical indication); or iterative reconstruction. Contrast material: OMNIPAQUE 350; Contrast volume: 100 ml; Contrast route: INTRAVENOUS (IV); COMPARISON: CT CHEST/ABD/PEL W 01/03/2025 10:13 AM FINDINGS: Lungs: Lung bases clear. Diaphragm: 3.0 cm hiatal hernia. Liver: Normal appearing liver. Gallbladder and biliary ducts: Gallbladder partially decompressed. Small noncalcified gallstones suggested in the gallbladder neck. No biliary dilatation. Pancreas: Normal appearing pancreas. Spleen: Normal appearing spleen. Adrenal glands: Normal appearing adrenal glands. Kidneys and ureters: Left renal cysts measuring 2.5 cm on image 53 and 1.3 cm on image 41 of series 8. Otherwise normal-appearing kidneys. No hydronephrosis. No obstructing ureteral stones. Stomach and bowel: No oral contrast. Stomach partially decompressed. No small bowel dilatation to suggest obstruction. Prior colonic resection from the distal transverse/proximal descending segment. No evidence of diverticulitis or colitis. Appendix: Normal appendix. Intraperitoneal space: No gross ascites or free air. Vasculature: Normal caliber abdominal aorta. Lymph nodes: No pathologically enlarged mesenteric, retroperitoneal, or pelvic sidewall lymph nodes. Urinary bladder: Urinary bladder partially collapsed but grossly unremarkable, as seen. Reproductive: Anteverted uterus. Normal-sized ovaries. 9 mm coarse calcification in the left ovary, nonspecific. Bones/joints: S-shaped curvature through the lumbar spine. Spinal degenerative change with discogenic degeneration, anterior osteophytes, and facet arthrosis at multiple levels. Transitional L5 vertebral body, hemisacralized on the left. No acute fracture seen among the bones of the abdomen or pelvis. Soft tissues: No significant ventral or inguinal hernia. IMPRESSION: 1. 3.0 cm hiatal hernia. 2. Prior colonic resection. No acute bowel pathology demonstrated. Dictated and Authenticated by: Juan Alberto Amezcua MD. Orderin Bj Hillman MD
[2025-05-27] MEDS: ACETAMINOPHEN 1,000 MG/100 ML BAG 400 MG IVPB (04:35)
== END 2025-05-27 06:38 | disposition home or self-care (01) ==
PROVIDERS: Emergency Provider Emergency Medicine; PCP Nurse Practitioner Adult Health
DX: R10.9 Unspecified abdominal pain (principal)
CPT/HCPCS: 99285; 99284; 36415; 96375; 96376; 80053; 82805; 83690; 96361; 96365; 74177; 81003; 81015; 83605; 85025; J0131; J2270; J2405; J3490

== ENCOUNTER 2025-07-30 16:39 | Outpatient (CLI) | payer MEDICARE, SELFPAY ==
--- NOTE | 2025-07-30 16:30 | RT.EKG_ITS ---
APPROVED REPORT Exam: Resting ECG Reason for Exam: pre-op updated baseline ekg HTN, etc Patient Location: O HR:77 bpm ECG Measurements Heart Rate 77 AXIS VA 177 P 70 QRSd 90 QRS 12 QT 391 T 24 QTc 443 Conclusion Sinus rhythm...normal P axis, V-rate 50- 99 Normal Electrocardiogram
== END 2025-07-30 16:40 | disposition home or self-care (01) ==
LOC: DI.KIM 16:39
PROVIDERS: PCP Nurse Practitioner Adult Health; Visit Provider Nurse Practitioner Adult Health
DX: Z01.818 Encounter for other preprocedural examination (principal); M17.0 Bilateral primary osteoarthritis of knee
CPT/HCPCS: 93010

== ENCOUNTER 2025-08-04 03:23 | Outpatient (RCR) | payer MEDICARE, SELFPAY ==
[2025-07-18 08:37] LABS: Abs Immature Grans 0.02 10^3/uL (0.0-0.06); HCT 37.9 % (36.0-46.0); HGB 12.1 g/dL (11.2-15.7); Immature Grans % 0.3 %; MCH 27.8 pg (27.0-33.0); MCHC 31.9 % (32.0-36.0); MCV 87 fL (80-95); MPV 10.8 fL (8.0-11.0); Platelet Count 175 10^3/uL (130-400); RBC 4.36 10^6/uL (3.93-5.22); RDW 14.8 % (11.7-14.6); RDW-SD 47.1 fL; WBC 7.86 10^3/uL (4.4-10.8)
[2025-07-18] MEDS: Normal Saline Flush 10 ML SYR IVP (08:45)
[2025-07-18 08:57] LABS: ALT 14 U/L (14-59); AST 20 U/L (15-37); Albumin 3.5 g/dL (3.4-5.0); Alkaline Phosphatase 84 U/L (46-116); Anion Gap 9.2 mmol/L (3-11); BUN 23 mg/dL (7-18); Bilirubin, Total 0.3 mg/dL (0.2-1.0); CO2 25.8 mmol/L (21.0-32.0); Calcium 8.8 mg/dL (8.5-10.1); Chloride 106 mmol/L (98-107); Estimated GFR 46.91 (mL/min/1.73m2); Glucose 101 mg/dL (74-106); Potassium 4.3 mmol/L (3.5-5.1); Sodium 141 mmol/L (136-145); Total Protein 6.9 g/dL (6.4-8.2)
[2025-07-18 17:11] LABS: CEA 1.2 ng/mL (See Note)
[2025-08-04] MEDS: Normal Saline Flush 10 ML SYR IVP (11:37)
[2025-08-04 11:47] LABS: HCT 36.9 % (36.0-46.0); HGB 11.6 g/dL (11.2-15.7); MCH 27.1 pg (27.0-33.0); MCHC 31.4 % (32.0-36.0); MCV 86 fL (80-95); MPV 10.9 fL (8.0-11.0); Platelet Count 153 10^3/uL (130-400); RBC 4.28 10^6/uL (3.93-5.22); RDW 14.4 % (11.7-14.6); RDW-SD 45.3 fL; WBC 8.30 10^3/uL (4.4-10.8)
[2025-08-04 12:13] LABS: Anion Gap 11.0 mmol/L (3-11); BUN 22 mg/dL (7-18); CO2 25.0 mmol/L (21.0-32.0); Calcium 9.1 mg/dL (8.5-10.1); Chloride 105 mmol/L (98-107); Estimated GFR 52.08 (mL/min/1.73m2); Glucose 139 mg/dL (74-106); Potassium 3.5 mmol/L (3.5-5.1); Sodium 141 mmol/L (136-145)
== END 2025-08-15 23:59 | disposition home or self-care (01) ==
LOC: INF 03:23
PROVIDERS: Nurse Practitioner Family; Student in an Organized Health Care Education/Training Program; PCP Nurse Practitioner Adult Health; Visit Provider Internal Medicine Hematology & Oncology
DX: C18.4 Malignant neoplasm of transverse colon (principal); E11.9 Type 2 diabetes mellitus without complications; Z45.2 Encounter for adjustment and management of vascular access device
CPT/HCPCS: 36591; 80048; 80053; 85027; 82378; 82985; 85025

== ENCOUNTER 2025-08-13 07:23 | Day surgery (SDC) | payer MEDICARE, SELFPAY ==
[2025-08-13] VITALS (25 sets, daily range): BP systolic 83–146; BP diastolic 50–97; PULSE 66–92; RESP 14–26; TEMP 36.3–36.7; O2SAT 89–98; BMI 39.8
--- NOTE | 2025-08-13 06:30 | W.ANESPRE ---
General Info Date of Service Date Performed: 08/13/25 Height: 5 ft 2.75 in Weight: 101.151 kg Body Mass Index (BMI): 39.8 Surgical Procedure: Operation Date: 08/13/25 09:50 Proposed Procedure Side Surgeon p Knee Total Arthroplasty Bilateral Bilateral Zoran Howard MD Meds Allergies and Home Medications Allergies Allergy/AdvReac Type Severity Reaction Status Date / Time cat pelt standardized Allergy Intermediate Anaphylaxis Verified 08/13/25 07:47 allergenic ex house dust mite Allergy Intermediate Anaphylaxis Verified 08/13/25 07:47 ciprofloxacin (From Cipro) Allergy Mild rash, Verified 08/13/25 07:47 itching nitrofurantoin (From Allergy Mild rash Verified 08/13/25 07:47 Macrobid) rosiglitazone (From Avandia) Allergy swelling Verified 08/13/25 07:47 Sulfa (Sulfonamide Allergy rash Verified 08/13/25 07:47 Antibiotics) codeine AdvReac Severe vomits Verified 08/13/25 07:47 Home Medication Medication Instructions Recorded insulin glargine 100 unit/mL (3 See Rx Instructions .Route 09/19/24 mL) subcutaneous pen (Lantus .COMPLEX #45 mL Solostar U-100 Insulin) pantoprazole 40 mg tablet,delayed See Rx Instructions .Route 09/27/24 release .COMPLEX #90 tabs solifenacin 5 mg tablet (Vesicare) 5 mg PO DAILY #90 tabs 10/01/24 lisinopril 20 mg tablet 20 mg PO DAILY #90 tabs 10/16/24 rosuvastatin 10 mg tablet See Rx Instructions .Route 10/16/24 .COMPLEX #90 tabs pen needle, diabetic 32 gauge x #100 ea 12/11/24 (Comfort EZ Pen [place]) sertraline 100 mg tablet 100 mg PO DAILY #90 tabs 01/22/25 prednisolone acetate 1 % eye 1 drp ophthalmic (eye) .COMPLEX 01/24/25 drops,suspension blood-glucose sensor (FreeStyle #1 ea 02/18/25 Sly 3 Sensor device) bupropion HCl 300 mg 24 hr tablet, 300 mg PO QAM #90 tabs 06/02/25 extended release blood sugar diagnostic (Blood #100 ea 07/30/25 Glucose Test strips) blood-glucose meter #1 ea 07/30/25 lancets #100 ea 07/30/25 semaglutide 0.25 mg or 0.5 mg (2 0.5 mg subcut QWEEK 07/30/25 mg/3 mL) subcutaneous pen injector (Ozempic) acetaminophen 500 mg tablet 1,000 mg (2 x 500 mg) PO TID #90 08/13/25 tabs aspirin 81 mg tablet,delayed 81 mg PO BID #60 tabs 08/13/25 release celecoxib 200 mg capsule 200 mg PO BID #60 caps 08/13/25 dexamethasone 4 mg tablet 4 mg PO DAILY #2 tabs 08/13/25 docusate sodium 100 mg capsule 100 mg PO BID PRN #28 caps 08/13/25 gabapentin 300 mg capsule 300 mg PO QHS #14 caps 08/13/25 oxycodone 5 mg tablet 5 mg PO Q4H PRN #18 tabs 08/13/25 Current Visit Medications: Current Medications Generic Name Dose Route Start Last Admin Trade Name Freq PRN Reason Stop Dose Admin Acetaminophen 1,000 mg 08/13/25 06:00 Acetaminophen 500 Mg Tab PO 08/13/25 23:59 PREOP JULIO CÉSAR Celecoxib 400 mg 08/13/25 06:00 Celecoxib 200 Mg Cap PO 08/13/25 23:59 PREOP JULIO CÉSAR Gabapentin 300 mg 08/13/25 06:00 Gabapentin 300 Mg Cap PO 08/13/25 23:59 PREOP JULIO CÉSAR Ringer's Solution 1,000 mls @ 80 mls/hr 08/13/25 06:00 IV 08/13/25 23:59 INFUSION JULIO CÉSAR Cefazolin Sodium/Dextrose 2 gm in 50 mls @ 100 mls/hr 08/13/25 06:00 Ancef Duplex IVPB 08/13/25 23:59 PREOP JULIO CÉSAR Tranexamic Acid/Sodium Chloride 1,000 mg in 100 mls @ 600 mls/hr 08/13/25 06:00 IVPB 08/13/25 23:59 PREOP JULIO CÉSAR IV Miscellaneous Supplies 1 each 08/13/25 06:00 Iv Access IV 08/13/25 23:59 DIRECTED JULIO CÉSAR Sodium Chloride 0 ml 08/13/25 06:00 Normal Saline Flush 10 Ml Syr IV 08/13/25 23:59 PRN PRN Sodium Chloride 0 ml 08/13/25 06:00 Normal Saline 10 Ml Vial IJ 10/29/25 23:59 DIRECTED PRN Sterile Water 0 ml 08/13/25 06:00 Water,Injection,Sterile 10 Ml Vial IJ 08/13/25 23:59 DIRECTED PRN PFSH Active Problems Active Problems: Problem Status Onset Code Scoliosis Acute M41.9 Arthritis of left knee Acute M17.12 Degenerative joint disease of right knee Acute M17.11 Left knee DJD Acute M17.12 Stage II carcinoma of colon Chronic ~04/2022 C18.[address] nodules on CT Chronic ~04/2022 R91.8 Mixed stress and urge incontinence Chronic N39.46 Periodic limb movement sleep disorder Chronic ~10/2020 G47.61 Depression Chronic F32.9 Obstructive sleep apnea of adult Chronic G47.33 Sensory hearing loss, 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) use of non-steroidal anti-inflammatories (nsaid) Chronic Z79.1 Osteoarthritis of both knees Chronic ~02/2023 M17.0 OAB (overactive bladder) Chronic N32.81 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 Hyperlipidemia Chronic E78.5 Hypertension Chronic I10 Type II diabetes mellitus Chronic ~1979 E11.9 Medical History Medical History Vitreous degeneration left eye per 05/30/25 Eye Exam Adenocarcinoma, colon (~04/2022) Stage II pressure ulcer of buttock Generalized hyperhidrosis (~08/2021) Nocturnal--Lexapro discontinued & hyperhidrosis stopped Diagnosed with colon cancer Sessile colonic polyp (~2013) Low folic acid Elevated C-reactive protein (CRP) Bilateral arm numbness and tingling while sleeping Episodic; manageable-->new mattress resolved issue Tubular adenoma (08/31/18) also found TA during colonoscopy 2022-cecal polyp Abnormal ECG ragadenoson nuclear stress test 08/07/17 GERD (gastroesophageal reflux disease) Anemia GI workup neg including capsule endoscopy, Faraheme iron infusions 11/2018 & 05/2019 w/ good results History of fracture of nasal bone Folate deficiency Resolved 2019 folate >20 Edema Graft rejection (~10/26/09) Vitamin D deficiency 2021 level 45 Hiatal hernia (~12/08/06) Asthma Allergy (environmental) induced; hasn't been on inhalers for >10 years (2019) Surgical History Surgical History H/O colonoscopy (~2017) 03/28/2322-JWU-lorecwb adenoma fragments 07/09/2424-OPO-ugnxyx colonoscopy S/P left colectomy (~06/02/22) Dr Elizabeth, [facility] History of bladder surgery Sling--~2017 S/P vein stripping (~1966) History of corneal transplant Endothelial Left (1979), Right (1983) [facility] surgeon--will cont to attend History of penetrating keratoplasty Left Eye (1979), Right Eye (1983) Tobacco Smoking/Tobacco Use Status: Former Tobacco Use Passive smoking exposure: No Alcohol Alcohol Intake: current Alcohol intake frequency: holidays/special occasions only Alcohol type: beer Substance Use Substance use: Never Substance use type: does not use Vital Signs and Lab Results Vital Signs Most Recent Vital Signs in EMR: Temp Pulse Resp BP Pulse Ox 36.7 C 79 20 146/63 H 98 08/13/25 07:28 08/13/25 07:28 08/13/25 07:28 08/13/25 07:28 08/13/25 07:28 Lab Results Complete Blood Count: WBC, (4.4-10.8) 8.30 10^3/uL 08/04/25, 10:43 RBC, (3.93-5.22) 4.28 10^6/uL 08/04/25, 10:43 Hgb, (11.2-15.7) 11.6 g/dL 08/04/25, 10:43 Hct, (36.0-46.0) 36.9 % 08/04/25, 10:43 Plt Count, (130-400) 153 10^3/uL 08/04/25, 10:43 Complete Metabolic Panel: Sodium, (136-145) 141 mmol/L 08/04/25, 10:43 Potassium, (3.5-5.1) 3.5 mmol/L 08/04/25, 10:43 Chloride, (98-107) 105 mmol/L 08/04/25, 10:43 Carbon Dioxide, (21.0-32.0) 25.0 mmol/L 08/04/25, 10:43 BUN, (7-18) 22 mg/dL H 08/04/25, 10:43 Creatinine, (0.55-1.02) 1.1 mg/dL H 08/04/25, 10:43 Est GFR (CKD-EPI 2020), (mL/min/1.73m2) 52.08 08/04/25, 10:43 Calcium, (8.5-10.1) 9.1 mg/dL 08/04/25, 10:43 Albumin, (3.4-5.0) 3.5 g/dL 07/18/25, 08:25 Glucose, (74-106) 139 mg/dL H 08/04/25, 10:43 Liver Function Panel: ALT, (14-59) 14 U/L 07/18/25, 08: AST, (15-37) 20 U/L 07/18/25, 08:25 Anesthesia Assessment and Plan Anesthesia History Personal History: No History of Anesthesia Complications Family History: No Family History of Anesthesia Complications Exercise Tolerance Exercise Tolerance: Metabolic Equivalents>4 Pertinent Negatives Pertinent Negatives: No Symptoms of GERD, No Major Cardiovascular Symptoms or Complaints, No Major Pulmonary Symptoms or Complaints and No History of CVA/TIA Cardiac & Pulmonary Exam Cardiac Exam: Normal S1/S2 Heart Sounds Pulmonary Exam: Clear Bilateral Breath Sounds Implantable Cardiac Device Does patient have a Pacemaker or an ICD?: No Airway Exam Known Difficult Airway: No Mallampati Class: 2 Mouth Opening: Normal (> 3cm) Thyromental Distance: Less than 3 cm Neck Range of Motion: Full ROM Neck Circumference: Thick Teeth Condition: Generalized Poor Dentition, Loose or Chipped and Removable Dentures/Plates Upper ASA Classification ASA Score: ASA 2 Emergency Case?: No NPO Status NPO Status: NPO Clears >2 hours, Solids >8 hours Anesthesia Plan Resuscitation Status: Full Code Anesthesia Technique: Spinal Anesthesia Airway Planned: Natural Airway Pain Management: Surgeon and patient request nerve block Monitors Used: Standard Monitors Preoperative Comments:: 75 yo for bilateral TKA. Sig PMHx: HTN (lisinopril), CATHY, lung nodules, asthma, GERD (pantoprazole), scoliosis, colon CA (partial colectomy, chemo with Folfox, Oxaliplatin), DM2 (Lantus, Ozempic (held appropriately) last A1c in meditech 6.5), depression (bupropion). Former smoker, occ EtOH. ECG: sinus.
--- NOTE | 2025-08-13 07:19 | PDOC.DSDIS_ITS ---
Date of service: 08/13/25 Discharge Plan Disposition Patient Disposition: Home W/Home Health Services Condition: Good Discharge Details Reason For Visit: B/L TKR Attending Provider: Zoran Howard Primary Care Provider: Elisa Pa Home Meds and New Rx's Prescriptions: New acetaminophen 500 mg tablet 1,000 mg PO TID Qty: 90 3RF aspirin 81 mg tablet,delayed release (DR/EC) 81 mg PO BID Qty: 60 0RF celecoxib 200 mg capsule 200 mg PO BID Qty: 60 0RF dexamethasone 4 mg tablet 4 mg PO DAILY Qty: 2 0RF docusate sodium 100 mg capsule 100 mg PO BID PRNQty: 28 0RF gabapentin 300 mg capsule 300 mg PO QHS Qty: 14 0RF oxycodone 5 mg tablet 5 mg PO Q4H PRNQty: 18 0RF Continued sertraline 100 mg tablet 100 mg PO DAILY Qty: 90 3RF Rx Instructions: Dose increase 02/06/ bupropion HCl 300 mg tablet extended release 24 hr 300 mg PO QAM Qty: 90 3RF Rx Instructions: Dose increase 10/30/24 Ozempic 0.25 mg or 0.5 mg (2 mg/3 mL) pen injector 0.5 mg subcut QWEEK MDD 0.5 mg (DME) blood-glucose meter Misc See Rx Instructions .MEDSUPPLY Qty: 1 0RF Rx Instructions: As directed to check blood glucose once a day. No insulin. Dispense covered brand. Dx: E11.9 to maintain HbA1c less than 7%. (DME) Blood Glucose Test Strip See Rx Instructions .MEDSUPPLY Qty: 100 3RF Rx Instructions: As directed to check blood glucose once a day. No insulin. Dispense covered brand. Dx: E11.9 to maintain HbA1c less than 7%. (DME) lancets Misc See Rx Instructions .MEDSUPPLY Qty: 100 3RF Rx Instructions: As directed to check blood glucose once a day. No insulin. Dispense covered brand. Dx: E11.9 to maintain HbA1c less than 7%. Lantus Solostar U-100 Insulin 100 unit/mL (3 mL) insulin pen See Rx Instructions .ROUTE .COMPLEX Qty: 45 3RF Dose Instruction: INJECT 70 UNITS SUBCUTANEOUSLY EVERY MORNING & 20 UNITS EVERY EVENING FOR DIABETES MELLITUS NOT TO EXCEED 100 UNITS DAILY Rx Instructions: 42 units daily for diabetes or as directed with MDD 60 units/d pantoprazole 40 mg tablet,delayed release (DR/EC) See Rx Instructions .ROUTE .COMPLEX Qty: 90 3RF Dose Instruction: TAKE 1 TABLET BY MOUTH EVERY MORNING Rx Instructions: TAKE 1 TABLET BY MOUTH EVERY MORNING solifenacin [Vesicare] 5 mg tablet 5 mg PO DAILY Qty: 90 3RF Rx Instructions: Overactive bladder rosuvastatin 10 mg tablet See Rx Instructions .ROUTE .COMPLEX Qty: 90 3RF Dose Instruction: TAKE 1 TABLET BY MOUTH AT BEDTIME STOP SIMVASTATIN Rx Instructions: TAKE 1 TABLET BY MOUTH AT BEDTIME STOP SIMVASTATIN lisinopril 20 mg tablet 20 mg PO DAILY Qty: 90 3RF Rx Instructions: Blood pressure (DME) pen needle, diabetic [Comfort EZ Pen [place]] 32 gauge x 5/32 needle See Rx Instructions .ROUTE .MEDSUPPLY Qty: 100 3RF Rx Instructions: E11.9 to administer insulin daily for goal A1C <7% prednisolone acetate 1 % drops,suspension 1 drp ophthalmic (eye) .COMPLEX Rx Instructions: 1 gtt BID in January. 1 gtt qday OS. Optho note 01/21/25.HE (DME) FreeStyle Sly 3 Sensor Device See Rx Instructions .Route Qty: 1 0RF Rx Instructions: As directed Discharge Instructions Additional Instructions: Total Knee Discharge Instructions Activity: The most important activity is to walk and to work on gentle motion (both flexion and extension). You should try to take short walks a few times a day. It is important that when resting you work on keeping the knee straight. Avoid putting a pillow behind the knee as this will encourage flexion. Work on range of motion exercises as provided by Physical Therapy. - Start outpatient physical therapy within 2 weeks. - You should wear the OLVIN hose on both legs for 2 weeks. You may remove these at night. You may also use any compression sock in place of the OLVIN hose. - Utilize [employer] to review exercises, see videos on exercises and obtain basic information pertaining to your surgery and your recovery. Dressing: Remove the Yon wrap by 2 days after your surgery and put on the OLVIN stocking given to you from the hospital. Keep the surgical dressing (underneath the YON wrap) in place for at least one week. After the first week it may be removed and replaced with light gauze and tape or nothing. The wound and dressing may get wet after 3 days but avoid soaking the dressing or otherwise it will need to be changed. Many people prefer covering the dressing with cling wrap (saran wrap) to minimize it from getting soaked. If it gets wet, just pat dry. If it starts to peel off then it will need to be changed. Medications: - You should take Tylenol and anti-inflammatory Celebrex as your primary pain control medications. If the Celebrex is too expensive or not covered, please call the office for another alternative (Advil/Ibuprofen or Naproxen/Aleve) - You have been prescribed a stronger pain medication Oxycodone for breakthrough pain, take as needed as prescribed. - You will continue your stomach acid reduction agent Pantoprozole to help reduce stomach acid and reflux. - You have been prescribed Gabapentin to take at night for restlessness and nerve pain. - You will be taking Aspirin 81mg twice a day for DVT prevention unless instructed otherwise. - You have also been prescribed Decadron to take to control post-operative nausea and pain. You will start this tomorrow. - If you have constipation you should take Colace or Miralax (both [id number]). It takes most people 3-4 days to have a bowel movement. Follow-up: 2 weeks If you have any acute concerns or questions, please do not hesitate to contact the office at [phone]. You may contact Dr. Howard with any questions after hours through the hospital at [phone] or on his cell phone at [phone]. 1. Encounter Date and Reason I certify that Natalee Pittman was seen by Zoran Howard MD on 08/13/25 and that I had a [id number] encounter with this patient that meets the physician face to face encounter requirements. 2. Clinical Findings Supporting Skilled Need and Homebound Status I certify that home health services are medically necessary, include either intermittent mcc and/or physical/speech therapy, and that this pa tient is homebound in that absences from the home require considerable and taxing effort and are infrequent or of short duration, or are attributable to the need to receive medical care. [X] (a) Attached documentation from encounter provides clinical findings supporting skilled need and homebound status (including what assistance patient requires to leave the home). The encounter with the patient was in whole, or in part, for the following medical condition, which is the primary reason for home health care: B/L TKR Shelter: Physical Therapy: Natalee would benefit from home health physical therapy as she recovers from bilateral knee replacements. She has notable weakness and gait dysfunction from longstanding osteoarthritis and recent bilateral knee replacements. Physical therapy should focus on initial range of motion and strength for independent mobilization within her home. She has no formal restri ctions and is weightbearing as tolerated with a walker. Speech Therapy: Homebound: Natalee is unable to leave her home unassisted due to weakness and gait dysfunction. 3. Certification and Authentication I certify that I composed the above information based on my clinical judgement relating to this patient's medical condition and, if applicable, clinical findings communicated to me by the NPP or inpatient physician who performed the Home Health Referral. All further orders will be obtained through Dr. Howard Stand Alone Forms: Anesthesia Discharge Inst., [facility].Nerve Block Instructions, Kiko Acevedo ([facility]) Referrals: Zoran Howard MD [ [facility] STAFF PHYSICIAN, Orthopaedic Surgical] - 08/28/25 10:30 am Equipment/Supplies: Walker Activity:: Activity as Tolerated Shower/Bathe:: 72 hours Diet:: As Tolerated Discharge Orders Discharge Orders: Discharge Order (Routine); Ordered 08/13/25 Ordered By: Joseph Mota DS: Diagnosis Discharge Diagnosis (1) Arthritis of left knee: Status: Resolved (2) Degenerative joint disease of right knee: Status: Resolved
[2025-08-13] MEDS: Celecoxib 200 MG CAP 400 MG PO (08:02)
[2025-08-13] MEDS: Gabapentin 300 MG CAP PO (08:02)
[2025-08-13] MEDS: Acetaminophen 500 MG TAB 1000 MG PO (08:02)
[2025-08-13] MEDS: Lactated Ringers 1,000 ML 80 ML IV (08:10)
--- NOTE | 2025-08-13 09:15 | W.PM.OP ---
Operative Note Operative Note PRE-OP DIAGNOSIS: Bilateral Knee Arthritis POST-OP DIAGNOSIS: same PROCEDURE: Bilateral Knee Arthroplasty SURGEON: Zoran Howard IT TECHNICAL SUPPORT SPECIALIST: Rosaura Mota ANESTHESIA TYPE: Spinal Refer to Anesthesia Record ESTIMATED BLOOD LOSS: 450 PATHOLOGY: none sent COMPLICATIONS: None Patient was transported to: PACU Patient's condition: stable Implants: LEFT: 1. Depuy Attune Cementless Cruciate Retaining Femoral Component, Size 4 2. Depuy Attune Cementless Fixed Bearing Tibial Component, Size 4 3. Depuy Attune 4x7 CR/FB Poly 4. Depuy Attune Patellar Component, Size 35 RIGHT: 1. Depuy Attune Cementless Cruciate Retaining Femoral Component, Size 4 2. Depuy Attune Cementless Fixed Bearing Tibial Component, Size 4 3. Depuy Attune 4x8 CR/FB Poly 4. Depuy Attune Patellar Component, Size 35 Indications: I have seen Natalee in clinic for symptoms of knee arthritis, confirmed with radiographic findings. SHe has exhausted nonoperative methods and was having significant limitations in daily function and desired better function and less pain. I discussed the technical details of a knee replacement. I explained the risks of the procedure to include, but not limited to, bleeding, infection, pain, stiffness, fracture, damage to nerves and vessels, damage to muscles and tendons, loosening, need for repeat procedure, blood clot and cardiopulmonary demise. Despite these risks, Natalee elected to proceed. Findings: There was significant arthritis throughout both knees involving all 3 compartments. The lateral compartment actually was most affected on the left side and there was notable deformity of the lateral femur posteriorly of both knees.. Procedure Description: Natalee was greeted in the preoperative holding area where the correct side was identified and marked. The consent was reviewed with the patient and signed. The history and physical was updated. All questions were answered. Preoperative medications were administered: Acetaminophen 1000mg, Celebrex 400mg, and Gabapentin 300mg. An adductor canal block was then administered by the anesthesia team in the [facility]. Natalee was taken back to the operating room. A spinal anesthestic was then administered. The patient was placed into the supine position on the operating room table. A nonsterile tourniquet was placed high onto the leg but only used for cementing. Posts were placed for positioning during the procedure. All bony prominences were well padded. Prophylactic antibiotics in the form of Cefazolin were administered. 1g of Tranxemic Acid was given intravenously within 30 minutes of incision. Both legs were then prepped with Chloraprep and draped in a standard fashion with impervious stockinette. The left knee was kept in the stockinette and the stockinette is open on the right side where a second prep with Chloraprep was performed prior to application of Iodine impregnated skin protection. A timeout to confirm correct identity, side and site, procedure, allergies, anesthesia, and medical concerns was performed. RIGHT KNEE: With the knee in some flexion, a midline incision was made overlying the knee. Full thickness skin flaps were raised once the extensor mechanism was encountered. These were raised medially and laterally. Any bleeding was controlled with electrocautery. Once the extensor mechanism was fully exposed, a medial parapatellar arthrotomy was performed in a flexed position. All bleeding from the arthrotomy and the geniculate arteries was coagulated. A medial subperiosteal peel was performed with electrocautery to the midcoronal plane. The fat pad was removed while keeping the patellar tendon protected. The anterior distal femur synovium was removed for later visualization. The ACL and PCL were resected and the anterior horn of the lateral meniscus was transected. The knee was then flexed with the patella everted. Large osteophytes from the tibia were removed. Large osteophytes from the femur were removed. There was notable disease process involving all 3 compartments with some areas of eburnated bone laterally and in the patella. Using a step drill, and based on preoperative templating, the femoral canal was entered. This was done with a step drill without any difficulty. The intramedullary distal femoral cut guide was inserted, set to a 6 degree valgus cut and 9mm cut thickness. The distal femoral cut guide was then held in position and pinned. With the soft tissues protected, the distal cut was performed. This was passed over a few times to ensure a planar cut. I then turned attention to the tibia. The extramedullary guide was placed onto the leg. The distal aspect was slid medial to adjust for position of center of ankle and stay in line with shaft of the tibia. Approximately 3-5 degrees of posterior slope was kept in the proximal cutting guide. The center of the guide was aligned with the PCL. The stylus was used to assess cut thickness. The medial side, most involved side, was set for a 5mm cut, corresponding to 8 mm laterally. This was then held in position and pinned into place with 2 additional pins and a cross pin for stability. The medial and lateral collateral ligaments were protected and the cut was performed. With this completed, it was assessed and noted to be of appropriate dimensions. The guide was removed. A spacer block was inserted and the knee was brought into extension. The 8mm spacer block provided full extension, without hyperextension and with stability of both the medial and lateral collateral ligaments was assessed. The pins from the femur and the tibia were then removed. The distal femur was then sized. The anterior stylus was placed onto the lateral ridge of the anterior femur. This indicated a size 4 femur. The external rotation of the guide was adjusted to 0 degrees to match the epicondylar axis, perpendicular to Argyle´s line. The 4-in-1 cutting guide was the placed. The posterior medial femur cut was evaluated and appeared of good thickness. The spacer block was inserted underneath the cutting guide and stability was confirmed in 90 degrees of flexion. An connie wing was used to confirm appropriate position of the anterior cut to avoid notching. This cutting guide was ensured to be flush on the cut surface and then pinned into place with headed pins. While protecting the soft tissues, quad tendon, and collateral ligaments, the anterior and posterior cuts were performed with a saw. The central two pins were removed and the posterior and anterior chamfers were cut next. The notch-cutting guide was placed. This was pinned to lateralize the femoral component as much as possible while keeping it flush on the cut surface. This was then pinned into position. A reciprocating saw was used to make the notch cut. A rasp smoothed the cut surfaces. The medial and lateral menisci were removed. A trial femoral component was then inserted, impacted down to the cut surfaces, and the lug holes were drilled. A provisional trial tibial component was placed and the knee was brought through range of motion. The polyethylene was trialed until there was good flexion and extension with excellent stability to the medial and lateral collaterals. The patella was tracking without thumbs. A size 8mm polyethylene component provided the best range of motion and stability with less than 2mm gapping with medial and lateral stress and full extension without significant hyperextension. The tibial cut surface was fully exposed. The tibia was then sized as a 4. The tibia had been previously marked during trialing to correspond to the center of the tibial component to help with rotation. The trial was aligned to this rosaura, approximately rotated to the medial 1/3rd of the tibial tubercle. The trial was pinned into place. The tibia was prepared with a reamer and a keel punch and lug holes. The knee was then brought into extension and the patella was measured as 21mm. Using the patellar clamp and cut guide, this was resected to a flat surface with at least 13mm of thickness remaining. The size 35mm patella fit the best. This was oriented and then clamped into position. The lugs were drilled. The trial components were removed. The final components were opened on the back table. The periosteal and capsular tissues, especially posteriorly, around the knee were then systematically injected with a periarticular cocktail consisting of 200mg of Ropivacaine, 0.5mg of Epinephrine, 30mg of Ketorolac, diluted to 100cc. On the back table, with the implants opened, the cement was mixed. One batch of high viscosity cement was prepared with vacuum assistance. After the cement was ready a small amount was placed on the cut surface of the patella and the patellar button was clamped into position and held. While the cement was hardening, the cementless knee components were placed. Starting with the tibial component, the tibia was subluxed anteriorly and the lug holes of the component were lined up. The tibia was then impacted with an impactor and mallet until the tibial component was in contact with the tibia. The final polyethylene component was inserted. Then, the femoral component was inserted. The lug holes were aligned and the component was impacted into position. The knee was irrigated with Surgiphor Betadine solution. This was allowed to sit in the knee for 3 minutes and then it was irrigated out with saline. After the cement had finally cured, approximately 15min, the clamp was removed from the patella and the knee was taken through range of motion. The patella was tracking with a no-thumbs technique. The capsule was then reapproximated with a No. 1 Vicryl at multiple locations. The capsule was finally closed with a No. 2 Stratafix, barbed suture. The second dosing of 1g TXA was started. Deep tissues were then reapproximated with 0 Vicryl and 2-0 Vicryl. The skin was closed with a running 3-0 Monocryl in a subcuticular fashion. ENRIQUE KNEE: Attention was then turned to the left knee. Stockinette was incised and the left knee was prepped with ChloraPrep. An iodine impregnated drape was then placed on top of the knee once that had dried. Then, with the knee in some flexion, a midline incision was made overlying the knee. Full thickness skin flaps were raised once the extensor mechanism was encountered. These were raised medially and laterally. Any bleeding was controlled with electrocautery. Once the extensor mechanism was fully exposed, a medial parapatellar arthrotomy was performed in a flexed position. All bleeding from the arthrotomy and the geniculate arteries was coagulated. A medial subperiosteal peel was performed with electrocautery to the midcoronal plane. The fat pad was removed while keeping the patellar tendon protected. The anterior distal femur synovium was removed for later visualization. The ACL and PCL were resected and the anterior horn of the lateral meniscus was transected. The knee was then flexed with the patella everted. Large osteophytes from the tibia were removed. Large osteophytes from the femur were removed. Once again, all 3 compartments had significant disease. There is noted to be a defect in the central portion of the lateral tibia with notable deformity of the patella as well. Using a step drill, and based on preoperative templating, the femoral canal was entered. This was done with a step drill without any difficulty. The intramedullary distal femoral cut guide was inserted, set to a 6 degree valgus cut and 9mm cut thickness. The distal femoral cut guide was then held in position and pinned. With the soft tissues protected, the distal cut was performed. This was passed over a few times to ensure a planar cut. I then turned attention to the tibia. The extramedullary guide was placed onto the leg. The distal aspect was slid medial to adjust for position of center of ankle and stay in line with shaft of the tibia. Approximately 3-5 degrees of posterior slope was kept in the proximal cutting guide. The center of the guide was aligned with the PCL. The stylus was used to assess cut thickness. The central point of the defect laterally was measured to be about 3 mm which corresponded to about 6 mm medially. This was then held in position and pinned into place with 2 additional pins and a cross pin for stability. The medial and lateral collateral ligaments were protected and the cut was performed. With this completed, it was assessed and noted to be of appropriate dimensions. The guide was removed. A spacer block was inserted and the knee was brought into extension. The 7mm spacer block provided full extension, without hyperextension and with stability of both the medial and lateral collateral ligaments was assessed. The pins from the femur and the tibia were then removed. The distal femur was then sized. The anterior stylus was placed onto the lateral ridge of the anterior femur. This indicated a size 4 femur. The external rotation of the guide was adjusted to 0 degrees to match the epicondylar axis, perpendicular to Argyle´s line. The 4-in-1 cutting guide was the placed. The posterior medial femur cut was evaluated and appeared of good thickness. The spacer block was inserted underneath the cutting guide and stability was confirmed in 90 degrees of flexion. An connie wing was used to confirm appropriate position of the anterior cut to avoid notching. This cutting guide was ensured to be flush on the cut surface and then pinned into place with headed pins. While protecting the soft tissues, quad tendon, and collateral ligaments, the anterior and posterior cuts were performed with a saw. The central two pins were removed and the posterior and anterior chamfers were cut next. The notch-cutting guide was placed. This was pinned to lateralize the femoral component as much as possible while keeping it flush on the cut surface. This was then pinned into position. A reciprocating saw was used to make the notch cut. A rasp smoothed the cut surfaces. The medial and lateral menisci were removed. A trial femoral component was then inserted, impacted down to the cut surfaces, and the lug holes were drilled. A provisional trial tibial component was placed and the knee was brought through range of motion. There was noted to be excellent extension and flexion. There was no significant instability. The patella was tracking without thumbs. A size 7mm polyethylene component provided the best range of motion and stability with less than 2mm gapping with medial and lateral stress and full extension without significant hyperextension. The tibial cut surface was fully exposed. The tibia was then sized as a 4. The tibia had been previously marked during trialing to correspond to the center of the tibial component to help with rotation. The trial was aligned to this rosaura, approximately rotated to the medial 1/3rd of the tibial tubercle. The trial was pinned into place. The tibia was prepared with a reamer and a keel punch and lug holes. The knee was then brought into extension and the patella was measured as 20mm. Using the patellar clamp and cut guide, this was resected to a flat surface with at least 13mm of thickness remaining. The size 35 patella fit the best. This was oriented and then clamped into position. The lugs were drilled. The trial components were removed. The final components were opened on the back table. The periosteal and capsular tissues, especially posteriorly, around the knee were then systematically injected with a periarticular cocktail consisting of 246mg of Ropivacaine, 0.5mg of Epinephrine, 0.08mg of Clonidine, and 30mg of Ketorolac, diluted to 100cc. On the back table, with the implants opened, the cement was mixed. One batch of high viscosity cement was prepared with vacuum assistance. After the cement was ready a small amount was placed on the cut surface of the patella and the patellar button was clamped into position and held. While the cement was hardening, the cementless knee components were placed. Starting with the tibial component, the tibia was subluxed anteriorly and the lug holes of the component were lined up. The tibia was then impacted with an impactor and mallet until the tibial component was in contact with the tibia. The final polyethylene component was inserted. Then, the femoral component was inserted. The lug holes were aligned and the component was impacted into position. The knee was irrigated with Surgiphor Betadine solution. This was allowed to sit in the knee for 3 minutes and then it was irrigated out with saline. After the cement had finally cured, approximately 15min, the clamp was removed from the patella and the knee was taken through range of motion. The patella was tracking with a no-thumbs technique. The capsule was then reapproximated with a No. 1 Vicryl at multiple locations. The capsule was finally closed with a No. 2 Stratafix, barbed suture. Deep tissues were then reapproximated with 0 Vicryl and 2-0 Vicryl. The skin was closed with a running 3-0 Monocryl in a subcuticular fashion. Both incisions were then reinforced with skin glue. A Mepilex silver dressing was applied along with a [id number] LAURA wrap to both knees. A CryoCuff was applied. Natalee was transferred to the hospital bed without difficulty an suffering no apparent complication. Natalee has a good prognosis. Physical therapy will start today and without restrictions, weight-bearing as tolerated. Aspirin 81mg BID will be used for DVT prophylaxis. Date of Procedure: 08/13/25
[2025-08-13] MEDS: ceFAZolin 2 GM/50 ML BAG IVPB (09:31)
[2025-08-13] MEDS: TRANEXAMIC ACID/SOD. CHL. 1,000 MG/100 ML BAG 600 MG IVPB (09:35)
[2025-08-13] MEDS: Ketorolac 30 MG/ML VIAL (09:57)
[2025-08-13] MEDS: ROPIvacaine 0.2% 200 MG/100 ML BAG (09:57)
[2025-08-13] MEDS: EPINEPHrine 1 MG/ML AMP pres-free (09:57)
--- NOTE | 2025-08-13 11:10 | W.ANESNERVE ---
Nerve Block Single Injection Procedure Date and Time Date Performed: 08/13/25 Procedure Start: 09:41 Location Where Procedure Performed Procedure Location: Day Surgery Unit Reason Performed: Postoperative Analgesia Requesting Provider: Zoran Howard Timeout Performed Timeout Performed: Yes Monitoring Used ECG, Blood Pressure, SpO2 and See EMR for corresponding vital signs Sterility Sterility: Hand Hygiene, Surgical Cap, Surgical Mask, Sterile Gloves and Chlorhexidine Sedation Given During Procedure Sedation Given (Indicate Dose Given): Propofol IV Dose:: 30mg Patient Mental Status Patient Mental Status: Sedate with meaningful communication Nerve Block 1st Nerve Block: Laterality: Bilateral Block Type: Adductor Canal Ultrasound Image Saved?: Yes Needle / Catheter Used: 100mm SonoPlex II Local Anesthetic Bolus (Indicate Dose Given): Lidocaine used for local infiltration of skin, Half of Total block solution given into each side, Bupivacaine 0.5% Dose:: 20ml and Exparel Dose:: 20ml Additives (Indicate Dose Given): None Ultrasound: Sterile probe cover and gel used Nerve Stimulator: Supplement to Ultrasound use and No twitch or parasthesia noted < 0.5 mA (<0.8 mA) Paresthesia: None Procedure Tolerated: No Complications and Patient tolerated well Procedure Outcome: Successful Performed By: Paradise Sebastian Supervised By: Rayray Sorto
--- NOTE | 2025-08-13 12:53 | W.ANESPOSTOP ---
Postoperative Evaluation Date, Time and Location Date Performed: 08/13/25 Time Performed: 12:53 Patient Location: PACU Vital Signs Most Recent Imported Vital Signs: Most Recent Vital Signs Temp Pulse Resp BP Pulse Ox 36.4 C L 75 21 136/58 L 97 08/13/25 12:33 08/13/25 08:40 08/13/25 08:40 08/13/25 08:40 08/13/25 08:40 Pain Score Most Recent Pain Score: Most Recent Pain Score Pain Level 0 08/13/25 08:40 Assessment Mental Status: Awake (Alert & Oriented to Patient Baseline) Airway and Respiratory Function: Patent airway with normal (patient baseline) respiratory exam Cardiovascular Function: Hemodynamically Stable Hydration Status: Adequately Hydrated Nausea & Vomiting: No Nausea or Vomiting Pain: Pain is tolerable per patient (spinal waning) Peripheral Nerve Block: Regional nerve block not resolved at time of post operative discharge
--- NOTE | 2025-08-13 16:12 | PT.INIE ---
PT Notes Visit Reasons: B/L TKR Physical Therapy Day Surgery Initial Evaluation Date: 08/13/2025 Referring Doctor: PAULETTE Mijares/Dr. Howard PT Orders: PT CONSULT: PT evaluation status post Ortho surgery Precautions: WBAT bilateral lower extremities Patient Profile/Admitting Diagnosis: Patient is 75-year-old female admitted status post elective bilateral TKA under spinal anesthesia with nerve blocks by Dr. Howard on 08/13/2025. Postop uncomplicated PMHX: Scoliosis (Acute) ImagingArthritis of left knee (Acute) Degenerative joint disease of right knee (Acute) Left knee DJD (Acute) Stage II carcinoma of colon (Chronic ~04/2022) [facility]; Invasive mod. differentiated adenocarcinoma, Staging [id number] lung nodules on CT (Chronic ~04/2022) 08/01/22, 02/2023 stable pulmonary nodules, med onc managing (2022)Mixed stress and urge incontinence (Chronic) RX Vesicare (discontinuation trial 09/2021 unsuccessful); resumption Vesicare improved symptomsPeriodic limb movement sleep disorder (Chronic ~10/2020) Sleep MedicineDepression (Chronic) Long-term Lexapro RX (trialed off but ineffective; discont 01/2022 secondary to hyperhidrosis) Restarted Sertraline effectiveObstructive sleep apnea of adult (Chronic) 11/02/20 Telehealth wit [facility], on CPAP Therapy.Sensory hearing loss, bilateral (Chronic) 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) use of non-steroidal anti-inflammatories (nsaid) (Chronic) Ibuprofen 2-3 times per day for kneesOsteoarthritis of both knees (Chronic ~02/2023) Severe: X-rays 05/2023 Uses Ibuprofen 800mg BID; has trialed knee injections, but no longer effective; wants to avoid surgery/replacement; wants to resume yin yogaOAB (overactive bladder) (Chronic) With combined stress & urge incontinence-->Oxybutynin (failed), Vesicare helpful (tho dry mouth); RX Vesicare (discontinuation trial 09/2021 unsuccessful)Keratoconus (Chronic) B/L eye disease; corneal disease; managed by Ophthal; eye dropsHyperlipidemia (Chronic) Hypertension (Chronic) Type II diabetes mellitus (Chronic ~1979) Dx'ed 1980s; Victoza, insulin Medical History Vitreous degeneration left eye per 05/30/25 Eye ExamAdenocarcinoma, colon (~04/2022) Stage II pressure ulcer of buttock Generalized hyperhidrosis (~08/2021) Nocturnal--Lexapro discontinued & hyperhidrosis stopped Diagnosed with colon cancerSessile colonic polyp (~2013) Low folic acid Elevated C-reactive protein (CRP) Bilateral arm numbness and tingling while sleeping Episodic; manageable-->new mattress resolved issueTubular adenoma (08/31/18) also found TA during colonoscopy 2022-cecal polypAbnormal ECG ragadenoson nuclear stress test 08/07/17GERD (gastroesophageal reflux disease) Anemia GI workup neg including capsule endoscopy, Faraheme iron infusions 11/2018 & 05/2019 w/ good resultsHistory of fracture of nasal bone Folate deficiency Resolved 2019 folate >20Edema Graft rejection (~10/26/09) Vitamin D deficiency 2021 level 45Hiatal hernia (~12/08/06) Asthma Allergy (environmental) induced; hasn't been on inhalers for >10 years (2019) Surgical History H/O colonoscopy (~2017) 03/28/2362-FVB-vozaiwq adenoma fragments 07/09/2480-JQE-npbmul colonoscopyS/P left colectomy (~06/02/22) Dr Elizabeth, LRHHistory of bladder surgery Sling--~2017S/P vein stripping (~1966) History of corneal transplant Endothelial Left (1979), Right (1983) [facility] ophthal surgeon--will cont to attendHistory of penetrating keratoplasty Left Eye (1979), Right Eye (1983) Social History/Home Situation: Patient resides with her daughter in a multilevel home patient has a ramp to enter, patient also has entrance with 2 sets of 4 to 5 inch steps with rail. Patient independent ADLs and ambulation. Patient's daughter is available to assist as needed. Patient is employed at [employer]. Patient drives, patient was independent with home management, cooking, shopping Equipment Owned/DME: oscar EPPERSON Subjective: Patient reports she has discomfort in the back of her right knee. Patient reports she goes down the stairs backwards and she feels safer that way. Objective: [] General Observation: Female presented semireclined on stretcher Cryo/Cuff to bilateral knees. Daughter arrived after evaluation started Mental Status: Alert and oriented x 4, cooperative, able to follow instructions, agreeable to participate Pain: Patient reports pain 2/10 noting stiffness in both knees posteriorly and left glued pain ROM: [] Right Upper Extremity: WFL Left Upper Extremity: WFL Right Lower Extremity: Hip and ankle WFL, knee 0 to 100 degrees Left Lower Extremity: Hip and ankle WFL, knee 0-95 degrees Strength: [] Right Upper Extremity: 5/5 Left Upper Extremity: 5/5 Right Lower Extremity: Hip flexion: 3- /5; hip abduction: 3-/5; hip extension: 3- /5; knee extension: 3 /5; knee flexion: 2+ /5 ankle DF: 3 /5 ; ankle PF: 3 /5, demonstrates strong quad set and SLR within shortened range without lag Left Lower Extremity: Hip flexion: 3- /5; hip abduction: 3- /5; hip extension: 3-/5; knee extension:3 /5; knee flexion: 2+ /5 ankle DF: 3 /5 ; ankle PF: 3/5.demonstrates strong quad set and SLR within shortened range without lag Sensation: Intact Bed Mobility/Transfers: [] Supine to sit CGA Sit to stand CGA Stand to sit SBA Bed to chair CGA with FWW Gait: amb with FWW 50 feet step to pattern leading with right lower extremity patient demonstrated excessive circumduction of right lower extremity and excessive weightbearing through lateral surface of foot however when led with left lower extremity patient demonstrated no circumduction or weightbearing on lateral surface of foot. Stairs: 3 x 4 inch step with bilateral rails step to pattern leading with right ascending; descended backwards utilizing bilateral upper extremities leading with left lower extremity. Balance: [] Static Sitting: Normal Dynamic Sitting: Good for Static Standing: Good with upper extremity support Dynamic Standing: Fair plus with upper extremity support Special Tests: [] Mobility Limitations Standardized Measure [] [facility] AM-PAC 6 clicks Basic Mobility Inpatient Short Form: [] Raw Score: 20 CMS Score: 35.83% Informed Consent/Education: Patient instructed in purpose of PT consult. Treatment: 88473 Packet containing TKA exercise protocol has been given to patient. Education and training on initial set of 5 reps ofexercises that can be done at home have been completed with patient. [id number]: functional transfers various surfaces including chair with and without armrest, toilet, and simulated car transfer SBA intermittent cues for safe approach and technique to bend at hips then sit to lower down to surface. Stair training with dtr , 1 rail with cane leading with right LE, step to pattern 6x 2 and 4 steps x 3CGA Pt performed stairs descending forward and backward which she performed prior to surgery. Dtr able to provide appropriate cuing for transfersand ambulation to lead with Left LE to reduce circumduction of right LE and weight bearing on lateral border of right foot Assessment: Patient is a 75 yo female who presents with clinical signs and symptoms consistent with current/admitting diagnoses that have resulted to mobility limitations, gait instability, generalized weakness, and impairment of motor control as demonstrated by the following impairment level findings: 1. Decreased strength to B knee major muscle groups 2. Impaired standing balance 3. Limitation of joint range of motion in B knee 4. pain B knees and left glute 5. impaired functional activity tolerance Impairments are contributing to the following functional limitations: 1. Inability to safely ambulate without assistive device 2. Increase completion time for mobility ADL performance 3. Increased fall risk 4. difficulty performing transfers 5. difficulty performing stairs without assistance Patient is assessed as a moderate complexity based on the following: History:75-year-old female with impairment level findings, functional limitations, and past medical history as indicated above Examination: Demonstrable impairment in strength, balance, and mobility level with underlying impairments and functional limitations as documented above Presentation: stable/ evolving Decision Making: moderate Goals: N/A. PT evaluation and 1-2 treatment sessions only for functional mobility training using recommended AD and for HEP instruction. Plan of Care/Treatment Plan: N/A. PT evaluation and 1-2 treatment session only for functional mobility training using recommended AD and for HEP instruction. DISCHARGE RECOMMENDATIONS:Home with HEP, HHPT with progression to Outpatient PT as scheduled TREATMENT CODE/TIME: 29193, 08432, 71292/ [id number] Thank you for the opportunity to participate in the care of this patient. Danni Oreilly PT [facility]
== END 2025-08-13 16:43 | disposition home health service (06) ==
PROVIDERS: PCP Nurse Practitioner Adult Health; Visit Provider Student in an Organized Health Care Education/Training Program
PROC: 0SRC0JZ Replacement of Right Knee Joint with Synthetic Substitute, Open Approach (ICD-10-PCS; CPT 27447; principal; 2025-08-13 09:30)
DX: M17.12 Unilateral primary osteoarthritis, left knee (principal); M17.0 Bilateral primary osteoarthritis of knee; I10 Essential (primary) hypertension; G47.33 Obstructive sleep apnea (adult) (pediatric); K21.9 Gastro-esophageal reflux disease without esophagitis; E11.9 Type 2 diabetes mellitus without complications; G89.18 Other acute postprocedural pain
CPT/HCPCS: 27447; 64447; 97110; 97162; 97530; C1776; J0166; J0665; J0666; J0690; J1100; J1885; J2003; J2371; J2405; J2704; J2795; J3475

== ENCOUNTER 2025-08-28 15:36 | Outpatient (CLI) | payer MEDICARE, SELFPAY ==
--- NOTE | 2025-08-28 14:45 | DI.RAD_ITS ---
Exam(s) XR KNEE LT 1V XR KNEE RT 1V XR STANDING ALIGNMENT EXAM: XR STANDING ALIGNMENT CLINICAL HISTORY: 1ST POST OP S/P BILAT TKAs. TECHNIQUE: 2D digital imaging was performed. Standing AP views were performed from the pelvis through the ankles. Weight-bearing lateral views of both knees COMPARISON: CR XR STANDING ALIGNMENT from 05/26/2025 CR XR KNEE LT 1V from 08/28/2025 CR XR KNEE RT 1V from 08/28/2025 FINDINGS: BONES: No acute fracture is present. No bony destructive lesion is seen. Leg length discrepancy: No significant overall leg length discrepancy. JOINTS: Knees: Bilateral total knee prostheses are in place which show satisfactory alignment. The ankle joints are unremarkable. The hip joints are unremarkable. SOFT TISSUE: Normal. IMPRESSION: Bilateral total knee prostheses have been placed since the prior exam. The alignment is satisfactory. No significant leg length discrepancy. DATA REPOSITORY: RADIATION DOSE DELIVERED:
== END 2025-08-28 15:37 | disposition home or self-care (01) ==
LOC: DIORS 15:36
PROVIDERS: PCP Nurse Practitioner Adult Health; Referring Provider Nurse Practitioner Adult Health; Visit Provider Physician Assistant
DX: Z47.1 Aftercare following joint replacement surgery (principal); Z96.653 Presence of artificial knee joint, bilateral
CPT/HCPCS: 99024; 73560; 77073

== ENCOUNTER → 2025-10-08 11:00 | Outpatient (BNVA) | payer MEDICARE, SELFPAY | PROVIDERS: PCP Nurse Practitioner Adult Health; Referring Provider Nurse Practitioner Adult Health; Visit Provider Physician Assistant | DX: Z47.1 Aftercare following joint replacement surgery (principal); Z96.653 Presence of artificial knee joint, bilateral | CPT/HCPCS: 99024 ==